=== PATIENT | male | born 1935 | race Caucasian/White ===

== ENCOUNTER 2018-05-01 01:00 | Inpatient (IN) | END 2018-05-13 18:25 | DRG 871 ==

== ENCOUNTER 2018-05-15 13:42 | Inpatient (IN) | END 2018-06-04 18:27 | DRG 871 ==

== ENCOUNTER 2019-01-01 14:52 | Inpatient (IN) | payer BC, MEDICARE ==
[~2019-01-01] VITALS: Ht 170.2 cm; Wt 57.8 kg
[~2019-01-01 14:52] MED LIST: ACET325T33 PO; ALBU2.5V3 NEB; APIX2.5T PO; ASCO500C7 PO; ASPI-903 PO; ATOR10TA65 PO; BENA10TA4 PO; CHOL200056 PO; CLON-429 PO; CRAN3875 PO; CRAN425C6 PO; DIGO125T PO; DOCU-144 PO; DONE5TAB46 PO; FURO40TA4 PO; LANT3I SC; LINA5TAB PO; METF500T24 PO; METO-448 PO; MULT-105 PO; OMEP20CA16 PO; QUET100T PO; TYL500 PO; VLP250480 PO
[2019-01-01] MEDS ORDERED: ZINC220T PO (16:49)
[2019-01-01] MEDS ORDERED: CLON-379 PO (16:53)
[2019-01-01] MEDS ORDERED: BISA10SU75 PR (16:54)
[2019-01-01] MEDS ORDERED: MINE133E23 PR (16:55)
[2019-01-01] MEDS ORDERED: FURO80TA3 PO (16:55)
[2019-01-01] MEDS ORDERED: LANS30CA PO (16:56)
[2019-01-01] MEDS ORDERED: MAGN400O19 PO (16:58)
[2019-01-01] MEDS ORDERED: VANCOMYCIN 1 GM (PMX) 250 ML IVPB ONE (17:30)
[2019-01-01] MEDS ORDERED: ONDANSETRON 4 MG INJ IV PRN (18:00)
[2019-01-01] MEDS ORDERED: ACETAMINOPHEN 325 MG TAB PO PRN (18:00)
[2019-01-01] MEDS ORDERED: BACITRACIN 0.9 GM OINT ONE (19:13)
--- NOTE | 2019-01-01 19:36 | ERD ---
ER Documentation Chief Complaint Chief Complaint jono reaves from [facility] for bilateral arterial foot ulcers wound HPI This is an 83-year-old male with a past medical history of hypertension, hyperlipidemia, diabetes, coronary artery disease, congestive heart failure, atrial fibrillation, Alzheimer's dementia, osteomyelitis with previous amputations from diabetic foot ulcers who is presenting from his [facility] facility with worsening bilateral lower extremity diabetic foot ulceration, failing outpatient management. History and physical is limited secondary to dementia. ROS Unable to obtain secondary to dementia. Medications Home Meds Reported Medications Magnesium Hydroxide* (Milk Of Magnesia*) 400 Mg/5 Ml Oral.susp, 30 ML PO QHS PRN for NEEDED, ML 01/01/19 Lansoprazole* (Lansoprazole*) 30 Mg Capsule.dr, 30 MG PO DAILY, CAP 01/01/19 Furosemide* (Furosemide*) 80 Mg Tablet, 80 MG PO DAILY, #30 TAB 01/01/19 Mineral Oil* (Fleet* Mineral Oil Enema) 133 Ml Oil, 1 APPLIC AK Q2D, ENEMA NEEDED 01/01/19 Bisacodyl* (Bisacodyl*) 10 Mg Supp, 10 MG AK DAILY PRN for NEEDED, SUPP 01/01/19 Clonidine Hcl* (Clonidine Hcl*) 0.1 Mg Tab, 0.1 MG PO Q8H PRN for IF SBP>160, TAB 01/01/19 Zinc Sulfate* (Zinc Sulfate*) 220 Mg Tablet, 220 MG PO DAILY, TAB 01/01/19 Ascorbic Acid* (Vitamin C*) 500 Mg Capsule.sa, 500 MG PO DAILY, CAP 10/10/18 Valproic Acid* (Valproic Acid* Liq) 250 Mg/5 Ml Syrup, 2.5 ML PO BID, ML 10/10/18 Cran/Vitc/Mannose/Inulin/Brom (Uti-Stat Liquid) 3,875 Mg/30 Ml Liquid, 30 ML PO DAILY 10/10/18 Acetaminophen* (Tylenol*) 500 Mg Tab, 1000 MG PO BID PRN for GENERALIZED PAIN, TAB 10/10/18 Acetaminophen* (Tylenol*) 500 Mg Tab, 1000 MG PO Q6H PRN for PAIN 4-6/10, TAB 10/10/18 Acetaminophen* (Tylenol*) 325 Mg Tablet, 650 MG PO Q6H PRN for MILD PAIN LEVEL 1-3, TAB 10/10/18 Linagliptin (TRADJENTA) 5 Mg Tablet, 5 MG PO DAILY, TAB 10/10/18 Quetiapine Fumarate* (Seroquel*) 100 Mg Tablet, 100 MG PO HS, #30 TAB 10/10/18 Multivitamin with Minerals (Multivitamins with Minerals) 1 Each Tablet, 1 EACH PO DAILY, TAB 10/10/18 Metoprolol Tartrate* (Lopressor*) 25 Mg Tab, 25 MG PO BID, #60 TAB HOLD FOR SBP [id number] OR HR BELOW60 10/10/18 Metformin Hcl* (Metformin Hcl*) 500 Mg Tablet, 500 MG PO WITH BREAKFAST DINNE, #60 TAB 10/10/18 Insulin Glargine* (Lantus*) 100 Unit/Ml Soln, 38 UNIT SC QHS, #1 VIAL 10/10/18 Clonazepam* (Klonopin*) 0.5 Mg Tab, 0.5 MG PO DAILY PRN for ANXIETY, TAB 10/10/18 Apixaban* (Eliquis*) 2.5 Mg Tablet, 2.5 MG PO BID, TAB 10/10/18 Digoxin* (Digitek*) 125 Mcg Tablet, 0.125 MG PO DAILY, TAB 10/10/18 Cranberry Extract (Cranberry) 425 Mg Capsule, 425 MG PO BID, CAP 10/10/18 Docusate Sodium* (Colace*) 100 Mg Capsule, 200 MG PO QHS PRN for CONSTIPATION, #30 CAP 10/10/18 Benazepril Hcl* (Benazepril Hcl*) 10 Mg Tablet, 10 MG PO DAILY, #30 TAB HOLD FOR SBP BELOW 110 OR BELOW60 10/10/18 Atorvastatin Calcium (Atorvastatin Calcium) 10 Mg Tablet, 10 MG PO QHS, #30 TAB 10/10/18 Donepezil* (Aricept*) 5 Mg Tablet, 5 MG PO QHS, TAB 10/10/18 Discontinued Reported Medications Cholecalciferol (Vitamin D3) (Vitamin D-3) 2,000 Unit Tablet, 2000 UNIT PO DAILY , TAB 10/10/18 Omeprazole* (Omeprazole*) 20 Mg Capsule.dr, 20 MG PO DAILY, #30 CAP 10/10/18 Furosemide* (Furosemide*) 40 Mg Tablet, 40 MG PO DAILY, TAB 10/10/18 Aspirin* (Aspirin* Chew) 81 Mg Tab.chew, 81 MG PO DAILY, TAB.CHEW 10/10/18 Albuterol Sulfate* (Albuterol Sulfate* Neb) 0.083%-3 Ml Neb, 2.5 MG NEB Q6H PRN for WHEEZING AND SOB, #30 VIAL 10/10/18 Allergies Allergies: Coded Allergies: Penicillins (Unverified Allergy, Unknown, 01/01/19) codeine (Unverified Allergy, Unknown, 01/01/19) morphine (Unverified Allergy, Unknown, 01/01/19) PMhx/Soc History of Surgery: Yes (right metatarsal amputation) Anesthesia Reaction: No Hx Neurological Disorder: Yes (Alzheimer's dementia) Hx Respiratory Disorders: No Hx Cardiac Disorders: Yes (Hypertension, hyperlipidemia, CHF, CAD, A. fib, diabetes) Hx Psychiatric Problems: No Hx Miscellaneous Medical Probl: Yes (Osteomyelitis) Hx Alcohol Use: No Hx Substance Use: No Hx Tobacco Use: No Smoking Status: Never smoker FmHx Family History: No diabetes Physical Exam Vitals Vital Signs Date Temp Pulse Resp B/P (MAP) Pulse Ox O2 O2 Flow FiO2 Time Delivery Rate 01/01/19 99.5 96 17 124/74 98 Room Air 16:17 (91) 01/01/19 98.7 93 19 129/60 100 14:55 (83) Physical Exam Const: No apparent distress, well-developed, well-nourished Head: Normocephalic, Atraumatic Eyes: Normal Conjunctiva. Extraocular movements intact. ENT: Normal External Ears, Nose and Mouth. Neck: Full range of motion. No meningismus. Resp: Clear to auscultation bilaterally, No wheezes, rales or rhonchi Cardio: Regular rate and rhythm. No murmurs, rubs or gallops Abd: Soft, non tender, non distended. Normal bowel sounds Skin: No petechiae or rashes Back: No midline tenderness. No CVA tenderness Ext: No cyanosis. Bilateral pedal edema and ulcers, previous amputation. Neur: Awake and alert, oriented 0. Cranial nerves intact. No facial droop. No obvious focal deficits. Result Diagram: 01/01/19 1517 01/01/19 1517 Results 24 hrs Laboratory Tests Test 01/01/19 15:17 White Blood Count 16.4 10^3/ul Red Blood Count 4.50 10^6/ul Hemoglobin 11.7 g/dl Hematocrit 36.9 % Mean Corpuscular Volume 82.0 fl Mean Corpuscular Hemoglobin 26.0 pg Mean Corpuscular Hemoglobin Concent 31.7 g/dl Red Cell Distribution Width 15.9 % Platelet Count 308 10^3/UL Mean Platelet Volume 10.8 fl Immature Granulocytes % 0.700 % Neutrophils % 81.0 % Lymphocytes % 10.8 % Monocytes % 6.9 % Eosinophils % 0.4 % Basophils % 0.2 % Nucleated Red Blood Cells % 0.0 /100WBC Immature Granulocytes # 0.120 10^3/ul Neutrophils # 13.3 10^3/ul Lymphocytes # 1.8 10^3/ul Monocytes # 1.1 10^3/ul Eosinophils # 0.1 10^3/ul Basophils # 0.0 10^3/ul Nucleated Red Blood Cells # 0.0 10^3/ul Erythrocyte Sedimentation Rate 65 mm/Hr Sodium Level 136 mmol/L Potassium Level 5.6 mmol/L Chloride Level 95 mmol/L Carbon Dioxide Level 31 mmol/L Anion Gap 10 Blood Urea Nitrogen 24 mg/dl Creatinine 0.78 mg/dl Est Glomerular Filtrat Rate mL/min mL/min Glucose Level 273 mg/dl Calcium Level 9.4 mg/dl C-Reactive Protein 20.2 mg/dl Current Medications Medications Dose Sig/Marciano Start Time Status Last (Trade) Ordered Route PRN Stop Time Admin Dose Reason Admin Vancomycin 250 ml @ ONCE ONCE 01/01/19 DC 01/01/19 HCl 125 mls/hr IVPB 17:30 17:53 01/01/19 19:29 Ondansetron 4 mg BRIDGE ORDER 01/01/19 HCl (Zofran PRN IV 18:00 Inj) NAUSEA/VOMITI 01/02/19 17:59 NG 650 mg ER BRIDGE 01/01/19 Acetaminophen PRN PO 18:00 (Tylenol .MILD PAIN 01/02/19 17:59 Tab) 1-3 OR TEMP Procedures/MDM MDM The patient's presentation warrants further investigation. Previous medical records, if available, were reviewed. LABS The patient's laboratory testing was obtained and reviewed. No emergent treatment was required unless described below. CBC: Leukocytosis with left shift, concerning for an infectious etiology. Normocytic anemia, not emergent. Normal platelet count. Chemistry: No E/o severe acidosis or alkalosis or renal failure. Mild hyperkalemia, not emergent. Elevated BUN with a BUN: Creatinine of greater than 20:1, concerning for dehydration. Hyperglycemia without DKA. ESR/CRP: Elevated IMAGING Imaging and Radiology interpretation reviewed. XR R Foot FINDINGS: BONES/JOINTS: Osteolysis of the distal fifth metatarsal, and the proximal phalanx of the fifth toe. Subluxation of the fifth metatarsophalangeal joint noted. Absence of the third and fourth toes with remnants of the proximal phalanges noted. The findings suggest postop change with superimposed osteolysis. Additional erosion of the head of the fourth metatarsal noted. Osseous structures of the mid foot appear intact. Degenerative joint changes are seen in the midfoot. No acute fracture. SOFT TISSUES: Severe soft tissue swelling. No abnormal air within the soft tissues. No radiopaque foreign body. IMPRESSION: Findings consistent with osteomyelitis are present in the lateral aspect of the distal forefoot, as detailed above. Electronically viewed and signed by Johnson Elizalde, Physician Senior Courtroom Clerk on 01/01/2019 16:34 XR L Foot Pending TREATMENT/DISPOSITION The patient presents with symptoms concerning for osteomyelitis it has been getting progressively worse in an outpatient setting. I do believe the patient is failed outpatient treatment and requires admission to the hospital for further assessment. Blood cultures were sent off and the patient was given a dose of vancomycin in the emergency department. The patient will require podiatry consultation in the hospital. The patient does have a leukocytosis, but he does not meet criteria for a systemic inflammatory response syndrome. The patient is not septic and does not require a full septic workup. ADMISSION At this time, I feel that the patient requires admission for further evaluation and management. The patient will be admitted to Dr. Anna in accordance with the patient's insurance. The patient was accepted at 1800 to [facility]. Disclaimer: Inadvertent spelling and grammatical errors are likely due to EHR/dictation software use and do not reflect on the overall quality of patient care. Note that the electronic time recorded on this note does not necessarily reflect the actual time of the patient encounter. Departure Diagnosis: Primary Impression: Diabetic foot ulcer with osteomyelitis Additional Impressions: Encounter for wound re-check Leukocytosis Leukocytosis type: unspecified Qualified Codes: D72.829 - Elevated white blood cell count, unspecified Normocytic anemia Elevated erythrocyte sedimentation rate Elevated C-reactive protein (CRP) Hyperkalemia Elevated BUN Hyperglycemia Failure of outpatient treatment Condition: Serious RICARDO NUNN MD Jan 01, 2019 19:36
[2019-01-01 20:00] VITALS: Ht 170.2 cm; Wt 57.8 kg
[2019-01-01 20:13] VITALS: BP 135/59; PULSE 107; RESP 18
[2019-01-01] MEDS ORDERED: MAGNESIUM HYDROXIDE 30ML CUP PO PRN (20:30)
[2019-01-01] MEDS ORDERED: VANCOMYCIN IV PER PHARMACY XX SCH (20:30)
[2019-01-01] MEDS ORDERED: DOCUSATE SODIUM 100 MG CAP PO PRN (20:30)
[2019-01-01] MEDS ORDERED: ACETAMINOPHEN 500 MG TAB PO PRN ×3 (20:30→21:30)
[2019-01-01] MEDS ORDERED: BISACODYL 10 MG SUPP PR PRN (20:30)
[2019-01-01] MEDS ORDERED: clonAZEPAM 0.5 MG TAB PO PRN (20:30)
[2019-01-01] MEDS ORDERED: ACCU-CHEK XX SCH (21:00)
[2019-01-01] MEDS ORDERED: GLUCAGON 1 MG INJ IM PRN (21:00)
[2019-01-01] MEDS ORDERED: GLUCOSE GEL 15 GRAM TUBE PO PRN ×2 (21:00)
[2019-01-01] MEDS ORDERED: DEXTROSE 50% 50 ML SYRINGE IV PRN (21:00)
[2019-01-01] MEDS: ACCU-CHEK XX SCH (21:00)
[2019-01-01] MEDS ORDERED: ACETAMINOPHEN 500 MG TAB PO SCH (21:00)
[2019-01-01] MEDS: METOPROLOL 25 MG TAB PO SCH (21:58)
[2019-01-01] MEDS: APIXABAN 5 MG TABLET PO SCH (22:00)
[2019-01-01] MEDS: VALPROIC ACID LIQUID CUP 250 MG/5 ML CUP PO SCH (22:00)
[2019-01-01] MEDS: DONEPEZIL 5 MG TAB PO SCH (22:01)
[2019-01-01] MEDS: QUETIAPINE 100 MG TAB PO SCH (22:01)
[2019-01-01] MEDS: ATORVASTATIN 10 MG TAB PO SCH (22:01)
[2019-01-01] MEDS: INSULIN ASPART [NOVOLOG] 3 ML PEN SC SCH (22:05)
[2019-01-01] MEDS: INSULIN GLARGINE [LANTus] (100 UNITS/ML) SYG SC SCH (22:06)
[2019-01-01] MEDS: MEROPENEM 1 GM/50ML(PMX) 50 ML IVPB SCH (22:18)
[2019-01-01] MEDS ORDERED: PENDING SANTYL ORDER FOR WOUND CARE XX PRN (23:00)
[2019-01-02] MEDS ORDERED: PIPER-TAZO 3.375 GM IV (PMX) 100 ML IVPB SCH
[2019-01-02] MEDS: ACCU-CHEK XX SCH ×5 (01:48→21:34)
[2019-01-02 01:57] VITALS: BP 139/61; PULSE 61; RESP 18
[2019-01-02] MEDS: MEROPENEM 1 GM/50ML(PMX) 50 ML IVPB SCH ×3 (06:05→22:30)
[2019-01-02] MEDS: VANCOMYCIN 750 MG (PMX) 250 ML IVPB SCH ×2 (06:34→17:32)
[2019-01-02 08:00] VITALS: BP 122/64; PULSE 82; RESP 18
[2019-01-02] MEDS: INSULIN ASPART [NOVOLOG] 3 ML PEN SC SCH ×4 (08:00→21:33)
[2019-01-02] MEDS: metFORMIN 500 MG TAB PO SCH ×2 (08:56→17:32)
[2019-01-02] MEDS: LINAGLIPTIN 5 MG TABLET PO SCH (08:56)
[2019-01-02] MEDS: ASCORBIC ACID 500 MG TAB PO SCH (08:56)
[2019-01-02] MEDS: FUROSEMIDE 40 MG TAB GTB SCH (08:57)
[2019-01-02] MEDS: APIXABAN 5 MG TABLET PO SCH ×2 (08:57→21:27)
[2019-01-02] MEDS: BENAZEPRIL 10 MG TAB PO SCH (08:57)
[2019-01-02] MEDS: METOPROLOL 25 MG TAB PO SCH ×2 (08:57→21:27)
[2019-01-02] MEDS: VALPROIC ACID LIQUID CUP 250 MG/5 ML CUP PO SCH ×2 (08:58→21:26)
[2019-01-02] MEDS: ACETAMINOPHEN 500 MG TAB PO SCH ×2 (08:58→21:28)
[2019-01-02] MEDS: ZINC SULFATE 220 MG CAP PO SCH (08:58)
[2019-01-02] MEDS: LANSOPRAZOLE 30 MG CAP PO SCH (08:58)
--- NOTE | 2019-01-02 10:52 | CONS ---
DATE OF ADMISSION: 01/01/2019 DATE OF CONSULTATION: 01/02/2019 REASON FOR CONSULTATION: Bilateral foot ulcerations. HISTORY OF PRESENT ILLNESS: This is an 83-year-old gentleman who was transferred from the [facility], has known peripheral vascular disease and prior admission for gangrene and palliative care had been recommended. Currently, the patient's history is limited due to dementia. The patien t has had prior angiography in October of this year and revealed severe long segment femoral poplite al occlusion, which were not amenable to endovascular interventions and was also deemed not a merlene te for open bypass procedure, had been recommended above knee amputation. PAST MEDICAL HISTORY: 1. Dementia. 2. Peripheral arterial disease. 3. Gangrene. 4. Diabetes. 5. Coronary artery disease. 6. History of coronary artery bypass graft. 7. History of cerebrovascular accident. 8. History of healthcare pneumonia. 9. Nonambulatory status. PAST SURGICAL HISTORY: History of third and fourth toe amputation to the right foot, history of lumb ar spine surgery, history of G-tube placement. MEDICATIONS: 1. Digoxin 0.125 mg daily. 2. Lotensin 10 mg p.o. daily. 3. Prevacid 30 mg p.o. daily. 4. Tradjenta 5 mg p.o. daily. 5. Lasix 40 mg p.o. daily. 6. Metformin 500 mg p.o. 7. Vancomycin and meropenem. 8. Eliquis 2.5 mg p.o. b.i.d. 9. Aricept 5 mg p.o. at bedtime. 10. Metoprolol 25 mg p.o. b.i.d. 11. Seroquel 100 mg p.o. at bedtime. 12. NovoLog. 13. Clonidine p.r.n. ALLERGIES: INCLUDE: 1. PENICILLIN. 2. CODEINE. 3. MORPHINE. FAMILY HISTORY: Unknown. SOCIAL HISTORY: Unknown. PHYSICAL EXAMINATION: VITAL SIGNS: Temperature 97.8, pulse is 82, respiratory rate is 18, blood pressure is 122/64, pulse oximetry is 96% on room air. GENERAL: The patient is awake, has dementia, unable to obtain history. The patient with no acute di stress. EXTREMITIES: Flexion contracture of the right knee, has a 2+ femoral pulse bilaterally. Popliteal p ulses, nonpalpable bilaterally, PT DP pulse nonpalpable bilaterally. There is hair present on the pr oximal leg, but atrophy, skin and subcutaneous bilateral lower extremity. No pedal hair. The patien t has right foot third, fourth toe amputation noted. There is gangrene at the level of the IPJ mycot ic nails bilaterally. No malodor. The gangrenous tissues are dry ulceration on the right lateral fo ot 4 x 0.3 cm and left ankle 0.7 x 0.9 cm. Foot x-rays, left foot limited. No acute fracture or dislocation noted. No plain evidence of osteom yelitis. Right foot findings consistent with osteomyelitis. The lateral aspect of the distal forefo ot, absence of the third and fourth toes, subluxation of the fifth toe, osteolysis of the distal fift h metatarsal. ASSESSMENT 1. Bilateral foot pressure sores. 2. Gangrene. 3. Osteomyelitis, right foot. 4. Severe peripheral arterial disease with a long segment femoral popliteal occlusion, not amenable to endovascular or open bypass. 5. Coronary artery disease. 6. Nonambulatory status. LABORATORY DATA: WBC 13.6, at admission was 16.4, hemoglobin 13.1, hematocrit 41.2, platelets 295. Sed. rate is 65. PLAN: History and physical performed. The patient is a poor historian, reviewed diagnostic studies and labs and there is radiographic evidence of osteomyelitis, gangrene remains dry, limited amputatio n of the toe likely to be unsuccessful given peripheral arterial disease. We would consider palliati ve care. The patient has a flexion contracture and muscle atrophy of the right lower extremity, may not be a candidate for below knee amputation, had been recommended above knee amputation in the past. Current treatment is with Betadine and the patient appears to be responding to current IV antibioti cs, currently the patient would benefit from offloading measures, nursing instructions are provided. Dictated By: MICHAEL HARRIS/NIRU Conf#: [id number] DID#: [id number] CC: HOMERO LANGLEY; GIDEON SMALLWOOD MD;*EndCC*
--- NOTE | 2019-01-02 11:10 | HP ---
Date/Time of Note Date/Time of Note DATE: 01/02/19 TIME: 10:59 Assessment/Plan VTE [place]axis [place] [facility] [place]: 7 [place]CD [place] [facility] [place] SCD contraindicated: bilateral LE trauma Pharmacological prophylaxis: apixaban Lines/Catheters IV [facility]ter Type [facility]from [facility] [place] [facility] Urinary Cath still in place: No Assessment/Plan Assessment/Plan -Possible sepsis secondary to right foot necrotic wounds. Will obtain urine and blood cultures. Continue IV fluids and broad-spectrum antibiotics. Dr. Blake is asked to see pt in infection disease consultation. -Bilateral diabetic foot ulcers, right foot necrotic wounds. Dr. Brannon is asked to see patient in podiatry consultation. -Hx Right foot wounds with possible osteomyelitis. -Peripheral vascular disease. Patient underwent angiogram during last admission which revealed severe infrainguinal disease that is not amenable to any endovascular intervention. Patient was evaluated by Dr. Roca during last admission, vascular surgery with recommendation for amputation however patient's refused. -Diabetes mellitus type 2 continue Lantus and NovoLog. -Coronary artery disease, status post CABG. Continue Plavix. -Atrial fibrillation, continue Eliquis and metoprolol. -Dysphagia with G-tube. 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 -Wheelchair bound status Further recommendations based on clinical course. Plan of care discussed with Dr. Anna. Result Diagram: 01/02/19 0705 01/02/19 0705 Results 24hrs Laboratory Tests Test 01/01/19 15:17 01/01/19 22:03 01/02/19 01:47 01/02/19 07:05 White Blood Count 16.4 #H 13.6 H Red Blood Count 4.50 L 5.05 Hemoglobin 11.7 L 13.1 L Hematocrit 36.9 L 41.2 L Mean Corpuscular 82.0 81.6 L Volume Mean Corpuscular 26.0 L 25.9 L Hemoglobin Mean Corpuscular 31.7 L 31.8 L Hemoglobin Concent Red Cell 15.9 H 16.1 H Distribution Width Platelet Count 308 295 Mean Platelet Volume 10.8 H 10.7 H Immature 0.700 H 0.400 Granulocytes % Neutrophils % 81.0 H 70.9 Lymphocytes % 10.8 L 18.1 Monocytes % 6.9 8.8 Eosinophils % 0.4 1.5 Basophils % 0.2 0.3 Nucleated Red Blood 0.0 0.0 Cells % Immature 0.120 H 0.060 H Granulocytes # Neutrophils # 13.3 H 9.6 H Lymphocytes # 1.8 2.5 Monocytes # 1.1 H 1.2 H Eosinophils # 0.1 0.2 Basophils # 0.0 0.0 Nucleated Red Blood 0.0 0.0 Cells # Erythrocyte 65 H Sedimentation Rate Sodium Level 136 139 Potassium Level 5.6 H 4.8 Chloride Level 95 L 102 Carbon Dioxide Level 31 31 Anion Gap 10 6 Blood Urea Nitrogen 24 H 18 Creatinine 0.78 0.55 L Est Glomerular Filtrat Rate mL/min Glucose Level 273 H 147 # Hemoglobin A1c 7.4 H Calcium Level 9.4 9.9 C-Reactive Protein 20.2 H Bedside Glucose 186 144 Total Bilirubin 0.5 Direct Bilirubin 0.00 Indirect Bilirubin 0.5 Aspartate Amino 36 Transf (AST/SGOT) Alanine 19 Aminotransferase (AL T/SGPT) Alkaline Phosphatase 211 H Total Protein 7.7 Albumin 3.8 Globulin 3.90 H Albumin/Globulin 0.97 Ratio Test 01/02/19 08:54 Bedside Glucose 118 HPI/ROS Admit Date/Time Admit Date/Time Jan 01, 2019 at 18:01 Hx of Present Illness The patient is a 83-year-old gentleman with multiple medical problems including coronary artery disease status post CABG, atrial fibrillation, Alzheimer's dementia, dysphagia with G-tube, history of intracranial bleed, diabetes, peripheral vascular disease, diabetic foot ulcers status post right third and fourth finger amputation, hypertension, and hyperlipidemia. Patient underwent treatment for a right foot wounds with osteomyelitis with vancomycin and Rocep hin completed on on November 21. Patient is wheelchair-bound and lives at [facility]. Patient was sent to [facility] for worsening of the right foot wounds. Patient found to have leukocytosis, low-grade fever, elevated ESR. Patient is lethargic but easily arousable. Patient cannot provide any history and most of the history was obtained from medical records and talking to nursing staff. ROS 12 point review of system is negative except what mentioned in HPI PMH/Family/Social Past Medical History Per HPI Medications Current Medications Acetaminophen (Tylenol Tab) 1,000 mg Q6H PRN PO PAIN 4-610; Start 01/01/19 at 20:30 Apixaban (Eliquis) 2.5 mg BID PO Last administered on 01/02/19 08:57; Admin Dose 2.5 MG; Start 01/01/19 at 21:00 Ascorbic Acid (Vitamin C) 500 mg DAILY PO Last administered on 01/02/19 08:56; Admin Dose 500 MG; Start 01/02/19 at 09:00 Atorvastatin Calcium (Lipitor) 10 mg QHS PO Last administered on 01/01/19at 22:01; Admin Dose 10 MG; Start 01/01/19 at 21:00 Benazepril HCl (Lotensin) 10 mg DAILY PO Last administered on 01/02/19 08:57; Admin Dose 10 MG; Start 01/02/19 at 09:00 Bisacodyl (Dulcolax Supp) 10 mg DAILY PRN MS NEEDED; Start 01/01/19 at 20:30 Clonazepam (Klonopin) 0.5 mg DAILY PRN PO ANXIETY; Start 01/01/19 at 20:30 Clonidine (Catapres) 0.1 mg Q8H PRN PO IF SBP>160; Start 01/01/19 at 20:30 Digoxin (Digoxin) 0.125 mg DAILY@1300 PO ; Start 01/02/19 at 13:00 Docusate Sodium (Colace) 200 mg QHS PRN PO CONSTIPATION; Start 01/01/19 at 20:30 Donepezil HCl (Aricept) 5 mg QHS PO Last administered on 01/01/19at 22:01; Admin Dose 5 MG; Start 01/01/19 at 21:00 Insulin Glargine (Lantus) 38 units QHS SC Last administered on 01/01/19at 22:06; Admin Dose 38 UNITS; Start 01/01/19 at 21:00 Lansoprazole (Prevacid) 30 mg DAILY PO Last administered on 01/02/19at 08:58; Admin Dose 30 MG; Start 01/02/19 at 09:00 Linagliptin (Tradjenta) 5 mg DAILY PO Last administered on 01/02/19at 08:56; Admin Dose 5 MG; Start 01/02/19 at 09:00 Magnesium Hydroxide (Milk Of Mag) 30 ml QHS PRN PO CONSTIPATION; Start 01/01/19 at 20:30 Metformin HCl (Glucophage) 500 mg WITH BREAKFAST DINNE PO Last administered on 01/02/19at 08:56; Admin Dose 500 MG; Start 01/02/19 at 08:00 Metoprolol Tartrate (Lopressor) 25 mg BID PO Last administered on 01/02/19at 08:57; Admin Dose 25 MG; Start 01/01/19 at 21:00 Quetiapine Fumarate (Seroquel) 100 mg HS PO Last administered on 01/01/19at 22:01; Admin Dose 100 MG; Start 01/01/19 at 21:00 Valproate Sodium (Depakene Liquid Cup) 125 mg BID PO Last administered on 01/02/19at 08:58; Admin Dose 125 MG; Start 01/01/19 at 21:00 Zinc Sulfate (Zinc Sulfate) 220 mg DAILY PO Last administered on 01/02/19at 0 8:58; Admin Dose 220 MG; Start 01/02/19 at 09:00 Diagnostic Test (Pha) (Accu-Chek) 1 ea AC MEALS AND BEDTIME XX ; Start 01/01/19 at 21:00 Vancomycin HCl (Vanco Iv Per Pharmacy) VANCOMYCIN PER PHARMACY PER PROTOCOL XX ; Start 01/01/19 at 20:30 Furosemide (Lasix) 40 mg DAILY GTB Last administered on 01/02/19at 08:57; Admin Dose 40 MG; Start 01/02/19 at 09:00 Diagnostic Test (Pha) (Accu-Chek) 1 ea 02 XX ; Start 01/02/19 at 02:00 Insulin Aspart (Novolog Insulin Pen) NOVOLOG *MODERATE* ALGORITHM WITH MEALS BEDTIME SC Last administered on 01/01/19at 22:05; Admin Dose 1 UNIT; Start 01/01/19 at 21:00 Miscellaneous Information 1 ea NOTE XX ; Start 01/01/19 at 21:00 Glucose (Glutose) 15 gm Q15M PRN PO DECREASED GLUCOSE; Start 01/01/19 at 21:00 Glucose (Glutose) 22.5 gm Q15M PRN PO DECREASED GLUCOSE; Start 01/01/19 at 21:00 Dextrose (D50w Syringe) 25 ml Q15M PRN IV DECREASED GLUCOSE; Start 01/01/19 at 21:00 Dextrose (D50w Syringe) 50 ml Q15M PRN IV DECREASED GLUCOSE; Start 01/01/19 at 21:00 Glucagon (Glucagen) 1 mg Q15M PRN IM DECREASED GLUCOSE; Start 01/01/19 at 21:00 Glucose (Glutose) 15 gm Q15M PRN BUCCAL DECREASED GLUCOSE; Start 01/01/19 at 21:00 Acetaminophen (Tylenol Tab) 500 mg Q6H PRN PO MILD PAIN(1-3)OR ELEVATED TEMP; Start 01/01/19 at 21:30 Acetaminophen (Tylenol Tab) 500 mg BID PO Last administered on 01/02/19at 08:58; Admin Dose 500 MG; Start 01/02/19 at 09:00 Meropenem/Sodium Chloride 50 ml @ 100 mls/hr Q8 IVPB Last administered on 01/02/19at 06:05; Admin Dose 100 MLS/HR; Start 01/01/19 at 22:00 Vancomycin/Sodium Chloride 250 ml @ 125 mls/hr Q12H IVPB Last administered on 01/02/19at 06:34; Admin Dose 125 MLS/HR; Start 01/02/19 at 06:00 [facility]isc[facility] This patient henry... PRN PRN XX WOUND CARE; Start 01/01/19 at 23:00 Povidone Iodine (Povidone-Iodine) 1 applic DAILY TOP ; Start 01/03/19 at 09:00 Coded Allergies: Penicillins (Unverified Allergy, Unknown, 01/01/19) codeine (Unverified Allergy, Unknown, 01/01/19) morphine (Unverified Allergy, Unknown, 01/01/19) Past Surgical History Past Surgical Hx: other (Status post CABG, status post lumbar spine surgery, status post G-tube placement, status post right second and third toe amputation, that is post surgery for intracranial bleed, details are not available) Family History Significant Family History: no pertinent family hx Social History Patient is a [facility] resident Alcohol Use: none Smoking Status: Former smoker Drug Use: none Exam/Review of Systems Vital Signs Vitals Vital Signs Date Temp Pulse Resp B/P (MAP) Pulse Ox O2 O2 Flow FiO2 Time Delivery Rate 01/02/19 97.8 82 18 122/64 96 08:00 (83) 01/01/19 Nasal 3.0 18:45 Cannula Intake and Output 01/01/19 01/01/19 01/02/19 1515:00 23:00 07:00 IntakeIntake Total 300 ml 50 ml BalanceBalance 300 ml 50 ml Exam Constitutional: alert, frail Neck: supple Respiratory: diminished breath sounds Cardiovascular: irregular rhythm Gastrointestinal: soft, non-tender Musculoskeletal: nl extremities to inspection Extremities: normal pulses Neurological: confused, lethargic Skin: other (Right foot necrotic wounds status post right foot third and fourth metatarsal amputation, left heel wound) TYE ADAMS Jan 02, 2019 11:10
[2019-01-02] MEDS: DIGOXIN 0.125 MG TAB PO SCH (12:31)
[2019-01-02 14:00] VITALS: BP 136/56; PULSE 76; RESP 18
--- NOTE | 2019-01-02 18:29 | CONS ---
Consultation Date/Type/Reason Admit Date/Time Jan 01, 2019 at 18:01 Initial Consult Date Date/Time of Note DATE: 01/02/19 TIME: 18:29 Exam/Review of Systems Exam Vitals Vital Signs Date Temp Pulse Resp B/P (MAP) Pulse Ox O2 O2 Flow FiO2 Time Delivery Rate 01/02/19 98.6 76 18 136/56 94 14:00 (82) 01/01/19 Nasal 3.0 18:45 Cannula Intake and Output 01/01/19 01/01/19 01/02/19 1414:59 22:59 06:59 IntakeIntake Total 300 ml 50 ml BalanceBalance 300 ml 50 ml Results Result Diagram: 01/02/19 0705 01/02/19 0705 Results 24hrs Laboratory Tests Test 01/01/19 22:03 01/02/19 01:47 01/02/19 07:05 01/02/19 08:54 Bedside Glucose 186 144 118 White Blood Count 13.6 H Red Blood Count 5.05 Hemoglobin 13.1 L Hematocrit 41.2 L Mean Corpuscular 81.6 L Volume Mean Corpuscular 25.9 L Hemoglobin Mean Corpuscular 31.8 L Hemoglobin Concent Red Cell 16.1 H Distribution Width Platelet Count 295 Mean Platelet Volume 10.7 H Immature 0.400 Granulocytes % Neutrophils % 70.9 Lymphocytes % 18.1 Monocytes % 8.8 Eosinophils % 1.5 Basophils % 0.3 Nucleated Red Blood 0.0 Cells % Immature 0.060 H Granulocytes # Neutrophils # 9.6 H Lymphocytes # 2.5 Monocytes # 1.2 H Eosinophils # 0.2 Basophils # 0.0 Nucleated Red Blood 0.0 Cells # Sodium Level 139 Potassium Level 4.8 Chloride Level 102 Carbon Dioxide Level 31 Anion Gap 6 Blood Urea Nitrogen 18 Creatinine 0.55 L Est Glomerular Filtrat Rate mL/min Glucose Level 147 # Calcium Level 9.9 Total Bilirubin 0.5 Direct Bilirubin 0.00 Indirect Bilirubin 0.5 Aspartate Amino 36 Transf (AST/SGOT) Alanine 19 Aminotransferase (AL T/SGPT) Alkaline Phosphatase 211 H Total Protein 7.7 Albumin 3.8 Globulin 3.90 H Albumin/Globulin 0.97 Ratio Test 01/02/19 11:56 01/02/19 17:29 Bedside Glucose 157 195 Medications Medication Current Medications Acetaminophen (Tylenol Tab) 1,000 mg Q6H PRN PO PAIN 4-610; Start 01/01/19 at 20:30 Apixaban (Eliquis) 2.5 mg BID PO Last administered on 01/02/19 08:57; Admin Dose 2.5 MG; Start 01/01/19 at 21:00 Ascorbic Acid (Vitamin C) 500 mg DAILY PO Last administered on 01/02/19 08:56; Admin Dose 500 MG; Start 01/02/19 at 09:00 Atorvastatin Calcium (Lipitor) 10 mg QHS PO Last administered on 01/01/19 22:01; Admin Dose 10 MG; Start 01/01/19 at 21:00 Benazepril HCl (Lotensin) 10 mg DAILY PO Last administered on 01/02/19 08:57; Admin Dose 10 MG; Start 01/02/19 at 09:00 Bisacodyl (Dulcolax Supp) 10 mg DAILY PRN LA NEEDED; Start 01/01/19 at 20:30 Clonazepam (Klonopin) 0.5 mg DAILY PRN PO ANXIETY; Start 01/01/19 at 20:30 Clonidine (Catapres) 0.1 mg Q8H PRN PO IF SBP>160; Start 01/01/19 at 20:30 Digoxin (Digoxin) 0.125 mg DAILY@1300 PO Last administered on 01/02/19 12:31; Admin Dose 0.125 MG; Start 01/02/19 at 13:00 Docusate Sodium (Colace) 200 mg QHS PRN PO CONSTIPATION; Start 01/01/19 at 2 0:30 Donepezil HCl (Aricept) 5 mg QHS PO Last administered on 01/01/19 22:01; Admin Dose 5 MG; Start 01/01/19 at 21:00 Insulin Glargine (Lantus) 38 units QHS SC Last administered on 01/01/19 22:06; Admin Dose 38 UNITS; Start 01/01/19 at 21:00 Lansoprazole (Prevacid) 30 mg DAILY PO Last administered on 01/02/19 08:58; Admin Dose 30 MG; Start 01/02/19 at 09:00 Linagliptin (Tradjenta) 5 mg DAILY PO Last administered on 01/02/19 08:56; Admin Dose 5 MG; Start 01/02/19 at 09:00 Magnesium Hydroxide (Milk Of Mag) 30 ml QHS PRN PO CONSTIPATION; Start 01/01/19 at 20:30 Metformin HCl (Glucophage) 500 mg WITH BREAKFAST DINNE PO Last administered on 01/02/19at 17:32; Admin Dose 500 MG; Start 01/02/19 at 08:00 Metoprolol Tartrate (Lopressor) 25 mg BID PO Last administered on 01/02/19at 08:57; Admin Dose 25 MG; Start 01/01/19 at 21:00 Quetiapine Fumarate (Seroquel) 100 mg HS PO Last administered on 01/01/19at 22:01; Admin Dose 100 MG; Start 01/01/19 at 21:00 Valproate Sodium (Depakene Liquid Cup) 125 mg BID PO Last administered on 01/02/19at 08:58; Admin Dose 125 MG; Start 01/01/19 at 21:00 Zinc Sulfate (Zinc Sulfate) 220 mg DAILY PO Last administered on 01/02/19at 08:58; Admin Dose 220 MG; Start 01/02/19 at 09:00 Diagnostic Test (Pha) (Accu-Chek) 1 ea AC MEALS AND BEDTIME XX ; Start 01/01/19 at 21:00 Vancomycin HCl (Vanco Iv Per Pharmacy) VANCOMYCIN PER PHARMACY PER PROTOCOL XX ; Start 01/01/19 at 20:30 Furosemide (Lasix) 40 mg DAILY GTB Last administered on 01/02/19at 08:57; Admin Dose 40 MG; Start 01/02/19 at 09:00 Diagnostic Test (Pha) (Accu-Chek) 1 ea 02 XX ; Start 01/02/19 at 02:00 Insulin Aspart (Novolog Insulin Pen) NOVOLOG *MODERATE* ALGORITHM WITH MEALS BEDTIME SC Last administered on 01/02/19at 17:31; Admin Dose 4 UNIT; Start 01/01/19 at 21:00 Miscellaneous Information 1 ea NOTE XX ; Start 01/01/19 at 21:00 Glucose (Glutose) 15 gm Q15M PRN PO DECREASED GLUCOSE; Start 01/01/19 at 21:00 Glucose (Glutose) 22.5 gm Q15M PRN PO DECREASED GLUCOSE; Start 01/01/19 at 21:00 Dextrose (D50w Syringe) 25 ml Q15M PRN IV DECREASED GLUCOSE; Start 01/01/19 at 21:00 Dextrose (D50w Syringe) 50 ml Q15M PRN IV DECREASED GLUCOSE; Start 01/01/19 at 21:00 Glucagon (Glucagen) 1 mg Q15M PRN IM DECREASED GLUCOSE; Start 01/01/19 at 21:00 Glucose (Glutose) 15 gm Q15M PRN BUCCAL DECREASED GLUCOSE; Start 01/01/19 at 21:00 Acetaminophen (Tylenol Tab) 500 mg Q6H PRN PO MILD PAIN(1-3)OR ELEVATED TEMP; Start 01/01/19 at 21:30 Acetaminophen (Tylenol Tab) 500 mg BID PO Last administered on 01/02/19at 08:58; Admin Dose 500 MG; Start 01/02/19 at 09:00 Meropenem/Sodium Chloride 50 ml @ 100 mls/hr Q8 IVPB Last administered on 01/02/19at 14:35; Admin Dose 100 MLS/HR; Start 01/01/19 at 22:00 Vancomycin/Sodium Chloride 250 ml @ 125 mls/hr Q12H IVPB Last administered on 01/02/19at 17:32; Admin Dose 125 MLS/HR; Start 01/02/19 at 06:00 Miscellaneous Information (Pending Santyl Order For Wound Care) This patient henry... PRN PRN XX WOUND CARE; Start 01/01/19 at 23:00 Povidone Iodine (Povidone-Iodine) 1 applic DAILY TOP ; Start 01/03/19 at 09:00 Miscellaneous Information (*Rx Drug Level Order Reminder*) 1 0500 ONCE XX ; Start 01/03/19 at 05:00; Stop 01/03/19 at 05:01 JOSE LEONARDO MD Jan 02, 2019 18:29
--- NOTE | 2019-01-02 18:48 | CONS ---
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 Soft tissue ulceration along the posterior lateral aspect of L midfoot and hindfoot; no e/o bone destructive process. MRI of R foot on 10/12/2018 was limited exam d/t motion artifact (only 1 sequence was able to be obtained) but showed suggestion of osteomyelitis within the 5th metatarsal head and base of 5th proximal phalanx at the metatarsophalangeal joint. - Diabetic foot infection/unhealing wound: wound culture of L foot grew MRSA and corynebacter JK, wound culture of R foot grew proteus, enterococci and corynebacter JK - S/p bedside debridement on 10/11/2018 - PVD - US arterial b/l LE on 10/10/2018 showed severe peripheral vascular disease with occlusion of b/l superficial femoral and popliteal arteries, severe stenosis or occlusion of b/l posterior tibial and dorsalis pedis arteries. 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 - PCN allergy; Has tolerated cefepime previously per EMR at [facility], tolerates ceftriaxone too, he has previously tolerated Merrem as well Recommendations: - wound cxs - vssc eval; consider amputations if aggressive care desired - goals of care - reinitiate vancomycin, ceftriaxone, and metronidazole - He will likely need a prolonged course of abx - we can follow him here or in intermediate if family/patient continue to desire aggressive abx care - weekly CBC BMP and ESR while Pt's on IV antibiotics Consultation Date/Type/Reason Admit Date/Time Jan 01, 2019 at 18:01 Date of Consultation: Jan 02, 2019 Type of Consult ID Reason for Consultation [id number] RECS Requesting Provider: TYE ADAMS Date/Time of Note DATE: 01/02/19 TIME: 18:38 Hx of Present Illness 83 yo male with hx of intracranial bleed, cad, cabg, htn, afib, hyperlipidemia,dm, djd, pvd and numerous chronic medical conditions who was seen here in September of 2018, He was treated for probable OM of bilateral feet. He completed a course of vanco/CTX/Flagyl He has previously been advised that revascularization is not feasible. He resides in a nursing facility. He was noted to have worsening pain and discharge from his right foot as well as worsening AMS. unable to provide Past Medical History Home Meds Reported Medications Magnesium Hydroxide* (Milk Of Magnesia*) 400 Mg/5 Ml Oral.susp, 30 ML PO QHS PRN for NEEDED, ML 01/01/19 Lansoprazole* (Lansoprazole*) 30 Mg Capsule.dr, 30 MG PO DAILY, CAP 01/01/19 Furosemide* (Furosemide*) 80 Mg Tablet, 80 MG PO DAILY, #30 TAB 01/01/19 Mineral Oil* (Fleet* Mineral Oil Enema) 133 Ml Oil, 1 APPLIC IN Q2D, ENEMA NEEDED 01/01/19 Bisacodyl* (Bisacodyl*) 10 Mg Supp, 10 MG IN DAILY PRN for NEEDED, SUPP 01/01/19 Clonidine Hcl* (Clonidine Hcl*) 0.1 Mg Tab, 0.1 MG PO Q8H PRN for IF SBP>160, TAB 01/01/19 Zinc Sulfate* (Zinc Sulfate*) 220 Mg Tablet, 220 MG PO DAILY, TAB 01/01/19 Ascorbic Acid* (Vitamin C*) 500 Mg Capsule.sa, 500 MG PO DAILY, CAP 10/10/18 Valproic Acid* (Valproic Acid* Liq) 250 Mg/5 Ml Syrup, 2.5 ML PO BID, ML 10/10/18 Cran/Vitc/Mannose/Inulin/Brom (Uti-Stat Liquid) 3,875 Mg/30 Ml Liquid, 30 ML PO DAILY 10/10/18 Acetaminophen* (Tylenol*) 500 Mg Tab, 1000 MG PO BID PRN for GENERALIZED PAIN, TAB 10/10/18 Acetaminophen* (Tylenol*) 500 Mg Tab, 1000 MG PO Q6H PRN for PAIN 4-610, TAB 10/10/18 Acetaminophen* (Tylenol*) 325 Mg Tablet, 650 MG PO Q6H PRN for MILD PAIN LEVEL 1-3, TAB 10/10/18 Linagliptin (TRADJENTA) 5 Mg Tablet, 5 MG PO DAILY, TAB 10/10/18 Quetiapine Fumarate* (Seroquel*) 100 Mg Tablet, 100 MG PO HS, #30 TAB 10/10/18 Multivitamin with Minerals (Multivitamins with Minerals) 1 Each Tablet, 1 EACH PO DAILY, TAB 10/10/18 Metoprolol Tartrate* (Lopressor*) 25 Mg Tab, 25 MG PO BID, #60 TAB HOLD FOR SBP [id number] OR HR BELOW60 10/10/18 Metformin Hcl* (Metformin Hcl*) 500 Mg Tablet, 500 MG PO WITH BREAKFAST DINNE, #60 TAB 10/10/18 Insulin Glargine* (Lantus*) 100 Unit/Ml Soln, 38 UNIT SC QHS, #1 VIAL 10/10/18 Clonazepam* (Klonopin*) 0.5 Mg Tab, 0.5 MG PO DAILY PRN for ANXIETY, TAB 10/10/18 Apixaban* (Eliquis*) 2.5 Mg Tablet, 2.5 MG PO BID, TAB 10/10/18 Digoxin* (Digitek*) 125 Mcg Tablet, 0.125 MG PO DAILY, TAB 10/10/18 Cranberry Extract (Cranberry) 425 Mg Capsule, 425 MG PO BID, CAP 10/10/18 Docusate Sodium* (Colace*) 100 Mg Capsule, 200 MG PO QHS PRN for CONSTIPATION, #30 CAP 10/10/18 Benazepril Hcl* (Benazepril Hcl*) 10 Mg Tablet, 10 MG PO DAILY, #30 TAB HOLD FOR SBP BELOW 110 OR BELOW60 10/10/18 Atorvastatin Calcium (Atorvastatin Calcium) 10 Mg Tablet, 10 MG PO QHS, #30 TAB 10/10/18 Donepezil* (Aricept*) 5 Mg Tablet, 5 MG PO QHS, TAB 10/10/18 Discontinued Reported Medications Cholecalciferol (Vitamin D3) (Vitamin D-3) 2,000 Unit Tablet, 2000 UNIT PO DAILY, TAB 10/10/18 Omeprazole* (Omeprazole*) 20 Mg Capsule.dr, 20 MG PO DAILY, #30 CAP 10/10/18 Furosemide* (Furosemide*) 40 Mg Tablet, 40 MG PO DAILY, TAB 10/10/18 Aspirin* (Aspirin* Chew) 81 Mg Tab.chew, 81 MG PO DAILY, TAB.CHEW 10/10/18 Albuterol Sulfate* (Albuterol Sulfate* Neb) 0.083%-3 Ml Neb, 2.5 MG NEB Q6H PRN for WHEEZING AND SOB, #30 VIAL 10/10/18 Medications Current Medications Acetaminophen (Tylenol Tab) 1,000 mg Q6H PRN PO PAIN 4-6; Start 01/01/19 at 20:30 Apixaban (Eliquis) 2.5 mg BID PO Last administered on 01/02/19at 08:57; Admin Dose 2.5 MG; Start 01/01/19 at 21:00 Ascorbic Acid (Vitamin C) 500 mg DAILY PO Last administered on 01/02/19at 08:56; Admin Dose 500 MG; Start 01/02/19 at 09:00 Atorvastatin Calcium (Lipitor) 10 mg QHS PO Last administered on 01/01/19at 22:01; Admin Dose 10 MG; Start 01/01/19 at 21:00 Benazepril HCl (Lotensin) 10 mg DAILY PO Last administered on 01/02/19at 08:57; Admin Dose 10 MG; Start 01/02/19 at 09:00 Bisacodyl (Dulcolax Supp) 10 mg DAILY PRN IN NEEDED; Start 01/01/19 at 20:30 Clonazepam (Klonopin) 0.5 mg DAILY PRN PO ANXIETY; Start 01/01/19 at 20:30 Clonidine (Catapres) 0.1 mg Q8H PRN PO IF SBP>160; Start 01/01/19 at 20:30 Digoxin (Digoxin) 0.125 mg DAILY@1300 PO Last administered on 01/02/19at 12:31; Admin Dose 0.125 MG; Start 01/02/19 at 13:00 Docusate Sodium (Colace) 200 mg QHS PRN PO CONSTIPATION; Start 01/01/19 at 20:30 Donepezil HCl (Aricept) 5 mg QHS PO Last administered on 01/01/19at 22:01; Admin Dose 5 MG; Start 01/01/19 at 21:00 Insulin Glargine (Lantus) 38 units QHS SC Last administered on 01/01/19 22:06; Admin Dose 38 UNITS; Start 01/01/19 at 21:00 Lansoprazole (Prevacid) 30 mg DAILY PO Last administered on 01/02/19 08:58; Admin Dose 30 MG; Start 01/02/19 at 09:00 Linagliptin (Tradjenta) 5 mg DAILY PO Last administered on 01/02/19 08:56; Admin Dose 5 MG; Start 01/02/19 at 09:00 Magnesium Hydroxide (Milk Of Mag) 30 ml QHS PRN PO CONSTIPATION; Start 01/01/19 at 20:30 Metformin HCl (Glucophage) 500 mg WITH BREAKFAST DINNE PO Last administered on 01/02/19 17:32; Admin Dose 500 MG; Start 01/02/19 at 08:00 Metoprolol Tartrate (Lopressor) 25 mg BID PO Last administered on 01/02/19 08:57; Admin Dose 25 MG; Start 01/01/19 at 21:00 Quetiapine Fumarate (Seroquel) 100 mg HS PO Last administered on 01/01/19 22:01; Admin Dose 100 MG; Start 01/01/19 at 21:00 Valproate Sodium (Depakene Liquid Cup) 125 mg BID PO Last administered on 01/02/19 08:58; Admin Dose 125 MG; Start 01/01/19 at 21:00 Zinc Sulfate (Zinc Sulfate) 220 mg DAILY PO Last administered on 01/02/19 08:58; Admin Dose 220 MG; Start 01/02/19 at 09:00 Diagnostic Test (Pha) (Accu-Chek) 1 ea AC MEALS AND BEDTIME XX ; Start 01/01/19 at 21:00 Vancomycin HCl (Vanco Iv Per Pharmacy) VANCOMYCIN PER PHARMACY PER PROTOCOL XX ; Start 01/01/19 at 20:30 Furosemide (Lasix) 40 mg DAILY GTB Last administered on 01/02/19 08:57; Admin Dose 40 MG; Start 01/02/19 at 09:00 Diagnostic Test (Pha) (Accu-Chek) 1 ea 02 XX ; Start 01/02/19 at 02:00 Insulin Aspart (Novolog Insulin Pen) NOVOLOG *MODERATE* ALGORITHM WITH MEALS BEDTIME SC Last administered on 01/02/19at 17:31; Admin Dose 4 UNIT; Start 01/01/19 at 21:00 Miscellaneous Information 1 ea NOTE XX ; Start 01/01/19 at 21:00 Glucose (Glutose) 15 gm Q15M PRN PO DECREASED GLUCOSE; Start 01/01/19 at 21:00 Glucose (Glutose) 22.5 gm Q15M PRN PO DECREASED GLUCOSE; Start 01/01/19 at 21:00 Dextrose (D50w Syringe) 25 ml Q15M PRN IV DECREASED GLUCOSE; Start 01/01/19 at 21:00 Dextrose (D50w Syringe) 50 ml Q15M PRN IV DECREASED GLUCOSE; Start 01/01/19 at 21:00 Glucagon (Glucagen) 1 mg Q15M PRN IM DECREASED GLUCOSE; Start 01/01/19 at 21:00 Glucose (Glutose) 15 gm Q15M PRN BUCCAL DECREASED GLUCOSE; Start 01/01/19 at 21:00 Acetaminophen (Tylenol Tab) 500 mg Q6H PRN PO MILD PAIN(1-3)OR ELEVATED TEMP; Start 01/01/19 at 21:30 Acetaminophen (Tylenol Tab) 500 mg BID PO Last administered on 01/02/19at 08:58; Admin Dose 500 MG; Start 01/02/19 at 09:00 Meropenem/Sodium Chloride 50 ml @ 100 mls/hr Q8 IVPB Last administered on 01/02/19at 14:35; Admin Dose 100 MLS/HR; Start 01/01/19 at 22:00 Vancomycin/Sodium Chloride 250 ml @ 125 mls/hr Q12H IVPB Last administered on 01/02/19at 17:32; Admin Dose 125 MLS/HR; Start 01/02/19 at 06:00 Miscellaneous Information (Pending Santyl Order For Wound Care) This patient henry... PRN PRN XX WOUND CARE; Start 01/01/19 at 23:00 Povidone Iodine (Povidone-Iodine) 1 applic DAILY TOP ; Start 01/03/19 at 09:00 Miscellaneous Information (*Rx Drug Level Order Reminder*) 1 0500 ONCE XX ; Start 01/03/19 at 05:00; Stop 01/03/19 at 05:01 Allergies: Coded Allergies: Penicillins (Unverified Allergy, Unknown, 01/01/19) codeine (Unverified Allergy, Unknown, 01/01/19) morphine (Unverified Allergy, Unknown, 01/01/19) Past Surgical History Past Surgical Hx: other (Status post CABG, status post lumbar spine surgery, status post G-tube placement, status post right second and third toe amputation, that is post surgery for intracranial bleed, details are not available) Social History Alcohol Use: none Smoking Status: Former smoker Drug Use: none Exam/Review of Systems Exam Vitals Vital Signs Date Temp Pulse Resp B/P (MAP) Pulse Ox O2 O2 Flow FiO2 Time Delivery Rate 01/02/19 98.6 76 18 136/56 94 14:00 (82) 01/01/19 Nasal 3.0 18:45 Cannula Intake and Output 01/01/19 01/01/19 01/02/19 1414:59 22:59 06:59 IntakeIntake Total 300 ml 50 ml BalanceBalance 300 ml 50 ml Constitutional: alert, other (confused) Psych: no complaints Head: normocephalic, atraumatic Eyes: EOMI Respiratory: clear to auscultation Cardiovascular: regular rate and rhythm Gastrointestinal: soft Neurological: LINE LOCATOR II-XII intact Results Result Diagram: 01/02/19 0705 01/02/19 0705 Results 24hrs Laboratory Tests Test 01/01/19 22:03 01/02/19 01:47 01/02/19 07:05 01/02/19 08:54 Bedside Glucose 186 144 118 White Blood Count 13.6 H Red Blood Count 5.05 Hemoglobin 13.1 L Hematocrit 41.2 L Mean Corpuscular 81.6 L Volume Mean Corpuscular 25.9 L Hemoglobin Mean Corpuscular 31.8 L Hemoglobin Concent Red Cell 16.1 H Distribution Width Platelet Count 295 Mean Platelet Volume 10.7 H Immature 0.400 Granulocytes % Neutrophils % 70.9 Lymphocytes % 18.1 Monocytes % 8.8 Eosinophils % 1.5 Basophils % 0.3 Nucleated Red Blood 0.0 Cells % Immature 0.060 H Granulocytes # Neutrophils # 9.6 H Lymphocytes # 2.5 Monocytes # 1.2 H Eosinophils # 0.2 Basophils # 0.0 Nucleated Red Blood 0.0 Cells # Sodium Level 139 Potassium Level 4.8 Chloride Level 102 Carbon Dioxide Level 31 Anion Gap 6 Blood Urea Nitrogen 18 Creatinine 0.55 L Est Glomerular Filtrat Rate mL/min Glucose Level 147 # Calcium Level 9.9 Total Bilirubin 0.5 Direct Bilirubin 0.00 Indirect Bilirubin 0.5 Aspartate Amino 36 Transf (AST/SGOT) Alanine 19 Aminotransferase (AL T/SGPT) Alkaline Phosphatase 211 H Total Protein 7.7 Albumin 3.8 Globulin 3.90 H Albumin/Globulin 0.97 Ratio Test 01/02/19 11:56 01/02/19 17:29 Bedside Glucose 157 195 Medications Medication Current Medications Acetaminophen (Tylenol Tab) 1,000 mg Q6H PRN PO PAIN 4-610; Start 01/01/19 at 20:30 Apixaban (Eliquis) 2.5 mg BID PO Last administered on 01/02/19 08:57; Admin Dose 2.5 MG; Start 01/01/19 at 21:00 Ascorbic Acid (Vitamin C) 500 mg DAILY PO Last administered on 01/02/19 08:56; Admin Dose 500 MG; Start 01/02/19 at 09:00 Atorvastatin Calcium (Lipitor) 10 mg QHS PO Last administered on 01/01/19at 22:01; Admin Dose 10 MG; Start 01/01/19 at 21:00 Benazepril HCl (Lotensin) 10 mg DAILY PO Last administered on 01/02/19at 08:57; Admin Dose 10 MG; Start 01/02/19 at 09:00 Bisacodyl (Dulcolax Supp) 10 mg DAILY PRN IN NEEDED; Start 01/01/19 at 20:30 Clonazepam (Klonopin) 0.5 mg DAILY PRN PO ANXIETY; Start 01/01/19 at 20:30 Clonidine (Catapres) 0.1 mg Q8H PRN PO IF SBP>160; Start 01/01/19 at 20:30 Digoxin (Digoxin) 0.125 mg DAILY@1300 PO Last administered on 01/02/19at 12:31; Admin Dose 0.125 MG; Start 01/02/19 at 13:00 Docusate Sodium (Colace) 200 mg QHS PRN PO CONSTIPATION; Start 01/01/19 at 20:30 Donepezil HCl (Aricept) 5 mg QHS PO Last administered on 01/01/19at 22:01; Admin Dose 5 MG; Start 01/01/19 at 21:00 Insulin Glargine (Lantus) 38 units QHS SC Last administered on 01/01/19 22:06; Admin Dose 38 UNITS; Start 01/01/19 at 21:00 Lansoprazole (Prevacid) 30 mg DAILY PO Last administered on 01/02/19 08:58; Admin Dose 30 MG; Start 01/02/19 at 09:00 Linagliptin (Tradjenta) 5 mg DAILY PO Last administered on 01/02/19 08:56; Admin Dose 5 MG; Start 01/02/19 at 09:00 Magnesium Hydroxide (Milk Of Mag) 30 ml QHS PRN PO CONSTIPATION; Start 01/01/19 at 20:30 Metformin HCl (Glucophage) 500 mg WITH BREAKFAST DINNE PO Last administered on 01/02/19 17:32; Admin Dose 500 MG; Start 01/02/19 at 08:00 Metoprolol Tartrate (Lopressor) 25 mg BID PO Last administered on 01/02/19 08:57; Admin Dose 25 MG; Start 01/01/19 at 21:00 Quetiapine Fumarate (Seroquel) 100 mg HS PO Last administered on 01/01/19 22:01; Admin Dose 100 MG; Start 01/01/19 at 21:00 Valproate Sodium (Depakene Liquid Cup) 125 mg BID PO Last administered on 01/02/19 08:58; Admin Dose 125 MG; Start 01/01/19 at 21:00 Zinc Sulfate (Zinc Sulfate) 220 mg DAILY PO Last administered on 01/02/19 08:58; Admin Dose 220 MG; Start 01/02/19 at 09:00 Diagnostic Test (Pha) (Accu-Chek) 1 ea AC MEALS AND BEDTIME XX ; Start 01/01/19 at 21:00 Vancomycin HCl (Vanco Iv Per Pharmacy) VANCOMYCIN PER PHARMACY PER PROTOCOL XX ; Start 01/01/19 at 20:30 Furosemide (Lasix) 40 mg DAILY GTB Last administered on 01/02/19 08:57; Admin Dose 40 MG; Start 01/02/19 at 09:00 Diagnostic Test (Pha) (Accu-Chek) 1 ea 02 XX ; Start 01/02/19 at 02:00 Insulin Aspart (Novolog Insulin Pen) NOVOLOG *MODERATE* ALGORITHM WITH MEALS BEDTIME SC Last administered on 01/02/19at 17:31; Admin Dose 4 UNIT; Start 01/01/19 at 21:00 Miscellaneous Information 1 ea NOTE XX ; Start 01/01/19 at 21:00 Glucose (Glutose) 15 gm Q15M PRN PO DECREASED GLUCOSE; Start 01/01/19 at 21:00 Glucose (Glutose) 22.5 gm Q15M PRN PO DECREASED GLUCOSE; Start 01/01/19 at 21:00 Dextrose (D50w Syringe) 25 ml Q15M PRN IV DECREASED GLUCOSE; Start 01/01/19 at 21:00 Dextrose (D50w Syringe) 50 ml Q15M PRN IV DECREASED GLUCOSE; Start 01/01/19 at 21:00 Glucagon (Glucagen) 1 mg Q15M PRN IM DECREASED GLUCOSE; Start 01/01/19 at 21:00 Glucose (Glutose) 15 gm Q15M PRN BUCCAL DECREASED GLUCOSE; Start 01/01/19 at 21:00 Acetaminophen (Tylenol Tab) 500 mg Q6H PRN PO MILD PAIN(1-3)OR ELEVATED TEMP; Start 01/01/19 at 21:30 Acetaminophen (Tylenol Tab) 500 mg BID PO Last administered on 01/02/19at 08:58; Admin Dose 500 MG; Start 01/02/19 at 09:00 Meropenem/Sodium Chloride 50 ml @ 100 mls/hr Q8 IVPB Last administered on 01/02/19at 14:35; Admin Dose 100 MLS/HR; Start 01/01/19 at 22:00 Vancomycin/Sodium Chloride 250 ml @ 125 mls/hr Q12H IVPB Last administered on 01/02/19at 17:32; Admin Dose 125 MLS/HR; Start 01/02/19 at 06:00 Miscellaneous Information (Pending Santyl Order For Wound Care) This patient henry... PRN PRN XX WOUND CARE; Start 01/01/19 at 23:00 Povidone Iodine (Povidone-Iodine) 1 applic DAILY TOP ; Start 01/03/19 at 09:00 Miscellaneous Information (*Rx Drug Level Order Reminder*) 1 0500 ONCE XX ; Start 01/03/19 at 05:00; Stop 01/03/19 at 05:01 JOSE LEONARDO MD Jan 02, 2019 18:48
[2019-01-02 20:00] VITALS: BP 128/56; PULSE 69; RESP 19
[2019-01-02] MEDS: ATORVASTATIN 10 MG TAB PO SCH (21:27)
[2019-01-02] MEDS: QUETIAPINE 100 MG TAB PO SCH (21:28)
[2019-01-02] MEDS: DONEPEZIL 5 MG TAB PO SCH (21:28)
[2019-01-02] MEDS: CEFTRIAXONE 1 GM/50 ML (PMX) 50 ML IVPB SCH (21:29)
[2019-01-02] MEDS: INSULIN GLARGINE [LANTus] (100 UNITS/ML) SYG SC SCH (21:34)
[2019-01-02] MEDS: metroNIDAZOLE 500 MG/NS (PMX) 100 ML IVPB SCH (23:01)
[2019-01-03 02:00] VITALS: BP 125/58; PULSE 74; RESP 18
[2019-01-03] MEDS: ACCU-CHEK XX SCH ×5 (02:26→20:47)
[2019-01-03] MEDS: MEROPENEM 1 GM/50ML(PMX) 50 ML IVPB SCH (05:08)
[2019-01-03] MEDS: metroNIDAZOLE 500 MG/NS (PMX) 100 ML IVPB SCH ×3 (05:42→22:35)
[2019-01-03] MEDS: VANCOMYCIN 750 MG (PMX) 250 ML IVPB SCH (07:07)
[2019-01-03 07:20] VITALS: BP 152/64; PULSE 95; RESP 18
[2019-01-03] MEDS: INSULIN ASPART [NOVOLOG] 3 ML PEN SC SCH ×4 (08:00→20:34)
[2019-01-03] MEDS: metFORMIN 500 MG TAB PO SCH ×2 (08:02→17:50)
[2019-01-03] MEDS: LINAGLIPTIN 5 MG TABLET PO SCH (08:02)
[2019-01-03] MEDS: LANSOPRAZOLE 30 MG CAP PO SCH (08:02)
[2019-01-03] MEDS: BENAZEPRIL 10 MG TAB PO SCH (08:43)
[2019-01-03] MEDS: VALPROIC ACID LIQUID CUP 250 MG/5 ML CUP PO SCH ×2 (08:43→20:40)
[2019-01-03] MEDS: ACETAMINOPHEN 500 MG TAB PO SCH ×2 (08:43→20:43)
[2019-01-03] MEDS: ASCORBIC ACID 500 MG TAB PO SCH (08:43)
[2019-01-03] MEDS: ZINC SULFATE 220 MG CAP PO SCH (08:44)
[2019-01-03] MEDS: APIXABAN 5 MG TABLET PO SCH ×2 (08:44→20:43)
[2019-01-03] MEDS: FUROSEMIDE 40 MG TAB GTB SCH (08:44)
[2019-01-03] MEDS: METOPROLOL 25 MG TAB PO SCH ×2 (08:45→20:43)
[2019-01-03] MEDS: POVIDONE IODINE 10% 28.4 GM OINT TOP SCH (08:45)
--- NOTE | 2019-01-03 12:02 | CONS ---
[facility] Gavino Aleman Unit Number: [id number] Date of : 1935 Patient Status: Admitted Inpatient Attending Doctor: Abdirashid Anna MD Edit: MAYNOR JIMÉNEZ M.D. on 01/06/19 @ 04:48 Jessy: I discussed the management with MANAGER CALL and agree Assessment/Plan Assessment/Plan Hospital Course (Demo Recall) - OM R foot - XR 01/01/19 of R foot showed findings c/w OM present lateral aspect of distal forefoot - Poor overall prognosis for abx induced cure given severity of vascular disease - Bacteremia 01/01/19 blood culture x1 set growing GPC - s/p Diabetic foot infection/unhealing wound: wound culture 10/10/18 of L foot grew MRSA and corynebacter JK, wound culture of R foot grew proteus, enterococci and corynebacter JK - S/p bedside debridement on 10/11/2018 - Hx Likely OM; b/l foot XR 10/10/18 showed: Irregularity of the margins of the proximal phalanx of R 3rd digit and of 4th metatarsal head, raising suspicion for OM; periarticular lucencies with soft tissue swelling about R 5th MTP articulation. Soft tissue ulceration along the posterior lateral aspect of L midfoot and hindfoot; no e/o bone destructive process. MRI of R foot on 10/12/2018 was limited exam d/t motion artifact (only 1 sequence was able to be obtained) but showed suggestion of osteomyelitis within the 5th metatarsal head and base of 5th proximal phalanx at the metatarsophalangeal joint. - PVD - US arterial b/l LE on 10/10/2018 showed severe peripheral vascular disease with occlusion of b/l superficial femoral and popliteal arteries, severe stenosis or occlusion of b/l posterior tibial and dorsalis pedis arteries. 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 - PCN allergy; Has tolerated cefepime previously per EMR at [facility], tolerates ceftriaxone too, he has previously tolerated Merrem as well Recommendations: - Continue Vanco, Cftx, metronidazole (01/02/19 - ) - will need a prolonged course of abx - D/c Merrem (01/01/19 - 01/03/19) - F/u wound cxs (in process), MRSA screen (in process), Blood cultures 01/01/19 (GPC x1 set) - Ordered: Repeat blood cultures x2 15 min apart - Vasc eval; consider amputations if aggressive care desired - Goals of care - We can follow him here or in [facility] if family/patient continue to desire aggressive abx care - Weekly CBC BMP and ESR while Pt's on IV antibiotics Plan was d/w patient's Zamzam at bedside and with Dr. Jiménez. Thank you Consultation Date/Type/Reason Admit Date/Time Jan 01, 2019 at 18:01 Initial Consult Date 01/02/19 Type of Consult ID Requesting Provider: TYE ADAMS Date/Time of Note DATE: 01/03/19 TIME: 11:52 24 HR Interval Summary Free Text/Dictation Blood cultures x1 set growing GPC. R foot wound culture is pending. The patient is unable to contribute to ROS d/t confusion/dementia. He did shake his head "no" re: pain. D/w patient's Zamzam at the bedside. She reports that he has had no sob, c ough, pain unless his feet are palpated, n/v/d, fevers. She relays that she is unhappy that the PICC line that the patient previously had was removed and we discussed that after previous course of antibiotics leaving the PICC in without use is risk for infection and at that time this is why it would have been removed rather than leaving it in and waiting for future testing/imagings. She also relays that she would like, if possible, for the patient to receive "vitamin infusions" to boost his immunity and she states she will discuss with the primary regarding this. Exam/Review of Systems Exam Vitals Vital Signs Date Temp Pulse Resp B/P (MAP) Pulse Ox O2 O2 Flow FiO2 Time Delivery Rate 01/03/19 97.7 95 18 152/64 100 Room Air 07:20 (93) 95 01/01/19 3.0 18:45 Intake and Output 01/02/19 01/02/19 01/03/19 1515:00 23:00 07:00 IntakeIntake Total 600 ml 520 ml 250 ml BalanceBalance 600 ml 520 ml 250 ml Allergies Coded Allergies Penicillins (Unverified Allergy, Unknown, 01/01/19) codeine (Unverified Allergy, Unknown, 01/01/19) morphine (Unverified Allergy, Unknown, 01/01/19) Constitutional: alert, non-verbal, frail, other (confused, in NAD ) Psych: no complaints, nl mood/affect, confusion Head: normocephalic, atraumatic Eyes: nl conjunctiva, nl lids, nl sclera ENMT: nl external ears & nose, nl nasal mucosa & septum, mucosa pink and moist (no thrush noted ) Neck: supple, non-tender Respiratory: clear to auscultation, normal air movement; No congested cough, No labored breathing, No wheezing Cardiovascular: regular rate and rhythm, nl pulses Gastrointestinal: soft, non-tender, bowel sounds (normoactive ); No distended, No tender Musculoskeletal: nl extremities to inspection Extremities: normal pulses, other (patient is sitting in the bed with his BLE hanging from the right side of the bed. ) Neurological: confused, other (follows simple commands, eye tracks. ) Skin: nl turgor, other (shelley feet are wrapped in c/d/i kerlix dressings - reviewed nsg notes/pics. ) Results Result Diagram: 01/02/19 0705 01/02/19 0705 Results 24hrs Laboratory Tests Test 01/02/19 11:56 01/02/19 17:29 01/02/19 21:22 01/03/19 02:20 Bedside Glucose 157 195 227 H 120 Test 01/03/19 05:10 01/03/19 06:24 01/03/19 07:59 Vancomycin Level 10.6 Trough Lab Scanned Report REFERENCE LAB Bedside Glucose 93 Imaging Imaging 01/01/19 L Foot XR IMPRESSION: 1. Limited study without acute fracture dislocation or plain imaging evidence of osteomyelitis. 01/01/19 R Foot XR FINDINGS: BONES/JOINTS: Osteolysis of the distal fifth metatarsal, and the proximal phalanx of the fifth toe. Subluxation of the fifth metatarsophalangeal joint noted. Absence of the third and fourth toes with remnants of the proximal phalanges noted. The findings suggest postop change with superimposed osteolysis. Additional erosion of the head of the fourth metatarsal noted. Osseous structures of the mid foot appear intact. Degenerative joint changes a re seen in the midfoot. No acute fracture. SOFT TISSUES: Severe soft tissue swelling. No abnormal air within the soft tissues. No radiopaque foreign body. IMPRESSION: Findings consistent with osteomyelitis are present in the lateral aspect of the distal forefoot, as detailed above. Medications Medication Current Medications Acetaminophen (Tylenol Tab) 1,000 mg Q6H PRN PO PAIN 4-02/24; Start 01/01/19 at 20:30 Apixaban (Eliquis) 2.5 mg BID PO Last administered on 01/03/19at 08:44; Admin Dose 2.5 MG; Start 01/01/19 at 21:00 Ascorbic Acid (Vitamin C) 500 mg DAILY PO Last administered on 01/03/19at 08:43; Admin Dose 500 MG; Start 01/02/19 at 09:00 Atorvastatin Calcium (Lipitor) 10 mg QHS PO Last administered on 01/02/19at 21:27; Admin Dose 10 MG; Start 01/01/19 at 21:00 Benazepril HCl (Lotensin) 10 mg DAILY PO Last administered on 01/03/19at 08:43; Admin Dose 10 MG; Start 01/02/19 at 09:00 Bisacodyl (Dulcolax Supp) 10 mg DAILY PRN DC NEEDED; Start 01/01/19 at 20:30 Clonazepam (Klonopin) 0.5 mg DAILY PRN PO ANXIETY; Start 01/01/19 at 20:30 Clonidine (Catapres) 0.1 mg Q8H PRN PO IF SBP>160; Start 01/01/19 at 20:30 Digoxin (Digoxin) 0.125 mg DAILY@1300 PO Last administered on 01/02/19 12:31; Admin Dose 0.125 MG; Start 01/02/19 at 13:00 Docusate Sodium (Colace) 200 mg QHS PRN PO CONSTIPATION; Start 01/01/19 at 2 0:30 Donepezil HCl (Aricept) 5 mg QHS PO Last administered on 01/02/19 21:28; Admin Dose 5 MG; Start 01/01/19 at 21:00 Insulin Glargine (Lantus) 38 units QHS SC Last administered on 01/02/19 21:34; Admin Dose 38 UNITS; Start 01/01/19 at 21:00 Lansoprazole (Prevacid) 30 mg DAILY PO Last administered on 01/03/19 08:02; Admin Dose 30 MG; Start 01/02/19 at 09:00 Linagliptin (Tradjenta) 5 mg DAILY PO Last administered on 01/03/19 08:02; Admin Dose 5 MG; Start 01/02/19 at 09:00 Magnesium Hydroxide (Milk Of Mag) 30 ml QHS PRN PO CONSTIPATION; Start 01/01/19 at 20:30 Metformin HCl (Glucophage) 500 mg WITH BREAKFAST DINNE PO Last administered on 01/03/19 08:02; Admin Dose 500 MG; Start 01/02/19 at 08:00 Metoprolol Tartrate (Lopressor) 25 mg BID PO Last administered on 01/03/19 08:45; Admin Dose 25 MG; Start 01/01/19 at 21:00 Quetiapine Fumarate (Seroquel) 100 mg HS PO Last administered on 01/02/19 21:28; Admin Dose 100 MG; Start 01/01/19 at 21:00 Valproate Sodium (Depakene Liquid Cup) 125 mg BID PO Last administered on 01/03/19 08:43; Admin Dose 125 MG; Start 01/01/19 at 21:00 Zinc Sulfate (Zinc Sulfate) 220 mg DAILY PO Last administered on 01/03/19 08:44; Admin Dose 220 MG; Start 01/02/19 at 09:00 Diagnostic Test (Pha) (Accu-Chek) 1 ea AC MEALS AND BEDTIME XX Last a dministered on 01/02/19 21:34; Admin Dose 1 EA; Start 01/01/19 at 21:00 Vancomycin HCl (Vanco Iv Per Pharmacy) VANCOMYCIN PER PHARMACY PER PROTOCOL XX ; Start 01/01/19 at 20:30 Furosemide (Lasix) 40 mg DAILY GTB Last administered on 01/03/19at 08:44; Admin Dose 40 MG; Start 01/02/19 at 09:00 Diagnostic Test (Pha) (Accu-Chek) 1 ea 02 XX Last administered on 01/03/19at 02:26; Admin Dose 1 EA; Start 01/02/19 at 02:00 Insulin Aspart (Novolog Insulin Pen) NOVOLOG *MODERATE* ALGORITHM WITH MEALS BEDTIME SC Last administered on 01/02/19at 21:33; Admin Dose 2 UNIT; Start 01/01/19 at 21:00 Miscellaneous Information 1 ea NOTE XX ; Start 01/01/19 at 21:00 Glucose (Glutose) 15 gm Q15M PRN PO DECREASED GLUCOSE; Start 01/01/19 at 21:00 Glucose (Glutose) 22.5 gm Q15M PRN PO DECREASED GLUCOSE; Start 01/01/19 at 21:00 Dextrose (D50w Syringe) 25 ml Q15M PRN IV DECREASED GLUCOSE; Start 01/01/19 at 21:00 Dextrose (D50w Syringe) 50 ml Q15M PRN IV DECREASED GLUCOSE; Start 01/01/19 at 21:00 Glucagon (Glucagen) 1 mg Q15M PRN IM DECREASED GLUCOSE; Start 01/01/19 at 21:00 Glucose (Glutose) 15 gm Q15M PRN BUCCAL DECREASED GLUCOSE; Start 01/01/19 at 21:00 Acetaminophen (Tylenol Tab) 500 mg Q6H PRN PO MILD PAIN(1-3)OR ELEVATED TEMP; Start 01/01/19 at 21:30 Acetaminophen (Tylenol Tab) 500 mg BID PO Last administered on 01/03/19at 08:43; Admin Dose 500 MG; Start 01/02/19 at 09:00 Meropenem/Sodium Chloride 50 ml @ 100 mls/hr Q8 IVPB Last administered on 01/03/19at 05:08; Admin Dose 100 MLS/HR; Start 01/01/19 at 22:00 Miscellaneous Information (Pending [facility] Order For Wound Care) This patient henry ... PRN PRN XX WOUND CARE; Start 01/01/19 at 23:00 Povidone Iodine (Povidone-Iodine) 1 applic DAILY TOP Last administered on 01/03/19at 08:45; Admin Dose 1 APPLIC; Start 01/03/19 at 09:00 Ceftriaxone Sodium 50 ml @ 100 mls/hr Q24H IVPB Last administered on 01/02/19at 21:29; Admin Dose 100 MLS/HR; Start 01/02/19 at 19:00 Metronidazole 100 ml @ 100 mls/hr Q8 IVPB Last administered on 01/03/19at 0 5:42; Admin Dose 100 MLS/HR; Start 01/02/19 at 22:00 Vancomycin HCl 0.85 gm/Sodium Chloride 250 ml @ 125 mls/hr Q12H IVPB ; Start 01/03/19 at 18:00 ANITHA VIVAR NP Jan 03, 2019 12:02
[2019-01-03] MEDS: DIGOXIN 0.125 MG TAB PO SCH (14:08)
[2019-01-03 14:22] VITALS: BP 115/56; PULSE 86; RESP 16
--- NOTE | 2019-01-03 14:25 | PN ---
Date/Time of Note Date/Time of Note DATE: 01/03/19 TIME: 14:25 Assessment/Plan VTE Prophylaxis Risk score (from Nsg)>0 risk: 6 SCD applied (from Nsg): Yes Lines/Catheters IV Catheter Type (from Nrs): Saline Lock Urinary Cath still in place: No Assessment/Plan Assessment/Plan -Possible sepsis secondary to right foot necrotic wounds. Will obtain urine and blood cultures. Continue IV fluids and broad-spectrum antibiotics. Dr. Blake is asked to see pt in infection disease consultation. -Bilateral diabetic foot ulcers, right foot necrotic wounds. Dr. Brannon is asked to see patient in podiatry consultation. -Hx Right foot wounds with possible osteomyelitis. -Peripheral vascular disease. Patient underwent angiogram during last admission which revealed severe infrainguinal disease that is not amenable to any endovascular intervention. Patient was evaluated by Dr. Roca during last admission, vascular surgery with recommendation for amputation however patient's refused. -Diabetes mellitus type 2 continue Lantus and NovoLog. -Coronary artery disease, status post CABG. Continue Plavix. -Atrial fibrillation, continue Eliquis and metoprolol. -Dysphagia with G-tube. 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 -Wheelchair bound status Further recommendations based on clinical course. Plan of care discussed with Dr. Anna. Result Diagram: 01/02/19 0705 01/02/19 0705 Results 24hrs Laboratory Tests Test 01/02/19 17:29 01/02/19 21:22 01/03/19 02:20 01/03/19 05:10 Bedside Glucose 195 227 H 120 Vancomycin Level 10.6 Trough Test 01/03/19 06:24 01/03/19 07:59 01/03/19 12:02 Lab Scanned Report REFERENCE LAB Bedside Glucose 93 108 Exam/Review of Systems Exam Vitals Vital Signs Date Temp Pulse Resp B/P (MAP) Pulse Ox O2 O2 Flow FiO2 Time Delivery Rate 01/03/19 97.6 86 16 115/56 96 Room Air 14:22 (75) 01/01/19 3.0 18:45 Intake and Output 01/02/19 01/02/19 01/03/19 1414:59 22:59 06:59 IntakeIntake Total 600 ml 470 ml 300 ml BalanceBalance 600 ml 470 ml 300 ml Results Results 24hrs Laboratory Tests Test 01/02/19 17:29 01/02/19 21:22 01/03/19 02:20 01/03/19 05:10 Bedside Glucose 195 227 H 120 Vancomycin Level 10.6 Trough Test 01/03/19 06:24 01/03/19 07:59 01/03/19 12:02 Lab Scanned Report REFERENCE LAB Bedside Glucose 93 108 Medications Medication Current Medications Acetaminophen (Tylenol Tab) 1,000 mg Q6H PRN PO PAIN 4-610; Start 01/01/19 at 20:30 Apixaban (Eliquis) 2.5 mg BID PO Last administered on 01/03/19 08:44; Admin Dose 2.5 MG; Start 01/01/19 at 21:00 Ascorbic Acid (Vitamin C) 500 mg DAILY PO Last administered on 01/03/19 08:43; Admin Dose 500 MG; Start 01/02/19 at 09:00 Atorvastatin Calcium (Lipitor) 10 mg QHS PO Last administered on 01/02/19at 21:27; Admin Dose 10 MG; Start 01/01/19 at 21:00 Benazepril HCl (Lotensin) 10 mg DAILY PO Last administered on 01/03/19 08:43; Admin Dose 10 MG; Start 01/02/19 at 09:00 Bisacodyl (Dulcolax Supp) 10 mg DAILY PRN AL NEEDED; Start 01/01/19 at 20:30 Clonazepam (Klonopin) 0.5 mg DAILY PRN PO ANXIETY; Start 01/01/19 at 20:30 Clonidine (Catapres) 0.1 mg Q8H PRN PO IF SBP>160; Start 01/01/19 at 20:30 Digoxin (Digoxin) 0.125 mg DAILY@1300 PO Last administered on 01/03/19at 14:08; Admin Dose 0.125 MG; Start 01/02/19 at 13:00 Docusate Sodium (Colace) 200 mg QHS PRN PO CONSTIPATION; Start 01/01/19 at 20:30 Donepezil HCl (Aricept) 5 mg QHS PO Last administered on 01/02/19at 21:28; Admin Dose 5 MG; Start 01/01/19 at 21:00 Insulin Glargine (Lantus) 38 units QHS SC Last administered on 01/02/19 21:34; Admin Dose 38 UNITS; Start 01/01/19 at 21:00 Lansoprazole (Prevacid) 30 mg DAILY PO Last administered on 01/03/19 08:02; Admin Dose 30 MG; Start 01/02/19 at 09:00 Linagliptin (Tradjenta) 5 mg DAILY PO Last administered on 01/03/19 08:02; Admin Dose 5 MG; Start 01/02/19 at 09:00 Magnesium Hydroxide (Milk Of Mag) 30 ml QHS PRN PO CONSTIPATION; Start 01/01/19 at 20:30 Metformin HCl (Glucophage) 500 mg WITH BREAKFAST DINNE PO Last administered on 01/03/19 08:02; Admin Dose 500 MG; Start 01/02/19 at 08:00 Metoprolol Tartrate (Lopressor) 25 mg BID PO Last administered on 01/03/19 08:45; Admin Dose 25 MG; Start 01/01/19 at 21:00 Quetiapine Fumarate (Seroquel) 100 mg HS PO Last administered on 01/02/19 21:28; Admin Dose 100 MG; Start 01/01/19 at 21:00 Valproate Sodium (Depakene Liquid Cup) 125 mg BID PO Last administered on 01/03/19 08:43; Admin Dose 125 MG; Start 01/01/19 at 21:00 Zinc Sulfate (Zinc Sulfate) 220 mg DAILY PO Last administered on 01/03/19 08:44; Admin Dose 220 MG; Start 01/02/19 at 09:00 Diagnostic Test (Pha) (Accu-Chek) 1 ea AC MEALS AND BEDTIME XX Last administered on 01/02/19 21:34; Admin Dose 1 EA; Start 01/01/19 at 21:00 Vancomycin HCl (Vanco Iv Per Pharmacy) VANCOMYCIN PER PHARMACY PER PROTOCOL XX ; Start 01/01/19 at 20:30 Furosemide (Lasix) 40 mg DAILY GTB Last administered on 01/03/19 08:44; Admin Dose 40 MG; Start 01/02/19 at 09:00 Diagnostic Test (Pha) (Accu-Chek) 1 ea 02 XX Last administered on 01/03/19 02:26; Admin Dose 1 EA; Start 01/02/19 at 02:00 Insulin Aspart (Novolog Insulin Pen) NOVOLOG *MODERATE* ALGORITHM WITH MEALS BEDTIME SC Last administered on 01/02/19at 21:33; Admin Dose 2 UNIT; Start 01/01/19 at 21:00 Miscellaneous Information 1 ea NOTE XX ; Start 01/01/19 at 21:00 Glucose (Glutose) 15 gm Q15M PRN PO DECREASED GLUCOSE; Start 01/01/19 at 21:00 Glucose (Glutose) 22.5 gm Q15M PRN PO DECREASED GLUCOSE; Start 01/01/19 at 21:00 Dextrose (D50w Syringe) 25 ml Q15M PRN IV DECREASED GLUCOSE; Start 01/01/19 at 21:00 Dextrose (D50w Syringe) 50 ml Q15M PRN IV DECREASED GLUCOSE; Start 01/01/19 at 21:00 Glucagon (Glucagen) 1 mg Q15M PRN IM DECREASED GLUCOSE; Start 01/01/19 at 21:00 Glucose (Glutose) 15 gm Q15M PRN BUCCAL DECREASED GLUCOSE; Start 01/01/19 at 21:00 Acetaminophen (Tylenol Tab) 500 mg Q6H PRN PO MILD PAIN(1-3)OR ELEVATED TEMP; Start 01/01/19 at 21:30 Acetaminophen (Tylenol Tab) 500 mg BID PO Last administered on 01/03/19at 08:43; Admin Dose 500 MG; Start 01/02/19 at 09:00 [facility] This patient henry... PRN PRN XX WOUND CARE; Start 01/01/19 at 23:00 Povidone Iodine (Povidone-Iodine) 1 applic DAILY TOP Last administered on 01/03/19at 08:45; Admin Dose 1 APPLIC; Start 01/03/19 at 09:00 Ceftriaxone Sodium 50 ml @ 100 mls/hr Q24H IVPB Last administered on 01/02/19at 21:29; Admin Dose 100 MLS/HR; Start 01/02/19 at 19:00 Metronidazole 100 ml @ 100 mls/hr Q8 IVPB Last administered on 01/03/19at 14:08; Admin Dose 100 MLS/HR; Start 01/02/19 at 22:00 Vancomycin HCl 0.85 gm/Sodium Chloride 250 ml @ 125 mls/hr Q12H IVPB ; Start 01/03/19 at 18:00 GLORIA ACEVES Jan 03, 2019 14:25
[2019-01-03] MEDS: CEFTRIAXONE 1 GM/50 ML (PMX) 50 ML IVPB SCH (17:51)
[2019-01-03] MEDS: VANCOMYCIN HCL 0.85 GM in SOD CHLORIDE 0.9% 250 ML IVPB SCH (18:40)
[2019-01-03 20:00] VITALS: BP 136/62; PULSE 88; RESP 18
--- NOTE | 2019-01-03 20:01 | CONS ---
Assessment/Plan Assessment/Plan Assessment/Plan (Daily) Bilateral foot pressure sores. Gangrene. Osteomyelitis, right foot. Severe peripheral arterial disease with a long segment femoral popliteal occlusion, not amenable to endovascular or open bypass Coronary artery disease Nonambulatory status PLAN: Patient refused dressings to be removed to allow foot to be inspected. Per nursing reports dressings were done as ordered and gangrene sites reported to be dry. Per vascular surgery patient not a candidate for open bypass and revascularization procedures. Surgical intervention likely to be unsuccessful given peripheral arterial disease. We would consider palliative care. The patient has a flexion contracture and muscle atrophy of the right lower extremity, may not be a candidate for below knee amputation, had been recommended above knee amputation in the past. Continue with Betadine and IV antibiotics therapy. Patient would benefit from offloading measures, nursing instructions are provided. Consultation Date/Type/Reason Admit Date/Time Jan 01, 2019 at 18:01 Initial Consult Date 01/02/19 Requesting Provider: TYE ADAMS Date/Time of Note DATE: 01/03/19 TIME: 20:00 24 HR Interval Summary Free Text/Dictation No acute events overnight. Exam/Review of Systems Exam Vitals Vital Signs Date Temp Pulse Resp B/P (MAP) Pulse Ox O2 O2 Flow FiO2 Time Delivery Rate 01/03/19 97.6 86 16 115/56 96 Room Air 14:22 (75) 01/01/19 3.0 18:45 Intake and Output 01/02/19 01/02/19 01/03/19 1515:00 23:00 07:00 IntakeIntake Total 600 ml 520 ml 250 ml BalanceBalance 600 ml 520 ml 250 ml Exam Patient refused dressings to be removed No strikethrough no proximal streaking no foul odor noted to the dressing sites. Results Result Diagram: 01/02/19 0705 01/02/19 0705 Results 24hrs Laboratory Tests Test 01/02/19 21:22 01/03/19 02:20 01/03/19 05:10 01/03/19 06:24 Bedside Glucose 227 H 120 Vancomycin Level 10.6 Trough Lab Scanned Report REFERENCE LAB Test 01/03/19 07:59 01/03/19 12:02 01/03/19 17:45 Bedside Glucose 93 108 267 H Medications Medication Current Medications Acetaminophen (Tylenol Tab) 1,000 mg Q6H PRN PO PAIN 4-610; Start 01/01/19 at 20:30 Apixaban (Eliquis) 2.5 mg BID PO Last administered on 01/03/19 08:44; Admin Dose 2.5 MG; Start 01/01/19 at 21:00 Ascorbic Acid (Vitamin C) 500 mg DAILY PO Last administered on 01/03/19 08:43; Admin Dose 500 MG; Start 01/02/19 at 09:00 Atorvastatin Calcium (Lipitor) 10 mg QHS PO Last administered on 01/02/19 21:27; Admin Dose 10 MG; Start 01/01/19 at 21:00 Benazepril HCl (Lotensin) 10 mg DAILY PO Last administered on 01/03/19 08:43; Admin Dose 10 MG; Start 01/02/19 at 09:00 Bisacodyl (Dulcolax Supp) 10 mg DAILY PRN [place] NEEDED; Start 01/01/19 at 20:30 Clonazepam (Klonopin) 0.5 mg DAILY PRN PO ANXIETY; Start 01/01/19 at 20:30 Clonidine (Catapres) 0.1 mg Q8H PRN PO IF SBP>160; Start 01/01/19 at 20:30 Digoxin (Digoxin) 0.125 mg DAILY@1300 PO Last administered on 01/03/19 14:08; Admin Dose 0.125 MG; Start 01/02/19 at 13:00 Docusate Sodium (Colace) 200 mg QHS PRN PO CONSTIPATION; Start 01/01/19 at 20 :30 Donepezil HCl (Aricept) 5 mg QHS PO Last administered on 01/02/19 21:28; Admin Dose 5 MG; Start 01/01/19 at 21:00 Insulin Glargine (Lantus) 38 units QHS SC Last administered on 01/02/19 21:34; Admin Dose 38 UNITS; Start 01/01/19 at 21:00 Lansoprazole (Prevacid) 30 mg DAILY PO Last administered on 01/03/19 08:02; Admin Dose 30 MG; Start 01/02/19 at 09:00 Linagliptin (Tradjenta) 5 mg DAILY PO Last administered on 01/03/19 08:02; Admin Dose 5 MG; Start 01/02/19 at 09:00 Magnesium Hydroxide (Milk Of Mag) 30 ml QHS PRN PO CONSTIPATION; Start 01/01/19 at 20:30 Metformin HCl (Glucophage) 500 mg WITH BREAKFAST DINNE PO Last administered on 01/03/19 17:50; Admin Dose 500 MG; Start 01/02/19 at 08:00 Metoprolol Tartrate (Lopressor) 25 mg BID PO Last administered on 01/03/19 08:45; Admin Dose 25 MG; Start 01/01/19 at 21:00 Quetiapine Fumarate (Seroquel) 100 mg HS PO Last administered on 01/02/19 21:28; Admin Dose 100 MG; Start 01/01/19 at 21:00 Valproate Sodium (Depakene Liquid Cup) 125 mg BID PO Last administered on 01/03/19 08:43; Admin Dose 125 MG; Start 01/01/19 at 21:00 Zinc Sulfate (Zinc Sulfate) 220 mg DAILY PO Last administered on 01/03/19 08:44; Admin Dose 220 MG; Start 01/02/19 at 09:00 Diagnostic Test (Pha) (Accu-Chek) 1 ea AC MEALS AND BEDTIME XX Last ad ministered on 01/02/19 21:34; Admin Dose 1 EA; Start 01/01/19 at 21:00 Vancomycin HCl (Vanco Iv Per Pharmacy) VANCOMYCIN PER PHARMACY PER PROTOCOL XX ; Start 01/01/19 at 20:30 Furosemide (Lasix) 40 mg DAILY GTB Last administered on 01/03/19 08:44; Admin Dose 40 MG; Start 01/02/19 at 09:00 Diagnostic Test (Pha) (Accu-Chek) 1 ea 02 XX Last administered on 01/03/19 02:26; Admin Dose 1 EA; Start 01/02/19 at 02:00 Insulin Aspart (Novolog Insulin Pen) NOVOLOG *MODERATE* ALGORITHM WITH MEALS BEDTIME SC Last administered on 01/03/19 17:51; Admin Dose 8 UNIT; Start 01/01/19 at 21:00 Miscellaneous Information 1 ea NOTE XX ; Start 01/01/19 at 21:00 Glucose (Glutose) 15 gm Q15M PRN PO DECREASED GLUCOSE; Start 01/01/19 at 21:00 Glucose (Glutose) 22.5 gm Q15M PRN PO DECREASED GLUCOSE; Start 01/01/19 at 21:00 Dextrose (D50w Syringe) 25 ml Q15M PRN IV DECREASED GLUCOSE; Start 01/01/19 at 21:00 Dextrose (D50w Syringe) 50 ml Q15M PRN IV DECREASED GLUCOSE; Start 01/01/19 at 21:00 Glucagon (Glucagen) 1 mg Q15M PRN IM DECREASED GLUCOSE; Start 01/01/19 at 21:00 Glucose (Glutose) 15 gm Q15M PRN BUCCAL DECREASED GLUCOSE; Start 01/01/19 at 21:00 Acetaminophen (Tylenol Tab) 500 mg Q6H PRN PO MILD PAIN(1-3)OR ELEVATED TEMP; Start 01/01/19 at 21:30 Acetaminophen (Tylenol Tab) 500 mg BID PO Last administered on 01/03/19at 08:43; Admin Dose 500 MG; Start 01/02/19 at 09:00 [facility]isc[facility] This patient henry... PRN PRN XX WOUND CARE; Start 01/01/19 at 23:00 Povidone Iodine (Povidone-Iodine) 1 applic DAILY TOP Last administered on 01/03/19 08:45; Admin Dose 1 APPLIC; Start 01/03/19 at 09:00 Ceftriaxone Sodium 50 ml @ 100 mls/hr Q24H IVPB Last administered on 01/03/19at 17:51; Admin Dose 100 MLS/HR; Start 01/02/19 at 19:00 Metronidazole 100 ml @ 100 mls/hr Q8 IVPB Last administered on 01/03/19at 14:08; Admin Dose 100 MLS/HR; Start 01/02/19 at 22:00 Vancomycin HCl 0.85 gm/Sodium Chloride 250 ml @ 125 mls/hr Q12H IVPB Last administered on 01/03/19at 18:40; Admin Dose 125 MLS/HR; Start 01/03/19 at 18:00 HOMERO LANGLEY DPM Jan 03, 2019 20:01
[2019-01-03] MEDS: DONEPEZIL 5 MG TAB PO SCH (20:41)
[2019-01-03] MEDS: QUETIAPINE 100 MG TAB PO SCH (20:41)
[2019-01-03] MEDS: ATORVASTATIN 10 MG TAB PO SCH (20:44)
[2019-01-03] MEDS: INSULIN GLARGINE [LANTus] (100 UNITS/ML) SYG SC SCH (20:44)
[2019-01-04] MEDS: ACCU-CHEK XX SCH ×5 (01:09→20:35)
[2019-01-04 02:00] VITALS: BP 124/58; PULSE 82; RESP 18
[2019-01-04] MEDS: metroNIDAZOLE 500 MG/NS (PMX) 100 ML IVPB SCH ×3 (05:31→22:10)
[2019-01-04] MEDS: VANCOMYCIN HCL 0.85 GM in SOD CHLORIDE 0.9% 250 ML IVPB SCH ×2 (06:37→18:09)
[2019-01-04] MEDS: GLUCOSE GEL 15 GRAM TUBE BUCCAL PRN ×2 (07:57→08:18)
[2019-01-04] MEDS: INSULIN ASPART [NOVOLOG] 3 ML PEN SC SCH ×4 (08:00→20:35)
[2019-01-04 08:09] VITALS: BP 135/68; PULSE 93; RESP 18
[2019-01-04] MEDS: VALPROIC ACID LIQUID CUP 250 MG/5 ML CUP PO SCH ×2 (09:33→20:24)
[2019-01-04] MEDS: BENAZEPRIL 10 MG TAB PO SCH (09:34)
[2019-01-04] MEDS: LANSOPRAZOLE 30 MG CAP PO SCH (09:34)
[2019-01-04] MEDS: METOPROLOL 25 MG TAB PO SCH ×2 (09:34→20:26)
[2019-01-04] MEDS: ZINC SULFATE 220 MG CAP PO SCH (09:34)
[2019-01-04] MEDS: ASCORBIC ACID 500 MG TAB PO SCH (09:34)
[2019-01-04] MEDS: ACETAMINOPHEN 500 MG TAB PO SCH ×2 (09:35→20:25)
[2019-01-04] MEDS: LINAGLIPTIN 5 MG TABLET PO SCH (09:35)
[2019-01-04] MEDS: APIXABAN 5 MG TABLET PO SCH ×2 (09:35→20:26)
[2019-01-04] MEDS: FUROSEMIDE 40 MG TAB GTB SCH (09:35)
[2019-01-04] MEDS: POVIDONE IODINE 10% 28.4 GM OINT TOP SCH (09:36)
[2019-01-04] MEDS: metFORMIN 500 MG TAB PO SCH ×2 (09:47→18:15)
[2019-01-04] MEDS: DIGOXIN 0.125 MG TAB PO SCH (13:17)
--- NOTE | 2019-01-04 13:47 | PN ---
Date/Time of Note Date/Time of Note DATE: 01/04/19 TIME: 13:47 Assessment/Plan VTE Prophylaxis Risk score (from Ns)>0 risk: 6 SCD applied (from Ns): Yes Pharmacological prophylaxis: LMWH Lines/Catheters IV [facility] [place] [facility] Urinary Cath still in place: No Assessment/Plan Hospital Course -Possible sepsis secondary to right foot necrotic wounds. Will obtain urine and blood cultures. Continue IV fluids and broad-spectrum antibiotics. Dr. Blake is asked to see pt in infection disease consultation. -Bilateral diabetic foot ulcers, right foot necrotic wounds. Dr. Brannon is asked to see patient in podiatry consultation. -Hx Right foot wounds with possible osteomyelitis. -Peripheral vascular disease. Patient underwent angiogram during last admission which revealed severe infrainguinal disease that is not amenable to any endovascular intervention. Patient was evaluated by Dr. Roca during last admission, vascular surgery with recommendation for amputation however patient's refused. -Diabetes mellitus type 2 continue Lantus and NovoLog. -Coronary artery disease, status post CABG. Continue Plavix. -Atrial fibrillation, continue Eliquis and metoprolol. -Dysphagia with G-tube. 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 -Wheelchair bound status Result Diagram: 01/02/19 0705 01/04/19 0530 Results 24hrs Laboratory Tests Test 01/03/19 17:45 01/03/19 20:33 01/04/19 01:09 01/04/19 05:30 Bedside Glucose 267 H 178 132 Blood Urea Nitrogen 20 Creatinine 0.53 L Test 01/04/19 07:54 01/04/19 08:12 01/04/19 08:13 01/04/19 08:38 Bedside Glucose 61 L 56 L 66 L 65 L Test 01/04/19 08:39 01/04/19 08:57 01/04/19 09:21 01/04/19 11:56 Bedside Glucose 74 84 109 98 Subjective 24 Hr Interval Summary Free Text/Dictation Patient denies any pain Exam/Review of Systems Exam Vitals Vital Signs Date Temp Pulse Resp B/P (MAP) Pulse Ox O2 O2 Flow FiO2 Time Delivery Rate 01/04/19 97.7 93 18 135/68 100 Room Air 08:09 (90) 01/01/19 3.0 18:45 Intake and Output 01/03/19 01/03/19 01/04/19 1515:00 23:00 07:00 IntakeIntake Total 750 ml 400 ml 300 ml BalanceBalance 750 ml 400 ml 300 ml Constitutional: well developed Head: normocephalic, atraumatic Neck: supple Respiratory: diminished breath sounds Cardiovascular: regular rate and rhythm Gastrointestinal: soft, non-tender Extremities: normal pulses Results Results 24hrs Laboratory Tests Test 01/03/19 17:45 01/03/19 20:33 01/04/19 01:09 01/04/19 05:30 Bedside Glucose 267 H 178 132 Blood Urea Nitrogen 20 Creatinine 0.53 L Test 01/04/19 07:54 01/04/19 08:12 01/04/19 08:13 01/04/19 08:38 Bedside Glucose 61 L 56 L 66 L 65 L Test 01/04/19 08:39 01/04/19 08:57 01/04/19 09:21 01/04/19 11:56 Bedside Glucose 74 84 109 98 Medications Medication Current Medications Acetaminophen (Tylenol Tab) 1,000 mg Q6H PRN PO PAIN 4-6; Start 01/01/19 at 20:30 Apixaban (Eliquis) 2.5 mg BID PO Last administered on 01/04/19at 09:35; Admin Dose 2.5 MG; Start 01/01/19 at 21:00 Ascorbic Acid (Vitamin C) 500 mg DAILY PO Last administered on 01/04/19at 09:34; Admin Dose 500 MG; Start 01/02/19 at 09:00 Atorvastatin Calcium (Lipitor) 10 mg QHS PO Last administered on 01/03/19at 20:44; Admin Dose 10 MG; Start 01/01/19 at 21:00 Benazepril HCl (Lotensin) 10 mg DAILY PO Last administered on 01/04/19at 09:34; Admin Dose 10 MG; Start 01/02/19 at 09:00 Bisacodyl (Dulcolax Supp) 10 mg DAILY PRN [place] NEEDED; Start 01/01/19 at 20:30 Clonazepam (Klonopin) 0.5 mg DAILY PRN PO ANXIETY; Start 01/01/19 at 20:30 Clonidine (Catapres) 0.1 mg Q8H PRN PO IF SBP>160; Start 01/01/19 at 20:30 Digoxin (Digoxin) 0.125 mg DAILY@1300 PO Last administered on 01/04/19 13:17; Admin Dose 0.125 MG; Start 01/02/19 at 13:00 Docusate Sodium (Colace) 200 mg QHS PRN PO CONSTIPATION; Start 01/01/19 at 20:30 Donepezil HCl (Aricept) 5 mg QHS PO Last administered on 01/03/19 20:41; Admin Dose 5 MG; Start 01/01/19 at 21:00 Insulin Glargine (Lantus) 38 units QHS SC Last administered on 01/03/19 20:44; Admin Dose 38 UNITS; Start 01/01/19 at 21:00 Lansoprazole (Prevacid) 30 mg DAILY PO Last administered on 01/04/19 09:34; Admin Dose 30 MG; Start 01/02/19 at 09:00 Linagliptin (Tradjenta) 5 mg DAILY PO Last administered on 01/04/19 09:35; Admin Dose 5 MG; Start 01/02/19 at 09:00 Magnesium Hydroxide (Milk Of Mag) 30 ml QHS PRN PO CONSTIPATION; Start 01/01/19 at 20:30 Metformin HCl (Glucophage) 500 mg WITH BREAKFAST DINNE PO Last administered on 01/04/19 09:47; Admin Dose 500 MG; Start 01/02/19 at 08:00 Metoprolol Tartrate (Lopressor) 25 mg BID PO Last administered on 01/04/19 09:34; Admin Dose 25 MG; Start 01/01/19 at 21:00 Quetiapine Fumarate (Seroquel) 100 mg HS PO Last administered on 01/03/19 20:41; Admin Dose 100 MG; Start 01/01/19 at 21:00 Valproate Sodium (Depakene Liquid Cup) 125 mg BID PO Last administered on 01/04/19 09:33; Admin Dose 125 MG; Start 01/01/19 at 21:00 Zinc Sulfate (Zinc Sulfate) 220 mg DAILY PO Last administered on 01/04/19 09:34; Admin Dose 220 MG; Start 01/02/19 at 09:00 Diagnostic Test (Pha) (Accu-Chek) 1 ea AC MEALS AND BEDTIME XX Last administered on 01/02/19at 21:34; Admin Dose 1 EA; Start 01/01/19 at 21:00 Vancomycin HCl (Vanco Iv Per Pharmacy) VANCOMYCIN PER PHARMACY PER PROTOCOL XX ; Start 01/01/19 at 20:30 Furosemide (Lasix) 40 mg DAILY GTB Last administered on 01/04/19at 09:35; Admin Dose 40 MG; Start 01/02/19 at 09:00 Diagnostic Test (Pha) (Accu-Chek) 1 ea 02 XX Last administered on 01/04/19at 01:09; Admin Dose 1 EA; Start 01/02/19 at 02:00 Insulin Aspart (Novolog Insulin Pen) NOVOLOG *MODERATE* ALGORITHM WITH MEALS BEDTIME SC Last administered on 01/03/19at 17:51; Admin Dose 8 UNIT; Start 01/01/19 at 21:00 Miscellaneous Information 1 ea NOTE XX ; Start 01/01/19 at 21:00 Glucose (Glutose) 15 gm Q15M PRN PO DECREASED GLUCOSE; Start 01/01/19 at 21:00 Glucose (Glutose) 22.5 gm Q15M PRN PO DECREASED GLUCOSE; Start 01/01/19 at 21:00 Dextrose (D50w Syringe) 25 ml Q15M PRN IV DECREASED GLUCOSE; Start 01/01/19 at 21:00 Dextrose (D50w Syringe) 50 ml Q15M PRN IV DECREASED GLUCOSE; Start 01/01/19 at 21:00 Glucagon (Glucagen) 1 mg Q15M PRN IM DECREASED GLUCOSE; Start 01/01/19 at 21:00 Glucose (Glutose) 15 gm Q15M PRN BUCCAL DECREASED GLUCOSE Last administered on 01/04/19at 08:18; Admin Dose 15 GM; Start 01/01/19 at 21:00 Acetaminophen (Tylenol Tab) 500 mg Q6H PRN PO MILD PAIN(1-3)OR ELEVATED TEMP; Start 01/01/19 at 21:30 Acetaminophen (Tylenol Tab) 500 mg BID PO Last administered on 01/04/19at 09:35; Admin Dose 500 MG; Start 01/02/19 at 09:00 Miscellaneous Information (Pending [facility] Order For Wound Care) This patient henry... PRN PRN XX WOUND CARE; Start 01/01/19 at 23:00 Povidone Iodine (Povidone-Iodine) 1 applic DAILY TOP Last administered on 01/04/19at 09:36; Admin Dose 1 APPLIC; Start 01/03/19 at 09:00 Ceftriaxone Sodium 50 ml @ 100 mls/hr Q24H IVPB Last administered on 01/03/19at 17:51; Admin Dose 100 MLS/HR; Start 01/02/19 at 19:00 Metronidazole 100 ml @ 100 mls/hr Q8 IVPB Last administered on 01/04/19at 05:31; Admin Dose 100 MLS/HR; Start 01/02/19 at 22:00 Vancomycin HCl 0.85 gm/Sodium Chloride 250 ml @ 125 mls/hr Q12H IVPB Last administered on 01/04/19at 06:37; Admin Dose 125 MLS/HR; Start 01/03/19 at 18:00 ZACHARY RENAE Jan 04, 2019 13:47
[2019-01-04 14:56] VITALS: BP 98/42; PULSE 82; RESP 17
--- NOTE | 2019-01-04 15:24 | CONS ---
[facility] HCIS Consult Follow-up Patient Name: Gavino Aleman Unit Number: [id number] Date of : 1935 Patient Status: Admitted Inpatient Attending Doctor: Abdirashdi Anna MD Edit: MAYNOR JIMÉNEZ M.D. on 01/06/19 @ 04:50 Jessy: I discussed the management with [employer] and agree Assessment/Plan Assessment/Plan Hospital Course (Demo Recall) - OM R foot - XR 01/01/19 of R foot showed findings c/w OM present lateral aspect of distal forefoot - Poor overall prognosis for abx induced cure given severity of vascular disease - Bacteremia 01/01/19 blood culture x1 set grew coag neg staph -> likely contaminant, repeat cultures 01/03/19 NGTD - s/p Diabetic foot infection/unhealing wound: wound culture 10/10/18 of L foot grew MRSA and corynebacter JK, wound culture of R foot grew proteus, enterococci and corynebacter JK - S/p bedside debridement on 10/11/2018 - Hx Likely OM; b/l foot XR 10/10/18 showed: Irregularity of the margins of the proximal phalanx of R 3rd digit and of 4th metatarsal head, raising suspicion for OM; periarticular lucencies with soft tissue swelling about R 5th MTP articulation. Soft tissue ulceration along the posterior lateral aspect of L midfoot and hindfoot; no e/o bone destructive process. MRI of R foot on 10/12/2018 was limited exam d/t motion artifact (only 1 sequence was able to be obtained) but showed suggestion of osteomyelitis within the 5th metatarsal head and base of 5th proximal phalanx at the metatarsophalangeal joint. - PVD - US arterial b/l LE on 10/10/2018 showed severe peripheral vascular disease with occlusion of b/l superficial femoral and popliteal arteries, severe stenosis or occlusion of b/l posterior tibial and dorsalis pedis arteries. 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 Jiménez. Thank you Consultation Date/Type/Reason Admit Date/Time Jan 01, 2019 at 18:01 Initial Consult Date 01/02/19 Type of Consult ID Requesting Provider: TYE ADAMS Date/Time of Note DATE: 01/04/19 TIME: 15:22 24 HR Interval Summary Free Text/Dictation ROS limited d/t confusion. No family currently at bedside. No acute issues reported by nursing, pt has remained afebrile. Detailed Summary Eyes: no complaints ENT: no complaints Respiratory: no complaints Cardiovascular: no complaints Gastrointestinal: no complaints Genitourinary: no complaints Musculoskeletal: no complaints Skin: other (BLE tender to palpation) Neurologic: no complaints Endocrine: no complaints Lymphatic: no complaints Psychological: confusion Immunologic: no complaints Exam/Review of Systems Exam Vitals Vital Signs Date Temp Pulse Resp B/P (MAP) Pulse Ox O2 O2 Flow FiO2 Time Delivery Rate 01/04/19 98.4 82 17 98/42 (60) 98 14:56 01/04/19 Room Air 08:09 01/01/19 3.0 18:45 Intake and Output 01/03/19 01/03/1901/04/19 1515:00 23:00 07:00 IntakeIntake Total 750 ml 400 ml 300 ml BalanceBalance 750 ml 400 ml 300 ml Allergies Coded Allergies Penicillins (Unverified Allergy, Unknown, 01/01/19) codeine (Unverified Allergy, Unknown, 01/01/19) morphine (Unverified Allergy, Unknown, 01/01/19) Exam Constitutional: alert, non-verbal, frail, other (confused, in NAD) Psych: no complaints, nl mood/affect, confusion Head: normocephalic, atraumatic Eyes: nl conjunctiva, nl lids, nl sclera ENMT: nl external ears & nose, nl nasal mucosa & septum, mucosa pink and moist (no thrush noted) Neck: supple, non-tender Respiratory: clear to auscultation, normal air movement; No congested cough, No labored breathing, No wheezing Cardiovascular: regular rate and rhythm, nl pulses Gastrointestinal: soft, non-tender, bowel sounds (normoactive ); other (PEG site is c/d/i, wearing an abdominal binder) No distended, No tender Musculoskeletal: nl extremities to inspection Extremities: normal pulses, other (patient is sitting in the bed with his BLE hanging from the right side of the bed. ) Neurological: confused, other (follows simple commands, eye tracks. ) Skin: nl turgor, other (shelley feet are wrapped in c/d/i kerlix dressings - reviewed nsg notes/pics. ) Results Result Diagram: 01/02/19 0705 01/04/19 0530 Results 24hrs Laboratory Tests Test 01/03/19 17:45 01/03/19 20:33 01/04/19 01:09 01/04/19 05:30 Bedside Glucose 267 H 178 132 Blood Urea Nitrogen 20 Creatinine 0.53 L Test 01/04/19 07:54 01/04/19 08:12 01/04/19 08:13 01/04/19 08:38 Bedside Glucose 61 L 56 L 66 L 65 L Test 01/04/19 08:39 01/04/19 08:57 01/04/19 09:21 01/04/19 11:56 Bedside Glucose 74 84 109 98 Medications Medication Current Medications Acetaminophen (Tylenol Tab) 1,000 mg Q6H PRN PO PAIN 4-6/10; Start 01/01/19 at 20:30 Apixaban (Eliquis) 2.5 mg BID PO Last administered on 01/04/19 09:35; Admin Dose 2.5 MG; Start 01/01/19 at 21:00 Ascorbic Acid (Vitamin C) 500 mg DAILY PO Last administered on 01/04/19 09:34; Admin Dose 500 MG; Start 01/02/19 at 09:00 Atorvastatin Calcium (Lipitor) 10 mg QHS PO Last administered on 01/03/19 20:44; Admin Dose 10 MG; Start 01/01/19 at 21:00 Benazepril HCl (Lotensin) 10 mg DAILY PO Last administered on 01/04/19 09:34; Admin Dose 10 MG; Start 01/02/19 at 09:00 Bisacodyl (Dulcolax Supp) 10 mg DAILY PRN [place] NEEDED; Start 01/01/19 at 20:30 Clonazepam (Klonopin) 0.5 mg DAILY PRN PO ANXIETY; Start 01/01/19 at 20:30 Clonidine (Catapres) 0.1 mg Q8H PRN PO IF SBP>160; Start 01/01/19 at 20:30 Digoxin (Digoxin) 0.125 mg DAILY@1300 PO Last administered on 01/04/19 13:17; Admin Dose 0.125 MG; Start 01/02/19 at 13:00 Docusate Sodium (Colace) 200 mg QHS PRN PO CONSTIPATION; Start 01/01/19 at 20:30 Donepezil HCl (Aricept) 5 mg QHS PO Last administered on 01/03/19 20:41; Admin Dose 5 MG; Start 01/01/19 at 21:00 Insulin Glargine (Lantus) 38 units QHS SC Last administered on 01/03/19 20:44; Admin Dose 38 UNITS; Start 01/01/19 at 21:00 Lansoprazole (Prevacid) 30 mg DAILY PO Last administered on 01/04/19 09:34; Admin Dose 30 MG; Start 01/02/19 at 09:00 Linagliptin (Tradjenta) 5 mg DAILY PO Last administered on 01/04/19 09:35; Admin Dose 5 MG; Start 01/02/19 at 09:00 Magnesium Hydroxide (Milk Of Mag) 30 ml QHS PRN PO CONSTIPATION; Start 01/01/19 at 20:30 Metformin HCl (Glucophage) 500 mg WITH BREAKFAST DINNE PO Last administered on 01/04/19 09:47; Admin Dose 500 MG; Start 01/02/19 at 08:00 Metoprolol Tartrate (Lopressor) 25 mg BID PO Last administered on 01/04/19 09:34; Admin Dose 25 MG; Start 01/01/19 at 21:00 Quetiapine Fumarate (Seroquel) 100 mg HS PO Last administered on 01/03/19 20:41; Admin Dose 100 MG; Start 01/01/19 at 21:00 Valproate Sodium (Depakene Liquid Cup) 125 mg BID PO Last administered on 01/04/19 09:33; Admin Dose 125 MG; Start 01/01/19 at 21:00 Zinc Sulfate (Zinc Sulfate) 220 mg DAILY PO Last administered on 01/04/19 09:34; Admin Dose 220 MG; Start 01/02/19 at 09:00 Diagnostic Test (Pha) (Accu-Chek) 1 ea AC MEALS AND BEDTIME XX Last administered on 01/02/19 21:34; Admin Dose 1 EA; Start 01/01/19 at 21:00 Vancomycin HCl (Vanco Iv Per Pharmacy) VANCOMYCIN PER PHARMACY PER PROTOCOL XX ; Start 01/01/19 at 20:30 Furosemide (Lasix) 40 mg DAILY GTB Last administered on 01/04/19 09:35; Admin Dose 40 MG; Start 01/02/19 at 09:00 Diagnostic Test (Pha) (Accu-Chek) 1 ea 02 XX Last administered on 01/04/19at 01:09; Admin Dose 1 EA; Start 01/02/19 at 02:00 Insulin Aspart (Novolog Insulin Pen) NOVOLOG *MODERATE* ALGORITHM WITH MEALS BEDTIME SC Last administered on 01/03/19 17:51; Admin Dose 8 UNIT; Start 01/01/19 at 21:00 Miscellaneous Information 1 ea NOTE XX ; Start 01/01/19 at 21:00 Glucose (Glutose) 15 gm Q15M PRN PO DECREASED GLUCOSE; Start 01/01/19 at 21:00 Glucose (Glutose) 22.5 gm Q15M PRN PO DECREASED GLUCOSE; Start 01/01/19 at 21:00 Dextrose (D50w Syringe) 25 ml Q15M PRN IV DECREASED GLUCOSE; Start 01/01/19 at 21:00 Dextrose (D50w Syringe) 50 ml Q15M PRN IV DECREASED GLUCOSE; Start 01/01/19 at 21:00 Glucagon (Glucagen) 1 mg Q15M PRN IM DECREASED GLUCOSE; Start 01/01/19 at 21:00 Glucose (Glutose) 15 gm Q15M PRN BUCCAL DECREASED GLUCOSE Last administered on 01/04/19 08:18; Admin Dose 15 GM; Start 01/01/19 at 21:00 Acetaminophen (Tylenol Tab) 500 mg Q6H PRN PO MILD PAIN(1-3)OR ELEVATED TEMP; Start 01/01/19 at 21:30 Acetaminophen (Tylenol Tab) 500 mg BID PO Last administered on 01/04/19 09:35; Admin Dose 500 MG; Start 01/02/19 at 09:00 Miscellaneous Information (Pending [facility] Order For Wound Care) This patient henry... PRN PRN XX WOUND CARE; Start 01/01/19 at 23:00 Povidone Iodine (Povidone-Iodine) 1 applic DAILY TOP Last administered on 01/04/19 09:36; Admin Dose 1 APPLIC; Start 01/03/19 at 09:00 Ceftriaxone Sodium 50 ml @ 100 mls/hr Q24H IVPB Last administered on 01/03/19at 17:51; Admin Dose 100 MLS/HR; Start 01/02/19 at 19:00 Metronidazole 100 ml @ 100 mls/hr Q8 IVPB Last administered on 01/04/19at 14:53; Admin Dose 100 MLS/HR; Start 01/02/19 at 22:00 Vancomycin HCl 0.85 gm/Sodium Chloride 250 ml @ 125 mls/hr Q12H IVPB Last administered on 01/04/19 06:37; Admin Dose 125 MLS/HR; Start 01/03/19 at 18:00 ANITHA VIVAR NP Jan 04, 2019 15:24
[2019-01-04] MEDS: CEFTRIAXONE 1 GM/50 ML (PMX) 50 ML IVPB SCH (19:47)
[2019-01-04 20:15] VITALS: BP 150/66; PULSE 96; RESP 18
[2019-01-04] MEDS: QUETIAPINE 100 MG TAB PO SCH (20:24)
[2019-01-04] MEDS: ATORVASTATIN 10 MG TAB PO SCH (20:25)
[2019-01-04] MEDS: DONEPEZIL 5 MG TAB PO SCH (20:26)
[2019-01-04] MEDS: INSULIN GLARGINE [LANTus] (100 UNITS/ML) SYG SC SCH (20:35)
[2019-01-05] MEDS: ACCU-CHEK XX SCH ×5 (02:00→20:47)
[2019-01-05 02:13] VITALS: BP 152/67; PULSE 89; RESP 20
[2019-01-05] MEDS: metroNIDAZOLE 500 MG/NS (PMX) 100 ML IVPB SCH ×2 (05:30→14:13)
[2019-01-05] MEDS: VANCOMYCIN HCL 0.85 GM in SOD CHLORIDE 0.9% 250 ML IVPB SCH ×2 (06:13→18:46)
[2019-01-05] MEDS: INSULIN ASPART [NOVOLOG] 3 ML PEN SC SCH ×4 (07:51→20:47)
[2019-01-05 08:01] VITALS: BP 135/60; PULSE 93; RESP 18
[2019-01-05] MEDS: LINAGLIPTIN 5 MG TABLET PO SCH (08:38)
[2019-01-05] MEDS: LANSOPRAZOLE 30 MG CAP PO SCH (08:39)
[2019-01-05] MEDS: VALPROIC ACID LIQUID CUP 250 MG/5 ML CUP PO SCH ×2 (08:39→20:44)
[2019-01-05] MEDS: METOPROLOL 25 MG TAB PO SCH ×2 (08:39→20:45)
[2019-01-05] MEDS: ASCORBIC ACID 500 MG TAB PO SCH (08:39)
[2019-01-05] MEDS: BENAZEPRIL 10 MG TAB PO SCH (08:40)
[2019-01-05] MEDS: ZINC SULFATE 220 MG CAP PO SCH (08:40)
[2019-01-05] MEDS: ACETAMINOPHEN 500 MG TAB PO SCH ×2 (08:41→20:45)
[2019-01-05] MEDS: FUROSEMIDE 40 MG TAB GTB SCH (08:41)
[2019-01-05] MEDS: APIXABAN 5 MG TABLET PO SCH ×2 (08:41→20:45)
[2019-01-05] MEDS: metFORMIN 500 MG TAB PO SCH ×2 (08:43→17:30)
[2019-01-05] MEDS: POVIDONE IODINE 10% 28.4 GM OINT TOP SCH (10:24)
[2019-01-05] MEDS: DIGOXIN 0.125 MG TAB PO SCH (12:51)
--- NOTE | 2019-01-05 13:30 | PN ---
Date/Time of Note Date/Time of Note DATE: 01/05/19 TIME: 13:30 Assessment/Plan VTE Prophylaxis Risk score (from Ns)>0 risk: 7 SCD applied (from Ns): Yes Pharmacological prophylaxis: LMWH Lines/Catheters IV [facility] (from [facility]): Saline Lock Urinary Cath still in place: No Assessment/Plan Hospital Course -Possible sepsis secondary to right foot necrotic wounds. Will obtain urine and blood cultures. Continue IV fluids and broad-spectrum antibiotics. Dr. Blake is asked to see pt in infection disease consultation. -Bilateral diabetic foot ulcers, right foot necrotic wounds. Dr. Brannon is asked to see patient in podiatry consultation. -Hx Right foot wounds with possible osteomyelitis. -Peripheral vascular disease. Patient underwent angiogram during last admission which revealed severe infrainguinal disease that is not amenable to any endovascular intervention. Patient was evaluated by Dr. Roca during last admission, vascular surgery with recommendation for amputation however patient's refused. -Diabetes mellitus type 2 continue Lantus and NovoLog. -Coronary artery disease, status post CABG. Continue Plavix. -Atrial fibrillation, continue Eliquis and metoprolol. -Dysphagia with G-tube. 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 -Wheelchair bound status Result Diagram: 01/02/19 0705 01/04/19 0530 Results 24hrs Laboratory Tests Test 01/04/19 17:27 01/04/19 20:33 01/05/19 07:34 01/05/19 12:01 Bedside Glucose 145 135 102 69 L Test 01/05/19 12:19 01/05/19 12:41 01/05/19 12:54 01/05/19 13:25 Bedside Glucose 87 78 88 90 Subjective 24 Hr Interval Summary Free Text/Dictation Patient has no complaints Exam/Review of Systems Exam Vitals Vital Signs Date Temp Pulse Resp B/P (MAP) Pulse Ox O2 O2 Flow FiO2 Time Delivery Rate 01/05/19 98.0 93 18 135/60 99 08:01 (85) 01/04/19 Room Air 08:09 01/01/19 3.0 18:45 Intake and Output 01/04/19 01/04/19 01/05/19 1515:00 23:00 07:00 IntakeIntake Total 450 ml 300 ml 220 ml BalanceBalance 450 ml 300 ml 220 ml Constitutional: well developed Head: normocephalic, atraumatic Neck: supple Respiratory: diminished breath sounds Cardiovascular: regular rate and rhythm Gastrointestinal: soft, non-tender Extremities: normal pulses Results Results 24hrs Laboratory Tests Test 01/04/19 17:27 01/04/19 20:33 01/05/19 07:34 01/05/19 12:01 Bedside Glucose 145 135 102 69 L Test 01/05/19 12:19 01/05/19 12:41 01/05/19 12:54 01/05/19 13:25 Bedside Glucose 87 78 88 90 Medications Medication Current Medications Acetaminophen (Tylenol Tab) 1,000 mg Q6H PRN PO PAIN -02/24; Start 01/01/19 at 20:30 Apixaban (Eliquis) 2.5 mg BID PO Last administered on 01/05/19at 08:41; Admin Dose 2.5 MG; Start 01/01/19 at 21:00 Ascorbic Acid (Vitamin C) 500 mg DAILY PO Last administered on 01/05/19at 08:39; Admin Dose 500 MG; Start 01/02/19 at 09:00 Atorvastatin Calcium (Lipitor) 10 mg QHS PO Last administered on 01/04/19at 20:25; Admin Dose 10 MG; Start 01/01/19 at 21:00 Benazepril HCl (Lotensin) 10 mg DAILY PO Last administered on 01/05/19at 08:40; Admin Dose 10 MG; Start 01/02/19 at 09:00 Bisacodyl (Dulcolax Supp) 10 mg DAILY PRN IN NEEDED; Start 01/01/19 at 20:30 Clonazepam (Klonopin) 0.5 mg DAILY PRN PO ANXIETY; Start 01/01/19 at 20:30 Clonidine (Catapres) 0.1 mg Q8H PRN PO IF SBP>160; Start 01/01/19 at 20:30 Digoxin (Digoxin) 0.125 mg DAILY@1300 PO Last administered on 01/05/19at 12:51; Admin Dose 0.125 MG; Start 01/02/19 at 13:00 Docusate Sodium (Colace) 200 mg QHS PRN PO CONSTIPATION; Start 01/01/19 at 20:30 Donepezil HCl (Aricept) 5 mg QHS PO Last administered on 01/04/19 20:26; Admin Dose 5 MG; Start 01/01/19 at 21:00 Insulin Glargine (Lantus) 38 units QHS SC Last administered on 01/04/19 20:35; Admin Dose 38 UNITS; Start 01/01/19 at 21:00 Lansoprazole (Prevacid) 30 mg DAILY PO Last administered on 01/05/19 08:39; Admin Dose 30 MG; Start 01/02/19 at 09:00 Linagliptin (Tradjenta) 5 mg DAILY PO Last administered on 01/05/19 08:38; Admin Dose 5 MG; Start 01/02/19 at 09:00 Magnesium Hydroxide (Milk Of Mag) 30 ml QHS PRN PO CONSTIPATION; Start 01/01/19 at 20:30 Metformin HCl (Glucophage) 500 mg WITH BREAKFAST DINNE PO Last administered on 01/05/19 08:43; Admin Dose 500 MG; Start 01/02/19 at 08:00 Metoprolol Tartrate (Lopressor) 25 mg BID PO Last administered on 01/05/19 08:39; Admin Dose 25 MG; Start 01/01/19 at 21:00 Quetiapine Fumarate (Seroquel) 100 mg HS PO Last administered on 01/04/19 20:24; Admin Dose 100 MG; Start 01/01/19 at 21:00 Valproate Sodium (Depakene Liquid Cup) 125 mg BID PO Last administered on 01/05/19 08:39; Admin Dose 125 MG; Start 01/01/19 at 21:00 Zinc Sulfate (Zinc Sulfate) 220 mg DAILY PO Last administered on 01/05/19 08:40; Admin Dose 220 MG; Start 01/02/19 at 09:00 Diagnostic Test (Pha) (Accu-Chek) 1 ea AC MEALS AND BEDTIME XX Last administered on 01/02/19 21:34; Admin Dose 1 EA; Start 01/01/19 at 21:00 Vancomycin HCl (Vanco Iv Per Pharmacy) VANCOMYCIN PER PHARMACY PER PROTOCOL XX ; Start 01/01/19 at 20:30 Furosemide (Lasix) 40 mg DAILY GTB Last administered on 01/05/19 08:41; Admin Dose 40 MG; Start 01/02/19 at 09:00 Diagnostic Test (Pha) (Accu-Chek) 1 ea 02 XX Last administered on 01/04/19at 01:09; Admin Dose 1 EA; Start 01/02/19 at 02:00 Insulin Aspart (Novolog Insulin Pen) NOVOLOG *MODERATE* ALGORITHM WITH MEALS BEDTIME SC Last administered on 01/03/19at 17:51; Admin Dose 8 UNIT; Start 01/01/19 at 21:00 Miscellaneous Information 1 ea NOTE XX ; Start 01/01/19 at 21:00 Glucose (Glutose) 15 gm Q15M PRN PO DECREASED GLUCOSE; Start 01/01/19 at 21:00 Glucose (Glutose) 22.5 gm Q15M PRN PO DECREASED GLUCOSE; Start 01/01/19 at 21:00 Dextrose (D50w Syringe) 25 ml Q15M PRN IV DECREASED GLUCOSE; Start 01/01/19 at 21:00 Dextrose (D50w Syringe) 50 ml Q15M PRN IV DECREASED GLUCOSE; Start 01/01/19 at 21:00 Glucagon (Glucagen) 1 mg Q15M PRN IM DECREASED GLUCOSE; Start 01/01/19 at 21:00 Glucose (Glutose) 15 gm Q15M PRN BUCCAL DECREASED GLUCOSE Last administered on 01/04/19at 08:18; Admin Dose 15 GM; Start 01/01/19 at 21:00 Acetaminophen (Tylenol Tab) 500 mg Q6H PRN PO MILD PAIN(1-3)OR ELEVATED TEMP; Start 01/01/19 at 21:30 Acetaminophen (Tylenol Tab) 500 mg BID PO Last administered on 01/05/19at 08:41; Admin Dose 500 MG; Start 01/02/19 at 09:00 Miscellaneous Information (Pending Santyl Order For Wound Care) This patient henry... PRN PRN XX WOUND CARE; Start 01/01/19 at 23:00 Povidone Iodine (Povidone-Iodine) 1 applic DAILY TOP Last administered on 01/05/19at 10:24; Admin Dose 1 APPLIC; Start 01/03/19 at 09:00 Ceftriaxone Sodium 50 ml @ 100 mls/hr Q24H IVPB Last administered on 01/04/19at 19:47; Admin Dose 100 MLS/HR; Start 01/02/19 at 19:00 Metronidazole 100 ml @ 100 mls/hr Q8 IVPB Last administered on 01/05/19at 05:30; Admin Dose 100 MLS/HR; Start 01/02/19 at 22:00 Vancomycin HCl 0.85 gm/Sodium Chloride 250 ml @ 125 mls/hr Q12H IVPB Last administered on 01/05/19at 06:13; Admin Dose 125 MLS/HR; Start 01/03/19 at 18:00 Miscellaneous Information (*Rx Drug Level Order Reminder*) VANCO TROUGH ON 12/17... 1700 ONCE XX ; Start 01/05/19 at 17:00; Stop 01/05/19 at 17:01 ZACHARY RENAE Jan 05, 2019 13:30
--- NOTE | 2019-01-05 13:33 | CONS ---
[facility] HCIS Consult Follow-up Patient Name: Gavino Aleman Unit Number: [id number] Date of : 1935 Patient Status: Admitted Inpatient Attending Doctor: Abdirashid Anna MD Edit: MAYNOR JIMÉNEZ M.D. on 01/06/19 @ 04:54 Jessy: I discussed the management with [employer]ICER and agree Assessment/Plan Assessment/Plan Hospital Course (Demo Recall) - OM R foot - XR 01/01/19 of R foot showed findings c/w OM present lateral aspect of distal forefoot - wound culture growing diptheroids - Poor overall prognosis for abx induced cure given severity of vascular disease - Bacteremia 01/01/19 blood culture x1 set grew coag neg staph -> likely contaminant, repeat cultures 01/03/19 NGTD - s/p Diabetic foot infection/unhealing wound: wound culture 10/10/18 of L foot grew MRSA and corynebacter JK, wound culture of R foot grew proteus, enterococci and corynebacter JK - S/p bedside debridement on 10/11/2018 - Hx Likely OM; b/l foot XR 10/10/18 showed: Irregularity of the margins of the proximal phalanx of R 3rd digit and of 4th metatarsal head, raising suspicion for OM; periarticular lucencies with soft tissue swelling about R 5th MTP articulation. Soft tissue ulceration along the posterior lateral aspect of L midfoot and hindfoot; no e/o bone destructive process. MRI of R foot on 10/12/2018 was limited exam d/t motion artifact (only 1 sequence was able to be obtained) but showed suggestion of osteomyelitis within the 5th metatarsal head and base of 5th proximal phalanx at the metatarsophalangeal joint. - PVD - US arterial b/l LE on 10/10/2018 showed severe peripheral vascular disease with occlusion of b/l superficial femoral and popliteal arteries, severe stenosis or occlusion of b/l posterior tibial and dorsalis pedis arteries. 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, tolerates ceftriaxone too, he has previously tolerated Merrem as well Recommendations: - Continue Vanco, Cftx, metronidazole (01/02/19 - ); s/p Merrem (01/01/19 - 01/03/19) - F/u wound cxs (prelim diptheroids), Repeat blood cultures 01/03/19 (NGTD) - Vasc eval; consider amputations if aggressive care desired - Goals of care - We can follow him here or in longterm if family/patient continue to desire aggressive abx care - Weekly CBC BMP and ESR while Pt's on IV antibiotics Plan was discussed with patient's daughter at the bedside and with Dr. Jiménez. Thank you Consultation Date/Type/Reason Admit Date/Time Jan 01, 2019 at 18:01 Initial Consult Date 01/02/19 Type of Consult ID Requesting Provider: TYE ADAMS Date/Time of Note DATE: 01/05/19 TIME: 13:31 24 HR Interval Summary Free Text/Dictation D/w patient's daughter re: current labs and micros. Answered her questions. ROS limited d/t patient confusion. Exam/Review of Systems Exam Vitals Vital Signs Date Temp Pulse Resp B/P (MAP) Pulse Ox O2 O2 Flow FiO2 Time Delivery Rate 01/05/19 98.0 93 18 135/60 99 08:01 (85) 01/04/19 Room Air 08:09 01/01/19 3.0 18:45 Intake and Output 01/04/19 01/04/19 01/05/19 1414:59 22:59 06:59 IntakeIntake Total 450 ml 300 ml 220 ml BalanceBalance 450 ml 300 ml 220 ml Allergies Coded Allergies Penicillins (Unverified Allergy, Unknown, 01/01/19) codeine (Unverified Allergy, Unknown, 01/01/19) morphine (Unverified Allergy, Unknown, 01/01/19) Exam Constitutional: alert, non-verbal, frail, other (confused, in NAD, eating a bagel sandwich) Psych: no complaints, nl mood/affect, confusion Head: normocephalic, atraumatic Eyes: nl conjunctiva, nl lids, nl sclera ENMT: nl external ears & nose, nl nasal mucosa & septum, mucosa pink and moist (no thrush noted) Neck: supple, non-tender Respiratory: clear to auscultation, normal air movement; No congested cough, No labored breathing, No wheezing Cardiovascular: regular rate and rhythm, nl pulses Gastrointestinal: soft, non-tender, bowel sounds (normoactive); No distended, No tender Musculoskeletal: nl extremities to inspection Extremities: normal pulses, other (patient is sitting in the bed with his BLE hanging from the right side of the bed) Neurological: confused, other (follows simple commands, eye tracks) Skin: nl turgor, other (shelley feet are wrapped in c/d/i kerlix dressings - reviewed nsg notes/pics in the chart) Results Result Diagram: 01/02/19 0705 01/04/19 0530 Results 24hrs Laboratory Tests Test 01/04/19 17:27 01/04/19 20:33 01/05/19 07:34 01/05/19 12:01 Bedside Glucose 145 135 102 69 L Test 01/05/19 12:19 01/05/19 12:41 01/05/19 12:54 01/05/19 13:25 Bedside Glucose 87 78 88 90 Medications Medication Current Medications Acetaminophen (Tylenol Tab) 1,000 mg Q6H PRN PO PAIN 4-6/10; Start 01/01/19 at 20:30 Apixaban (Eliquis) 2.5 mg BID PO Last administered on 01/05/19at 08:41; Admin Dose 2.5 MG; Start 01/01/19 at 21:00 Ascorbic Acid (Vitamin C) 500 mg DAILY PO Last administered on 01/05/19at 08:39; Admin Dose 500 MG; Start 01/02/19 at 09:00 Atorvastatin Calcium (Lipitor) 10 mg QHS PO Last administered on 01/04/19 20:25; Admin Dose 10 MG; Start 01/01/19 at 21:00 Benazepril HCl (Lotensin) 10 mg DAILY PO Last administered on 01/05/19 08:40; Admin Dose 10 MG; Start 01/02/19 at 09:00 Bisacodyl (Dulcolax Supp) 10 mg DAILY PRN [place] NEEDED; Start 01/01/19 at 20:30 Clonazepam (Klonopin) 0.5 mg DAILY PRN PO ANXIETY; Start 01/01/19 at 20:30 Clonidine (Catapres) 0.1 mg Q8H PRN PO IF SBP>160; Start 01/01/19 at 20:30 Digoxin (Digoxin) 0.125 mg DAILY@1300 PO Last administered on 01/05/19 12:51; Admin Dose 0.125 MG; Start 01/02/19 at 13:00 Docusate Sodium (Colace) 200 mg QHS PRN PO CONSTIPATION; Start 01/01/19 at 20:30 Donepezil HCl (Aricept) 5 mg QHS PO Last administered on 01/04/19 20:26; Admin Dose 5 MG; Start 01/01/19 at 21:00 Insulin Glargine (Lantus) 38 units QHS SC Last administered on 01/04/19 20:35; Admin Dose 38 UNITS; Start 01/01/19 at 21:00 Lansoprazole (Prevacid) 30 mg DAILY PO Last administered on 01/05/19 08:39; Admin Dose 30 MG; Start 01/02/19 at 09:00 Linagliptin (Tradjenta) 5 mg DAILY PO Last administered on 01/05/19 08:38; Admin Dose 5 MG; Start 01/02/19 at 09:00 Magnesium Hydroxide (Milk Of Mag) 30 ml QHS PRN PO CONSTIPATION; Start 01/01/19 at 20:30 Metformin HCl (Glucophage) 500 mg WITH BREAKFAST DINNE PO Last administered on 01/05/19 08:43; Admin Dose 500 MG; Start 01/02/19 at 08:00 Metoprolol Tartrate (Lopressor) 25 mg BID PO Last administered on 01/05/19 08:39; Admin Dose 25 MG; Start 01/01/19 at 21:00 Quetiapine Fumarate (Seroquel) 100 mg HS PO Last administered on 01/04/19at 20:24; Admin Dose 100 MG; Start 01/01/19 at 21:00 Valproate Sodium (Depakene Liquid Cup) 125 mg BID PO Last administered on 01/05/19 08:39; Admin Dose 125 MG; Start 01/01/19 at 21:00 Zinc Sulfate (Zinc Sulfate) 220 mg DAILY PO Last administered on 01/05/19 08:40; Admin Dose 220 MG; Start 01/02/19 at 09:00 Diagnostic Test (Pha) (Accu-Chek) 1 ea AC MEALS AND BEDTIME XX Last administered on 01/02/19at 21:34; Admin Dose 1 EA; Start 01/01/19 at 21:00 Vancomycin HCl (Vanco Iv Per Pharmacy) VANCOMYCIN PER PHARMACY PER PROTOCOL XX ; Start 01/01/19 at 20:30 Furosemide (Lasix) 40 mg DAILY GTB Last administered on 01/05/19 08:41; Admin Dose 40 MG; Start 01/02/19 at 09:00 Diagnostic Test (Pha) (Accu-Chek) 1 ea 02 XX Last administered on 01/04/19at 01:09; Admin Dose 1 EA; Start 01/02/19 at 02:00 Insulin Aspart (Novolog Insulin Pen) NOVOLOG *MODERATE* ALGORITHM WITH MEALS BEDTIME SC Last administered on 01/03/19at 17:51; Admin Dose 8 UNIT; Start 01/01/19 at 21:00 Miscellaneous Information 1 ea NOTE XX ; Start 01/01/19 at 21:00 Glucose (Glutose) 15 gm Q15M PRN PO DECREASED GLUCOSE; Start 01/01/19 at 21:00 Glucose (Glutose) 22.5 gm Q15M PRN PO DECREASED GLUCOSE; Start 01/01/19 at 21:00 Dextrose (D50w Syringe) 25 ml Q15M PRN IV DECREASED GLUCOSE; Start 01/01/19 at 21:00 Dextrose (D50w Syringe) 50 ml Q15M PRN IV DECREASED GLUCOSE; Start 01/01/19 at 21:00 Glucagon (Glucagen) 1 mg Q15M PRN IM DECREASED GLUCOSE; Start 01/01/19 at 21:00 Glucose (Glutose) 15 gm Q15M PRN BUCCAL DECREASED GLUCOSE Last administered on 01/04/19 08:18; Admin Dose 15 GM; Start 01/01/19 at 21:00 Acetaminophen (Tylenol Tab) 500 mg Q6H PRN PO MILD PAIN(1-3)OR ELEVATED TEMP; Start 01/01/19 at 21:30 Acetaminophen (Tylenol Tab) 500 mg BID PO Last administered on 01/05/19 08:41; Admin Dose 500 MG; Start 01/02/19 at 09:00 [facility] This patient henry... PRN PRN XX WOUND CARE; Start 01/01/19 at 23:00 Povidone Iodine (Povidone-Iodine) 1 applic DAILY TOP Last administered on 01/05/19 10:24; Admin Dose 1 APPLIC; Start 01/03/19 at 09:00 Ceftriaxone Sodium 50 ml @ 100 mls/hr Q24H IVPB Last administered on 01/04/19at 19:47; Admin Dose 100 MLS/HR; Start 01/02/19 at 19:00 Metronidazole 100 ml @ 100 mls/hr Q8 IVPB Last administered on 01/05/19 05:30; Admin Dose 100 MLS/HR; Start 01/02/19 at 22:00 Vancomycin HCl 0.85 gm/Sodium Chloride 250 ml @ 125 mls/hr Q12H IVPB Last administered on 01/05/19at 06:13; Admin Dose 125 MLS/HR; Start 01/03/19 at 18:00 Miscellaneous Information (*Rx Drug Level Order Reminder*) VANCO TROUGH ON 12/17... 1700 ONCE XX ; Start 01/05/19 at 17:00; Stop 01/05/19 at 17:01 ANITHA VIVAR NP Jan 05, 2019 13:33
[2019-01-05 14:30] VITALS: BP 128/60; PULSE 85; RESP 18
[2019-01-05 20:00] VITALS: BP 138/59; PULSE 75; RESP 18
[2019-01-05] MEDS: ATORVASTATIN 10 MG TAB PO SCH (20:44)
[2019-01-05] MEDS: QUETIAPINE 100 MG TAB PO SCH (20:45)
[2019-01-05] MEDS: DONEPEZIL 5 MG TAB PO SCH (20:45)
[2019-01-05] MEDS: INSULIN GLARGINE [LANTus] (100 UNITS/ML) SYG SC SCH (20:47)
[2019-01-05] MEDS: CEFTRIAXONE 1 GM/50 ML (PMX) 50 ML IVPB SCH (20:48)
[2019-01-06] MEDS: metroNIDAZOLE 500 MG/NS (PMX) 100 ML IVPB SCH ×4 (00:09→21:20)
[2019-01-06] MEDS: ACCU-CHEK XX SCH ×5 (00:54→21:00)
[2019-01-06 02:00] VITALS: BP 140/75; PULSE 71; RESP 18
[2019-01-06] MEDS: VANCOMYCIN HCL 0.85 GM in SOD CHLORIDE 0.9% 250 ML IVPB SCH ×2 (06:21→18:19)
[2019-01-06] MEDS: INSULIN ASPART [NOVOLOG] 3 ML PEN SC SCH ×4 (08:00→21:18)
[2019-01-06] MEDS: metFORMIN 500 MG TAB PO SCH ×2 (08:00→17:33)
[2019-01-06 08:05] VITALS: BP 129/57; PULSE 86; RESP 16
[2019-01-06] MEDS: LINAGLIPTIN 5 MG TABLET PO SCH (08:15)
[2019-01-06] MEDS: LANSOPRAZOLE 30 MG CAP PO SCH (08:42)
[2019-01-06] MEDS: BENAZEPRIL 10 MG TAB PO SCH (08:42)
[2019-01-06] MEDS: ACETAMINOPHEN 500 MG TAB PO SCH ×2 (08:42→21:19)
[2019-01-06] MEDS: ZINC SULFATE 220 MG CAP PO SCH (08:42)
[2019-01-06] MEDS: VALPROIC ACID LIQUID CUP 250 MG/5 ML CUP PO SCH ×2 (08:42→21:20)
[2019-01-06] MEDS: APIXABAN 5 MG TABLET PO SCH ×2 (08:42→21:19)
[2019-01-06] MEDS: ASCORBIC ACID 500 MG TAB PO SCH (08:42)
[2019-01-06] MEDS: METOPROLOL 25 MG TAB PO SCH ×2 (08:43→21:19)
[2019-01-06] MEDS: FUROSEMIDE 40 MG TAB GTB SCH (08:43)
[2019-01-06] MEDS: POVIDONE IODINE 10% 28.4 GM OINT TOP SCH (08:43)
[2019-01-06] MEDS: DIGOXIN 0.125 MG TAB PO SCH (13:17)
[2019-01-06 14:00] VITALS: BP 147/56; PULSE 78; RESP 16
--- NOTE | 2019-01-06 14:06 | PN ---
Date/Time of Note Date/Time of Note DATE: 01/06/19 TIME: 14:05 Assessment/Plan VTE Prophylaxis Risk score (from Ns)>0 risk: 7 SCD applied (from Ns): Yes Pharmacological prophylaxis: LMWH Lines/Catheters [facility] Saline Lock Urinary Cath still in place: No Assessment/Plan Hospital Course -Possible sepsis secondary to right foot necrotic wounds. Will obtain urine and blood cultures. Continue IV fluids and broad-spectrum antibiotics. Dr. Blake is asked to see pt in infection disease consultation. -Bilateral diabetic foot ulcers, right foot necrotic wounds. Dr. Brannon is asked to see patient in podiatry consultation. -Hx Right foot wounds with possible osteomyelitis. -Peripheral vascular disease. Patient underwent angiogram during last admission which revealed severe infrainguinal disease that is not amenable to any endovascular intervention. Patient was evaluated by Dr. Roca during last admission, vascular surgery with recommendation for amputation however patient's refused. -Diabetes mellitus type 2 continue Lantus and NovoLog. -Coronary artery disease, status post CABG. Continue Plavix. -Atrial fibrillation, continue Eliquis and metoprolol. -Dysphagia with G-tube. 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 -Wheelchair bound status Result Diagram: 01/02/19 0705 01/04/19 0530 Results 24hrs Laboratory Tests Test 01/05/19 17:02 01/05/19 17:25 01/05/19 20:42 01/06/19 08:02 Vancomycin Level 15.6 Trough Bedside Glucose 116 103 43 *L Test 01/06/19 08:21 01/06/19 08:40 01/06/19 11:58 Bedside Glucose 115 154 112 Subjective 24 Hr Interval Summary Free Text/Dictation Patient is not verbally responsive Exam/Review of Systems Exam Vitals Vital Signs Date Temp Pulse Resp B/P (MAP) Pulse Ox O2 O2 Flow FiO2 Time Delivery Rate 01/06/19 98.7 86 16 129/57 97 Room Air 08:05 (81) Intake and Output 01/05/19 01/05/19 01/06/19 1515:00 23:00 07:00 IntakeIntake Total 730 ml 550 ml 250 ml BalanceBalance 730 ml 550 ml 250 ml Constitutional: well developed Head: normocephalic, atraumatic Neck: supple Respiratory: diminished breath sounds Cardiovascular: regular rate and rhythm Gastrointestinal: soft, non-tender Extremities: normal pulses Results Results 24hrs Laboratory Tests Test 01/05/19 17:02 01/05/19 17:25 01/05/19 20:42 01/06/19 08:02 Vancomycin Level 15.6 Trough Bedside Glucose 116 103 43 *L Test 01/06/19 08:21 01/06/19 08:40 01/06/19 11:58 Bedside Glucose 115 154 112 Medications Medication Current Medications Acetaminophen (Tylenol Tab) 1,000 mg Q6H PRN PO PAIN 4-02/24; Start 01/01/19 at 20:30 Apixaban (Eliquis) 2.5 mg BID PO Last administered on 01/06/19at 08:42; Admin Dose 2.5 MG; Start 01/01/19 at 21:00 Ascorbic Acid (Vitamin C) 500 mg DAILY PO Last administered on 01/06/19at 08:42; Admin Dose 500 MG; Start 01/02/19 at 09:00 Atorvastatin Calcium (Lipitor) 10 mg QHS PO Last administered on 01/05/19at 20:44; Admin Dose 10 MG; Start 01/01/19 at 21:00 Benazepril HCl (Lotensin) 10 mg DAILY PO Last administered on 01/06/19at 08:42; Admin Dose 10 MG; Start 01/02/19 at 09:00 Bisacodyl (Dulcolax Supp) 10 mg DAILY PRN [place] NEEDED; Start 01/01/19 at 20:30 Clonazepam (Klonopin) 0.5 mg DAILY PRN PO ANXIETY; Start 01/01/19 at 20:30 Clonidine (Catapres) 0.1 mg Q8H PRN PO IF SBP>160; Start 01/01/19 at 20:30 Digoxin (Digoxin) 0.125 mg DAILY@1300 PO Last administered on 01/06/19at 13:17; Admin Dose 0.125 MG; Start 01/02/19 at 13:00 Docusate Sodium (Colace) 200 mg QHS PRN PO CONSTIPATION; Start 01/01/19 at 20:30 Donepezil HCl (Aricept) 5 mg QHS PO Last administered on 01/05/19 20:45; Admin Dose 5 MG; Start 01/01/19 at 21:00 Insulin Glargine (Lantus) 38 units QHS SC Last administered on 01/05/19 20:47; Admin Dose 38 UNITS; Start 01/01/19 at 21:00 Lansoprazole (Prevacid) 30 mg DAILY PO Last administered on 01/06/19 08:42; Admin Dose 30 MG; Start 01/02/19 at 09:00 Linagliptin (Tradjenta) 5 mg DAILY PO Last administered on 01/05/19 08:38; Admin Dose 5 MG; Start 01/02/19 at 09:00 Magnesium Hydroxide (Milk Of Mag) 30 ml QHS PRN PO CONSTIPATION; Start 01/01/19 at 20:30 Metformin HCl (Glucophage) 500 mg WITH BREAKFAST DINNE PO Last administered on 01/05/19 17:30; Admin Dose 500 MG; Start 01/02/19 at 08:00 Metoprolol Tartrate (Lopressor) 25 mg BID PO Last administered on 01/06/19 08:43; Admin Dose 25 MG; Start 01/01/19 at 21:00 Quetiapine Fumarate (Seroquel) 100 mg HS PO Last administered on 01/05/19 20:45; Admin Dose 100 MG; Start 01/01/19 at 21:00 Valproate Sodium (Depakene Liquid Cup) 125 mg BID PO Last administered on 01/06/19 08:42; Admin Dose 125 MG; Start 01/01/19 at 21:00 Zinc Sulfate (Zinc Sulfate) 220 mg DAILY PO Last administered on 01/06/19 08:4 2; Admin Dose 220 MG; Start 01/02/19 at 09:00 Diagnostic Test (Pha) (Accu-Chek) 1 ea AC MEALS AND BEDTIME XX Last administered on 01/05/19 17:27; Admin Dose 1 EA; Start 01/01/19 at 21:00 Vancomycin HCl (Vanco Iv Per Pharmacy) VANCOMYCIN PER PHARMACY PER PROTOCOL XX ; Start 01/01/19 at 20:30 Furosemide (Lasix) 40 mg DAILY GTB Last administered on 01/06/19 08:43; Admin Dose 40 MG; Start 01/02/19 at 09:00 Diagnostic Test (Pha) (Accu-Chek) 1 ea 02 XX Last administered on 01/04/19at 01:09; Admin Dose 1 EA; Start 01/02/19 at 02:00 Insulin Aspart (Novolog Insulin Pen) NOVOLOG *MODERATE* ALGORITHM WITH MEALS BEDTIME SC Last administered on 01/03/19at 17:51; Admin Dose 8 UNIT; Start 01/01/19 at 21:00 Miscellaneous Information 1 ea NOTE XX ; Start 01/01/19 at 21:00 Glucose (Glutose) 15 gm Q15M PRN PO DECREASED GLUCOSE; Start 01/01/19 at 21:00 Glucose (Glutose) 22.5 gm Q15M PRN PO DECREASED GLUCOSE; Start 01/01/19 at 21:00 Dextrose (D50w Syringe) 25 ml Q15M PRN IV DECREASED GLUCOSE; Start 01/01/19 at 21:00 Dextrose (D50w Syringe) 50 ml Q15M PRN IV DECREASED GLUCOSE Last administered o n 01/06/19at 08:05; Admin Dose 50 ML; Start 01/01/19 at 21:00 Glucagon (Glucagen) 1 mg Q15M PRN IM DECREASED GLUCOSE; Start 01/01/19 at 21:00 Glucose (Glutose) 15 gm Q15M PRN BUCCAL DECREASED GLUCOSE Last administered on 01/04/19 08:18; Admin Dose 15 GM; Start 01/01/19 at 21:00 Acetaminophen (Tylenol Tab) 500 mg Q6H PRN PO MILD PAIN(1-3)OR ELEVATED TEMP; Start 01/01/19 at 21:30 Acetaminophen (Tylenol Tab) 500 mg BID PO Last administered on 01/06/19at 08:42; Admin Dose 500 MG; Start 01/02/19 at 09:00 Miscellaneous Information (Pending Santyl Order For Wound Care) This patient henry... PRN PRN XX WOUND CARE; Start 01/01/19 at 23:00 Povidone Iodine (Povidone-Iodine) 1 applic DAILY TOP Last administered on 01/06/19at 08:43; Admin Dose 1 APPLIC; Start 01/03/19 at 09:00 Ceftriaxone Sodium 50 ml @ 100 mls/hr Q24H IVPB Last administered on 01/05/19at 20:48; Admin Dose 100 MLS/HR; Start 01/02/19 at 19:00 Metronidazole 100 ml @ 100 mls/hr Q8 IVPB Last administered on 01/06/19 13:17; Admin Dose 100 MLS/HR; Start 01/02/19 at 22:00 Vancomycin HCl 0.85 gm/Sodium Chloride 250 ml @ 125 mls/hr Q12H IVPB Last administered on 01/06/19 06:21; Admin Dose 125 MLS/HR; Start 01/03/19 at 18:00 ZACHARY RENAE Jan 06, 2019 14:06
--- NOTE | 2019-01-06 15:37 | CONS ---
Assessment/Plan Assessment/Plan Hospital Course (Demo Recall) assessment/impression - OM R foot - XR 01/01/19 of R foot showed findings c/w OM present lateral aspect of distal forefoot - wound culture grew diptheroids. a colonizer - Poor overall prognosis for antibiotics to cure cure given severity of vascular disease - Bacteremia 01/01/19 blood culture x1 set grew coag neg staph -> likely contaminant, repeat cultures 01/03/19 negative - s/p diabetic foot infection/unhealing wound: wound culture 10/10/18 of L foot grew MRSA and corynebacter JK, wound culture of R foot grew proteus, enterococci and corynebacter JK - S/p bedside debridement on 10/11/2018 - Hx Likely OM; b/l foot XR 10/10/18 showed: Irregularity of the margins of the proximal phalanx of R 3rd digit and of 4th metatarsal head, raising suspicion for OM; periarticular lucencies with soft tissue swelling about R 5th MTP articulation. Soft tissue ulceration along the posterior lateral aspect of L midfoot and hindfoot; no e/o bone destructive process. MRI of R foot on 10/12/2018 was limited exam d/t motion artifact (only 1 sequence was able to be obtained) but showed suggestion of osteomyelitis within the 5th metatarsal head and base of 5th proximal phalanx at the metatarsophalangeal joint. - PVD - US arterial b/l LE on 10/10/2018 showed severe peripheral vascular disease with occlusion of b/l superficial femoral and popliteal arteries, severe stenosis or occlusion of b/l posterior tibial and dorsalis pedis arteries. 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 - PCN allergy; Has tolerated cefepime previously per EMR at [facility], tolerates ceftriaxone too, he has previously tolerated Merrem as well recommendations: - continue vancomycin, ceftriaxone, metronidazole (01/02/19 - ); local wound care management d/w Pt and his RN Lisa Consultation Date/Type/Reason Admit Date/Time Jan 01, 2019 at 18:01 Initial Consult Date 01/02/19 Requesting Provider: TYE ADAMS Date/Time of Note DATE: 01/06/19 TIME: 15:36 24 HR Interval Summary Subjective hx not possible: other (demented and limited) Constitutional: other (on tube feed) Detailed Summary Gastrointestinal: no complaints Musculoskeletal: no complaints Exam/Review of Systems Exam Vitals Vital Signs Date Temp Pulse Resp B/P (MAP) Pulse Ox O2 O2 Flow FiO2 Time Delivery Rate 01/06/19 97.7 78 16 147/56 94 Room Air 14:00 (86) Intake and Output 01/05/19 01/05/19 01/06/19 1515:00 23:00 07:00 IntakeIntake Total 730 ml 550 ml 250 ml BalanceBalance 730 ml 550 ml 250 ml Constitutional: frail, other (demented) Psych: confusion Head: normocephalic, atraumatic Eyes: nl conjunctiva, nl lids ENMT: nl external ears & nose, nl nasal mucosa & septum Neck: other (not swollen) Respiratory: other (normal resp effort) Cardiovascular: other (no edema) Genitourinary - Male: other (+diaper) Musculoskeletal: other (contractured) Extremities: No edema Neurological: confused Skin: other (wound on b/l heel, eschar of R lateral foot and R 2nd toe, malodorous) Results Result Diagram: 01/02/19 0705 01/04/19 0530 Results 24hrs Laboratory Tests Test 01/05/19 17:02 01/05/19 17:25 01/05/19 20:42 01/06/19 08:02 Vancomycin Level 15.6 Trough Bedside Glucose 116 103 43 *L Test 01/06/19 08:21 01/06/19 08:40 01/06/19 11:58 Bedside Glucose 115 154 112 Medications Medication Current Medications Acetaminophen (Tylenol Tab) 1,000 mg Q6H PRN PO PAIN 4-610; Start 01/01/19 at 20:30 Apixaban (Eliquis) 2.5 mg BID PO Last administered on 01/06/19at 08:42; Admin Dose 2.5 MG; Start 01/01/19 at 21:00 Ascorbic Acid (Vitamin C) 500 mg DAILY PO Last administered on 01/06/19 08:42; Admin Dose 500 MG; Start 01/02/19 at 09:00 Atorvastatin Calcium (Lipitor) 10 mg QHS PO Last administered on 01/05/19 20:44; Admin Dose 10 MG; Start 01/01/19 at 21:00 Benazepril HCl (Lotensin) 10 mg DAILY PO Last administered on 01/06/19 08:42; Admin Dose 10 MG; Start 01/02/19 at 09:00 Bisacodyl (Dulcolax Supp) 10 mg DAILY PRN [place] NEEDED; Start 01/01/19 at 20:30 Clonazepam (Klonopin) 0.5 mg DAILY PRN PO ANXIETY; Start 01/01/19 at 20:30 Clonidine (Catapres) 0.1 mg Q8H PRN PO IF SBP>160; Start 01/01/19 at 20:30 Digoxin (Digoxin) 0.125 mg DAILY@1300 PO Last administered on 01/06/19 13:17; Admin Dose 0.125 MG; Start 01/02/19 at 13:00 Docusate Sodium (Colace) 200 mg QHS PRN PO CONSTIPATION; Start 01/01/19 at 20:30 Donepezil HCl (Aricept) 5 mg QHS PO Last administered on 01/05/19 20:45; Admin Dose 5 MG; Start 01/01/19 at 21:00 Insulin Glargine (Lantus) 38 units QHS SC Last administered on 01/05/19 20:47; Admin Dose 38 UNITS; Start 01/01/19 at 21:00 Lansoprazole (Prevacid) 30 mg DAILY PO Last administered on 01/06/19 08:42; Admin Dose 30 MG; Start 01/02/19 at 09:00 Linagliptin (Tradjenta) 5 mg DAILY PO Last administered on 01/05/19 08:38; Admin Dose 5 MG; Start 01/02/19 at 09:00 Magnesium Hydroxide (Milk Of Mag) 30 ml QHS PRN PO CONSTIPATION; Start 01/01/19 at 20:30 Metformin HCl (Glucophage) 500 mg WITH BREAKFAST DINNE PO Last administered on 01/05/19 17:30; Admin Dose 500 MG; Start 01/02/19 at 08:00 Metoprolol Tartrate (Lopressor) 25 mg BID PO Last administered on 01/06/19 08:43; Admin Dose 25 MG; Start 01/01/19 at 21:00 Quetiapine Fumarate (Seroquel) 100 mg HS PO Last administered on 01/05/19 20:45; Admin Dose 100 MG; Start 01/01/19 at 21:00 Valproate Sodium (Depakene Liquid Cup) 125 mg BID PO Last administered on 01/06/19 08:42; Admin Dose 125 MG; Start 01/01/19 at 21:00 Zinc Sulfate (Zinc Sulfate) 220 mg DAILY PO Last administered on 01/06/19 08:42; Admin Dose 220 MG; Start 01/02/19 at 09:00 Diagnostic Test (Pha) (Accu-Chek) 1 ea AC MEALS AND BEDTIME XX Last administered on 01/05/19 17:27; Admin Dose 1 EA; Start 01/01/19 at 21:00 Vancomycin HCl (Vanco Iv Per Pharmacy) VANCOMYCIN PER PHARMACY PER PROTOCOL XX ; Start 01/01/19 at 20:30 Furosemide (Lasix) 40 mg DAILY GTB Last administered on 01/06/19 08:43; Admin Dose 40 MG; Start 01/02/19 at 09:00 Diagnostic Test (Pha) (Accu-Chek) 1 ea 02 XX Last administered on 01/04/19 01:09; Admin Dose 1 EA; Start 01/02/19 at 02:00 Insulin Aspart (Novolog Insulin Pen) NOVOLOG *MODERATE* ALGORITHM WITH MEALS BEDTIME SC Last administered on 01/03/19 17:51; Admin Dose 8 UNIT; Start 01/01/19 at 21:00 Miscellaneous Information 1 ea NOTE XX ; Start 01/01/19 at 21:00 Glucose (Glutose) 15 gm Q15M PRN PO DECREASED GLUCOSE; Start 01/01/19 at 21:00 Glucose (Glutose) 22.5 gm Q15M PRN PO DECREASED GLUCOSE; Start 01/01/19 at 21:00 Dextrose (D50w Syringe) 25 ml Q15M PRN IV DECREASED GLUCOSE; Start 01/01/19 at 21:00 Dextrose (D50w Syringe) 50 ml Q15M PRN IV DECREASED GLUCOSE Last administered on 01/06/19 08:05; Admin Dose 50 ML; Start 01/01/19 at 21:00 Glucagon (Glucagen) 1 mg Q15M PRN IM DECREASED GLUCOSE; Start 01/01/19 at 21:00 Glucose (Glutose) 15 gm Q15M PRN BUCCAL DECREASED GLUCOSE Last administered on 01/04/19 08:18; Admin Dose 15 GM; Start 01/01/19 at 21:00 Acetaminophen (Tylenol Tab) 500 mg Q6H PRN PO MILD PAIN(1-3)OR ELEVATED TEMP; Start 01/01/19 at 21:30 Acetaminophen (Tylenol Tab) 500 mg BID PO Last administered on 01/06/19 08:42; Admin Dose 500 MG; Start 01/02/19 at 09:00 Miscellaneous Information (Pending [facility] Order For Wound Care) This patient henry... PRN PRN XX WOUND CARE; Start 01/01/19 at 23:00 Povidone Iodine (Povidone-Iodine) 1 applic DAILY TOP Last administered on 01/06/19 08:43; Admin Dose 1 APPLIC; Start 01/03/19 at 09:00 Ceftriaxone Sodium 50 ml @ 100 mls/hr Q24H IVPB Last administered on 01/05/19 20:48; Admin Dose 100 MLS/HR; Start 01/02/19 at 19:00 Metronidazole 100 ml @ 100 mls/hr Q8 IVPB Last administered on 01/06/19 13:17; Admin Dose 100 MLS/HR; Start 01/02/19 at 22:00 Vancomycin HCl 0.85 gm/Sodium Chloride 250 ml @ 125 mls/hr Q12H IVPB Last administered on 01/06/19 06:21; Admin Dose 125 MLS/HR; Start 01/03/19 at 18:00 MAYNOR SIDDIQI M.D. Jan 06, 2019 15:37
[2019-01-06] MEDS: CEFTRIAXONE 1 GM/50 ML (PMX) 50 ML IVPB SCH (17:41)
[2019-01-06 20:27] VITALS: BP 136/71; PULSE 118; RESP 20
[2019-01-06] MEDS: INSULIN GLARGINE [LANTus] (100 UNITS/ML) SYG SC SCH (21:18)
[2019-01-06] MEDS: DONEPEZIL 5 MG TAB PO SCH (21:18)
[2019-01-06] MEDS: QUETIAPINE 100 MG TAB PO SCH (21:19)
[2019-01-06] MEDS: ATORVASTATIN 10 MG TAB PO SCH (21:19)
[2019-01-07] MEDS: ACCU-CHEK XX SCH ×5 (01:39→20:40)
[2019-01-07 01:54] VITALS: BP 125/56; PULSE 75; RESP 18
[2019-01-07] MEDS: metroNIDAZOLE 500 MG/NS (PMX) 100 ML IVPB SCH ×3 (05:07→22:25)
[2019-01-07] MEDS: VANCOMYCIN HCL 0.85 GM in SOD CHLORIDE 0.9% 250 ML IVPB SCH ×2 (06:00→20:22)
[2019-01-07 08:00] VITALS: BP 141/67; PULSE 90; RESP 18
[2019-01-07] MEDS: metFORMIN 500 MG TAB PO SCH ×2 (08:00→17:41)
[2019-01-07] MEDS: INSULIN ASPART [NOVOLOG] 3 ML PEN SC SCH ×4 (08:00→20:34)
[2019-01-07] MEDS: LINAGLIPTIN 5 MG TABLET PO SCH (09:00)
[2019-01-07] MEDS: GLUCOSE GEL 15 GRAM TUBE BUCCAL PRN (09:03)
[2019-01-07] MEDS: FUROSEMIDE 40 MG TAB GTB SCH (09:39)
[2019-01-07] MEDS: METOPROLOL 25 MG TAB PO SCH ×2 (09:39→20:40)
[2019-01-07] MEDS: BENAZEPRIL 10 MG TAB PO SCH (09:39)
[2019-01-07] MEDS: VALPROIC ACID LIQUID CUP 250 MG/5 ML CUP PO SCH ×2 (09:39→20:23)
[2019-01-07] MEDS: ZINC SULFATE 220 MG CAP PO SCH (09:39)
[2019-01-07] MEDS: ASCORBIC ACID 500 MG TAB PO SCH (09:39)
[2019-01-07] MEDS: LANSOPRAZOLE 30 MG CAP PO SCH (09:39)
[2019-01-07] MEDS: POVIDONE IODINE 10% 28.4 GM OINT TOP SCH (09:40)
[2019-01-07] MEDS: ACETAMINOPHEN 500 MG TAB PO SCH ×2 (09:40→20:24)
[2019-01-07] MEDS: APIXABAN 5 MG TABLET PO SCH ×2 (09:40→20:24)
[2019-01-07] MEDS: DIGOXIN 0.125 MG TAB PO SCH (13:00)
[2019-01-07 14:00] VITALS: BP 138/72; PULSE 86; RESP 20
--- NOTE | 2019-01-07 16:44 | PN ---
Date/Time of Note Date/Time of Note DATE: 01/07/19 TIME: 16:44 Assessment/Plan VTE Prophylaxis Risk score (from Ns)>0 risk: 7 SCD applied (from Ns): Yes Lines/Catheters IV Catheter Type (from Nrs): Saline Lock Urinary Cath still in place: No Assessment/Plan Assessment/Plan -Possible sepsis secondary to right foot necrotic wounds. Will obtain urine and blood cultures. Continue IV fluids and broad-spectrum antibiotics. Dr. Blake is asked to see pt in infection disease consultation. -Bilateral diabetic foot ulcers, right foot necrotic wounds. Dr. Brannon is asked to see patient in podiatry consultation. -Hx Right foot wounds with possible osteomyelitis. -Peripheral vascular disease. Patient underwent angiogram during last admission which revealed severe infrainguinal disease that is not amenable to any endovascular intervention. Patient was evaluated by Dr. Roca during last admission, vascular surgery with recommendation for amputation however patient's refused. -Diabetes mellitus type 2 continue Lantus and NovoLog. -Coronary artery disease, status post CABG. Continue Plavix. -Atrial fibrillation, continue Eliquis and metoprolol. -Dysphagia with G-tube. 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 -Wheelchair bound status Result Diagram: 01/07/19 1007 01/07/19 1007 Results 24hrs Laboratory Tests Test 01/06/19 17:34 01/06/19 20:52 01/07/19 01:21 01/07/19 08:44 Bedside Glucose 217 195 120 42 *L Test 01/07/19 09:00 01/07/19 09:20 01/07/19 09:38 01/07/19 10:07 Bedside Glucose 54 L 93 104 White Blood Count 10.8 # Red Blood Count 4.53 L Hemoglobin 11.8 L Hematocrit 37.0 L Mean Corpuscular 81.7 L Volume Mean Corpuscular 26.0 L Hemoglobin Mean Corpuscular 31.9 L Hemoglobin Concent Red Cell 16.0 H Distribution Width Platelet Count 343 Mean Platelet Volume 10.2 Immature 0.700 H Granulocytes % Neutrophils % 74.8 Lymphocytes % 14.2 L Monocytes % 8.4 Eosinophils % 1.3 Basophils % 0.6 Nucleated Red Blood 0.0 Cells % Immature 0.080 H Granulocytes # Neutrophils # 8.0 H Lymphocytes # 1.5 Monocytes # 0.9 Eosinophils # 0.1 Basophils # 0.1 Nucleated Red Blood 0.0 Cells # Sodium Level 144 Potassium Level 4.3 Chloride Level 106 Carbon Dioxide Level 32 H Anion Gap 6 Blood Urea Nitrogen 14 Creatinine 0.50 L Est Glomerular Filtrat Rate mL/min Glucose Level 131 Calcium Level 9.4 Test 01/07/19 11:52 Bedside Glucose 168 Exam/Review of Systems Exam Vitals Vital Signs Date Temp Pulse Resp B/P (MAP) Pulse Ox O2 O2 Flow FiO2 Time Delivery Rate 01/07/19 97.8 86 20 138/72 96 14:00 (94) 01/06/19 Room Air 14:00 Intake and Output 01/06/19 01/06/19 01/07/19 1414:59 22:59 06:59 IntakeIntake Total 850 ml 700 ml BalanceBalance 850 ml 700 ml Results Results 24hrs Laboratory Tests Test 01/06/19 17:34 01/06/19 20:52 01/07/19 01:21 01/07/19 08:44 Bedside Glucose 217 195 120 42 *L Test 01/07/19 09:00 01/07/19 09:20 01/07/19 09:38 01/07/19 10:07 Bedside Glucose 54 L 93 104 White Blood Count 10.8 # Red Blood Count 4.53 L Hemoglobin 11.8 L Hematocrit 37.0 L Mean Corpuscular 81.7 L Volume Mean Corpuscular 26.0 L Hemoglobin Mean Corpuscular 31.9 L Hemoglobin Concent Red Cell 16.0 H Distribution Width Platelet Count 343 Mean Platelet Volume 10.2 Immature 0.700 H Granulocytes % Neutrophils % 74.8 Lymphocytes % 14.2 L Monocytes % 8.4 Eosinophils % 1.3 Basophils % 0.6 Nucleated Red Blood 0.0 Cells % Immature 0.080 H Granulocytes # Neutrophils # 8.0 H Lymphocytes # 1.5 Monocytes # 0.9 Eosinophils # 0.1 Basophils # 0.1 Nucleated Red Blood 0.0 Cells # Sodium Level 144 Potassium Level 4.3 Chloride Level 106 Carbon Dioxide Level 32 H Anion Gap 6 Blood Urea Nitrogen 14 Creatinine 0.50 L Est Glomerular Filtrat Rate mL/min Glucose Level 131 Calcium Level 9.4 Test 01/07/19 11:52 Bedside Glucose 168 Medications Medication Current Medications Acetaminophen (Tylenol Tab) 1,000 mg Q6H PRN PO PAIN 4-610; Start 01/01/19 at 20:30 Apixaban (Eliquis) 2.5 mg BID PO Last administered on 01/07/19 09:40; Admin Dose 2.5 MG; Start 01/01/19 at 21:00 Ascorbic Acid (Vitamin C) 500 mg DAILY PO Last administered on 01/07/19 09:39; Admin Dose 500 MG; Start 01/02/19 at 09:00 Atorvastatin Calcium (Lipitor) 10 mg QHS PO Last administered on 01/06/19 21:19; Admin Dose 10 MG; Start 01/01/19 at 21:00 Benazepril HCl (Lotensin) 10 mg DAILY PO Last administered on 01/07/19 09:39; Admin Dose 10 MG; Start 01/02/19 at 09:00 Bisacodyl (Dulcolax Supp) 10 mg DAILY PRN [place] NEEDED; Start 01/01/19 at 20:30 Clonazepam (Klonopin) 0.5 mg DAILY PRN PO ANXIETY; Start 01/01/19 at 20:30 Clonidine (Catapres) 0.1 mg Q8H PRN PO IF SBP>160; Start 01/01/19 at 20:30 Digoxin (Digoxin) 0.125 mg DAILY@1300 PO Last administered on 01/06/19at 13:17; Admin Dose 0.125 MG; Start 01/02/19 at 13:00 Docusate Sodium (Colace) 200 mg QHS PRN PO CONSTIPATION; Start 01/01/19 at 20:30 Donepezil HCl (Aricept) 5 mg QHS PO Last administered on 01/06/19 21:18; Admin Dose 5 MG; Start 01/01/19 at 21:00 Lansoprazole (Prevacid) 30 mg DAILY PO Last administered on 01/07/19 09:39; Admin Dose 30 MG; Start 01/02/19 at 09:00 Linagliptin (Tradjenta) 5 mg DAILY PO Last administered on 01/05/19 08:38; Admin Dose 5 MG; Start 01/02/19 at 09:00 Magnesium Hydroxide (Milk Of Mag) 30 ml QHS PRN PO CONSTIPATION; Start 01/01/19 at 20:30 Metformin HCl (Glucophage) 500 mg WITH BREAKFAST DINNE PO Last administered on 01/05/19 17:30; Admin Dose 500 MG; Start 01/02/19 at 08:00 Metoprolol Tartrate (Lopressor) 25 mg BID PO Last administered on 01/07/19 09:39; Admin Dose 25 MG; Start 01/01/19 at 21:00 Quetiapine Fumarate (Seroquel) 100 mg HS PO Last administered on 01/06/19 21:19; Admin Dose 100 MG; Start 01/01/19 at 21:00 Valproate Sodium (Depakene Liquid Cup) 125 mg BID PO Last administered on 01/07/19 09:39; Admin Dose 125 MG; Start 01/01/19 at 21:00 Zinc Sulfate (Zinc Sulfate) 220 mg DAILY PO Last administered on 01/07/19 09:39; Admin Dose 220 MG; Start 01/02/19 at 09:00 Diagnostic Test (Pha) (Accu-Chek) 1 ea AC MEALS AND BEDTIME XX Last administered on 01/05/19 17:27; Admin Dose 1 EA; Start 01/01/19 at 21:00 Vancomycin HCl (Vanco Iv Per Pharmacy) VANCOMYCIN PER PHARMACY PER PROTOCOL XX ; Start 01/01/19 at 20:30 Furosemide (Lasix) 40 mg DAILY GTB Last administered on 01/07/19 09:39; Admin Dose 40 MG; Start 01/02/19 at 09:00 Diagnostic Test (Pha) (Accu-Chek) 1 ea 02 XX Last administered on 01/04/19at 01:09; Admin Dose 1 EA; Start 01/02/19 at 02:00 Insulin Aspart (Novolog Insulin Pen) NOVOLOG *MODERATE* ALGORITHM WITH MEALS BEDTIME SC Last administered on 01/06/19 21:18; Admin Dose 1 UNIT; Start 01/01/19 at 21:00 Miscellaneous Information 1 ea NOTE XX ; Start 01/01/19 at 21:00 Glucose (Glutose) 15 gm Q15M PRN PO DECREASED GLUCOSE; Start 01/01/19 at 21:00 Glucose (Glutose) 22.5 gm Q15M PRN PO DECREASED GLUCOSE; Start 01/01/19 at 21:00 Dextrose (D50w Syringe) 25 ml Q15M PRN IV DECREASED GLUCOSE; Start 01/01/19 at 21:00 Dextrose (D50w Syringe) 50 ml Q15M PRN IV DECREASED GLUCOSE Last administered on 01/06/19at 08:05; Admin Dose 50 ML; Start 01/01/19 at 21:00 Glucagon (Glucagen) 1 mg Q15M PRN IM DECREASED GLUCOSE; Start 01/01/19 at 21:00 Glucose (Glutose) 15 gm Q15M PRN BUCCAL DECREASED GLUCOSE Last administered on 01/07/19at 09:03; Admin Dose 15 GM; Start 01/01/19 at 21:00 Acetaminophen (Tylenol Tab) 500 mg Q6H PRN PO MILD PAIN(1-3)OR ELEVATED TEMP; Start 01/01/19 at 21:30 Acetaminophen (Tylenol Tab) 500 mg BID PO Last administered on 01/07/19 09:40; Admin Dose 500 MG; Start 01/02/19 at 09:00 [facility] This patient henry... PRN PRN XX WOUND CARE; Start 01/01/19 at 23:00 Povidone Iodine (Povidone-Iodine) 1 applic DAILY TOP Last administered on 01/07/19 09:40; Admin Dose 1 APPLIC; Start 01/03/19 at 09:00 Ceftriaxone Sodium 50 ml @ 100 mls/hr Q24H IVPB Last administered on 01/06/19at 17:41; Admin Dose 100 MLS/HR; Start 01/02/19 at 19:00 Metronidazole 100 ml @ 100 mls/hr Q8 IVPB Last administered on 01/07/19at 05:07; Admin Dose 100 MLS/HR; Start 01/02/19 at 22:00 Vancomycin HCl 0.85 gm/Sodium Chloride 250 ml @ 125 mls/hr Q12H IVPB Last administered on 01/06/19 18:19; Admin Dose 125 MLS/HR; Start 01/03/19 at 18:00 Insulin Glargine (Lantus) 30 units QHS SC ; Start 01/07/19 at 21:00 Fish Oil (Fish Oil) 1,000 mg ONCE ONCE PO ; Start 01/07/19 at 17:00; Stop 01/07/19 at 17:01; Status UNV Vitamin B Complex/ Vitamin C (Berocca) 1 cap DAILY PO ; Start 01/08/19 at 09:00; Status GLORIA HO Jan 07, 2019 16:44
[2019-01-07] MEDS ORDERED: FISH OIL 1,000 MG CAP PO ONE (17:00)
--- NOTE | 2019-01-07 18:35 | PN ---
DATE: 01/07/2019 ADDENDUM: I spoke with the patient's ex-, Zamzam, who has been involved in the patient's care fo r last several years. The patient's present condition including gangrene of the right foot, bilatera l foot pressure ulcer and right foot osteomyelitis as well as severe peripheral vascular disease not amenable to endovascular or open bypass surgery were explained to her. Palliative care was recommend ed by Dr. Brannon as well as Dr. Damien Head from podiatry standpoint, Dr. Jude Roca. Acc ording to his recommendation, he is not a candidate for surgical intervention for his peripheral vasc ular disease and had predicted need for above-knee amputation down the road when he saw him in 9. The patient's code status and goals of care were discussed with her. For now, she requested full code and for further treatment options including palliative care. She will discuss with the patient 's daughter, Nadia. She requested to continue antibiotic for now. Approximately 30 minutes were spent in discussion of goals of care. Dictated By: GIDEON SMALLWOOD MD AB/NTS Conf#: [id number] DID#: [id number] CC: JOSE LEONARDO MD;*EndCC*
[2019-01-07] MEDS: CEFTRIAXONE 1 GM/50 ML (PMX) 50 ML IVPB SCH (18:54)
[2019-01-07] MEDS: DONEPEZIL 5 MG TAB PO SCH (20:24)
[2019-01-07] MEDS: QUETIAPINE 100 MG TAB PO SCH (20:24)
[2019-01-07] MEDS: ATORVASTATIN 10 MG TAB PO SCH (20:24)
[2019-01-07] MEDS: INSULIN GLARGINE [LANTus] (100 UNITS/ML) SYG SC SCH (20:33)
[2019-01-07 21:24] VITALS: BP 126/60; PULSE 78; RESP 20
--- NOTE | 2019-01-07 22:32 | CONS ---
Assessment/Plan Assessment/Plan Hospital Course (Demo Recall) assessment/impression - OM R foot - XR 01/01/19 of R foot showed findings c/w OM present lateral aspect of distal forefoot - wound culture grew diptheroids. a colonizer - Poor overall prognosis for antibiotics to cure cure given severity of vascular disease - Bacteremia 01/01/19 blood culture x1 set grew coag neg staph -> likely contaminant, repeat cultures 01/03/19 negative - s/p diabetic foot infection/unhealing wound: wound culture 10/10/18 of L foot grew MRSA and corynebacter JK, wound culture of R foot grew proteus, enterococci and corynebacter JK - S/p bedside debridement on 10/11/2018 - Hx Likely OM; b/l foot XR 10/10/18 showed: Irregularity of the margins of the proximal phalanx of R 3rd digit and of 4th metatarsal head, raising suspicion for OM; periarticular lucencies with soft tissue swelling about R 5th MTP articulation. Soft tissue ulceration along the posterior lateral aspect of L midfoot and hindfoot; no e/o bone destructive process. MRI of R foot on 10/12/2018 was limited exam d/t motion artifact (only 1 sequence was able to be obtained) but showed suggestion of osteomyelitis within the 5th metatarsal head and base of 5th proximal phalanx at the metatarsophalangeal joint. - PVD - US arterial b/l LE on 10/10/2018 showed severe peripheral vascular disease with occlusion of b/l superficial femoral and popliteal arteries, severe stenosis or occlusion of b/l posterior tibial and dorsalis pedis arteries. 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 Not coherent at all) Exam/Review of Systems Exam Vitals Vital Signs Date Temp Pulse Resp B/P (MAP) Pulse Ox O2 O2 Flow FiO2 Time Delivery Rate 01/07/19 97.4 78 20 126/60 99 21:24 (82) 01/06/19 Room Air 14:00 Intake and Output 01/06/19 01/06/19 01/07/19 1515:00 23:00 07:00 IntakeIntake Total 850 ml 700 ml BalanceBalance 850 ml 700 ml Constitutional: frail Psych: confusion Head: normocephalic, atraumatic Eyes: nl conjunctiva, nl lids ENMT: nl external ears & nose, nl nasal mucosa & septum, mucosa pink and moist Neck: other (not swollen) Respiratory: other (normal resp effort) Cardiovascular: No edema Gastrointestinal: soft, non-tender; No distended Genitourinary - Male: other (diaper) Extremities: No edema Neurological: confused Skin: rash or lesions (+eschar of ), other (wound on b/l heel, eschar of R lateral foot and R 2nd toe, malodorous) Results Result Diagram: 01/07/19 1007 01/07/19 1007 Results 24hrs Laboratory Tests Test 01/07/19 01:21 01/07/19 08:44 01/07/19 09:00 01/07/19 09:20 Bedside Glucose 120 42 *L 54 L 93 Test 01/07/19 09:38 01/07/19 10:07 01/07/19 11:52 01/07/19 17:23 Bedside Glucose 104 168 168 White Blood Count 10.8 # Red Blood Count 4.53 L Hemoglobin 11.8 L Hematocrit 37.0 L Mean Corpuscular 81.7 L Volume Mean Corpuscular 26.0 L Hemoglobin Mean Corpuscular 31.9 L Hemoglobin Concent Red Cell 16.0 H Distribution Width Platelet Count 343 Mean Platelet Volume 10.2 Immature 0.700 H Granulocytes % Neutrophils % 74.8 Lymphocytes % 14.2 L Monocytes % 8.4 Eosinophils % 1.3 Basophils % 0.6 Nucleated Red Blood 0.0 Cells % Immature 0.080 H Granulocytes # Neutrophils # 8.0 H Lymphocytes # 1.5 Monocytes # 0.9 Eosinophils # 0.1 Basophils # 0.1 Nucleated Red Blood 0.0 Cells # Sodium Level 144 Potassium Level 4.3 Chloride Level 106 Carbon Dioxide Level 32 H Anion Gap 6 Blood Urea Nitrogen 14 Creatinine 0.50 L Est Glomerular Filtrat Rate mL/min Glucose Level 131 Calcium Level 9.4 Test 01/07/19 20:30 Bedside Glucose 212 Medications Medication Current Medications Acetaminophen (Tylenol Tab) 1,000 mg Q6H PRN PO PAIN 4-6; Start 01/01/19 at 20:30 Apixaban (Eliquis) 2.5 mg BID PO Last administered on 01/07/19 20:24; Admin Do se 2.5 MG; Start 01/01/19 at 21:00 Ascorbic Acid (Vitamin C) 500 mg DAILY PO Last administered on 01/07/19 09:39; Admin Dose 500 MG; Start 01/02/19 at 09:00 Atorvastatin Calcium (Lipitor) 10 mg QHS PO Last administered on 01/07/19 20:24; Admin Dose 10 MG; Start 01/01/19 at 21:00 Benazepril HCl (Lotensin) 10 mg DAILY PO Last administered on 01/07/19 09:39; Admin Dose 10 MG; Start 01/02/19 at 09:00 Bisacodyl (Dulcolax Supp) 10 mg DAILY PRN [place] NEEDED; Start 01/01/19 at 20:30 Clonazepam (Klonopin) 0.5 mg DAILY PRN PO ANXIETY; Start 01/01/19 at 20:30 Clonidine (Catapres) 0.1 mg Q8H PRN PO IF SBP>160; Start 01/01/19 at 20:30 Digoxin (Digoxin) 0.125 mg DAILY@1300 PO Last administered on 01/06/19 13:17; Admin Dose 0.125 MG; Start 01/02/19 at 13:00 Docusate Sodium (Colace) 200 mg QHS PRN PO CONSTIPATION; Start 01/01/19 at 20:30 Donepezil HCl (Aricept) 5 mg QHS PO Last administered on 01/07/19 20:24; Admin Dose 5 MG; Start 01/01/19 at 21:00 Lansoprazole (Prevacid) 30 mg DAILY PO Last administered on 01/07/19 09:39; Admin Dose 30 MG; Start 01/02/19 at 09:00 Linagliptin (Tradjenta) 5 mg DAILY PO Last administered on 01/05/19 08:38; Admin Dose 5 MG; Start 01/02/19 at 09:00 Magnesium Hydroxide (Milk Of Mag) 30 ml QHS PRN PO CONSTIPATION; Start 01/01/19 at 20:30 Metformin HCl (Glucophage) 500 mg WITH BREAKFAST DINNE PO Last administered on 01/05/19 17:30; Admin Dose 500 MG; Start 01/02/19 at 08:00 Metoprolol Tartrate (Lopressor) 25 mg BID PO Last administered on 01/07/19 09:39; Admin Dose 25 MG; Start 01/01/19 at 21:00 Quetiapine Fumarate (Seroquel) 100 mg HS PO Last administered on 01/07/19 20:24; Admin Dose 100 MG; Start 01/01/19 at 21:00 Valproate Sodium (Depakene Liquid Cup) 125 mg BID PO Last administered on 01/07/19 20:23; Admin Dose 125 MG; Start 01/01/19 at 21:00 Zinc Sulfate (Zinc Sulfate) 220 mg DAILY PO Last administered on 01/07/19 09:39; Admin Dose 220 MG; Start 01/02/19 at 09:00 Diagnostic Test (Pha) (Accu-Chek) 1 ea AC MEALS AND BEDTIME XX Last administered on 01/05/19 17:27; Admin Dose 1 EA; Start 01/01/19 at 21:00 Vancomycin HCl (Vanco Iv Per Pharmacy) VANCOMYCIN PER PHARMACY PER PROTOCOL XX ; Start 01/01/19 at 20:30 Furosemide (Lasix) 40 mg DAILY GTB Last administered on 01/07/19 09:39; Admin Dose 40 MG; Start 01/02/19 at 09:00 Diagnostic Test (Pha) (Accu-Chek) 1 ea 02 XX Last administered on 01/04/19 01:09; Admin Dose 1 EA; Start 01/02/19 at 02:00 Insulin Aspart (Novolog Insulin Pen) NOVOLOG *MODERATE* ALGORITHM WITH MEALS BEDTIME SC Last administered on 01/07/19 20:34; Admin Dose 1 UNIT; Start 01/01/19 at 21:00 Miscellaneous Information 1 ea NOTE XX ; Start 01/01/19 at 21:00 Glucose (Glutose) 15 gm Q15M PRN PO DECREASED GLUCOSE; Start 01/01/19 at 21:00 Glucose (Glutose) 22.5 gm Q15M PRN PO DECREASED GLUCOSE; Start 01/01/19 at 21:00 Dextrose (D50w Syringe) 25 ml Q15M PRN IV DECREASED GLUCOSE; Start 01/01/19 at 21:00 Dextrose (D50w Syringe) 50 ml Q15M PRN IV DECREASED GLUCOSE Last administered on 01/06/19 08:05; Admin Dose 50 ML; Start 01/01/19 at 21:00 Glucagon (Glucagen) 1 mg Q15M PRN IM DECREASED GLUCOSE; Start 01/01/19 at 21:00 Glucose (Glutose) 15 gm Q15M PRN BUCCAL DECREASED GLUCOSE Last administered on 01/07/19 09:03; Admin Dose 15 GM; Start 01/01/19 at 21:00 Acetaminophen (Tylenol Tab) 500 mg Q6H PRN PO MILD PAIN(1-3)OR ELEVATED TEMP; Start 01/01/19 at 21:30 Acetaminophen (Tylenol Tab) 500 mg BID PO Last administered on 01/07/19 20:24; Admin Dose 500 MG; Start 01/02/19 at 09:00 Miscellaneous Information (Pending [facility] Order For Wound Care) This patient henry... PRN PRN XX WOUND CARE; Start 01/01/19 at 23:00 Povidone Iodine (Povidone-Iodine) 1 applic DAILY TOP Last administered on 01/07/19 09:40; Admin Dose 1 APPLIC; Start 01/03/19 at 09:00 Ceftriaxone Sodium 50 ml @ 100 mls/hr Q24H IVPB Last administered on 01/07/19 18:54; Admin Dose 100 MLS/HR; Start 01/02/19 at 19:00 Metronidazole 100 ml @ 100 mls/hr Q8 IVPB Last administered on 01/07/19 22:25; Admin Dose 100 MLS/HR; Start 01/02/19 at 22:00 Insulin Glargine (Lantus) 30 units QHS SC Last administered on 01/07/19at 20:33; Admin Dose 30 UNITS; Start 01/07/19 at 21:00 Vitamin B Complex/ Vitamin C (Berocca) 1 cap DAILY PO ; Start 01/08/19 at 09:00 Fish Oil (Fish Oil) 1,000 mg DAILY PO ; Start 01/08/19 at 09:00 Vancomycin HCl 0.85 gm/Sodium Chloride 250 ml @ 125 mls/hr Q12H IVPB ; Start 01/08/19 at 08:30 MAYNOR SIDDIQI M.D. Jan 07, 2019 22:32
[2019-01-08] MEDS: ACCU-CHEK XX SCH ×5 (02:00→20:51)
[2019-01-08 02:46] VITALS: BP 126/68; PULSE 70; RESP 18
[2019-01-08] MEDS: metroNIDAZOLE 500 MG/NS (PMX) 100 ML IVPB SCH ×3 (05:55→22:11)
[2019-01-08 08:00] VITALS: BP 136/64; PULSE 76; RESP 18
[2019-01-08] MEDS: VITAMIN B COMPLEX/VIT C CAP PO SCH (08:59)
[2019-01-08] MEDS: INSULIN ASPART [NOVOLOG] 3 ML PEN SC SCH ×4 (09:01→20:51)
[2019-01-08] MEDS: ASCORBIC ACID 500 MG TAB PO SCH (09:07)
[2019-01-08] MEDS: METOPROLOL 25 MG TAB PO SCH ×2 (09:07→20:48)
[2019-01-08] MEDS: LINAGLIPTIN 5 MG TABLET PO SCH (09:07)
[2019-01-08] MEDS: FISH OIL 1,000 MG CAP PO SCH (09:07)
[2019-01-08] MEDS: LANSOPRAZOLE 30 MG CAP PO SCH (09:07)
[2019-01-08] MEDS: FUROSEMIDE 40 MG TAB GTB SCH (09:08)
[2019-01-08] MEDS: APIXABAN 5 MG TABLET PO SCH ×2 (09:08→20:48)
[2019-01-08] MEDS: ZINC SULFATE 220 MG CAP PO SCH (09:08)
[2019-01-08] MEDS: ACETAMINOPHEN 500 MG TAB PO SCH ×2 (09:08→20:49)
[2019-01-08] MEDS: BENAZEPRIL 10 MG TAB PO SCH (09:08)
[2019-01-08] MEDS: VALPROIC ACID LIQUID CUP 250 MG/5 ML CUP PO SCH ×2 (09:09→20:47)
[2019-01-08] MEDS: metFORMIN 500 MG TAB PO SCH ×2 (09:12→17:45)
[2019-01-08] MEDS: POVIDONE IODINE 10% 28.4 GM OINT TOP SCH (09:12)
[2019-01-08] MEDS: VANCOMYCIN HCL 0.85 GM in SOD CHLORIDE 0.9% 250 ML IVPB SCH ×2 (10:46→23:24)
[2019-01-08 14:00] VITALS: BP 125/65; PULSE 80; RESP 18
[2019-01-08] MEDS: DIGOXIN 0.125 MG TAB PO SCH (14:18)
[2019-01-08 14:27] VITALS: BP 112/53; PULSE 76; RESP 18
--- NOTE | 2019-01-08 15:09 | CONS ---
Assessment/Plan Assessment/Plan Hospital Course (Demo Recall) assessment/impression - OM R foot - XR 01/01/19 of R foot showed findings c/w OM present lateral aspect of distal forefoot - wound culture grew diptheroids. a colonizer - Poor overall prognosis for antibiotics to cure cure given severity of vascular disease - Bacteremia 01/01/19 blood culture x1 set grew coag neg staph -> likely contaminant, repeat cultures 01/03/19 negative - s/p diabetic foot infection/unhealing wound: wound culture 10/10/18 of L foot grew MRSA and corynebacter JK, wound culture of R foot grew proteus, enterococci and corynebacter JK - S/p bedside debridement on 10/11/2018 - Hx Likely OM; b/l foot XR 10/10/18 showed: Irregularity of the margins of the proximal phalanx of R 3rd digit and of 4th metatarsal head, raising suspicion for OM; periarticular lucencies with soft tissue swelling about R 5th MTP articulation. Soft tissue ulceration along the posterior lateral aspect of L midfoot and hindfoot; no e/o bone destructive process. MRI of R foot on 10/12/2018 was limited exam d/t motion artifact (only 1 sequence was able to be obtained) but showed suggestion of osteomyelitis within the 5th metatarsal head and base of 5th proximal phalanx at the metatarsophalangeal joint. - PVD - US arterial b/l LE on 10/10/2018 showed severe peripheral vascular disease with occlusion of b/l superficial femoral and popliteal arteries, severe stenosis or occlusion of b/l posterior tibial and dorsalis pedis arteries. 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 - PCN allergy; Has tolerated cefepime previously per EMR at [facility], tolerates ceftriaxone too, he has previously tolerated Merrem as well recommendations: - continue vancomycin, ceftriaxone, metronidazole (01/02/19-); local wound care - I recommend 6 weeks of antibiotics for osteomyelitis management d/w [employer] [place] Consultation Date/Type/Reason Admit Date/Time Jan 01, 2019 at 18:01 Initial Consult Date 01/02/19 Requesting Provider: TYE ADAMS Date/Time of Note DATE: 01/08/19 TIME: 15:03 24 HR Interval Summary Subjective hx not possible: other (confused although he is talking more coherently today; denies pain) Exam/Review of Systems Exam Vitals Vital Signs Date Temp Pulse Resp B/P (MAP) Pulse Ox O2 O2 Flow FiO2 Time Delivery Rate 01/08/19 76 18 112/53 95 14:27 (72) 01/08/19 98.6 08:00 01/06/19 Room Air 14:00 Intake and Output 01/07/19 01/07/19 01/08/19 1515:00 23:00 07:00 IntakeIntake Total 737 ml 1209 ml 804 ml BalanceBalance 737 ml 1209 ml 804 ml Constitutional: frail, other (awake and smiling) Psych: confusion Head: normocephalic, atraumatic Eyes: nl conjunctiva, nl lids, nl sclera ENMT: nl external ears & nose, nl nasal mucosa & septum Neck: other (not swollen) Respiratory: clear to auscultation, normal air movement Cardiovascular: regular rate and rhythm, nl pulses Gastrointestinal: soft, non-tender Musculoskeletal: other (the wounds are dressed); No swelling Neurological: confused Results Result Diagram: 01/07/19 1007 01/07/19 1007 Results 24hrs Laboratory Tests Test 01/07/19 17:23 01/07/19 20:30 01/08/19 01:53 01/08/19 08:02 Bedside Glucose 168 212 155 191 Test 01/08/19 12:00 Bedside Glucose 151 Medications Medication Current Medications Acetaminophen (Tylenol Tab) 1,000 mg Q6H PRN PO PAIN 4-6/10; Start 01/01/19 at 20:30 Apixaban (Eliquis) 2.5 mg BID PO Last administered on 01/08/19at 09:08; Admin Dose 2.5 MG; Start 01/01/19 at 21:00 Ascorbic Acid (Vitamin C) 500 mg DAILY PO Last administered on 01/08/19at 09:07; Admin Dose 500 MG; Start 01/02/19 at 09:00 Atorvastatin Calcium (Lipitor) 10 mg QHS PO Last administered on 01/07/19 20:24; Admin Dose 10 MG; Start 01/01/19 at 21:00 Benazepril HCl (Lotensin) 10 mg DAILY PO Last administered on 01/08/19 09:08; Admin Dose 10 MG; Start 01/02/19 at 09:00 Bisacodyl (Dulcolax Supp) 10 mg DAILY PRN [place] NEEDED; Start 01/01/19 at 20:30 Clonazepam (Klonopin) 0.5 mg DAILY PRN PO ANXIETY; Start 01/01/19 at 20:30 Clonidine (Catapres) 0.1 mg Q8H PRN PO IF SBP>160; Start 01/01/19 at 20:30 Digoxin (Digoxin) 0.125 mg DAILY@1300 PO Last administered on 01/08/19 14:18; Admin Dose 0.125 MG; Start 01/02/19 at 13:00 Docusate Sodium (Colace) 200 mg QHS PRN PO CONSTIPATION; Start 01/01/19 at 20:30 Donepezil HCl (Aricept) 5 mg QHS PO Last administered on 01/07/19 20:24; Admin Dose 5 MG; Start 01/01/19 at 21:00 Lansoprazole (Prevacid) 30 mg DAILY PO Last administered on 01/08/19 09:07; Admin Dose 30 MG; Start 01/02/19 at 09:00 Linagliptin (Tradjenta) 5 mg DAILY PO Last administered on 01/08/19 09:07; Admin Dose 5 MG; Start 01/02/19 at 09:00 Magnesium Hydroxide (Milk Of Mag) 30 ml QHS PRN PO CONSTIPATION; Start 01/01/19 at 20:30 Metformin HCl (Glucophage) 500 mg WITH BREAKFAST DINNE PO Last administered on 01/08/19 09:12; Admin Dose 500 MG; Start 01/02/19 at 08:00 Metoprolol Tartrate (Lopressor) 25 mg BID PO Last administered on 01/08/19 09:07; Admin Dose 25 MG; Start 01/01/19 at 21:00 Quetiapine Fumarate (Seroquel) 100 mg HS PO Last administered on 01/07/19 20:24; Admin Dose 100 MG; Start 01/01/19 at 21:00 Valproate Sodium (Depakene Liquid Cup) 125 mg BID PO Last administered on 01/08/19 09:09; Admin Dose 125 MG; Start 01/01/19 at 21:00 Zinc Sulfate (Zinc Sulfate) 220 mg DAILY PO Last administered on 01/08/19 09:08; Admin Dose 220 MG; Start 01/02/19 at 09:00 Diagnostic Test (Pha) (Accu-Chek) 1 ea AC MEALS AND BEDTIME XX Last administered on 01/05/19at 17:27; Admin Dose 1 EA; Start 01/01/19 at 21:00 Vancomycin HCl (Vanco Iv Per Pharmacy) VANCOMYCIN PER PHARMACY PER PROTOCOL XX ; Start 01/01/19 at 20:30 Furosemide (Lasix) 40 mg DAILY GTB Last administered on 01/08/19 09:08; Admin Dose 40 MG; Start 01/02/19 at 09:00 Diagnostic Test (Pha) (Accu-Chek) 1 ea 02 XX Last administered on 01/04/19at 01:09; Admin Dose 1 EA; Start 01/02/19 at 02:00 Insulin Aspart (Novolog Insulin Pen) NOVOLOG *MODERATE* ALGORITHM WITH MEALS BEDTIME SC Last administered on 01/08/19 09:01; Admin Dose 4 UNIT; Start 01/01/19 at 21:00 Miscellaneous Information 1 ea NOTE XX ; Start 01/01/19 at 21:00 Glucose (Glutose) 15 gm Q15M PRN PO DECREASED GLUCOSE; Start 01/01/19 at 21:00 Glucose (Glutose) 22.5 gm Q15M PRN PO DECREASED GLUCOSE; Start 01/01/19 at 21:00 Dextrose (D50w Syringe) 25 ml Q15M PRN IV DECREASED GLUCOSE; Start 01/01/19 at 21:00 Dextrose (D50w Syringe) 50 ml Q15M PRN IV DECREASED GLUCOSE Last administered on 01/06/19 08:05; Admin Dose 50 ML; Start 01/01/19 at 21:00 Glucagon (Glucagen) 1 mg Q15M PRN IM DECREASED GLUCOSE; Start 01/01/19 at 21:00 Glucose (Glutose) 15 gm Q15M PRN BUCCAL DECREASED GLUCOSE Last administered on 01/07/19 09:03; Admin Dose 15 GM; Start 01/01/19 at 21:00 Acetaminophen (Tylenol Tab) 500 mg Q6H PRN PO MILD PAIN(1-3)OR ELEVATED TEMP; Start 01/01/19 at 21:30 Acetaminophen (Tylenol Tab) 500 mg BID PO Last administered on 01/08/19 09:08; Admin Dose 500 MG; Start 01/02/19 at 09:00 Miscellaneous Information (Pending [facility] Order For Wound Care) This patient henry... PRN PRN XX WOUND CARE; Start 01/01/19 at 23:00 Povidone Iodine (Povidone-Iodine) 1 applic DAILY TOP Last administered on 01/08/19 09:12; Admin Dose 1 APPLIC; Start 01/03/19 at 09:00 Ceftriaxone Sodium 50 ml @ 100 mls/hr Q24H IVPB Last administered on 01/07/19 18:54; Admin Dose 100 MLS/HR; Start 01/02/19 at 19:00 Metronidazole 100 ml @ 100 mls/hr Q8 IVPB Last administered on 01/08/19 14:16; Admin Dose 100 MLS/HR; Start 01/02/19 at 22:00 Insulin Glargine (Lantus) 30 units QHS SC Last administered on 01/07/19 20:33; Admin Dose 30 UNITS; Start 01/07/19 at 21:00 Vitamin B Complex/ Vitamin C (Berocca) 1 cap DAILY PO Last administered on 01/08/19 08:59; Admin Dose 1 CAP; Start 01/08/19 at 09:00 Fish Oil (Fish Oil) 1,000 mg DAILY PO Last administered on 01/08/19 09:07; Admin Dose 1,000 MG; Start 01/08/19 at 09:00 Vancomycin HCl 0.85 gm/Sodium Chloride 250 ml @ 125 mls/hr Q12H IVPB Last administered on 01/08/19 10:46; Admin Dose 125 MLS/HR; Start 01/08/19 at 08:30 MAYNOR SIDDIQI M.D. Jan 08, 2019 15:09
--- NOTE | 2019-01-08 15:22 | PN ---
Date/Time of Note Date/Time of Note DATE: 01/08/19 TIME: 15:21 Assessment/Plan VTE Prophylaxis Risk score (from Nsg)>0 risk: 7 SCD applied (from Nsg): Yes Lines/Catheters IV Catheter Type (from Nrsg): Mid Line Central line still needed: Yes Urinary Cath still in place: No Assessment/Plan Assessment/Plan -Possible sepsis secondary to right foot necrotic wounds. Will obtain urine and blood cultures. Continue IV fluids and broad-spectrum antibiotics. Dr. Blake is asked to see pt in infection disease consultation. -Bilateral diabetic foot ulcers, right foot necrotic wounds. Dr. Brannon is asked to see patient in podiatry consultation. -Hx Right foot wounds with possible osteomyelitis. -Peripheral vascular disease. Patient underwent angiogram during last admission which revealed severe infrainguinal disease that is not amenable to any endovascular intervention. Patient was evaluated by Dr. Roca during last admission, vascular surgery with recommendation for amputation however patient's refused. -Diabetes mellitus type 2 continue Lantus and NovoLog. -Coronary artery disease, status post CABG. Continue Plavix. -Atrial fibrillation, continue Eliquis and metoprolol. -Dysphagia with G-tube. 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 -Wheelchair bound status Result Diagram: 01/07/19 1007 01/07/19 1007 Results 24hrs Laboratory Tests Test 01/07/19 17:23 01/07/19 20:30 01/08/19 01:53 01/08/19 08:02 Bedside Glucose 168 212 155 191 Test 01/08/19 12:00 Bedside Glucose 151 Exam/Review of Systems Exam Vitals Vital Signs Date Temp Pulse Resp B/P (MAP) Pulse Ox O2 O2 Flow FiO2 Time Delivery Rate 01/08/19 76 18 112/53 95 14:27 (72) 01/08/19 98.6 08:00 01/06/19 Room Air 14:00 Intake and Output 01/07/19 01/07/19 01/08/19 1515:00 23:00 07:00 IntakeIntake Total 737 ml 1209 ml 804 ml BalanceBalance 737 ml 1209 ml 804 ml Results Results 24hrs Laboratory Tests Test 01/07/19 17:23 01/07/19 20:30 01/08/19 01:53 01/08/19 08:02 Bedside Glucose 168 212 155 191 Test 01/08/19 12:00 Bedside Glucose 151 Medications Medication Current Medications Acetaminophen (Tylenol Tab) 1,000 mg Q6H PRN PO PAIN 4-02/24; Start 01/01/19 at 20:30 Apixaban (Eliquis) 2.5 mg BID PO Last administered on 01/08/19 09:08; Admin Dose 2.5 MG; Start 01/01/19 at 21:00 Ascorbic Acid (Vitamin C) 500 mg DAILY PO Last administered on 01/08/19 09:07; Admin Dose 500 MG; Start 01/02/19 at 09:00 Atorvastatin Calcium (Lipitor) 10 mg QHS PO Last administered on 01/07/19 20:24; Admin Dose 10 MG; Start 01/01/19 at 21:00 Benazepril HCl (Lotensin) 10 mg DAILY PO Last administered on 01/08/19 09:08; Admin Dose 10 MG; Start 01/02/19 at 09:00 Bisacodyl (Dulcolax Supp) 10 mg DAILY PRN [place] NEEDED; Start 01/01/19 at 20:30 Clonazepam (Klonopin) 0.5 mg DAILY PRN PO ANXIETY; Start 01/01/19 at 20:30 Clonidine (Catapres) 0.1 mg Q8H PRN PO IF SBP>160; Start 01/01/19 at 20:30 Digoxin (Digoxin) 0.125 mg DAILY@1300 PO Last administered on 01/08/19 14:18; Admin Dose 0.125 MG; Start 01/02/19 at 13:00 Docusate Sodium (Colace) 200 mg QHS PRN PO CONSTIPATION; Start 01/01/19 at 20:30 Donepezil HCl (Aricept) 5 mg QHS PO Last administered on 01/07/19 20:24; Admin Dose 5 MG; Start 01/01/19 at 21:00 Lansoprazole (Prevacid) 30 mg DAILY PO Last administered on 01/08/19 09:07; Admin Dose 30 MG; Start 01/02/19 at 09:00 Linagliptin (Tradjenta) 5 mg DAILY PO Last administered on 01/08/19 09:07; Admin Dose 5 MG; Start 01/02/19 at 09:00 Magnesium Hydroxide (Milk Of Mag) 30 ml QHS PRN PO CONSTIPATION; Start 01/01/19 at 20:30 Metformin HCl (Glucophage) 500 mg WITH BREAKFAST DINNE PO Last administered on 01/08/19 09:12; Admin Dose 500 MG; Start 01/02/19 at 08:00 Metoprolol Tartrate (Lopressor) 25 mg BID PO Last administered on 01/08/19 09:07; Admin Dose 25 MG; Start 01/01/19 at 21:00 Quetiapine Fumarate (Seroquel) 100 mg HS PO Last administered on 01/07/19 20:24; Admin Dose 100 MG; Start 01/01/19 at 21:00 Valproate Sodium (Depakene Liquid Cup) 125 mg BID PO Last administered on 01/08/19 09:09; Admin Dose 125 MG; Start 01/01/19 at 21:00 Zinc Sulfate (Zinc Sulfate) 220 mg DAILY PO Last administered on 01/08/19 09:08; Admin Dose 220 MG; Start 01/02/19 at 09:00 Diagnostic Test (Pha) (Accu-Chek) 1 ea AC MEALS AND BEDTIME XX Last admi nistered on 01/05/19 17:27; Admin Dose 1 EA; Start 01/01/19 at 21:00 Vancomycin HCl (Vanco Iv Per Pharmacy) VANCOMYCIN PER PHARMACY PER PROTOCOL XX ; Start 01/01/19 at 20:30 Furosemide (Lasix) 40 mg DAILY GTB Last administered on 01/08/19 09:08; Admin Dose 40 MG; Start 01/02/19 at 09:00 Diagnostic Test (Pha) (Accu-Chek) 1 ea 02 XX Last administered on 01/04/19 01:09; Admin Dose 1 EA; Start 01/02/19 at 02:00 Insulin Aspart (Novolog Insulin Pen) NOVOLOG *MODERATE* ALGORITHM WITH MEALS BEDTIME SC Last administered on 01/08/19 09:01; Admin Dose 4 UNIT; Start 01/01/19 at 21:00 Miscellaneous Information 1 ea NOTE XX ; Start 01/01/19 at 21:00 Glucose (Glutose) 15 gm Q15M PRN PO DECREASED GLUCOSE; Start 01/01/19 at 21:00 Glucose (Glutose) 22.5 gm Q15M PRN PO DECREASED GLUCOSE; Start 01/01/19 at 21:00 Dextrose (D50w Syringe) 25 ml Q15M PRN IV DECREASED GLUCOSE; Start 01/01/19 at 21:00 Dextrose (D50w Syringe) 50 ml Q15M PRN IV DECREASED GLUCOSE Last administered on 01/06/19 08:05; Admin Dose 50 ML; Start 01/01/19 at 21:00 Glucagon (Glucagen) 1 mg Q15M PRN IM DECREASED GLUCOSE; Start 01/01/19 at 21:00 Glucose (Glutose) 15 gm Q15M PRN BUCCAL DECREASED GLUCOSE Last administered on 01/07/19 09:03; Admin Dose 15 GM; Start 01/01/19 at 21:00 Acetaminophen (Tylenol Tab) 500 mg Q6H PRN PO MILD PAIN(1-3)OR ELEVATED TEMP; Start 01/01/19 at 21:30 Acetaminophen (Tylenol Tab) 500 mg BID PO Last administered on 01/08/19 09:08; Admin Dose 500 MG; Start 01/02/19 at 09:00 Miscellaneous Information ([facility]) This patient henry... PRN PRN XX WOUND CARE; Start 01/01/19 at 23:00 Povidone Iodine (Povidone-Iodine) 1 applic DAILY TOP Last administered on 01/08/19 09:12; Admin Dose 1 APPLIC; Start 01/03/19 at 09:00 Ceftriaxone Sodium 50 ml @ 100 mls/hr Q24H IVPB Last administered on 01/07/19 18:54; Admin Dose 100 MLS/HR; Start 01/02/19 at 19:00 Metronidazole 100 ml @ 100 mls/hr Q8 IVPB Last administered on 01/08/19 14:16; Admin Dose 100 MLS/HR; Start 01/02/19 at 22:00 Insulin Glargine (Lantus) 30 units QHS SC Last administered on 01/07/19 20:33; Admin Dose 30 UNITS; Start 01/07/19 at 21:00 Vitamin B Complex/ Vitamin C (Berocca) 1 cap DAILY PO Last administered on 01/08/19 08:59; Admin Dose 1 CAP; Start 01/08/19 at 09:00 Fish Oil (Fish Oil) 1,000 mg DAILY PO Last administered on 01/08/19at 09:07; Admin Dose 1,000 MG; Start 01/08/19 at 09:00 Vancomycin HCl 0.85 gm/Sodium Chloride 250 ml @ 125 mls/hr Q12H IVPB Last administered on 01/08/19at 10:46; Admin Dose 125 MLS/HR; Start 01/08/19 at 08:30 GLORIA ACEVES Jan 08, 2019 15:22
[2019-01-08] MEDS: CEFTRIAXONE 1 GM/50 ML (PMX) 50 ML IVPB SCH (19:00)
[2019-01-08 20:12] VITALS: BP 134/80; PULSE 82; RESP 18
[2019-01-08] MEDS: ATORVASTATIN 10 MG TAB PO SCH (20:47)
[2019-01-08] MEDS: QUETIAPINE 100 MG TAB PO SCH (20:47)
[2019-01-08] MEDS: DONEPEZIL 5 MG TAB PO SCH (20:49)
[2019-01-08] MEDS: INSULIN GLARGINE [LANTus] (100 UNITS/ML) SYG SC SCH (20:51)
[2019-01-09] MEDS: ACCU-CHEK XX SCH ×5 (02:00→22:41)
[2019-01-09 02:09] VITALS: BP 127/90; PULSE 96; RESP 16
[2019-01-09] MEDS: metroNIDAZOLE 500 MG/NS (PMX) 100 ML IVPB SCH ×2 (05:36→14:23)
[2019-01-09] MEDS: INSULIN ASPART [NOVOLOG] 3 ML PEN SC SCH ×4 (07:58→21:00)
[2019-01-09 08:09] VITALS: BP 135/69; PULSE 87; RESP 17
[2019-01-09] MEDS: VANCOMYCIN HCL 0.85 GM in SOD CHLORIDE 0.9% 250 ML IVPB SCH ×2 (08:44→22:30)
[2019-01-09] MEDS: VALPROIC ACID LIQUID CUP 250 MG/5 ML CUP PO SCH ×2 (08:44→22:30)
[2019-01-09] MEDS: FISH OIL 1,000 MG CAP PO SCH (08:45)
[2019-01-09] MEDS: LINAGLIPTIN 5 MG TABLET PO SCH (08:45)
[2019-01-09] MEDS: ASCORBIC ACID 500 MG TAB PO SCH (08:46)
[2019-01-09] MEDS: FUROSEMIDE 40 MG TAB GTB SCH (08:46)
[2019-01-09] MEDS: ACETAMINOPHEN 500 MG TAB PO SCH ×2 (08:46→22:30)
[2019-01-09] MEDS: LANSOPRAZOLE 30 MG CAP PO SCH (08:46)
[2019-01-09] MEDS: APIXABAN 5 MG TABLET PO SCH ×2 (08:46→22:29)
[2019-01-09] MEDS: BENAZEPRIL 10 MG TAB PO SCH (08:47)
[2019-01-09] MEDS: METOPROLOL 25 MG TAB PO SCH ×2 (08:47→22:29)
[2019-01-09] MEDS: POVIDONE IODINE 10% 28.4 GM OINT TOP SCH (08:48)
[2019-01-09] MEDS: ZINC SULFATE 220 MG CAP PO SCH (08:49)
[2019-01-09] MEDS: metFORMIN 500 MG TAB PO SCH ×2 (08:49→17:47)
[2019-01-09] MEDS: VITAMIN B COMPLEX/VIT C CAP PO SCH (08:49)
--- NOTE | 2019-01-09 12:34 | CONS ---
[facility] HCIS Consult Follow-up Patient Name: Gavino Aleman Unit Number: [id number] Date of : 1935 Patient Status: Admitted Inpatient Attending Doctor: Abdirashid Anna MD Edit: MAYNOR JIMÉNEZ M.D. on 01/09/19 @ 15:52 Jessy: I discussed the management with BASIL Anderson and agree Assessment/Plan Assessment/Plan Hospital Course (Demo Recall) assessment/impression: - OM R foot - XR 01/01/19 of R foot showed findings c/w OM present lateral aspect of distal forefoot - wound culture grew diptheroids. a colonizer - Poor overall prognosis for antibiotics to cure cure given severity of vascular disease - Bacteremia 01/01/19 blood culture x1 set grew coag neg staph -> likely contaminant, repeat cultures 01/03/19 negative - s/p diabetic foot infection/unhealing wound: wound culture 10/10/18 of L foot grew MRSA and corynebacter JK, wound culture of R foot grew proteus, enterococci and corynebacter JK - S/p bedside debridement on 10/11/2018 - Hx Likely OM; b/l foot XR 10/10/18 showed: Irregularity of the margins of the proximal phalanx of R 3rd digit and of 4th metatarsal head, raising suspicion for OM; periarticular lucencies with soft tissue swelling about R 5th MTP articulation. Soft tissue ulceration along the posterior lateral aspect of L midfoot and hindfoot; no e/o bone destructive process. MRI of R foot on 10/12/2018 was limited exam d/t motion artifact (only 1 sequence was able to be obtained) but showed suggestion of osteomyelitis within the 5th metatarsal head and base of 5th proximal phalanx at the metatarsophalangeal joint. - PVD - US arterial b/l LE on 10/10/2018 showed severe peripheral vascular disease with occlusion of b/l superficial femoral and popliteal arteries, severe stenosis or occlusion of b/l posterior tibial and dorsalis pedis arteries. 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 Jiménez Consultation Date/Type/Reason Admit Date/Time Jan 01, 2019 at 18:01 Initial Consult Date 01/02/19 Type of Consult Infectious Disease Requesting Provider: TYE ADAMS Date/Time of Note DATE: 01/09/19 TIME: 12:32 24 HR Interval Summary Free Text/Dictation No acute issues per d/w nursing. Pt's appreciative of care and glad to know that leukocytosis has resolved. Subjective hx not possible: pt non-verbal Exam/Review of Systems Exam Vitals Vital Signs Date Temp Pulse Resp B/P (MAP) Pulse Ox O2 O2 Flow FiO2 Time Delivery Rate 01/09/19 98.8 87 17 135/69 98 08:09 (91) 01/06/19 Room Air 14:00 Intake and Output 01/08/19 01/08/19 01/09/19 1414:59 22:59 06:59 IntakeIntake Total 950 ml 1686 ml 1064 ml BalanceBalance 950 ml 1686 ml 1064 ml Constitutional: alert, frail, other ( is trimming pt's hair and norman) Psych: confusion Head: normocephalic, atraumatic Eyes: nl conjunctiva, nl lids, nl sclera ENMT: nl external ears & nose, nl nasal mucosa & septum, mucosa pink and moist Neck: other (not swollen) Respiratory: clear to auscultation, normal air movement Cardiovascular: regular rate and rhythm, nl pulses Gastrointestinal: soft, non-tender Neurological: confused Skin: nl turgor, other (bilateral feet wrapped with Kerlix c/d/i) Results Result Diagram: 01/07/19 1007 01/09/19 0817 Results 24hrs Laboratory Tests Test 01/08/19 17:27 01/08/19 20:45 01/09/19 02:24 01/09/19 07:53 Bedside Glucose 191 217 138 148 Test 01/09/19 08:17 01/09/19 11:47 Blood Urea Nitrogen 18 Creatinine 0.48 L Bedside Glucose 164 Medications Medication Current Medications Acetaminophen (Tylenol Tab) 1,000 mg Q6H PRN PO PAIN 4-02/24; Start 01/01/19 at 20:30 Apixaban (Eliquis) 2.5 mg BID PO Last administered on 01/09/19 08:46; Admin Dose 2.5 MG; Start 01/01/19 at 21:00 Ascorbic Acid (Vitamin C) 500 mg DAILY PO Last administered on 01/09/19at 08:46; Admin Dose 500 MG; Start 01/02/19 at 09:00 Atorvastatin Calcium (Lipitor) 10 mg QHS PO Last administered on 01/08/19at 20:47; Admin Dose 10 MG; Start 01/01/19 at 21:00 Benazepril HCl (Lotensin) 10 mg DAILY PO Last administered on 01/09/19 08:47; Admin Dose 10 MG; Start 01/02/19 at 09:00 Bisacodyl (Dulcolax Supp) 10 mg DAILY PRN [place] NEEDED; Start 01/01/19 at 20:30 Clonazepam (Klonopin) 0.5 mg DAILY PRN PO ANXIETY; Start 01/01/19 at 20:30 Clonidine (Catapres) 0.1 mg Q8H PRN PO IF SBP>160; Start 01/01/19 at 20:30 Digoxin (Digoxin) 0.125 mg DAILY@1300 PO Last administered on 01/08/19at 14:18; Admin Dose 0.125 MG; Start 01/02/19 at 13:00 Docusate Sodium (Colace) 200 mg QHS PRN PO CONSTIPATION; Start 01/01/19 at 20:30 Donepezil HCl (Aricept) 5 mg QHS PO Last administered on 01/08/19 20:49; Admin Dose 5 MG; Start 01/01/19 at 21:00 Lansoprazole (Prevacid) 30 mg DAILY PO Last administered on 01/09/19 08:46; Admin Dose 30 MG; Start 01/02/19 at 09:00 Linagliptin (Tradjenta) 5 mg DAILY PO Last administered on 01/09/19 08:45; Admin Dose 5 MG; Start 01/02/19 at 09:00 Magnesium Hydroxide (Milk Of Mag) 30 ml QHS PRN PO CONSTIPATION; Start 01/01/19 at 20:30 Metformin HCl (Glucophage) 500 mg WITH BREAKFAST DINNE PO Last administered on 01/09/19 08:49; Admin Dose 500 MG; Start 01/02/19 at 08:00 Metoprolol Tartrate (Lopressor) 25 mg BID PO Last administered on 01/09/19 08:47; Admin Dose 25 MG; Start 01/01/19 at 21:00 Quetiapine Fumarate (Seroquel) 100 mg HS PO Last administered on 01/08/19 20:47; Admin Dose 100 MG; Start 01/01/19 at 21:00 Valproate Sodium (Depakene Liquid Cup) 125 mg BID PO Last administered on 01/09/19 08:44; Admin Dose 125 MG; Start 01/01/19 at 21:00 Zinc Sulfate (Zinc Sulfate) 220 mg DAILY PO Last administered on 01/09/19 08:49; Admin Dose 220 MG; Start 01/02/19 at 09:00 Diagnostic Test (Pha) (Accu-Chek) 1 ea AC MEALS AND BEDTIME XX Last administered on 01/05/19 17:27; Admin Dose 1 EA; Start 01/01/19 at 21:00 Vancomycin HCl (Vanco Iv Per Pharmacy) VANCOMYCIN PER PHARMACY PER PROTOCOL XX ; Start 01/01/19 at 20:30 Furosemide (Lasix) 40 mg DAILY GTB Last administered on 01/09/19 08:46; Admin Dose 40 MG; Start 01/02/19 at 09:00 Diagnostic Test (Pha) (Accu-Chek) 1 ea 02 XX Last administered on 01/04/19 01:09; Admin Dose 1 EA; Start 01/02/19 at 02:00 Insulin Aspart (Novolog Insulin Pen) NOVOLOG *MODERATE* ALGORITHM WITH MEALS BEDTIME SC Last administered on 01/09/19 12:03; Admin Dose 2 UNIT; Start 01/01/19 at 21:00 Miscellaneous Information 1 ea NOTE XX ; Start 01/01/19 at 21:00 Glucose (Glutose) 15 gm Q15M PRN PO DECREASED GLUCOSE; Start 01/01/19 at 21:00 Glucose (Glutose) 22.5 gm Q15M PRN PO DECREASED GLUCOSE; Start 01/01/19 at 21:0 0 Dextrose (D50w Syringe) 25 ml Q15M PRN IV DECREASED GLUCOSE; Start 01/01/19 at 21:00 Dextrose (D50w Syringe) 50 ml Q15M PRN IV DECREASED GLUCOSE Last administered on 01/06/19 08:05; Admin Dose 50 ML; Start 01/01/19 at 21:00 Glucagon (Glucagen) 1 mg Q15M PRN IM DECREASED GLUCOSE; Start 01/01/19 at 21:00 Glucose (Glutose) 15 gm Q15M PRN BUCCAL DECREASED GLUCOSE Last administered on 01/07/19 09:03; Admin Dose 15 GM; Start 01/01/19 at 21:00 Acetaminophen (Tylenol Tab) 500 mg Q6H PRN PO MILD PAIN(1-3)OR ELEVATED TEMP; Start 01/01/19 at 21:30 Acetaminophen (Tylenol Tab) 500 mg BID PO Last administered on 01/09/19 08:46; Admin Dose 500 MG; Start 01/02/19 at 09:00 Miscellaneous Information (Pending [facility] Order For Wound Care) This patient henry... PRN PRN XX WOUND CARE; Start 01/01/19 at 23:00 Povidone Iodine (Povidone-Iodine) 1 applic DAILY TOP Last administered on 01/09/19 08:48; Admin Dose 1 APPLIC; Start 01/03/19 at 09:00 Ceftriaxone Sodium 50 ml @ 100 mls/hr Q24H IVPB Last administered on 01/08/19 19:00; Admin Dose 100 MLS/HR; Start 01/02/19 at 19:00 Metronidazole 100 ml @ 100 mls/hr Q8 IVPB Last administered on 01/09/19 05:36; Admin Dose 100 MLS/HR; Start 01/02/19 at 22:00 Insulin Glargine (Lantus) 30 units QHS SC Last administered on 01/08/19at 20:51; Admin Dose 30 UNITS; Start 01/07/19 at 21:00 Vitamin B Complex/ Vitamin C (Berocca) 1 cap DAILY PO Last administered on 01/09/19at 08:49; Admin Dose 1 CAP; Start 01/08/19 at 09:00 Fish Oil (Fish Oil) 1,000 mg DAILY PO Last administered on 01/09/19at 08:45; Admin Dose 1,000 MG; Start 01/08/19 at 09:00 Vancomycin HCl 0.85 gm/Sodium Chloride 250 ml @ 125 mls/hr Q12H IVPB Last administered on 01/09/19at 08:44; Admin Dose 125 MLS/HR; Start 01/08/19 at 08:30 Miscellaneous Information (*Rx Drug Level Order Reminder*) ALANIS TR LEVEL PRIOR... 1930 ONCE XX ; Start 01/09/19 at 19:30; Stop 01/09/19 at 19:31 DANIELA ANDERSON NP Jan 09, 2019 12:34
[2019-01-09 14:10] VITALS: BP 117/54; PULSE 84; RESP 18
[2019-01-09] MEDS: DIGOXIN 0.125 MG TAB PO SCH (14:25)
[2019-01-09] MEDS: CEFTRIAXONE 1 GM/50 ML (PMX) 50 ML IVPB SCH (17:52)
[2019-01-09 21:00] VITALS: BP 149/68; PULSE 102; RESP 20
[2019-01-09] MEDS: QUETIAPINE 100 MG TAB PO SCH (22:29)
[2019-01-09] MEDS: ATORVASTATIN 10 MG TAB PO SCH (22:30)
[2019-01-09] MEDS: DONEPEZIL 5 MG TAB PO SCH (22:30)
[2019-01-09] MEDS: INSULIN GLARGINE [LANTus] (100 UNITS/ML) SYG SC SCH (22:41)
[2019-01-10] MEDS: metroNIDAZOLE 500 MG/NS (PMX) 100 ML IVPB SCH ×4 (00:47→23:55)
[2019-01-10] MEDS: ACCU-CHEK XX SCH ×5 (02:00→21:00)
[2019-01-10] MEDS: metFORMIN 500 MG TAB PO SCH ×2 (08:00→17:18)
[2019-01-10] MEDS: INSULIN ASPART [NOVOLOG] 3 ML PEN SC SCH ×4 (08:00→21:00)
[2019-01-10] MEDS: DEXTROSE 50% 50 ML SYRINGE IV PRN (08:26)
[2019-01-10] MEDS: FISH OIL 1,000 MG CAP PO SCH (08:45)
[2019-01-10] MEDS: ASCORBIC ACID 500 MG TAB PO SCH (08:45)
[2019-01-10] MEDS: LANSOPRAZOLE 30 MG CAP PO SCH (08:45)
[2019-01-10] MEDS: VALPROIC ACID LIQUID CUP 250 MG/5 ML CUP PO SCH (08:45)
[2019-01-10] MEDS: APIXABAN 5 MG TABLET PO SCH (08:45)
[2019-01-10] MEDS: VITAMIN B COMPLEX/VIT C CAP PO SCH (08:45)
[2019-01-10] MEDS: METOPROLOL 25 MG TAB PO SCH (08:46)
[2019-01-10] MEDS: ACETAMINOPHEN 500 MG TAB PO SCH (08:46)
[2019-01-10] MEDS: ZINC SULFATE 220 MG CAP PO SCH (08:46)
[2019-01-10] MEDS: BENAZEPRIL 10 MG TAB PO SCH (08:46)
[2019-01-10] MEDS: VANCOMYCIN HCL 0.85 GM in SOD CHLORIDE 0.9% 250 ML IVPB SCH ×2 (08:47→21:31)
[2019-01-10] MEDS: LINAGLIPTIN 5 MG TABLET PO SCH (08:47)
[2019-01-10] MEDS: FUROSEMIDE 40 MG TAB GTB SCH (08:47)
[2019-01-10] MEDS: POVIDONE IODINE 10% 28.4 GM OINT TOP SCH (08:48)
[2019-01-10] MEDS: DIGOXIN 0.125 MG TAB PO SCH (13:49)
[2019-01-10 14:51] VITALS: BP 104/59; PULSE 90; RESP 19
--- NOTE | 2019-01-10 17:28 | PN ---
Date/Time of Note Date/Time of Note DATE: 01/10/19 TIME: 17:27 Assessment/Plan VTE Prophylaxis Risk score (from Ns)>0 risk: 7 SCD applied (from Ns): No Lines/Catheters IV Catheter Type (from Nrs): Mid Line Urinary Cath still in place: No Assessment/Plan Hospital Course -Possible sepsis secondary to right foot necrotic wounds. Will obtain urine and blood cultures. Continue IV fluids and broad-spectrum antibiotics. Dr. Blake is asked to see pt in infection disease consultation. -Bilateral diabetic foot ulcers, right foot necrotic wounds. Dr. Brannon is asked to see patient in podiatry consultation. -Hx Right foot wounds with possible osteomyelitis. -Peripheral vascular disease. Patient underwent angiogram during last admission which revealed severe infrainguinal disease that is not amenable to any endovascular intervention. Patient was evaluated by Dr. Roca during last admission, vascular surgery with recommendation for amputation however patient's refused. -Diabetes mellitus type 2 continue Lantus and NovoLog. -Coronary artery disease, status post CABG. Continue Plavix. -Atrial fibrillation, continue Eliquis and metoprolol. -Dysphagia with G-tube. 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 -Wheelchair bound status Result Diagram: 01/10/1952501/09/190 Results 24hrs Laboratory Tests Test 01/09/19 17:30 01/09/19 19:20 01/09/19 19:28 01/09/19 22:19 Bedside Glucose 121 154 Sodium Level 138 Potassium Level 4.3 Chloride Level 102 Carbon Dioxide Level 28 Anion Gap 8 Blood Urea Nitrogen 19 Creatinine 0.50 L Est Glomerular Filtrat Rate mL/min Glucose Level 165 Calcium Level 8.5 Vancomycin Level 14.4 Trough Test 01/10/19 05:26 01/10/19 08:07 01/10/19 08:23 01/10/19 08:42 White Blood Count 14.9 #H Red Blood Count 4.67 L Hemoglobin 12.2 L Hematocrit 37.9 L Mean Corpuscular 81.2 L Volume Mean Corpuscular 26.1 L Hemoglobin Mean Corpuscular 32.2 Hemoglobin Concent Red Cell 16.6 H Distribution Width Platelet Count 308 Mean Platelet Volume 10.9 H Immature 0.700 H Granulocytes % Neutrophils % 67.0 Segmented 61 Neutrophils % (Manual) Lymphocytes % 23.0 Lymphocytes % 32 (Manual) Reactive Lymphocytes 1 H % (Manual) Monocytes % 6.9 Monocytes % (Manual) 4 Eosinophils % 1.9 Eosinophils % 2 (Manual) Basophils % 0.5 Nucleated Red Blood 0.0 Cells % Immature 0.110 H Granulocytes # Neutrophils # 10.0 H Lymphocytes (Manual) 4.7 H Lymphocytes # 3.4 H Reactive Lymphocytes 0.1 H # Monocytes # 1.0 H Monocytes # (Manual) 0.5 Eosinophils # 0.3 Basophils # 0.1 Nucleated Red Blood 0.0 Cells # Platelet Estimate NORMAL Polychromasia 3+ Poikilocytosis 1+ Anisocytosis 1+ Microcytosis 1+ Bedside Glucose 51 L 64 L 127 Test 01/10/19 08:57 01/10/19 12:06 01/10/19 17:16 Bedside Glucose 124 151 237 H Subjective 24 Hr Interval Summary Free Text/Dictation 01/09/2019 Entry dw Exam/Review of Systems Exam Vitals Vital Signs Date Temp Pulse Resp B/P (MAP) Pulse Ox O2 O2 Flow FiO2 Time Delivery Rate 01/10/19 97.6 90 19 104/59 98 Room Air 14:51 (74) Intake and Output 01/09/19 01/09/19 01/10/19 1515:00 23:00 07:00 IntakeIntake Total 730 ml 1444 ml 450 ml BalanceBalance 730 ml 1444 ml 450 ml Results Results 24hrs Laboratory Tests Test 01/09/19 17:30 01/09/19 19:20 01/09/19 19:28 01/09/19 22:19 Bedside Glucose 121 154 Sodium Level 138 Potassium Level 4.3 Chloride Level 102 Carbon Dioxide Level 28 Anion Gap 8 Blood Urea Nitrogen 19 Creatinine 0.50 L Est Glomerular Filtrat Rate mL/min Glucose Level 165 Calcium Level 8.5 Vancomycin Level 14.4 Trough Test 01/10/19 05:26 01/10/19 08:07 01/10/19 08:23 01/10/19 08:42 White Blood Count 14.9 #H Red Blood Count 4.67 L Hemoglobin 12.2 L Hematocrit 37.9 L Mean Corpuscular 81.2 L Volume Mean Corpuscular 26.1 L Hemoglobin Mean Corpuscular 32.2 Hemoglobin Concent Red Cell 16.6 H Distribution Width Platelet Count 308 Mean Platelet Volume 10.9 H Immature 0.700 H Granulocytes % Neutrophils % 67.0 Segmented 61 Neutrophils % (Manual) Lymphocytes % 23.0 Lymphocytes % 32 (Manual) Reactive Lymphocytes 1 H % (Manual) Monocytes % 6.9 Monocytes % (Manual) 4 Eosinophils % 1.9 Eosinophils % 2 (Manual) Basophils % 0.5 Nucleated Red Blood 0.0 Cells % Immature 0.110 H Granulocytes # Neutrophils # 10.0 H Lymphocytes (Manual) 4.7 H Lymphocytes # 3.4 H Reactive Lymphocytes 0.1 H # Monocytes # 1.0 H Monocytes # (Manual) 0.5 Eosinophils # 0.3 Basophils # 0.1 Nucleated Red Blood 0.0 Cells # Platelet Estimate NORMAL Polychromasia 3+ Poikilocytosis 1+ Anisocytosis 1+ Microcytosis 1+ Bedside Glucose 51 L 64 L 127 Test 01/10/19 08:57 01/10/19 12:06 01/10/19 17:16 Bedside Glucose 124 151 237 H Medications Medication Current Medications Acetaminophen (Tylenol Tab) 1,000 mg Q6H PRN PO PAIN -02/24; Start 01/01/19 at 20:30 Apixaban (Eliquis) 2.5 mg BID PO Last administered on 01/10/19at 08:45; Admin Dose 2.5 MG; Start 01/01/19 at 21:00 Ascorbic Acid (Vitamin C) 500 mg DAILY PO Last administered on 01/10/19at 08:45; Admin Dose 500 MG; Start 01/02/19 at 09:00 Atorvastatin Calcium (Lipitor) 10 mg QHS PO Last administered on 01/09/19at 22:30; Admin Dose 10 MG; Start 01/01/19 at 21:00 Benazepril HCl (Lotensin) 10 mg DAILY PO Last administered on 01/10/19at 08:46; Admin Dose 10 MG; Start 01/02/19 at 09:00 Bisacodyl (Dulcolax Supp) [address] NEEDED; Start 01/01/19 at 20:30 Clonazepam (Klonopin) 0.5 mg DAILY PRN PO ANXIETY; Start 01/01/19 at 20:30 Clonidine (Catapres) 0.1 mg Q8H PRN PO IF SBP>160; Start 01/01/19 at 20:30 Digoxin (Digoxin) 0.125 mg DAILY@1300 PO Last administered on 01/10/19 13:49; Admin Dose 0.125 MG; Start 01/02/19 at 13:00 Docusate Sodium (Colace) 200 mg QHS PRN PO CONSTIPATION; Start 01/01/19 at 20:30 Donepezil HCl (Aricept) 5 mg QHS PO Last administered on 01/09/19 22:30; Admin Dose 5 MG; Start 01/01/19 at 21:00 Lansoprazole (Prevacid) 30 mg DAILY PO Last administered on 01/10/19 08:45; Admin Dose 30 MG; Start 01/02/19 at 09:00 Linagliptin (Tradjenta) 5 mg DAILY PO Last administered on 01/09/19 08:45; Admin Dose 5 MG; Start 01/02/19 at 09:00 Magnesium Hydroxide (Milk Of Mag) 30 ml QHS PRN PO CONSTIPATION; Start 01/01/19 at 20:30 Metformin HCl (Glucophage) 500 mg WITH BREAKFAST DINNE PO Last administered on 01/10/19 17:18; Admin Dose 500 MG; Start 01/02/19 at 08:00 Metoprolol Tartrate (Lopressor) 25 mg BID PO Last administered on 01/10/19 08:46; Admin Dose 25 MG; Start 01/01/19 at 21:00 Quetiapine Fumarate (Seroquel) 100 mg HS PO Last administered on 01/09/19 22:29; Admin Dose 100 MG; Start 01/01/19 at 21:00 Valproate Sodium (Depakene Liquid Cup) 125 mg BID PO Last administered on 01/10/19 08:45; Admin Dose 125 MG; Start 01/01/19 at 21:00 Zinc Sulfate (Zinc Sulfate) 220 mg DAILY PO Last administered on 01/10/19 08:46; Admin Dose 220 MG; Start 01/02/19 at 09:00 Diagnostic Test (Pha) (Accu-Chek) 1 ea AC MEALS AND BEDTIME XX Last administered on 01/05/19 17:27; Admin Dose 1 EA; Start 01/01/19 at 21:00 Vancomycin HCl (Vanco Iv Per Pharmacy) VANCOMYCIN PER PHARMACY PER PROTOCOL XX ; Start 01/01/19 at 20:30 Furosemide (Lasix) 40 mg DAILY GTB Last administered on 01/10/19 08:47; Admin Dose 40 MG; Start 01/02/19 at 09:00 Diagnostic Test (Pha) (Accu-Chek) 1 ea 02 XX Last administered on 01/04/19at 01:09; Admin Dose 1 EA; Start 01/02/19 at 02:00 Insulin Aspart (Novolog Insulin Pen) NOVOLOG *MODERATE* ALGORITHM WITH MEALS BEDTIME SC Last administered on 01/10/19at 17:20; Admin Dose 6 UNIT; Start 01/01/19 at 21:00 Miscellaneous Information 1 ea NOTE XX ; Start 01/01/19 at 21:00 Glucose (Glutose) 15 gm Q15M PRN PO DECREASED GLUCOSE Last administered on 01/10/19at 08:10; Admin Dose 15 GM; Start 01/01/19 at 21:00 Glucose (Glutose) 22.5 gm Q15M PRN PO DECREASED GLUCOSE; Start 01/01/19 at 21:00 Dextrose (D50w Syringe) 25 ml Q15M PRN IV DECREASED GLUCOSE Last administered on 01/10/19at 08:26; Admin Dose 25 ML; Start 01/01/19 at 21:00 Dextrose (D50w Syringe) 50 ml Q15M PRN IV DECREASED GLUCOSE Last administered on 01/06/19at 08:05; Admin Dose 50 ML; Start 01/01/19 at 21:00 Glucagon (Glucagen) 1 mg Q15M PRN IM DECREASED GLUCOSE; Start 01/01/19 at 21:00 Glucose (Glutose) 15 gm Q15M PRN BUCCAL DECREASED GLUCOSE Last administered on 01/07/19at 09:03; Admin Dose 15 GM; Start 01/01/19 at 21:00 Acetaminophen (Tylenol Tab) 500 mg Q6H PRN PO MILD PAIN(1-3)OR ELEVATED TEMP; Start 01/01/19 at 21:30 Acetaminophen (Tylenol Tab) 500 mg BID PO Last administered on 01/10/19 08:46; Admin Dose 500 MG; Start 01/02/19 at 09:00 [facility] This patient henry... PRN PRN XX WOUND CARE; Start 01/01/19 at 23:00 Povidone Iodine (Povidone-Iodine) 1 applic DAILY TOP Last administered on 01/10/19 08:48; Admin Dose 1 APPLIC; Start 01/03/19 at 09:00 Ceftriaxone Sodium 50 ml @ 100 mls/hr Q24H IVPB Last administered on 01/09/19 17:52; Admin Dose 100 MLS/HR; Start 01/02/19 at 19:00 Metronidazole 100 ml @ 100 mls/hr Q8 IVPB Last administered on 01/10/19 13:49; Admin Dose 100 MLS/HR; Start 01/02/19 at 22:00 Vitamin B Complex/ Vitamin C (Berocca) 1 cap DAILY PO Last administered on 01/10/19 08:45; Admin Dose 1 CAP; Start 01/08/19 at 09:00 Fish Oil (Fish Oil) 1,000 mg DAILY PO Last administered on 01/10/19 08:45; Admin Dose 1,000 MG; Start 01/08/19 at 09:00 Vancomycin HCl 0.85 gm/Sodium Chloride 250 ml @ 125 mls/hr Q12H IVPB Last administered on 01/10/19 08:47; Admin Dose 125 MLS/HR; Start 01/08/19 at 08:30 Insulin Glargine (Lantus) 20 units QHS SC ; Start 01/10/19 at 21:00 GLORIA ACEVES Jan 10, 2019 17:28
--- NOTE | 2019-01-10 17:28 | PN ---
Date/Time of Note Date/Time of Note DATE: 01/10/19 TIME: 17:28 Assessment/Plan VTE Prophylaxis Risk score (from Ns)>0 risk: 7 SCD applied (from Ns): No Lines/Catheters IV Catheter Type (from Nrs): Mid Line Urinary Cath still in place: No Assessment/Plan Assessment/Plan -Possible sepsis secondary to right foot necrotic wounds. Will obtain urine and blood cultures. Continue IV fluids and broad-spectrum antibiotics. Dr. Blake is asked to see pt in infection disease consultation. -Bilateral diabetic foot ulcers, right foot necrotic wounds. Dr. Brannon is asked to see patient in podiatry consultation. -Hx Right foot wounds with possible osteomyelitis. -Peripheral vascular disease. Patient underwent angiogram during last admission which revealed severe infrainguinal disease that is not amenable to any endovascular intervention. Patient was evaluated by Dr. Roca during last admission, vascular surgery with recommendation for amputation however patient's refused. -Diabetes mellitus type 2 continue Lantus and NovoLog. -Coronary artery disease, status post CABG. Continue Plavix. -Atrial fibrillation, continue Eliquis and metoprolol. -Dysphagia with G-tube. 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 -Wheelchair bound status Result Diagram: 01/10/1952501/09/190 Results 24hrs Laboratory Tests Test 01/09/19 17:30 01/09/19 19:20 01/09/19 19:28 01/09/19 22:19 Bedside Glucose 121 154 Sodium Level 138 Potassium Level 4.3 Chloride Level 102 Carbon Dioxide Level 28 Anion Gap 8 Blood Urea Nitrogen 19 Creatinine 0.50 L Est Glomerular Filtrat Rate mL/min Glucose Level 165 Calcium Level 8.5 Vancomycin Level 14.4 Trough Test 01/10/19 05:26 01/10/19 08:07 01/10/19 08:23 01/10/19 08:42 White Blood Count 14.9 #H Red Blood Count 4.67 L Hemoglobin 12.2 L Hematocrit 37.9 L Mean Corpuscular 81.2 L Volume Mean Corpuscular 26.1 L Hemoglobin Mean Corpuscular 32.2 Hemoglobin Concent Red Cell 16.6 H Distribution Width Platelet Count 308 Mean Platelet Volume 10.9 H Immature 0.700 H Granulocytes % Neutrophils % 67.0 Segmented 61 Neutrophils % (Manual) Lymphocytes % 23.0 Lymphocytes % 32 (Manual) Reactive Lymphocytes 1 H % (Manual) Monocytes % 6.9 Monocytes % (Manual) 4 Eosinophils % 1.9 Eosinophils % 2 (Manual) Basophils % 0.5 Nucleated Red Blood 0.0 Cells % Immature 0.110 H Granulocytes # Neutrophils # 10.0 H Lymphocytes (Manual) 4.7 H Lymphocytes # 3.4 H Reactive Lymphocytes 0.1 H # Monocytes # 1.0 H Monocytes # (Manual) 0.5 Eosinophils # 0.3 Basophils # 0.1 Nucleated Red Blood 0.0 Cells # Platelet Estimate NORMAL Polychromasia 3+ Poikilocytosis 1+ Anisocytosis 1+ Microcytosis 1+ Bedside Glucose 51 L 64 L 127 Test 01/10/19 08:57 01/10/19 12:06 01/10/19 17:16 Bedside Glucose 124 151 237 H Exam/Review of Systems Exam Vitals Vital Signs Date Temp Pulse Resp B/P (MAP) Pulse Ox O2 O2 Flow FiO2 Time Delivery Rate 01/10/19 97.6 90 19 104/59 98 Room Air 14:51 (74) Intake and Output 01/09/19 01/09/19 01/10/19 1515:00 23:00 07:00 IntakeIntake Total 730 ml 1444 ml 450 ml BalanceBalance 730 ml 1444 ml 450 ml Results Results 24hrs Laboratory Tests Test 01/09/19 17:30 01/09/19 19:20 01/09/19 19:28 01/09/19 22:19 Bedside Glucose 121 154 Sodium Level 138 Potassium Level 4.3 Chloride Level 102 Carbon Dioxide Level 28 Anion Gap 8 Blood Urea Nitrogen 19 Creatinine 0.50 L Est Glomerular Filtrat Rate mL/min Glucose Level 165 Calcium Level 8.5 Vancomycin Level 14.4 Trough Test 01/10/19 05:26 01/10/19 08:07 01/10/19 08:23 01/10/19 08:42 White Blood Count 14.9 #H Red Blood Count 4.67 L Hemoglobin 12.2 L Hematocrit 37.9 L Mean Corpuscular 81.2 L Volume Mean Corpuscular 26.1 L Hemoglobin Mean Corpuscular 32.2 Hemoglobin Concent Red Cell 16.6 H Distribution Width Platelet Count 308 Mean Platelet Volume 10.9 H Immature 0.700 H Granulocytes % Neutrophils % 67.0 Segmented 61 Neutrophils % (Manual) Lymphocytes % 23.0 Lymphocytes % 32 (Manual) Reactive Lymphocytes 1 H % (Manual) Monocytes % 6.9 Monocytes % (Manual) 4 Eosinophils % 1.9 Eosinophils % 2 (Manual) Basophils % 0.5 Nucleated Red Blood 0.0 Cells % Immature 0.110 H Granulocytes # Neutrophils # 10.0 H Lymphocytes (Manual) 4.7 H Lymphocytes # 3.4 H Reactive Lymphocytes 0.1 H # Monocytes # 1.0 H Monocytes # (Manual) 0.5 Eosinophils # 0.3 Basophils # 0.1 Nucleated Red Blood 0.0 Cells # Platelet Estimate NORMAL Polychromasia 3+ Poikilocytosis 1+ Anisocytosis 1+ Microcytosis 1+ Bedside Glucose 51 L 64 L 127 Test 01/10/19 08:57 01/10/19 12:06 01/10/19 17:16 Bedside Glucose 124 151 237 H Medications Medication Current Medications Acetaminophen (Tylenol Tab) 1,000 mg Q6H PRN PO PAIN -02/24; Start 01/01/19 at 20:30 Apixaban (Eliquis) 2.5 mg BID PO Last administered on 01/10/19at 08:45; Admin Dose 2.5 MG; Start 01/01/19 at 21:00 Ascorbic Acid (Vitamin C) 500 mg DAILY PO Last administered on 01/10/19at 08:45; Admin Dose 500 MG; Start 01/02/19 at 09:00 Atorvastatin Calcium (Lipitor) 10 mg QHS PO Last administered on 01/09/19at 22:30; Admin Dose 10 MG; Start 01/01/19 at 21:00 Benazepril HCl (Lotensin) 10 mg DAILY PO Last administered on 01/10/19at 08:46; Admin Dose 10 MG; Start 01/02/19 at 09:00 Bisacodyl (Dulcolax Supp) 10 mg DAILY PRN IN NEEDED; Start 01/01/19 at 20:30 Clonazepam (Klonopin) 0.5 mg DAILY PRN PO ANXIETY; Start 01/01/19 at 20:30 Clonidine (Catapres) 0.1 mg Q8H PRN PO IF SBP>160; Start 01/01/19 at 20:30 Digoxin (Digoxin) 0.125 mg DAILY@1300 PO Last administered on 01/10/19 13:49; Admin Dose 0.125 MG; Start 01/02/19 at 13:00 Docusate Sodium (Colace) 200 mg QHS PRN PO CONSTIPATION; Start 01/01/19 at 20:30 Donepezil HCl (Aricept) 5 mg QHS PO Last administered on 01/09/19 22:30; Admin Dose 5 MG; Start 01/01/19 at 21:00 Lansoprazole (Prevacid) 30 mg DAILY PO Last administered on 01/10/19 08:45; Admin Dose 30 MG; Start 01/02/19 at 09:00 Linagliptin (Tradjenta) 5 mg DAILY PO Last administered on 01/09/19 08:45; Admin Dose 5 MG; Start 01/02/19 at 09:00 Magnesium Hydroxide (Milk Of Mag) 30 ml QHS PRN PO CONSTIPATION; Start 01/01/19 at 20:30 Metformin HCl (Glucophage) 500 mg WITH BREAKFAST DINNE PO Last administered on 01/10/19 17:18; Admin Dose 500 MG; Start 01/02/19 at 08:00 Metoprolol Tartrate (Lopressor) 25 mg BID PO Last administered on 01/10/19 08:46; Admin Dose 25 MG; Start 01/01/19 at 21:00 Quetiapine Fumarate (Seroquel) 100 mg HS PO Last administered on 01/09/19 22:29; Admin Dose 100 MG; Start 01/01/19 at 21:00 Valproate Sodium (Depakene Liquid Cup) 125 mg BID PO Last administered on 01/10/19 08:45; Admin Dose 125 MG; Start 01/01/19 at 21:00 Zinc Sulfate (Zinc Sulfate) 220 mg DAILY PO Last administered on 01/10/19 08:46; Admin Dose 220 MG; Start 01/02/19 at 09:00 Diagnostic Test (Pha) (Accu-Chek) 1 ea AC MEALS AND BEDTIME XX Last administered on 01/05/19 17:27; Admin Dose 1 EA; Start 01/01/19 at 21:00 Vancomycin HCl (Vanco Iv Per Pharmacy) VANCOMYCIN PER PHARMACY PER PROTOCOL XX ; Start 01/01/19 at 20:30 Furosemide (Lasix) 40 mg DAILY GTB Last administered on 01/10/19 08:47; Admin Dose 40 MG; Start 01/02/19 at 09:00 Diagnostic Test (Pha) (Accu-Chek) 1 ea 02 XX Last administered on 01/04/19 01:09; Admin Dose 1 EA; Start 01/02/19 at 02:00 Insulin Aspart (Novolog Insulin Pen) NOVOLOG *MODERATE* ALGORITHM WITH MEALS BEDTIME SC Last administered on 01/10/19 17:20; Admin Dose 6 UNIT; Start 01/01/19 at 21:00 Miscellaneous Information 1 ea NOTE XX ; Start 01/01/19 at 21:00 Glucose (Glutose) 15 gm Q15M PRN PO DECREASED GLUCOSE Last administered on 01/10/19 08:10; Admin Dose 15 GM; Start 01/01/19 at 21:00 Glucose (Glutose) 22.5 gm Q15M PRN PO DECREASED GLUCOSE; Start 01/01/19 at 21:00 Dextrose (D50w Syringe) 25 ml Q15M PRN IV DECREASED GLUCOSE Last administered on 01/10/19 08:26; Admin Dose 25 ML; Start 01/01/19 at 21:00 Dextrose (D50w Syringe) 50 ml Q15M PRN IV DECREASED GLUCOSE Last administered on 01/06/19 08:05; Admin Dose 50 ML; Start 01/01/19 at 21:00 Glucagon (Glucagen) 1 mg Q15M PRN IM DECREASED GLUCOSE; Start 01/01/19 at 21:00 Glucose (Glutose) 15 gm Q15M PRN BUCCAL DECREASED GLUCOSE Last administered on 01/07/19 09:03; Admin Dose 15 GM; Start 01/01/19 at 21:00 Acetaminophen (Tylenol Tab) 500 mg Q6H PRN PO MILD PAIN(1-3)OR ELEVATED TEMP; Start 01/01/19 at 21:30 Acetaminophen (Tylenol Tab) 500 mg BID PO Last administered on 01/10/19 08:46; Admin Dose 500 MG; Start 01/02/19 at 09:00 Miscellaneous Information (Pending [facility] Order For Wound Care) This patient henry... PRN PRN XX WOUND CARE; Start 01/01/19 at 23:00 Povidone Iodine (Povidone-Iodine) 1 applic DAILY TOP Last administered on 01/10 08:48; Admin Dose 1 APPLIC; Start 01/03/19 at 09:00 Ceftriaxone Sodium 50 ml @ 100 mls/hr Q24H IVPB Last administered on 01/09/19 17:52; Admin Dose 100 MLS/HR; Start 01/02/19 at 19:00 Metronidazole 100 ml @ 100 mls/hr Q8 IVPB Last administered on 01/10/19 13:49; Admin Dose 100 MLS/HR; Start 01/02/19 at 22:00 Vitamin B Complex/ Vitamin C (Berocca) 1 cap DAILY PO Last administered on 08:45; Admin Dose 1 CAP; Start 01/08/19 at 09:00 Fish Oil (Fish Oil) 1,000 mg DAILY PO Last administered on 01/10/19 08:45; Admin Dose 1,000 MG; Start 01/08/19 at 09:00 Vancomycin HCl 0.85 gm/Sodium Chloride 250 ml @ 125 mls/hr Q12H IVPB Last administered on 01/10/19 08:47; Admin Dose 125 MLS/HR; Start 01/08/19 at 08:30 Insulin Glargine (Lantus) 20 units QHS SC ; Start 01/10/19 at 21:00 GLORIA ACEVES Jan 10, 2019 17:28
[2019-01-10] MEDS: CEFTRIAXONE 1 GM/50 ML (PMX) 50 ML IVPB SCH (18:13)
--- NOTE | 2019-01-10 18:35 | CONS ---
Assessment/Plan Assessment/Plan Hospital Course (Demo Recall) assessment/impression - OM R foot - XR 01/01/19 of R foot showed findings c/w OM present lateral aspect of distal forefoot - wound culture grew diptheroids. a colonizer - Poor overall prognosis for antibiotics to cure cure given severity of vascular disease - Bacteremia 01/01/19 blood culture x1 set grew coag neg staph -> likely contaminant, repeat cultures 01/03/19 negative - s/p diabetic foot infection/unhealing wound: wound culture 10/10/18 of L foot grew MRSA and corynebacter JK, wound culture of R foot grew proteus, enterococci and corynebacter JK - S/p bedside debridement on 10/11/2018 - Hx Likely OM; b/l foot XR 10/10/18 showed: Irregularity of the margins of the proximal phalanx of R 3rd digit and of 4th metatarsal head, raising suspicion for OM; periarticular lucencies with soft tissue swelling about R 5th MTP articulation. Soft tissue ulceration along the posterior lateral aspect of L midfoot and hindfoot; no e/o bone destructive process. MRI of R foot on 10/12/2018 was limited exam d/t motion artifact (only 1 sequence was able to be obtained) but showed suggestion of osteomyelitis within the 5th metatarsal head and base of 5th proximal phalanx at the metatarsophalangeal joint. 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 - PCN allergy; Has tolerated cefepime previously per EMR at [facility], tolerates ceftriaxone too, he has previously tolerated Merrem as well recommendations: - repeat CBC in AM - if WBC level remains elevated, will obtain blood cultures, urinalysis and urine culture and CXR - continue vancomycin, ceftriaxone, metronidazole (01/02/19-); local wound care - I recommend 6 weeks of antibiotics for osteomyelitis management d/w Pt's MILTON Cohen Consultation Date/Type/Reason Admit Date/Time Jan 01, 2019 at 18:01 Initial Consult Date 01/02/19 Type of Consult ID Requesting Provider: TYE ADAMS Date/Time of Note DATE: 01/10/19 TIME: 18:29 24 HR Interval Summary Free Text/Dictation WBC level increased Subjective hx not possible: other (altered and unobtainable except for Pt denies pain) Exam/Review of Systems Exam Vitals Vital Signs Date Temp Pulse Resp B/P (MAP) Pulse Ox O2 O2 Flow FiO2 Time Delivery Rate 01/10/19 97.6 90 19 104/59 98 Room Air 14:51 (74) Intake and Output 01/09/19 01/09/19 01/10/19 1515:00 23:00 07:00 IntakeIntake Total 730 ml 1444 ml 450 ml BalanceBalance 730 ml 1444 ml 450 ml Constitutional: frail, other (confused) Psych: confusion Head: normocephalic, atraumatic Eyes: nl conjunctiva, nl lids, nl sclera ENMT: nl external ears & nose, nl nasal mucosa & septum, mucosa pink and moist Neck: other (not swollen) Respiratory: other (normal resp effort) Cardiovascular: No edema Gastrointestinal: soft; No distended Genitourinary - Male: other (incontinent) Musculoskeletal: other (feet are dressed) Extremities: No edema Neurological: confused, lethargic Skin: No rash or lesions Results Result Diagram: 01/10/19 0526 01/09/190 Results 24hrs Laboratory Tests Test 01/09/19 19:20 01/09/19 19:28 01/09/19 22:19 01/10/19 05:26 Sodium Level 138 Potassium Level 4.3 Chloride Level 102 Carbon Dioxide Level 28 Anion Gap 8 Blood Urea Nitrogen 19 Creatinine 0.50 L Est Glomerular Filtrat Rate mL/min Glucose Level 165 Calcium Level 8.5 Vancomycin Level 14.4 Trough Bedside Glucose 154 White Blood Count 14.9 #H Red Blood Count 4.67 L Hemoglobin 12.2 L Hematocrit 37.9 L Mean Corpuscular 81.2 L Volume Mean Corpuscular 26.1 L Hemoglobin Mean Corpuscular 32.2 Hemoglobin Concent Red Cell 16.6 H Distribution Width Platelet Count 308 Mean Platelet Volume 10.9 H Immature 0.700 H Granulocytes % Neutrophils % 67.0 Segmented 61 Neutrophils % (Manual) Lymphocytes % 23.0 Lymphocytes % 32 (Manual) Reactive Lymphocytes 1 H % (Manual) Monocytes % 6.9 Monocytes % (Manual) 4 Eosinophils % 1.9 Eosinophils % 2 (Manual) Basophils % 0.5 Nucleated Red Blood 0.0 Cells % Immature 0.110 H Granulocytes # Neutrophils # 10.0 H Lymphocytes (Manual) 4.7 H Lymphocytes # 3.4 H Reactive Lymphocytes 0.1 H # Monocytes # 1.0 H Monocytes # (Manual) 0.5 Eosinophils # 0.3 Basophils # 0.1 Nucleated Red Blood 0.0 Cells # Platelet Estimate NORMAL Polychromasia 3+ Poikilocytosis 1+ Anisocytosis 1+ Microcytosis 1+ Test 01/10/19 08:07 01/10/19 08:23 01/10/19 08:42 01/10/19 08:57 Bedside Glucose 51 L 64 L 127 124 Test 01/10/19 12:06 01/10/19 17:16 Bedside Glucose 151 237 H Medications Medication Current Medications Acetaminophen (Tylenol Tab) 1,000 mg Q6H PRN PO PAIN -02/24; Start 01/01/19 at 20:30 Apixaban (Eliquis) 2.5 mg BID PO Last administered on 01/10/19at 08:45; Admin Dose 2.5 MG; Start 01/01/19 at 21:00 Ascorbic Acid (Vitamin C) 500 mg DAILY PO Last administered on 01/10/19at 08:45; Admin Dose 500 MG; Start 01/02/19 at 09:00 Atorvastatin Calcium (Lipitor) 10 mg QHS PO Last administered on 01/09/19at 22:30; Admin Dose 10 MG; Start 01/01/19 at 21:00 Benazepril HCl (Lotensin) 10 mg DAILY PO Last administered on 01/10/19at 08:46; Admin Dose 10 MG; Start 01/02/19 at 09:00 Bisacodyl (Dulcolax Supp) 10 mg DAILY PRN IN NEEDED; Start 01/01/19 at 20:30 Clonazepam (Klonopin) 0.5 mg DAILY PRN PO ANXIETY; Start 01/01/19 at 20:30 Clonidine (Catapres) 0.1 mg Q8H PRN PO IF SBP>160; Start 01/01/19 at 20:30 Digoxin (Digoxin) 0.125 mg DAILY@1300 PO Last administered on 01/10/19 13:49; Admin Dose 0.125 MG; Start 01/02/19 at 13:00 Docusate Sodium (Colace) 200 mg QHS PRN PO CONSTIPATION; Start 01/01/19 at 20:30 Donepezil HCl (Aricept) 5 mg QHS PO Last administered on 01/09/19 22:30; Admin Dose 5 MG; Start 01/01/19 at 21:00 Lansoprazole (Prevacid) 30 mg DAILY PO Last administered on 01/10/19 08:45; Admin Dose 30 MG; Start 01/02/19 at 09:00 Linagliptin (Tradjenta) 5 mg DAILY PO Last administered on 01/09/19 08:45; Admin Dose 5 MG; Start 01/02/19 at 09:00 Magnesium Hydroxide (Milk Of Mag) 30 ml QHS PRN PO CONSTIPATION; Start 01/01/19 at 20:30 Metformin HCl (Glucophage) 500 mg WITH BREAKFAST DINNE PO Last administered on 01/10/19 17:18; Admin Dose 500 MG; Start 01/02/19 at 08:00 Metoprolol Tartrate (Lopressor) 25 mg BID PO Last administered on 01/10/19 08:46; Admin Dose 25 MG; Start 01/01/19 at 21:00 Quetiapine Fumarate (Seroquel) 100 mg HS PO Last administered on 01/09/19 22:29; Admin Dose 100 MG; Start 01/01/19 at 21:00 Valproate Sodium (Depakene Liquid Cup) 125 mg BID PO Last administered on 01/10/19 08:45; Admin Dose 125 MG; Start 01/01/19 at 21:00 Zinc Sulfate (Zinc Sulfate) 220 mg DAILY PO Last administered on 01/10/19 08:46; Admin Dose 220 MG; Start 01/02/19 at 09:00 Diagnostic Test (Pha) (Accu-Chek) 1 ea AC MEALS AND BEDTIME XX Last administered on 01/05/19 17:27; Admin Dose 1 EA; Start 01/01/19 at 21:00 Vancomycin HCl (Vanco Iv Per Pharmacy) VANCOMYCIN PER PHARMACY PER PROTOCOL XX ; Start 01/01/19 at 20:30 Furosemide (Lasix) 40 mg DAILY GTB Last administered on 01/10/19at 08:47; Admin Dose 40 MG; Start 01/02/19 at 09:00 Diagnostic Test (Pha) (Accu-Chek) 1 ea 02 XX Last administered on 01/04/19at 01:09; Admin Dose 1 EA; Start 01/02/19 at 02:00 Insulin Aspart (Novolog Insulin Pen) NOVOLOG *MODERATE* ALGORITHM WITH MEALS BEDTIME SC Last administered on 01/10/19at 17:20; Admin Dose 6 UNIT; Start 01/01/19 at 21:00 Miscellaneous Information 1 ea NOTE XX ; Start 01/01/19 at 21:00 Glucose (Glutose) 15 gm Q15M PRN PO DECREASED GLUCOSE Last administered on at 08:10; Admin Dose 15 GM; Start 01/01/19 at 21:00 Glucose (Glutose) 22.5 gm Q15M PRN PO DECREASED GLUCOSE; Start 01/01/19 at 21:00 Dextrose (D50w Syringe) 25 ml Q15M PRN IV DECREASED GLUCOSE Last administered on 01/10/19at 08:26; Admin Dose 25 ML; Start 01/01/19 at 21:00 Dextrose (D50w Syringe) 50 ml Q15M PRN IV DECREASED GLUCOSE Last administered on 01/06/19at 08:05; Admin Dose 50 ML; Start 01/01/19 at 21:00 Glucagon (Glucagen) 1 mg Q15M PRN IM DECREASED GLUCOSE; Start 01/01/19 at 21:00 Glucose (Glutose) 15 gm Q15M PRN BUCCAL DECREASED GLUCOSE Last administered on 01/07/19at 09:03; Admin Dose 15 GM; Start 01/01/19 at 21:00 Acetaminophen (Tylenol Tab) 500 mg Q6H PRN PO MILD PAIN(1-3)OR ELEVATED TEMP; Start 01/01/19 at 21:30 Acetaminophen (Tylenol Tab) 500 mg BID PO Last administered on 01/10/19at 08:46; Admin Dose 500 MG; Start 01/02/19 at 09:00 Miscellaneous Information (Pending Santyl Order For Wound Care) This patient henry... PRN PRN XX WOUND CARE; Start 01/01/19 at 23:00 Povidone Iodine (Povidone-Iodine) 1 applic DAILY TOP Last administered on 01/10/19 08:48; Admin Dose 1 APPLIC; Start 01/03/19 at 09:00 Ceftriaxone Sodium 50 ml @ 100 mls/hr Q24H IVPB Last administered on 01/10/19 18:13; Admin Dose 100 MLS/HR; Start 01/02/19 at 19:00 Metronidazole 100 ml @ 100 mls/hr Q8 IVPB Last administered on 01/10/19 13:49; Admin Dose 100 MLS/HR; Start 01/02/19 at 22:00 Vitamin B Complex/ Vitamin C (Berocca) 1 cap DAILY PO Last administered on 01/10/19 08:45; Admin Dose 1 CAP; Start 01/08/19 at 09:00 Fish Oil (Fish Oil) 1,000 mg DAILY PO Last administered on 01/10/19 08:45; Admin Dose 1,000 MG; Start 01/08/19 at 09:00 Vancomycin HCl 0.85 gm/Sodium Chloride 250 ml @ 125 mls/hr Q12H IVPB Last administered on 01/10/19 08:47; Admin Dose 125 MLS/HR; Start 01/08/19 at 08:30 Insulin Glargine (Lantus) 20 units QHS SC ; Start 01/10/19 at 21:00 MAYNOR SIDDIQI M.D. Jan 10, 2019 18:34
[2019-01-10 20:00] VITALS: BP 113/63; PULSE 88; RESP 18
[2019-01-10 20:58] VITALS: BP 120/56; PULSE 52
[2019-01-10] MEDS: DONEPEZIL 5 MG TAB GTB SCH (20:59)
[2019-01-10] MEDS: ACETAMINOPHEN 650MG/20.3ML CUP GTB SCH (21:00)
[2019-01-10] MEDS ORDERED: METOPROLOL 25 MG TAB GTB SCH (21:00)
[2019-01-10] MEDS: QUETIAPINE 100 MG TAB GTB SCH (21:00)
[2019-01-10] MEDS: ATORVASTATIN 10 MG TAB GTB SCH (21:00)
[2019-01-10] MEDS: APIXABAN 5 MG TABLET GTB SCH (21:01)
[2019-01-10] MEDS: INSULIN GLARGINE [LANTus] (100 UNITS/ML) SYG SC SCH (21:03)
[2019-01-10] MEDS: VALPROIC ACID LIQUID CUP 250 MG/5 ML CUP GTB SCH (21:04)
[2019-01-11 01:59] VITALS: BP 124/61; PULSE 98; RESP 18
[2019-01-11] MEDS: ACCU-CHEK XX SCH ×5 (02:00→21:00)
[2019-01-11] MEDS: metroNIDAZOLE 500 MG/NS (PMX) 100 ML IVPB SCH ×3 (07:01→23:13)
[2019-01-11] MEDS: INSULIN ASPART [NOVOLOG] 3 ML PEN SC SCH ×4 (07:52→21:00)
[2019-01-11 08:00] VITALS: BP 126/64; PULSE 64; RESP 0
[2019-01-11] MEDS: metFORMIN 500 MG TAB PO SCH ×2 (08:22→17:13)
[2019-01-11] MEDS: FISH OIL 1,000 MG CAP PO SCH (08:23)
[2019-01-11] MEDS: ASCORBIC ACID 500 MG TAB PO SCH (08:23)
[2019-01-11] MEDS: ZINC SULFATE 220 MG CAP PO SCH (08:23)
[2019-01-11] MEDS: VALPROIC ACID LIQUID CUP 250 MG/5 ML CUP GTB SCH ×2 (08:23→21:57)
[2019-01-11] MEDS: VITAMIN B COMPLEX/VIT C CAP PO SCH (08:23)
[2019-01-11] MEDS: APIXABAN 5 MG TABLET GTB SCH ×2 (08:23→21:53)
[2019-01-11] MEDS: LINAGLIPTIN 5 MG TABLET PO SCH (08:23)
[2019-01-11] MEDS: LANSOPRAZOLE 30 MG CAP PO SCH (08:23)
[2019-01-11] MEDS: ACETAMINOPHEN 650MG/20.3ML CUP GTB SCH ×2 (08:23→21:56)
[2019-01-11] MEDS: FUROSEMIDE 40 MG TAB GTB SCH (08:24)
[2019-01-11] MEDS: BENAZEPRIL 10 MG TAB PO SCH (08:24)
[2019-01-11] MEDS: METOPROLOL 25 MG TAB GTB SCH ×2 (08:25→22:01)
[2019-01-11] MEDS: VANCOMYCIN HCL 0.85 GM in SOD CHLORIDE 0.9% 250 ML IVPB SCH ×2 (08:25→21:48)
[2019-01-11] MEDS: POVIDONE IODINE 10% 28.4 GM OINT TOP SCH (08:25)
[2019-01-11] MEDS: DIGOXIN 0.125 MG TAB PO SCH (13:41)
[2019-01-11 14:00] VITALS: BP 128/72; PULSE 72; RESP 20
--- NOTE | 2019-01-11 14:44 | CONS ---
Assessment/Plan Assessment/Plan Hospital Course (Demo Recall) assessment/impression: - OM R foot - XR 01/01/19 of R foot showed findings c/w OM present lateral aspect of distal forefoot - wound culture grew diptheroids. a colonizer - Poor overall prognosis for antibiotics to cure cure given severity of vascular disease - Bacteremia 01/01/19 blood culture x1 set grew coag neg staph -> likely contaminant, repeat cultures 01/03/19 negative - s/p diabetic foot infection/unhealing wound: wound culture 10/10/18 of L foot grew MRSA and corynebacter JK, wound culture of R foot grew proteus, enterococci and corynebacter JK - S/p bedside debridement on 10/11/2018 - Hx Likely OM; b/l foot XR 10/10/18 showed: Irregularity of the margins of the proximal phalanx of R 3rd digit and of 4th metatarsal head, raising suspicion for OM; periarticular lucencies with soft tissue swelling about R 5th MTP articulation. Soft tissue ulceration along the posterior lateral aspect of L midfoot and hindfoot; no e/o bone destructive process. MRI of R foot on 10/12/2018 was limited exam d/t motion artifact (only 1 sequence was able to be obtained) but showed suggestion of osteomyelitis within the 5th metatarsal head and base of 5th proximal phalanx at the metatarsophalangeal joint. 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 - PCN allergy; Has tolerated cefepime previously per EMR at [facility], tolerates ceftriaxone too, he has previously tolerated Merrem as well recommendations: - trend CBC; ordered in AM - bynum culture if temp >100.3; if WBC level is trending up, will obtain blood cultures, urinalysis and urine culture and CXR - continue vancomycin, ceftriaxone, metronidazole (01/02/19-); we recommend 6 weeks of antibiotics for osteomyelitis - continue local wound care Management d/w MILTON Cohen, pt's ex- at bedside, and with Dr. Blake Consultation Date/Type/Reason Admit Date/Time Jan 01, 2019 at 18:01 Initial Consult Date 01/02/19 Type of Consult Infectious Disease Requesting Provider: TYE ADAMS Date/Time of Note DATE: 01/11/19 TIME: 14:42 24 HR Interval Summary Free Text/Dictation WBC is trending down. Remains afebrile. No acute issues per d/w nursing and pt's ex-. Exam/Review of Systems Exam Vitals Vital Signs Date Temp Pulse Resp B/P (MAP) Pulse Ox O2 O2 Flow FiO2 Time Delivery Rate 01/11/19 98.6 64 0 126/64 08:00 (84) 01/11/19 98 01:59 01/10/19 Room Air 14:51 Intake and Output 01/10/19 01/10/19 01/11/19 1515:00 23:00 07:00 IntakeIntake Total 1190 ml 1260 ml 450 ml BalanceBalance 1190 ml 1260 ml 450 ml Exam Constitutional: alert, frail, other (pt just finished eating [employer]; ex- is at bedside) Psych: confusion Head: normocephalic, atraumatic Eyes: nl conjunctiva, nl lids, nl sclera ENMT: nl external ears & nose, nl nasal mucosa & septum, mucosa pink and moist Neck: other (not swollen) Respiratory: clear to auscultation, normal air movement Cardiovascular: regular rate and rhythm, nl pulses Gastrointestinal: soft, non-tender Genitourinary - Male: other (incontinent) Musculoskeletal: other (feet are wrapped with Kerlix c/d/i) Neurological: confused Skin: nl turgor, other (bilateral feet wrapped with Kerlix c/d/i) Results Result Diagram: 01/11/19 0432 01/11/19 0432 Results 24hrs Laboratory Tests Test 01/10/19 17:16 01/10/19 20:52 01/11/19 04:32 01/11/19 07:51 Bedside Glucose 237 H 153 94 White Blood Count 13.0 H Red Blood Count 4.31 L Hemoglobin 11.2 L Hematocrit 34.7 L Mean Corpuscular 80.5 L Volume Mean Corpuscular 26.0 L Hemoglobin Mean Corpuscular 32.3 Hemoglobin Concent Red Cell 16.7 H Distribution Width Platelet Count 328 Mean Platelet Volume 10.4 Immature 1.200 H Granulocytes % Neutrophils % 65.7 Lymphocytes % 22.8 Monocytes % 6.9 Eosinophils % 2.9 Basophils % 0.5 Nucleated Red Blood 0.0 Cells % Immature 0.150 H Granulocytes # Neutrophils # 8.5 H Lymphocytes # 3.0 H Monocytes # 0.9 Eosinophils # 0.4 Basophils # 0.1 Nucleated Red Blood 0.0 Cells # Blood Urea Nitrogen 19 Creatinine 0.52 L Test 01/11/19 12:01 Bedside Glucose 110 Medications Medication Current Medications Acetaminophen (Tylenol Tab) 1,000 mg Q6H PRN PO PAIN 4-6/10; Start 01/01/19 at 20:30 Ascorbic Acid (Vitamin C) 500 mg DAILY PO Last administered on 01/11/19at 08:23; Admin Dose 500 MG; Start 01/02/19 at 09:00 Benazepril HCl (Lotensin) 10 mg DAILY PO Last administered on 01/11/19at 08:24; Admin Dose 10 MG; Start 01/02/19 at 09:00 Bisacodyl (Dulcolax Supp) 10 mg DAILY PRN [place] NEEDED; Start 01/01/19 at 20:30 Clonazepam (Klonopin) 0.5 mg DAILY PRN PO ANXIETY; Start 01/01/19 at 20:30 Clonidine (Catapres) 0.1 mg Q8H PRN PO IF SBP>160; Start 01/01/19 at 20:30 Digoxin (Digoxin) 0.125 mg DAILY@1300 PO Last administered on 01/11/19at 13:41; Admin Dose 0.125 MG; Start 01/02/19 at 13:00 Docusate Sodium (Colace) 200 mg QHS PRN PO CONSTIPATION; Start 01/01/19 at 20:30 Lansoprazole (Prevacid) 30 mg DAILY PO Last administered on 01/11/19at 08:23; Admin Dose 30 MG; Start 01/02/19 at 09:00 Linagliptin (Tradjenta) 5 mg DAILY PO Last administered on 01/11/19 08:23; Admin Dose 5 MG; Start 01/02/19 at 09:00 Magnesium Hydroxide (Milk Of Mag) 30 ml QHS PRN PO CONSTIPATION; Start 01/01/19 at 20:30 Metformin HCl (Glucophage) 500 mg WITH BREAKFAST DINNE PO Last administered on 01/11/19 08:22; Admin Dose 500 MG; Start 01/02/19 at 08:00 Zinc Sulfate (Zinc Sulfate) 220 mg DAILY PO Last administered on 01/11/19 08:23; Admin Dose 220 MG; Start 01/02/19 at 09:00 Diagnostic Test (Pha) (Accu-Chek) 1 ea AC MEALS AND BEDTIME XX Last admi nistered on 01/05/19 17:27; Admin Dose 1 EA; Start 01/01/19 at 21:00 Vancomycin HCl (Vanco Iv Per Pharmacy) VANCOMYCIN PER PHARMACY PER PROTOCOL XX ; Start 01/01/19 at 20:30 Furosemide (Lasix) 40 mg DAILY GTB Last administered on 01/11/19 08:24; Admin Dose 40 MG; Start 01/02/19 at 09:00 Diagnostic Test (Pha) (Accu-Chek) 1 ea 02 XX Last administered on 01/04/19 01:09; Admin Dose 1 EA; Start 01/02/19 at 02:00 Insulin Aspart (Novolog Insulin Pen) NOVOLOG *MODERATE* ALGORITHM WITH MEALS BEDTIME SC Last administered on 01/10/19 17:20; Admin Dose 6 UNIT; Start 01/01/19 at 21:00 Miscellaneous Information 1 ea NOTE XX ; Start 01/01/19 at 21:00 Glucose (Glutose) 15 gm Q15M PRN PO DECREASED GLUCOSE Last administered on 01/10/19 08:10; Admin Dose 15 GM; Start 01/01/19 at 21:00 Glucose (Glutose) 22.5 gm Q15M PRN PO DECREASED GLUCOSE; Start 01/01/19 at 21:00 Dextrose (D50w Syringe) 25 ml Q15M PRN IV DECREASED GLUCOSE Last administered on 01/10/19 08:26; Admin Dose 25 ML; Start 01/01/19 at 21:00 Dextrose (D50w Syringe) 50 ml Q15M PRN IV DECREASED GLUCOSE Last administered on 01/06/19 08:05; Admin Dose 50 ML; Start 01/01/19 at 21:00 Glucagon (Glucagen) 1 mg Q15M PRN IM DECREASED GLUCOSE; Start 01/01/19 at 21:00 Glucose (Glutose) 15 gm Q15M PRN BUCCAL DECREASED GLUCOSE Last administered on 01/07/19 09:03; Admin Dose 15 GM; Start 01/01/19 at 21:00 Miscellaneous Information (Pending Santyl Order For Wound Care) This patient henry... PRN PRN XX WOUND CARE; Start 01/01/19 at 23:00 Povidone Iodine (Povidone-Iodine) 1 applic DAILY TOP Last administered on 01/11/19 08:25; Admin Dose 1 APPLIC; Start 01/03/19 at 09:00 Ceftriaxone Sodium 50 ml @ 100 mls/hr Q24H IVPB Last administered on 01/10/19 18:13; Admin Dose 100 MLS/HR; Start 01/02/19 at 19:00 Metronidazole 100 ml @ 100 mls/hr Q8 IVPB Last administered on 01/11/19 13:41; Admin Dose 100 MLS/HR; Start 01/02/19 at 22:00 Vitamin B Complex/ Vitamin C (Berocca) 1 cap DAILY PO Last administered on 01/11/19 08:23; Admin Dose 1 CAP; Start 01/08/19 at 09:00 Fish Oil (Fish Oil) 1,000 mg DAILY PO Last administered on 01/11/19 08:23; Admin Dose 1,000 MG; Start 01/08/19 at 09:00 Vancomycin HCl 0.85 gm/Sodium Chloride 250 ml @ 125 mls/hr Q12H IVPB Last administered on 01/11/19 08:25; Admin Dose 125 MLS/HR; Start 01/08/19 at 08:30 Insulin Glargine (Lantus) 20 units QHS SC Last administered on 01/10/19 21:03; Admin Dose 20 UNITS; Start 01/10/19 at 21:00 Apixaban (Eliquis) 2.5 mg BID GTB Last administered on 01/11/19 08:23; Admin Dose 2.5 MG; Start 01/10/19 at 21:00 Atorvastatin Calcium (Lipitor) 10 mg QHS GTB Last administered on 01/10/19 21:00; Admin Dose 10 MG; Start 01/10/19 at 21:00 Donepezil HCl (Aricept) 5 mg QHS GTB Last administered on 01/10/19 20:59; Admin Dose 5 MG; Start 01/10/19 at 21:00 Quetiapine Fumarate (Seroquel) 100 mg HS GTB Last administered on 01/10/19 21:00; Admin Dose 100 MG; Start 01/10/19 at 21:00 Valproate Sodium (Depakene Liquid Cup) 125 mg BID GTB Last administered on 01/11/19 08:23; Admin Dose 125 MG; Start 01/10/19 at 21:00 Acetaminophen (Tylenol Liquid) 500 mg BID GTB Last administered on 01/11/19 08:23; Admin Dose 500 MG; Start 01/10/19 at 21:00 Metoprolol Tartrate (Lopressor) 12.5 mg BID GTB Last administered on 01/11/19 08:25; Admin Dose 12.5 MG; Start 01/11/19 at 09:00 DANIELA ANDERSON NP Jan 11, 2019 14:44
[2019-01-11] MEDS: AMMONIUM LACTATE 12% 225 GM LOT TOP SCH (17:12)
--- NOTE | 2019-01-11 18:22 | PN ---
Date/Time of Note Date/Time of Note DATE: 01/11/19 TIME: 18:21 Assessment/Plan VTE Prophylaxis Risk score (from Ns)>0 risk: 4 SCD applied (from Ns): No Lines/Catheters IV Catheter Type (from [facility]): Mid Line Urinary Cath still in place: No Assessment/Plan Assessment/Plan -Possible sepsis secondary to right foot necrotic wounds. Will obtain urine and blood cultures. Continue IV fluids and broad-spectrum antibiotics. Dr. Blake is asked to see pt in infection disease consultation. -Bilateral diabetic foot ulcers, right foot necrotic wounds. Dr. Brannon is asked to see patient in podiatry consultation. -Hx Right foot wounds with possible osteomyelitis. -Peripheral vascular disease. Patient underwent angiogram during last admission which revealed severe infrainguinal disease that is not amenable to any endovascular intervention. Patient was evaluated by Dr. Roca during last admission, vascular surgery with recommendation for amputation however patient's refused. -Diabetes mellitus type 2 continue Lantus and NovoLog. -Coronary artery disease, status post CABG. Continue Plavix. -Atrial fibrillation, continue Eliquis and metoprolol. -Dysphagia with G-tube. 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 -Wheelchair bound status Result Diagram: 01/11/19 0432 01/11/19 0432 Results 24hrs Laboratory Tests Test 01/10/19 20:52 01/11/19 04:32 01/11/19 07:51 01/11/19 12:01 Bedside Glucose 153 94 110 White Blood Count 13.0 H Red Blood Count 4.31 L Hemoglobin 11.2 L Hematocrit 34.7 L Mean Corpuscular 80.5 L Volume Mean Corpuscular 26.0 L Hemoglobin Mean Corpuscular 32.3 Hemoglobin Concent Red Cell 16.7 H Distribution Width Platelet Count 328 Mean Platelet Volume 10.4 Immature 1.200 H Granulocytes % Neutrophils % 65.7 Lymphocytes % 22.8 Monocytes % 6.9 Eosinophils % 2.9 Basophils % 0.5 Nucleated Red Blood 0.0 Cells % Immature 0.150 H Granulocytes # Neutrophils # 8.5 H Lymphocytes # 3.0 H Monocytes # 0.9 Eosinophils # 0.4 Basophils # 0.1 Nucleated Red Blood 0.0 Cells # Blood Urea Nitrogen 19 Creatinine 0.52 L Test 01/11/19 17:11 Bedside Glucose 179 Exam/Review of Systems Exam Vitals Vital Signs Date Temp Pulse Resp B/P (MAP) Pulse Ox O2 O2 Flow FiO2 Time Delivery Rate 01/11/19 98.8 72 20 128/72 94 14:00 (90) 01/10/19 Room Air 14:51 Intake and Output 01/10/19 01/10/19 01/11/19 1515:00 23:00 07:00 IntakeIntake Total 1190 ml 1260 ml 450 ml BalanceBalance 1190 ml 1260 ml 450 ml Results Results 24hrs Laboratory Tests Test 01/10/19 20:52 01/11/19 04:32 01/11/19 07:51 01/11/19 12:01 Bedside Glucose 153 94 110 White Blood Count 13.0 H Red Blood Count 4.31 L Hemoglobin 11.2 L Hematocrit 34.7 L Mean Corpuscular 80.5 L Volume Mean Corpuscular 26.0 L Hemoglobin Mean Corpuscular 32.3 Hemoglobin Concent Red Cell 16.7 H Distribution Width Platelet Count 328 Mean Platelet Volume 10.4 Immature 1.200 H Granulocytes % Neutrophils % 65.7 Lymphocytes % 22.8 Monocytes % 6.9 Eosinophils % 2.9 Basophils % 0.5 Nucleated Red Blood 0.0 Cells % Immature 0.150 H Granulocytes # Neutrophils # 8.5 H Lymphocytes # 3.0 H Monocytes # 0.9 Eosinophils # 0.4 Basophils # 0.1 Nucleated Red Blood 0.0 Cells # Blood Urea Nitrogen 19 Creatinine 0.52 L Test 01/11/19 17:11 Bedside Glucose 179 Medications Medication Current Medications Acetaminophen (Tylenol Tab) 1,000 mg Q6H PRN PO PAIN -02/24; Start 01/01/19 at 20:30 Ascorbic Acid (Vitamin C) 500 mg DAILY PO Last administered on 01/11/19at 08:23; Admin Dose 500 MG; Start 01/02/19 at 09:00 Benazepril HCl (Lotensin) 10 mg DAILY PO Last administered on 01/11/19at 08:24; Admin Dose 10 MG; Start 01/02/19 at 09:00 Bisacodyl (Dulcolax Supp) 10 mg DAILY PRN [place] NEEDED; Start 01/01/19 at 20:30 Clonazepam (Klonopin) 0.5 mg DAILY PRN PO ANXIETY; Start 01/01/19 at 20:30 Clonidine (Catapres) 0.1 mg Q8H PRN PO IF SBP>160; Start 01/01/19 at 20:30 Digoxin (Digoxin) 0.125 mg DAILY@1300 PO Last administered on 01/11/19 13:41; Admin Dose 0.125 MG; Start 01/02/19 at 13:00 Docusate Sodium (Colace) 200 mg QHS PRN PO CONSTIPATION; Start 01/01/19 at 20:30 Lansoprazole (Prevacid) 30 mg DAILY PO Last administered on 01/11/19 08:23; Admin Dose 30 MG; Start 01/02/19 at 09:00 Linagliptin (Tradjenta) 5 mg DAILY PO Last administered on 01/11/19 08:23; Admin Dose 5 MG; Start 01/02/19 at 09:00 Magnesium Hydroxide (Milk Of Mag) 30 ml QHS PRN PO CONSTIPATION; Start 01/01/19 at 20:30 Metformin HCl (Glucophage) 500 mg WITH BREAKFAST DINNE PO Last administered on 01/11/19 17:13; Admin Dose 500 MG; Start 01/02/19 at 08:00 Zinc Sulfate (Zinc Sulfate) 220 mg DAILY PO Last administered on 01/11/19 08:23; Admin Dose 220 MG; Start 01/02/19 at 09:00 Diagnostic Test (Pha) (Accu-Chek) 1 ea AC MEALS AND BEDTIME XX Last administered on 01/05/19 17:27; Admin Dose 1 EA; Start 01/01/19 at 21:00 Vancomycin HCl (Vanco Iv Per Pharmacy) VANCOMYCIN PER PHARMACY PER PROTOCOL XX ; Start 01/01/19 at 20:30 Furosemide (Lasix) 40 mg DAILY GTB Last administered on 01/11/19 08:24; Admin Dose 40 MG; Start 01/02/19 at 09:00 Diagnostic Test (Pha) (Accu-Chek) 1 ea 02 XX Last administered on 01/04/19 01:09; Admin Dose 1 EA; Start 01/02/19 at 02:00 Insulin Aspart (Novolog Insulin Pen) NOVOLOG *MODERATE* ALGORITHM WITH MEALS BEDTIME SC Last administered on 01/11/19 17:18; Admin Dose 2 UNIT; Start 01/01/19 at 21:00 Miscellaneous Information 1 ea NOTE XX ; Start 01/01/19 at 21:00 Glucose (Glutose) 15 gm Q15M PRN PO DECREASED GLUCOSE Last administered on 01/10/19 08:10; Admin Dose 15 GM; Start 01/01/19 at 21:00 Glucose (Glutose) 22.5 gm Q15M PRN PO DECREASED GLUCOSE; Start 01/01/19 at 21:00 Dextrose (D50w Syringe) 25 ml Q15M PRN IV DECREASED GLUCOSE Last administered on 01/10/19 08:26; Admin Dose 25 ML; Start 01/01/19 at 21:00 Dextrose (D50w Syringe) 50 ml Q15M PRN IV DECREASED GLUCOSE Last administered on 01/06/19 08:05; Admin Dose 50 ML; Start 01/01/19 at 21:00 Glucagon (Glucagen) 1 mg Q15M PRN IM DECREASED GLUCOSE; Start 01/01/19 at 21:00 Glucose (Glutose) 15 gm Q15M PRN BUCCAL DECREASED GLUCOSE Last administered on 01/07/19 09:03; Admin Dose 15 GM; Start 01/01/19 at 21:00 Miscellaneous Information (Pending [facility] Order For Wound Care) This patient henry... PRN PRN XX WOUND CARE; Start 01/01/19 at 23:00 Povidone Iodine (Povidone-Iodine) 1 applic DAILY TOP Last administered on 01/11/19 08:25; Admin Dose 1 APPLIC; Start 01/03/19 at 09:00 Ceftriaxone Sodium 50 ml @ 100 mls/hr Q24H IVPB Last administered on 01/10/19 18:13; Admin Dose 100 MLS/HR; Start 01/02/19 at 19:00 Metronidazole 100 ml @ 100 mls/hr Q8 IVPB Last administered on 01/11/19 13:41; Admin Dose 100 MLS/HR; Start 01/02/19 at 22:00 Vitamin B Complex/ Vitamin C (Berocca) 1 cap DAILY PO Last administered on 01/11/19 08:23; Admin Dose 1 CAP; Start 01/08/19 at 09:00 Fish Oil (Fish Oil) 1,000 mg DAILY PO Last administered on 01/11/19 08:23; Admin Dose 1,000 MG; Start 01/08/19 at 09:00 Vancomycin HCl 0.85 gm/Sodium Chloride 250 ml @ 125 mls/hr Q12H IVPB Last administered on 01/11/19 08:25; Admin Dose 125 MLS/HR; Start 01/08/19 at 08:30 Insulin Glargine (Lantus) 20 units QHS SC Last administered on 01/10/19 21:03; Admin Dose 20 UNITS; Start 01/10/19 at 21:00 Apixaban (Eliquis) 2.5 mg BID GTB Last administered on 01/11/19 08:23; Admin Dose 2.5 MG; Start 01/10/19 at 21:00 Atorvastatin Calcium (Lipitor) 10 mg QHS GTB Last administered on 01/10/19 21:00; Admin Dose 10 MG; Start 01/10/19 at 21:00 Donepezil HCl (Aricept) 5 mg QHS GTB Last administered on 01/10/19 20:59; Admin Dose 5 MG; Start 01/10/19 at 21:00 Quetiapine Fumarate (Seroquel) 100 mg HS GTB Last administered on 01/10/19 21:00; Admin Dose 100 MG; Start 01/10/19 at 21:00 Valproate Sodium (Depakene Liquid Cup) 125 mg BID GTB Last administered on 01/11/19 08:23; Admin Dose 125 MG; Start 01/10/19 at 21:00 Acetaminophen (Tylenol Liquid) 500 mg BID GTB Last administered on 01/11/19 08:23; Admin Dose 500 MG; Start 01/10/19 at 21:00 Metoprolol Tartrate (Lopressor) 12.5 mg BID GTB Last administered on 01/11/19 08:25; Admin Dose 12.5 MG; Start 01/11/19 at 09:00 Ammonium Lactate (Lac-Hydrin 12% Lotion) 1 applic DAILY TOP Last administered on 01/11/19 17:12; Admin Dose 1 APPLIC; Start 01/11/19 at 16:00 Clotrimazole (Lotrimin Cr) 1 applic BID TOP ; Start 01/11/19 at 21:00 GLORIA ACEVES Jan 11, 2019 18:22
[2019-01-11] MEDS: CEFTRIAXONE 1 GM/50 ML (PMX) 50 ML IVPB SCH (18:45)
[2019-01-11 19:48] VITALS: BP 110/58; PULSE 72; RESP 18
[2019-01-11] MEDS: INSULIN GLARGINE [LANTus] (100 UNITS/ML) SYG SC SCH (21:48)
[2019-01-11] MEDS: CLOTRIMAZOLE 1% 30 GM CR TOP SCH (21:48)
[2019-01-11] MEDS: ATORVASTATIN 10 MG TAB GTB SCH (21:53)
[2019-01-11] MEDS: DONEPEZIL 5 MG TAB GTB SCH (21:53)
[2019-01-11] MEDS: QUETIAPINE 100 MG TAB GTB SCH (21:56)
[2019-01-12 01:57] VITALS: BP 133/59; PULSE 84; RESP 20
[2019-01-12] MEDS: ACCU-CHEK XX SCH ×5 (02:00→20:09)
[2019-01-12] MEDS: metroNIDAZOLE 500 MG/NS (PMX) 100 ML IVPB SCH ×3 (07:02→23:10)
[2019-01-12 07:56] VITALS: BP 118/80; PULSE 60; RESP 18
[2019-01-12] MEDS: INSULIN ASPART [NOVOLOG] 3 ML PEN SC SCH ×4 (08:00→20:08)
[2019-01-12] MEDS: VANCOMYCIN HCL 0.85 GM in SOD CHLORIDE 0.9% 250 ML IVPB SCH ×2 (10:22→20:10)
[2019-01-12] MEDS: VALPROIC ACID LIQUID CUP 250 MG/5 ML CUP GTB SCH ×2 (10:22→20:22)
[2019-01-12] MEDS: metFORMIN 500 MG TAB PO SCH ×2 (10:22→18:05)
[2019-01-12] MEDS: APIXABAN 5 MG TABLET GTB SCH ×2 (10:25→20:18)
[2019-01-12] MEDS: FUROSEMIDE 40 MG TAB GTB SCH (10:25)
[2019-01-12] MEDS: METOPROLOL 25 MG TAB GTB SCH ×2 (10:26→20:19)
[2019-01-12] MEDS: LANSOPRAZOLE 30 MG CAP PO SCH (10:27)
[2019-01-12] MEDS: FISH OIL 1,000 MG CAP PO SCH (10:27)
[2019-01-12] MEDS: ACETAMINOPHEN 650MG/20.3ML CUP GTB SCH ×2 (10:27→20:21)
[2019-01-12] MEDS: VITAMIN B COMPLEX/VIT C CAP PO SCH (10:27)
[2019-01-12] MEDS: BENAZEPRIL 10 MG TAB PO SCH (10:27)
[2019-01-12] MEDS: ZINC SULFATE 220 MG CAP PO SCH (10:28)
[2019-01-12] MEDS: ASCORBIC ACID 500 MG TAB PO SCH (10:28)
[2019-01-12] MEDS: LINAGLIPTIN 5 MG TABLET PO SCH (10:28)
[2019-01-12] MEDS: AMMONIUM LACTATE 12% 225 GM LOT TOP SCH (10:28)
[2019-01-12] MEDS: CLOTRIMAZOLE 1% 30 GM CR TOP SCH ×2 (10:29→23:10)
[2019-01-12] MEDS: POVIDONE IODINE 10% 28.4 GM OINT TOP SCH (10:29)
--- NOTE | 2019-01-12 11:47 | CONS ---
[facility] HCIS Consult Follow-up Patient Name: Gavino Aleman Unit Number: [id number] Date of : 1935 Patient Status: Admitted Inpatient Attending Doctor: Abdirashid Anna MD Edit: MAYNOR JIMÉNEZ M.D. on 01/13/19 @ 18:36 Jessy attest: I discussed the management with BASIL Anderson and agree with above Assessment/Plan Assessment/Plan Hospital Course (Demo Recall) assessment/impression: - OM R foot - XR 01/01/19 of R foot showed findings c/w OM present lateral aspect of distal forefoot - wound culture grew diptheroids. a colonizer - Poor overall prognosis for antibiotics to cure cure given severity of vascular disease - Bacteremia 01/01/19 blood culture x1 set grew coag neg staph -> likely c ontaminant, repeat cultures 01/03/19 negative - s/p diabetic foot infection/unhealing wound: wound culture 10/10/18 of L foot grew MRSA and corynebacter JK, wound culture of R foot grew proteus, enterococci and corynebacter JK - S/p bedside debridement on 10/11/2018 - Hx Likely OM; b/l foot XR 10/10/18 showed: Irregularity of the margins of the proximal phalanx of R 3rd digit and of 4th metatarsal head, raising suspicion for OM; periarticular lucencies with soft tissue swelling about R 5th MTP ar ticulation. Soft tissue ulceration along the posterior lateral aspect of L midfoot and hindfoot; no e/o bone destructive process. MRI of R foot on 10/12/2018 was limited exam d/t motion artifact (only 1 sequence was able to be obtained) but showed suggestion of osteomyelitis within the 5th metatarsal head and base of 5th proximal phalanx at the metatarsophalangeal joint. 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 Jiménez Consultation Date/Type/Reason Admit Date/Time Jan 01, 2019 at 18:01 Initial Consult Date 01/02/19 Type of Consult Infectious Disease Requesting Provider: TYE AADMS Date/Time of Note DATE: 01/12/19 TIME: 11:47 24 HR Interval Summary Free Text/Dictation Remains afebrile. Leukocytosis has resolved. No acute issues per d/w nursing. Pt c/o foot pain and nods yes when asked if he wants pain medication. Nods no to nausea or SOB. ROS limited d/t baseline dementia. Exam/Review of Systems Exam Vitals Vital Signs Date Temp Pulse Resp B/P (MAP) Pulse Ox O2 O2 Flow FiO2 Time Delivery Rate 01/12/19 97.7 60 18 118/80 95 Room Air 07:56 (93) Intake and Output 01/11/19 01/11/19 01/12/19 1515:00 23:00 07:00 IntakeIntake Total 700 ml 1170 ml 350 ml BalanceBalance 700 ml 1170 ml 350 ml Exam Constitutional: alert, frail, other (lying in bed in NAD) Psych: confusion Head: normocephalic, atraumatic Eyes: nl conjunctiva, nl lids, nl sclera ENMT: nl external ears & nose, nl nasal mucosa & septum, mucosa pink and moist Neck: other (not swollen) Respiratory: clear to auscultation, normal air movement Cardiovascular: regular rate and rhythm, nl pulses Gastrointestinal: soft, non-tender Genitourinary - Male: other (incontinent) Musculoskeletal: muscle weakness Neurological: confused Skin: nl turgor, other (bilateral feet wrapped with Kerlix c/d/i) Results Result Diagram: 01/12/19 0526 01/11/19 0432 Results 24hrs Laboratory Tests Test 01/11/19 12:01 01/11/19 17:11 01/11/19 21:33 01/12/19 02:58 Bedside Glucose 110 179 148 130 Test 01/12/19 05:25 01/12/19 05:26 01/12/19 08:41 Bedside Glucose 167 109 White Blood Count 10.3 # Red Blood Count 4.17 L Hemoglobin 10.8 L Hematocrit 34.0 L Mean Corpuscular 81.5 L Volume Mean Corpuscular 25.9 L Hemoglobin Mean Corpuscular 31.8 L Hemoglobin Concent Red Cell 16.7 H Distribution Width Platelet Count 343 Mean Platelet Volume 10.5 H Immature 0.800 H Granulocytes % Neutrophils % 64.9 Lymphocytes % 23.1 Monocytes % 7.5 Eosinophils % 3.4 Basophils % 0.3 Nucleated Red Blood 0.0 Cells % Immature 0.080 H Granulocytes # Neutrophils # 6.7 Lymphocytes # 2.4 Monocytes # 0.8 Eosinophils # 0.4 Basophils # 0.0 Nucleated Red Blood 0.0 Cells # Medications Medication Current Medications Acetaminophen (Tylenol Tab) 1,000 mg Q6H PRN PO PAIN 4-02/24; Start 01/01/19 at 20:30 Ascorbic Acid (Vitamin C) 500 mg DAILY PO Last administered on 01/12/19at 10:28; Admin Dose 500 MG; Start 01/02/19 at 09:00 Benazepril HCl (Lotensin) 10 mg DAILY PO Last administered on 01/12/19at 10:27; Admin Dose 10 MG; Start 01/02/19 at 09:00 Bisacodyl (Dulcolax Supp) 10 mg DAILY PRN [place] NEEDED; Start 01/01/19 at 20:30 Clonazepam (Klonopin) 0.5 mg DAILY PRN PO ANXIETY; Start 01/01/19 at 20:30 Clonidine (Catapres) 0.1 mg Q8H PRN PO IF SBP>160; Start 01/01/19 at 20:30 Digoxin (Digoxin) 0.125 mg DAILY@1300 PO Last administered on 01/11/19 13:41; Admin Dose 0.125 MG; Start 01/02/19 at 13:00 Docusate Sodium (Colace) 200 mg QHS PRN PO CONSTIPATION; Start 01/01/19 at 20:30 Lansoprazole (Prevacid) 30 mg DAILY PO Last administered on 01/12/19 10:27; Admin Dose 30 MG; Start 01/02/19 at 09:00 Linagliptin (Tradjenta) 5 mg DAILY PO Last administered on 01/12/19 10:28; Admin Dose 5 MG; Start 01/02/19 at 09:00 Magnesium Hydroxide (Milk Of Mag) 30 ml QHS PRN PO CONSTIPATION; Start 01/01/19 at 20:30 Metformin HCl (Glucophage) 500 mg WITH BREAKFAST DINNE PO Last administered on 01/12/19 10:22; Admin Dose 500 MG; Start 01/02/19 at 08:00 Zinc Sulfate (Zinc Sulfate) 220 mg DAILY PO Last administered on 01/12/19 10:28; Admin Dose 220 MG; Start 01/02/19 at 09:00 Diagnostic Test (Pha) (Accu-Chek) 1 ea AC MEALS AND BEDTIME XX Last administered on 01/05/19 17:27; Admin Dose 1 EA; Start 01/01/19 at 21:00 Vancomycin HCl (Vanco Iv Per Pharmacy) VANCOMYCIN PER PHARMACY PER PROTOCOL XX ; Start 01/01/19 at 20:30 Furosemide (Lasix) 40 mg DAILY GTB Last administered on 01/12/19 10:25; Admin Dose 40 MG; Start 01/02/19 at 09:00 Diagnostic Test (Pha) (Accu-Chek) 1 ea 02 XX Last administered on 01/04/19 01:09; Admin Dose 1 EA; Start 01/02/19 at 02:00 Insulin Aspart (Novolog Insulin Pen) NOVOLOG *MODERATE* ALGORITHM WITH MEALS BEDTIME SC Last administered on 01/11/19 17:18; Admin Dose 2 UNIT; Start 01/01/19 at 21:00 Miscellaneous Information 1 ea NOTE XX ; Start 01/01/19 at 21:00 Glucose (Glutose) 15 gm Q15M PRN PO DECREASED GLUCOSE Last administered on 01/10/19 08:10; Admin Dose 15 GM; Start 01/01/19 at 21:00 Glucose (Glutose) 22.5 gm Q15M PRN PO DECREASED GLUCOSE; Start 01/01/19 at 21:00 Dextrose (D50w Syringe) 25 ml Q15M PRN IV DECREASED GLUCOSE Last administered on 01/10/19 08:26; Admin Dose 25 ML; Start 01/01/19 at 21:00 Dextrose (D50w Syringe) 50 ml Q15M PRN IV DECREASED GLUCOSE Last administered on 01/06/19 08:05; Admin Dose 50 ML; Start 01/01/19 at 21:00 Glucagon (Glucagen) 1 mg Q15M PRN IM DECREASED GLUCOSE; Start 01/01/19 at 21:00 Glucose (Glutose) 15 gm Q15M PRN BUCCAL DECREASED GLUCOSE Last administered on 01/07/19 09:03; Admin Dose 15 GM; Start 01/01/19 at 21:00 [facility] This patient henry... PRN PRN XX WOUND CARE; Start 01/01/19 at 23:00 Povidone Iodine (Povidone-Iodine) 1 applic DAILY TOP Last administered on 01/12/19 10:29; Admin Dose 1 APPLIC; Start 01/03/19 at 09:00 Ceftriaxone Sodium 50 ml @ 100 mls/hr Q24H IVPB Last administered on 01/11/19 18:45; Admin Dose 100 MLS/HR; Start 01/02/19 at 19:00 Metronidazole 100 ml @ 100 mls/hr Q8 IVPB Last administered on 01/12/19 07: 02; Admin Dose 100 MLS/HR; Start 01/02/19 at 22:00 Vitamin B Complex/ Vitamin C (Berocca) 1 cap DAILY PO Last administered on 01/12/19 10:27; Admin Dose 1 CAP; Start 01/08/19 at 09:00 Fish Oil (Fish Oil) 1,000 mg DAILY PO Last administered on 01/12/19 10:27; Admin Dose 1,000 MG; Start 01/08/19 at 09:00 Vancomycin HCl 0.85 gm/Sodium Chloride 250 ml @ 125 mls/hr Q12H IVPB Last administered on 01/12/19 10:22; Admin Dose 125 MLS/HR; Start 01/08/19 at 08:30 Insulin Glargine (Lantus) 20 units QHS SC Last administered on 01/11/19 21:48; Admin Dose 20 UNITS; Start 01/10/19 at 21:00 Apixaban (Eliquis) 2.5 mg BID GTB Last administered on 01/12/19 10:25; Admin Dose 2.5 MG; Start 01/10/19 at 21:00 Atorvastatin Calcium (Lipitor) 10 mg QHS GTB Last administered on 01/11/19 21:53; Admin Dose 10 MG; Start 01/10/19 at 21:00 Donepezil HCl (Aricept) 5 mg QHS GTB Last administered on 01/11/19 21:53; Admin Dose 5 MG; Start 01/10/19 at 21:00 Quetiapine Fumarate (Seroquel) 100 mg HS GTB Last administered on 01/11/19 21:56; Admin Dose 100 MG; Start 01/10/19 at 21:00 Valproate Sodium (Depakene Liquid Cup) 125 mg BID GTB Last administered on 01/12/19 10:22; Admin Dose 125 MG; Start 01/10/19 at 21:00 Acetaminophen (Tylenol Liquid) 500 mg BID GTB Last administered on 01/12/19 10:27; Admin Dose 500 MG; Start 01/10/19 at 21:00 Metoprolol Tartrate (Lopressor) 12.5 mg BID GTB Last administered on 01/12/19 10:26; Admin Dose 12.5 MG; Start 01/11/19 at 09:00 Ammonium Lactate (Lac-Hydrin 12% Lotion) 1 applic DAILY TOP Last administered on 01/12/19 10:28; Admin Dose 1 APPLIC; Start 01/11/19 at 16:00 Clotrimazole (Lotrimin Cr) 1 applic BID TOP Last administered on 01/12/19 10:29; Admin Dose 1 APPLIC; Start 01/11/19 at 21:00 DANIELA ANDERSON NP Jan 12, 2019 11:47
--- NOTE | 2019-01-12 13:16 | PN ---
Date/Time of Note Date/Time of Note DATE: 01/12/19 TIME: 13:15 Assessment/Plan VTE Prophylaxis Risk score (from Ns)>0 risk: 6 SCD applied (from Ns): No Lines/Catheters IV Catheter Type (from [facility]): Mid Line Urinary Cath still in place: No Assessment/Plan Assessment/Plan -Possible sepsis secondary to right foot necrotic wounds. Will obtain urine and blood cultures. Continue IV fluids and broad-spectrum antibiotics. Dr. Blake is asked to see pt in infection disease consultation. -Bilateral diabetic foot ulcers, right foot necrotic wounds. Dr. Brannon is asked to see patient in podiatry consultation. -Hx Right foot wounds with possible osteomyelitis. -Peripheral vascular disease. Patient underwent angiogram during last admission which revealed severe infrainguinal disease that is not amenable to any endovascular intervention. Patient was evaluated by Dr. Roca during last admission, vascular surgery with recommendation for amputation however patient's refused. -Diabetes mellitus type 2 continue Lantus and NovoLog. -Coronary artery disease, status post CABG. Continue Plavix. -Atrial fibrillation, continue Eliquis and metoprolol. -Dysphagia with G-tube. 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 -Wheelchair bound status Result Diagram: 01/12/19 0526 01/11/19 0432 Results 24hrs Laboratory Tests Test 01/11/19 17:11 01/11/19 21:33 01/12/19 02:58 01/12/19 05:25 Bedside Glucose 179 148 130 167 Test 01/12/19 05:26 01/12/19 08:41 01/12/19 12:20 White Blood Count 10.3 # Red Blood Count 4.17 L Hemoglobin 10.8 L Hematocrit 34.0 L Mean Corpuscular 81.5 L Volume Mean Corpuscular 25.9 L Hemoglobin Mean Corpuscular 31.8 L Hemoglobin Concent Red Cell 16.7 H Distribution Width Platelet Count 343 Mean Platelet Volume 10.5 H Immature 0.800 H Granulocytes % Neutrophils % 64.9 Lymphocytes % 23.1 Monocytes % 7.5 Eosinophils % 3.4 Basophils % 0.3 Nucleated Red Blood 0.0 Cells % Immature 0.080 H Granulocytes # Neutrophils # 6.7 Lymphocytes # 2.4 Monocytes # 0.8 Eosinophils # 0.4 Basophils # 0.0 Nucleated Red Blood 0.0 Cells # Bedside Glucose 109 128 Exam/Review of Systems Exam Vitals Vital Signs Date Temp Pulse Resp B/P (MAP) Pulse Ox O2 O2 Flow FiO2 Time Delivery Rate 01/12/19 97.7 60 18 118/80 95 Room Air 07:56 (93) Intake and Output 01/11/19 01/11/19 01/12/19 1515:00 23:00 07:00 IntakeIntake Total 700 ml 1170 ml 350 ml BalanceBalance 700 ml 1170 ml 350 ml Results Results 24hrs Laboratory Tests Test 01/11/19 17:11 01/11/19 21:33 01/12/19 02:58 01/12/19 05:25 Bedside Glucose 179 148 130 167 Test 01/12/19 05:26 01/12/19 08:41 01/12/19 12:20 White Blood Count 10.3 # Red Blood Count 4.17 L Hemoglobin 10.8 L Hematocrit 34.0 L Mean Corpuscular 81.5 L Volume Mean Corpuscular 25.9 L Hemoglobin Mean Corpuscular 31.8 L Hemoglobin Concent Red Cell 16.7 H Distribution Width Platelet Count 343 Mean Platelet Volume 10.5 H Immature 0.800 H Granulocytes % Neutrophils % 64.9 Lymphocytes % 23.1 Monocytes % 7.5 Eosinophils % 3.4 Basophils % 0.3 Nucleated Red Blood 0.0 Cells % Immature 0.080 H Granulocytes # Neutrophils # 6.7 Lymphocytes # 2.4 Monocytes # 0.8 Eosinophils # 0.4 Basophils # 0.0 Nucleated Red Blood 0.0 Cells # Bedside Glucose 109 128 Medications Medication Current Medications Acetaminophen (Tylenol Tab) 1,000 mg Q6H PRN PO PAIN -02/24; Start 01/01/19 at 20:30 Ascorbic Acid (Vitamin C) 500 mg DAILY PO Last administered on 01/12/19at 10:28; Admin Dose 500 MG; Start 01/02/19 at 09:00 Benazepril HCl (Lotensin) 10 mg DAILY PO Last administered on 01/12/19at 10:27; Admin Dose 10 MG; Start 01/02/19 at 09:00 Bisacodyl (Dulcolax Supp) 10 mg DAILY PRN [place] NEEDED; Start 01/01/19 at 20:30 Clonazepam (Klonopin) 0.5 mg DAILY PRN PO ANXIETY; Start 01/01/19 at 20:30 Clonidine (Catapres) 0.1 mg Q8H PRN PO IF SBP>160; Start 01/01/19 at 20:30 Digoxin (Digoxin) 0.125 mg DAILY@1300 PO Last administered on 01/11/19 13:41; Admin Dose 0.125 MG; Start 01/02/19 at 13:00 Docusate Sodium (Colace) 200 mg QHS PRN PO CONSTIPATION; Start 01/01/19 at 20:30 Lansoprazole (Prevacid) 30 mg DAILY PO Last administered on 01/12/19 10:27; Ad min Dose 30 MG; Start 01/02/19 at 09:00 Linagliptin (Tradjenta) 5 mg DAILY PO Last administered on 01/12/19 10:28; Admin Dose 5 MG; Start 01/02/19 at 09:00 Magnesium Hydroxide (Milk Of Mag) 30 ml QHS PRN PO CONSTIPATION; Start 01/01/19 at 20:30 Metformin HCl (Glucophage) 500 mg WITH BREAKFAST DINNE PO Last administered on 01/12/19 10:22; Admin Dose 500 MG; Start 01/02/19 at 08:00 Zinc Sulfate (Zinc Sulfate) 220 mg DAILY PO Last administered on 01/12/19 10:28; Admin Dose 220 MG; Start 01/02/19 at 09:00 Diagnostic Test (Pha) (Accu-Chek) 1 ea AC MEALS AND BEDTIME XX Last administered on 01/05/19 17:27; Admin Dose 1 EA; Start 01/01/19 at 21:00 Vancomycin HCl (Vanco Iv Per Pharmacy) VANCOMYCIN PER PHARMACY PER PROTOCOL XX ; Start 01/01/19 at 20:30 Furosemide (Lasix) 40 mg DAILY GTB Last administered on 01/12/19 10:25; Admin Dose 40 MG; Start 01/02/19 at 09:00 Diagnostic Test (Pha) (Accu-Chek) 1 ea 02 XX Last administered on 01/04/19 01:09; Admin Dose 1 EA; Start 01/02/19 at 02:00 Insulin Aspart (Novolog Insulin Pen) NOVOLOG *MODERATE* ALGORITHM WITH MEALS BEDTIME SC Last administered on 4/27/19at 17:18; Admin Dose 2 UNIT; Start 01/01/19 at 21:00 Miscellaneous Information 1 ea NOTE XX ; Start 01/01/19 at 21:00 Glucose (Glutose) 15 gm Q15M PRN PO DECREASED GLUCOSE Last administered on 01/10/19at 08:10; Admin Dose 15 GM; Start 01/01/19 at 21:00 Glucose (Glutose) 22.5 gm Q15M PRN PO DECREASED GLUCOSE; Start 01/01/19 at 21:00 Dextrose (D50w Syringe) 25 ml Q15M PRN IV DECREASED GLUCOSE Last administered on 01/10/19 08:26; Admin Dose 25 ML; Start 01/01/19 at 21:00 Dextrose (D50w Syringe) 50 ml Q15M PRN IV DECREASED GLUCOSE Last administered on 01/06/19at 08:05; Admin Dose 50 ML; Start 01/01/19 at 21:00 Glucagon (Glucagen) 1 mg Q15M PRN IM DECREASED GLUCOSE; Start 01/01/19 at 21:00 Glucose (Glutose) 15 gm Q15M PRN BUCCAL DECREASED GLUCOSE Last administered on 01/07/19at 09:03; Admin Dose 15 GM; Start 01/01/19 at 21:00 [facility] This patient henry... PRN PRN XX WOUND CARE; Start 01/01/19 at 23:00 Povidone Iodine (Povidone-Iodine) 1 applic DAILY TOP Last administered on 01/12/19at 10:29; Admin Dose 1 APPLIC; Start 01/03/19 at 09:00 Ceftriaxone Sodium 50 ml @ 100 mls/hr Q24H IVPB Last administered on 01/11/19at 18:45; Admin Dose 100 MLS/HR; Start 01/02/19 at 19:00 Metronidazole 100 ml @ 100 mls/hr Q8 IVPB Last administered on 01/12/19at 07:02; Admin Dose 100 MLS/HR; Start 01/02/19 at 22:00 Vitamin B Complex/ Vitamin C (Berocca) 1 cap DAILY PO Last administered on 01/12/19at 10:27; Admin Dose 1 CAP; Start 01/08/19 at 09:00 Fish Oil (Fish Oil) 1,000 mg DAILY PO Last administered on 01/12/19 10:27; Admin Dose 1,000 MG; Start 01/08/19 at 09:00 Vancomycin HCl 0.85 gm/Sodium Chloride 250 ml @ 125 mls/hr Q12H IVPB Last administered on 01/12/19 10:22; Admin Dose 125 MLS/HR; Start 01/08/19 at 08:30 Insulin Glargine (Lantus) 20 units QHS SC Last administered on 01/11/19 21:48; Admin Dose 20 UNITS; Start 01/10/19 at 21:00 Apixaban (Eliquis) 2.5 mg BID GTB Last administered on 01/12/19 10:25; Admin Dose 2.5 MG; Start 01/10/19 at 21:00 Atorvastatin Calcium (Lipitor) 10 mg QHS GTB Last administered on 01/11/19 21:53; Admin Dose 10 MG; Start 01/10/19 at 21:00 Donepezil HCl (Aricept) 5 mg QHS GTB Last administered on 01/11/19 21:53; Admin Dose 5 MG; Start 01/10/19 at 21:00 Quetiapine Fumarate (Seroquel) 100 mg HS GTB Last administered on 01/11/19 21:56; Admin Dose 100 MG; Start 01/10/19 at 21:00 Valproate Sodium (Depakene Liquid Cup) 125 mg BID GTB Last administered on 01/12/19 10:22; Admin Dose 125 MG; Start 01/10/19 at 21:00 Acetaminophen (Tylenol Liquid) 500 mg BID GTB Last administered on 01/12/19 10:27; Admin Dose 500 MG; Start 01/10/19 at 21:00 Metoprolol Tartrate (Lopressor) 12.5 mg BID GTB Last administered on 01/12/19 10:26; Admin Dose 12.5 MG; Start 01/11/19 at 09:00 Ammonium Lactate (Lac-Hydrin 12% Lotion) 1 applic DAILY TOP Last administered on 01/12/19 10:28; Admin Dose 1 APPLIC; Start 01/11/19 at 16:00 Clotrimazole (Lotrimin Cr) 1 applic BID TOP Last administered on 01/12/19 10:29; Admin Dose 1 APPLIC; Start 01/11/19 at 21:00 GLORIA ACEVES Jan 12, 2019 13:16
[2019-01-12 14:45] VITALS: BP 105/59; PULSE 77; RESP 17
[2019-01-12] MEDS: DIGOXIN 0.125 MG TAB PO SCH (15:05)
[2019-01-12] MEDS: CEFTRIAXONE 1 GM/50 ML (PMX) 50 ML IVPB SCH (18:47)
[2019-01-12 19:37] VITALS: BP 133/68; PULSE 97; RESP 18
[2019-01-12] MEDS: INSULIN GLARGINE [LANTus] (100 UNITS/ML) SYG SC SCH (20:09)
[2019-01-12] MEDS: ATORVASTATIN 10 MG TAB GTB SCH (20:18)
[2019-01-12] MEDS: QUETIAPINE 100 MG TAB GTB SCH (20:18)
[2019-01-12] MEDS: DONEPEZIL 5 MG TAB GTB SCH (20:19)
[2019-01-13 01:49] VITALS: BP 139/60; PULSE 87; RESP 17
[2019-01-13] MEDS: ACCU-CHEK XX SCH ×5 (02:00→20:59)
[2019-01-13] MEDS: metroNIDAZOLE 500 MG/NS (PMX) 100 ML IVPB SCH ×3 (05:54→22:47)
[2019-01-13 07:47] VITALS: BP 120/82; PULSE 60; RESP 17
[2019-01-13] MEDS: INSULIN ASPART [NOVOLOG] 3 ML PEN SC SCH ×4 (08:00→20:30)
[2019-01-13] MEDS: FISH OIL 1,000 MG CAP PO SCH (08:03)
[2019-01-13] MEDS: VITAMIN B COMPLEX/VIT C CAP PO SCH (08:03)
[2019-01-13] MEDS: VALPROIC ACID LIQUID CUP 250 MG/5 ML CUP GTB SCH ×2 (08:03→20:20)
[2019-01-13] MEDS: APIXABAN 5 MG TABLET GTB SCH ×2 (08:03→20:24)
[2019-01-13] MEDS: ASCORBIC ACID 500 MG TAB PO SCH (08:03)
[2019-01-13] MEDS: metFORMIN 500 MG TAB PO SCH ×2 (08:03→17:31)
[2019-01-13] MEDS: ACETAMINOPHEN 650MG/20.3ML CUP GTB SCH ×2 (08:03→20:23)
[2019-01-13] MEDS: LINAGLIPTIN 5 MG TABLET PO SCH (08:03)
[2019-01-13] MEDS: ZINC SULFATE 220 MG CAP PO SCH (08:03)
[2019-01-13] MEDS: LANSOPRAZOLE 30 MG CAP PO SCH (08:03)
[2019-01-13] MEDS: FUROSEMIDE 40 MG TAB GTB SCH (08:05)
[2019-01-13] MEDS: BENAZEPRIL 10 MG TAB PO SCH (08:05)
[2019-01-13] MEDS: METOPROLOL 25 MG TAB GTB SCH ×2 (08:05→20:22)
[2019-01-13] MEDS: POVIDONE IODINE 10% 28.4 GM OINT TOP SCH (08:06)
[2019-01-13] MEDS: CLOTRIMAZOLE 1% 30 GM CR TOP SCH ×2 (08:06→20:30)
[2019-01-13] MEDS: AMMONIUM LACTATE 12% 225 GM LOT TOP SCH (08:06)
[2019-01-13] MEDS: VANCOMYCIN HCL 0.85 GM in SOD CHLORIDE 0.9% 250 ML IVPB SCH ×2 (09:13→20:19)
[2019-01-13] MEDS: DIGOXIN 0.125 MG TAB PO SCH (12:58)
[2019-01-13 15:17] VITALS: BP 132/58; PULSE 90; RESP 17
[2019-01-13] MEDS: CEFTRIAXONE 1 GM/50 ML (PMX) 50 ML IVPB SCH (18:15)
--- NOTE | 2019-01-13 18:47 | CONS ---
Assessment/Plan Assessment/Plan Hospital Course (Demo Recall) assessment/impression # musculoskeletal - recurrent OM R foot - XR 01/01/19 of R foot showed findings c/w OM present lateral aspect of distal forefoot - wound culture grew diptheroids. a colonizer - s/p diabetic foot infection/unhealing wound: wound culture 10/10/18 of L foot grew MRSA and corynebacter JK, wound culture of R foot grew proteus, enterococci and corynebacter JK - S/p bedside debridement on 10/11/2018 - Hx Likely OM; b/l foot XR 10/10/18 showed: Irregularity of the margins of the proximal phalanx of R 3rd digit and of 4th metatarsal head, raising suspicion for OM; periarticular lucencies with soft tissue swelling about R 5th MTP articulation. Soft tissue ulceration along the posterior lateral aspect of L midfoot and hindfoot; no e/o bone destructive process. MRI of R foot on 10/12/2018 was limited exam d/t motion artifact (only 1 sequence was able to be obtained) but showed suggestion of osteomyelitis within the 5th metatarsal head and base of 5th proximal phalanx at the metatarsophalangeal joint. 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 # cardiovascular - Bacteremia 01/01/19 blood culture x1 set grew coag neg staph -> likely contaminant, repeat cultures 01/03/19 negative - PVD - US arterial b/l LE on 10/10/2018 showed severe peripheral vascular disease with occlusion of b/l superficial femoral and popliteal arteries, severe stenosis or occlusion of b/l posterior tibial and dorsalis pedis arteries - h/o angiogram 10/22/2018 with no intervention - CAD - h/o CABG - CHF, acute on chronic systolic- EF 25% - HTN - Afib # endocrine - DMT2; HgbA1c 7.4% - Diabetic neuropathy - HLD # neuro, immunology - Alzheimer's dementia - Hx intracranial bleed - PCN allergy; Has tolerated cefepime previously per EMR at [facility], tolerates ceftriaxone too, he has previously tolerated Merrem as well recommendations: - continue vancomycin, ceftriaxone, metronidazole (01/02/19-) x 6 weeks for recurrent OM, suggested end date: 02/13/2019 - please order weekly CBC, BMP while Pt's on IV antibiotics - Pt's is aware of poor prognosis of Pt's feet. She had declined invasive procedures such as amputation. She prefers that Pt take long-term antibiotic(s) to stop progression of OM and to reduce a risk of sepsis - I explained to her that antibiotics alone may not reverse his disease and that long-term antibiotics may cause side effects. She understood these - she asked me if Pt would benefit from medical arechiga therapy; I did not recommend it management d/w Pt's the total time I took to care for this Pt today was from 1720 to 1805 Consultation Date/Type/Reason Admit Date/Time Jan 01, 2019 at 18:01 Initial Consult Date 01/02/19 Type of Consult ID Requesting Provider: TYE ADAMS Date/Time of Note DATE: 01/13/19 TIME: 18:38 Exam/Review of Systems Exam Vitals Vital Signs Date Temp Pulse Resp B/P (MAP) Pulse Ox O2 O2 Flow FiO2 Time Delivery Rate 01/13/19 98.0 90 17 132/58 99 Room Air 15:17 (82) Intake and Output 01/12/19 01/12/19 01/13/19 1515:00 23:00 07:00 IntakeIntake Total 350 ml 1356 ml 200 ml BalanceBalance 350 ml 1356 ml 200 ml Results Result Diagram: 01/12/19 0526 01/11/19 0432 Results 24hrs Laboratory Tests Test 01/12/19 20:05 01/13/19 03:57 01/13/19 07:36 01/13/19 07:59 Bedside Glucose 195 110 104 Vancomycin Level 14.5 Trough Test 01/13/19 11:52 01/13/19 17:28 Bedside Glucose 219 351 H Medications Medication Current Medications Acetaminophen (Tylenol Tab) 1,000 mg Q6H PRN PO PAIN 4-10; Start 01/01/19 at 20:30 Ascorbic Acid (Vitamin C) 500 mg DAILY PO Last administered on 01/13/19at 08:03; Admin Dose 500 MG; Start 01/02/19 at 09:00 Benazepril HCl (Lotensin) 10 mg DAILY PO Last administered on 01/13/19at 08:05; Admin Dose 10 MG; Start 01/02/19 at 09:00 Bisacodyl (Dulcolax Supp) 10 mg DAILY PRN [place] NEEDED; Start 01/01/19 at 20:30 Clonazepam (Klonopin) 0.5 mg DAILY PRN PO ANXIETY; Start 01/01/19 at 20:30 Clonidine (Catapres) 0.1 mg Q8H PRN PO IF SBP>160; Start 01/01/19 at 20:30 Digoxin (Digoxin) 0.125 mg DAILY@1300 PO Last administered on 01/13/19at 12:58; Admin Dose 0.125 MG; Start 01/02/19 at 13:00 Docusate Sodium (Colace) 200 mg QHS PRN PO CONSTIPATION; Start 01/01/19 at 20:30 Lansoprazole (Prevacid) 30 mg DAILY PO Last administered on 01/13/19 08:03; Admin Dose 30 MG; Start 01/02/19 at 09:00 Linagliptin (Tradjenta) 5 mg DAILY PO Last administered on 01/13/19 08:03; Admin Dose 5 MG; Start 01/02/19 at 09:00 Magnesium Hydroxide (Milk Of Mag) 30 ml QHS PRN PO CONSTIPATION; Start 01/01/19 at 20:30 Metformin HCl (Glucophage) 500 mg WITH BREAKFAST DINNE PO Last administered on 01/13/19 17:31; Admin Dose 500 MG; Start 01/02/19 at 08:00 Zinc Sulfate (Zinc Sulfate) 220 mg DAILY PO Last administered on 01/13/19 08:03; Admin Dose 220 MG; Start 01/02/19 at 09:00 Diagnostic Test (Pha) (Accu-Chek) 1 ea AC MEALS AND BEDTIME XX Last administered on 01/05/19 17:27; Admin Dose 1 EA; Start 01/01/19 at 21:00 Vancomycin HCl (Vanco Iv Per Pharmacy) VANCOMYCIN PER PHARMACY PER PROTOCOL XX ; Start 01/01/19 at 20:30 Furosemide (Lasix) 40 mg DAILY GTB Last administered on 01/13/19 08:05; Admin Dose 40 MG; Start 01/02/19 at 09:00 Diagnostic Test (Pha) (Accu-Chek) 1 ea 02 XX Last administered on 01/04/19 01:09; Admin Dose 1 EA; Start 01/02/19 at 02:00 Insulin Aspart (Novolog Insulin Pen) NOVOLOG *MODERATE* ALGORITHM WITH MEALS BEDTIME SC Last administered on 01/13/19 17:32; Admin Dose 12 UNIT; Start 01/01/19 at 21:00 Miscellaneous Information 1 ea NOTE XX ; Start 01/01/19 at 21:00 Glucose (Glutose) 15 gm Q15M PRN PO DECREASED GLUCOSE Last administered on 01/10/19 08:10; Admin Dose 15 GM; Start 01/01/19 at 21:00 Glucose (Glutose) 22.5 gm Q15M PRN PO DECREASED GLUCOSE; Start 01/01/19 at 21:00 Dextrose (D50w Syringe) 25 ml Q15M PRN IV DECREASED GLUCOSE Last administered on 01/10/19 08:26; Admin Dose 25 ML; Start 01/01/19 at 21:00 Dextrose (D50w Syringe) 50 ml Q15M PRN IV DECREASED GLUCOSE Last administered on 01/06/19 08:05; Admin Dose 50 ML; Start 01/01/19 at 21:00 Glucagon (Glucagen) 1 mg Q15M PRN IM DECREASED GLUCOSE; Start 01/01/19 at 21:00 Glucose (Glutose) 15 gm Q15M PRN BUCCAL DECREASED GLUCOSE Last administered on 01/07/19 09:03; Admin Dose 15 GM; Start 01/01/19 at 21:00 Miscellaneous Information (Pending [facility] Order For Wound Care) This patient henry... PRN PRN XX WOUND CARE; Start 01/01/19 at 23:00 Povidone Iodine (Povidone-Iodine) 1 applic DAILY TOP Last administered on 01/13/19 08:06; Admin Dose 1 APPLIC; Start 01/03/19 at 09:00 Ceftriaxone Sodium 50 ml @ 100 mls/hr Q24H IVPB Last administered on 01/13/19 18:15; Admin Dose 100 MLS/HR; Start 01/02/19 at 19:00 Metronidazole 100 ml @ 100 mls/hr Q8 IVPB Last administered on 01/13/19 13:00; Admin Dose 100 MLS/HR; Start 01/02/19 at 22:00 Vitamin B Complex/ Vitamin C (Berocca) 1 cap DAILY PO Last administered on 01/13/19 08:03; Admin Dose 1 CAP; Start 01/08/19 at 09:00 Fish Oil (Fish Oil) 1,000 mg DAILY PO Last administered on 01/13/19 08:03; Admin Dose 1,000 MG; Start 01/08/19 at 09:00 Vancomycin HCl 0.85 gm/Sodium Chloride 250 ml @ 125 mls/hr Q12H IVPB Last administered on 01/13/19 09:13; Admin Dose 125 MLS/HR; Start 01/08/19 at 08:30 Insulin Glargine (Lantus) 20 units QHS SC Last administered on 01/12/19 20:09; Admin Dose 20 UNITS; Start 01/10/19 at 21:00 Apixaban (Eliquis) 2.5 mg BID GTB Last administered on 01/13/19 08:03; Admin Dose 2.5 MG; Start 01/10/19 at 21:00 Atorvastatin Calcium (Lipitor) 10 mg QHS GTB Last administered on 01/12/19 20:18; Admin Dose 10 MG; Start 01/10/19 at 21:00 Donepezil HCl (Aricept) 5 mg QHS GTB Last administered on 01/12/19 20:19; Admin Dose 5 MG; Start 01/10/19 at 21:00 Quetiapine Fumarate (Seroquel) 100 mg HS GTB Last administered on 01/12/19 20:18; Admin Dose 100 MG; Start 01/10/19 at 21:00 Valproate Sodium (Depakene Liquid Cup) 125 mg BID GTB Last administered on 01/13/19 08:03; Admin Dose 125 MG; Start 01/10/19 at 21:00 Acetaminophen (Tylenol Liquid) 500 mg BID GTB Last administered on 01/13/19 08:03; Admin Dose 500 MG; Start 01/10/19 at 21:00 Metoprolol Tartrate (Lopressor) 12.5 mg BID GTB Last administered on 01/13/19 08:05; Admin Dose 12.5 MG; Start 01/11/19 at 09:00 Ammonium Lactate (Lac-Hydrin 12% Lotion) 1 applic DAILY TOP Last administered on 01/13/19 08:06; Admin Dose 1 APPLIC; Start 01/11/19 at 16:00 Clotrimazole (Lotrimin Cr) 1 applic BID TOP Last administered on 01/13/19at 08:06; Admin Dose 1 APPLIC; Start 01/11/19 at 21:00 MAYNOR SIDDIQI M.D. Jan 13, 2019 18:47
--- NOTE | 2019-01-13 19:29 | CONS ---
Assessment/Plan Assessment/Plan Assessment/Plan (Daily) Bilateral foot pressure sores. Gangrene. Osteomyelitis, right foot. Severe peripheral arterial disease with a long segment femoral popliteal occlusion, not amenable to endovascular or open bypass Coronary artery disease Nonambulatory status PLAN: Per nursing reports gangrene sites reported to be dry. Per vascular surgery patient not a candidate for open bypass and revascularization procedures. Surgical intervention likely to be unsuccessful given peripheral arterial disease. We would consider palliative care. The patient has a flexion contracture and muscle atrophy of the right lower extremity, may not be a candidate for below knee amputation, had been recommended above knee amputation in the past. Continue with Betadine and IV antibiotics therapy. Patient would benefit from offloading measures, nursing instructions are provided. Recommend in bed exercises to stimulate collateral blood flow. Please dispense surgical shoes to bilateral feet. Continue with physical therapy sessions. Consultation Date/Type/Reason Admit Date/Time Jan 01, 2019 at 18:01 Initial Consult Date 01/02/19 Requesting Provider: TYE ADAMS Date/Time of Note DATE: 01/13/19 TIME: 19:29 24 HR Interval Summary Free Text/Dictation No acute events overnight Exam/Review of Systems Exam Vitals Vital Signs Date Temp Pulse Resp B/P (MAP) Pulse Ox O2 O2 Flow FiO2 Time Delivery Rate 01/13/19 98.0 90 17 132/58 99 Room Air 15:17 (82) Intake and Output 01/12/19 01/12/19 01/13/19 1515:00 23:00 07:00 IntakeIntake Total 350 ml 1356 ml 200 ml BalanceBalance 350 ml 1356 ml 200 ml Exam No strikethrough no proximal streaking no foul odor noted to the dressing sites. Patient resting in bed comfortably Results Result Diagram: 01/12/19 0526 01/11/19 0432 Results 24hrs Laboratory Tests Test 01/12/19 20:05 01/13/19 03:57 01/13/19 07:36 01/13/19 07:59 Bedside Glucose 195 110 104 Vancomycin Level 14.5 Trough Test 01/13/19 11:52 01/13/19 17:28 Bedside Glucose 219 351 H Medications Medication Current Medications Acetaminophen (Tylenol Tab) 1,000 mg Q6H PRN PO PAIN -02/24; Start 01/01/19 at 20:30 Ascorbic Acid (Vitamin C) 500 mg DAILY PO Last administered on 01/13/19 08:03; Admin Dose 500 MG; Start 01/02/19 at 09:00 Benazepril HCl (Lotensin) 10 mg DAILY PO Last administered on 01/13/19 08:05; Admin Dose 10 MG; Start 01/02/19 at 09:00 Bisacodyl (Dulcolax Supp) 10 mg DAILY PRN [place] NEEDED; Start 01/01/19 at 20:30 Clonazepam (Klonopin) 0.5 mg DAILY PRN PO ANXIETY; Start 01/01/19 at 20:30 Clonidine (Catapres) 0.1 mg Q8H PRN PO IF SBP>160; Start 01/01/19 at 20:30 Digoxin (Digoxin) 0.125 mg DAILY@1300 PO Last administered on 01/13/19 12:58; Admin Dose 0.125 MG; Start 01/02/19 at 13:00 Docusate Sodium (Colace) 200 mg QHS PRN PO CONSTIPATION; Start 01/01/19 at 2 0:30 Lansoprazole (Prevacid) 30 mg DAILY PO Last administered on 01/13/19 08:03; Admin Dose 30 MG; Start 01/02/19 at 09:00 Linagliptin (Tradjenta) 5 mg DAILY PO Last administered on 01/13/19 08:03; Admin Dose 5 MG; Start 01/02/19 at 09:00 Magnesium Hydroxide (Milk Of Mag) 30 ml QHS PRN PO CONSTIPATION; Start 01/01/19 at 20:30 Metformin HCl (Glucophage) 500 mg WITH BREAKFAST DINNE PO Last administered on 01/13/19 17:31; Admin Dose 500 MG; Start 01/02/19 at 08:00 Zinc Sulfate (Zinc Sulfate) 220 mg DAILY PO Last administered on 01/13/19 08:03; Admin Dose 220 MG; Start 01/02/19 at 09:00 Diagnostic Test (Pha) (Accu-Chek) 1 ea AC MEALS AND BEDTIME XX Last administered on 01/05/19 17:27; Admin Dose 1 EA; Start 01/01/19 at 21:00 Vancomycin HCl (Vanco Iv Per Pharmacy) VANCOMYCIN PER PHARMACY PER PROTOCOL XX ; Start 01/01/19 at 20:30 Furosemide (Lasix) 40 mg DAILY GTB Last administered on 01/13/19 08:05; Admin Dose 40 MG; Start 01/02/19 at 09:00 Diagnostic Test (Pha) (Accu-Chek) 1 ea 02 XX Last administered on 01/04/19 01:09; Admin Dose 1 EA; Start 01/02/19 at 02:00 Insulin Aspart (Novolog Insulin Pen) NOVOLOG *MODERATE* ALGORITHM WITH MEALS BEDTIME SC Last administered on 01/13/19 17:32; Admin Dose 12 UNIT; Start 01/01/19 at 21:00 Miscellaneous Information 1 ea NOTE XX ; Start 01/01/19 at 21:00 Glucose (Glutose) 15 gm Q15M PRN PO DECREASED GLUCOSE Last administered on 01/10/19 08:10; Admin Dose 15 GM; Start 01/01/19 at 21:00 Glucose (Glutose) 22.5 gm Q15M PRN PO DECREASED GLUCOSE; Start 01/01/19 at 21:00 Dextrose (D50w Syringe) 25 ml Q15M PRN IV DECREASED GLUCOSE Last administered on 01/10/19 08:26; Admin Dose 25 ML; Start 01/01/19 at 21:00 Dextrose (D50w Syringe) 50 ml Q15M PRN IV DECREASED GLUCOSE Last administered on 01/06/19 08:05; Admin Dose 50 ML; Start 01/01/19 at 21:00 Glucagon (Glucagen) 1 mg Q15M PRN IM DECREASED GLUCOSE; Start 01/01/19 at 21:00 Glucose (Glutose) 15 gm Q15M PRN BUCCAL DECREASED GLUCOSE Last administered on 01/07/19 09:03; Admin Dose 15 GM; Start 01/01/19 at 21:00 Miscellaneous Information (Pending [facility] Order For Wound Care) This patient henry... PRN PRN XX WOUND CARE; Start 01/01/19 at 23:00 Povidone Iodine (Povidone-Iodine) 1 applic DAILY TOP Last administered on 01/13/19 08:06; Admin Dose 1 APPLIC; Start 01/03/19 at 09:00 Ceftriaxone Sodium 50 ml @ 100 mls/hr Q24H IVPB Last administered on 01/13/19 18:15; Admin Dose 100 MLS/HR; Start 01/02/19 at 19:00 Metronidazole 100 ml @ 100 mls/hr Q8 IVPB Last administered on 01/13/19 13:00; Admin Dose 100 MLS/HR; Start 01/02/19 at 22:00 Vitamin B Complex/ Vitamin C (Berocca) 1 cap DAILY PO Last administered on 01/13/19 08:03; Admin Dose 1 CAP; Start 01/08/19 at 09:00 Fish Oil (Fish Oil) 1,000 mg DAILY PO Last administered on 01/13/19 08:03; Admin Dose 1,000 MG; Start 01/08/19 at 09:00 Vancomycin HCl 0.85 gm/Sodium Chloride 250 ml @ 125 mls/hr Q12H IVPB Last administered on 01/13/19 09:13; Admin Dose 125 MLS/HR; Start 01/08/19 at 08:30 Insulin Glargine (Lantus) 20 units QHS SC Last administered on 01/12/19 20:09; Admin Dose 20 UNITS; Start 01/10/19 at 21:00 Apixaban (Eliquis) 2.5 mg BID GTB Last administered on 01/13/19 08:03; Admin Dose 2.5 MG; Start 01/10/19 at 21:00 Atorvastatin Calcium (Lipitor) 10 mg QHS GTB Last administered on 01/12/19 20:18; Admin Dose 10 MG; Start 01/10/19 at 21:00 Donepezil HCl (Aricept) 5 mg QHS GTB Last administered on 01/12/19 20:19; Admin Dose 5 MG; Start 01/10/19 at 21:00 Quetiapine Fumarate (Seroquel) 100 mg HS GTB Last administered on 01/12/19 20:18; Admin Dose 100 MG; Start 01/10/19 at 21:00 Valproate Sodium (Depakene Liquid Cup) 125 mg BID GTB Last administered on 01/13/19 08:03; Admin Dose 125 MG; Start 01/10/19 at 21:00 Acetaminophen (Tylenol Liquid) 500 mg BID GTB Last administered on 01/13/19 08:03; Admin Dose 500 MG; Start 01/10/19 at 21:00 Metoprolol Tartrate (Lopressor) 12.5 mg BID GTB Last administered on 01/13/19 08:05; Admin Dose 12.5 MG; Start 01/11/19 at 09:00 Ammonium Lactate (Lac-Hydrin 12% Lotion) 1 applic DAILY TOP Last administered on 01/13/19 08:06; Admin Dose 1 APPLIC; Start 01/11/19 at 16:00 Clotrimazole (Lotrimin Cr) 1 applic BID TOP Last administered on 01/13/19 08:06; Admin Dose 1 APPLIC; Start 01/11/19 at 21:00 HOMERO LANGLEY DPM Jan 13, 2019 19:29
--- NOTE | 2019-01-13 19:39 | PN ---
Date/Time of Note Date/Time of Note DATE: 01/13/19 TIME: 19:37 Assessment/Plan VTE Prophylaxis Risk score (from Nsg)>0 risk: 6 SCD applied (from Nsg): No Lines/Catheters IV Catheter Type (from Nrsg): Mid Line Urinary Cath still in place: No Assessment/Plan Assessment/Plan -Possible sepsis secondary to right foot necrotic wounds. - per ID -Bilateral diabetic foot ulcers, right foot necrotic wounds. Dr. Brannon is asked to see patient in podiatry consultation. -Hx Right foot wounds with possible osteomyelitis. -Peripheral vascular disease. Patient underwent angiogram during last admission which revealed severe infrainguinal disease that is not amenable to any endovascular intervention. Patient was evaluated by Dr. Roca during last admission, vascular surgery with recommendation for amputation however patient's refused. -Diabetes mellitus type 2 continue Lantus and NovoLog. -Coronary artery disease, status post CABG. Continue Plavix. -Atrial fibrillation, continue Eliquis and metoprolol. -Dysphagia with G-tube. 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 -Wheelchair bound status Result Diagram: 01/12/19 0526 01/11/19 0432 Results 24hrs Laboratory Tests Test 01/12/19 20:05 01/13/19 03:57 01/13/19 07:36 01/13/19 07:59 Bedside Glucose 195 110 104 Vancomycin Level 14.5 Trough Test 01/13/19 11:52 01/13/19 17:28 Bedside Glucose 219 351 H Exam/Review of Systems Exam Vitals Vital Signs Date Temp Pulse Resp B/P (MAP) Pulse Ox O2 O2 Flow FiO2 Time Delivery Rate 01/13/19 98.0 90 17 132/58 99 Room Air 15:17 (82) Intake and Output 01/12/19 01/12/19 01/13/19 1515:00 23:00 07:00 IntakeIntake Total 350 ml 1356 ml 200 ml BalanceBalance 350 ml 1356 ml 200 ml Results Results 24hrs Laboratory Tests Test 01/12/19 20:05 01/13/19 03:57 01/13/19 07:36 01/13/19 07:59 Bedside Glucose 195 110 104 Vancomycin Level 14.5 Trough Test 01/13/19 11:52 01/13/19 17:28 Bedside Glucose 219 351 H Medications Medication Current Medications Acetaminophen (Tylenol Tab) 1,000 mg Q6H PRN PO PAIN ; Start 01/01/19 at 20:30 Ascorbic Acid (Vitamin C) 500 mg DAILY PO Last administered on 01/13/19 08:03; Admin Dose 500 MG; Start 01/02/19 at 09:00 Benazepril HCl (Lotensin) 10 mg DAILY PO Last administered on 01/13/19 08:05; Admin Dose 10 MG; Start 01/02/19 at 09:00 Bisacodyl (Dulcolax Supp) 10 mg DAILY PRN [place] NEEDED; Start 01/01/19 at 20:30 Clonazepam (Klonopin) 0.5 mg DAILY PRN PO ANXIETY; Start 01/01/19 at 20:30 Clonidine (Catapres) 0.1 mg Q8H PRN PO IF SBP>160; Start 01/01/19 at 20:30 Digoxin (Digoxin) 0.125 mg DAILY@1300 PO Last administered on 01/13/19 12:58; Admin Dose 0.125 MG; Start 01/02/19 at 13:00 Docusate Sodium (Colace) 200 mg QHS PRN PO CONSTIPATION; Start 01/01/19 at 20:30 Lansoprazole (Prevacid) 30 mg DAILY PO Last administered on 01/13/19 08:03; Admin Dose 30 MG; Start 01/02/19 at 09:00 Linagliptin (Tradjenta) 5 mg DAILY PO Last administered on 01/13/19 08:03; Admin Dose 5 MG; Start 01/02/19 at 09:00 Magnesium Hydroxide (Milk Of Mag) 30 ml QHS PRN PO CONSTIPATION; Start 01/01/19 at 20:30 Metformin HCl (Glucophage) 500 mg WITH BREAKFAST DINNE PO Last administered on 01/13/19 17:31; Admin Dose 500 MG; Start 01/02/19 at 08:00 Zinc Sulfate (Zinc Sulfate) 220 mg DAILY PO Last administered on 01/13/19 08:03; Admin Dose 220 MG; Start 01/02/19 at 09:00 Diagnostic Test (Pha) (Accu-Chek) 1 ea AC MEALS AND BEDTIME XX Last administered on 01/05/19 17:27; Admin Dose 1 EA; Start 01/01/19 at 21:00 Vancomycin HCl (Vanco Iv Per Pharmacy) VANCOMYCIN PER PHARMACY PER PROTOCOL XX ; Start 01/01/19 at 20:30 Furosemide (Lasix) 40 mg DAILY GTB Last administered on 01/13/19 08:05; Admin Dose 40 MG; Start 01/02/19 at 09:00 Diagnostic Test (Pha) (Accu-Chek) 1 ea 02 XX Last administered on 01/04/19 01:09; Admin Dose 1 EA; Start 01/02/19 at 02:00 Insulin Aspart (Novolog Insulin Pen) NOVOLOG *MODERATE* ALGORITHM WITH MEALS BE DTIME SC Last administered on 01/13/19 17:32; Admin Dose 12 UNIT; Start 01/01/19 at 21:00 Miscellaneous Information 1 ea NOTE XX ; Start 01/01/19 at 21:00 Glucose (Glutose) 15 gm Q15M PRN PO DECREASED GLUCOSE Last administered on 01/10/19 08:10; Admin Dose 15 GM; Start 01/01/19 at 21:00 Glucose (Glutose) 22.5 gm Q15M PRN PO DECREASED GLUCOSE; Start 01/01/19 at 21:00 Dextrose (D50w Syringe) 25 ml Q15M PRN IV DECREASED GLUCOSE Last administered on 01/10/19 08:26; Admin Dose 25 ML; Start 01/01/19 at 21:00 Dextrose (D50w Syringe) 50 ml Q15M PRN IV DECREASED GLUCOSE Last administered on 01/06/19 08:05; Admin Dose 50 ML; Start 01/01/19 at 21:00 Glucagon (Glucagen) 1 mg Q15M PRN IM DECREASED GLUCOSE; Start 01/01/19 at 21:00 Glucose (Glutose) 15 gm Q15M PRN BUCCAL DECREASED GLUCOSE Last administered on 01/07/19 09:03; Admin Dose 15 GM; Start 01/01/19 at 21:00 Miscellaneous Information (Pending [facility] Order For Wound Care) This patient henry... PRN PRN XX WOUND CARE; Start 01/01/19 at 23:00 Povidone Iodine (Povidone-Iodine) 1 applic DAILY TOP Last administered on 01/13/19 08:06; Admin Dose 1 APPLIC; Start 01/03/19 at 09:00 Ceftriaxone Sodium 50 ml @ 100 mls/hr Q24H IVPB Last administered on 01/13/19 18:15; Admin Dose 100 MLS/HR; Start 01/02/19 at 19:00 Metronidazole 100 ml @ 100 mls/hr Q8 IVPB Last administered on 01/13/19 13:00; Admin Dose 100 MLS/HR; Start 01/02/19 at 22:00 Vitamin B Complex/ Vitamin C (Berocca) 1 cap DAILY PO Last administered on 01/13/19 08:03; Admin Dose 1 CAP; Start 01/08/19 at 09:00 Fish Oil (Fish Oil) 1,000 mg DAILY PO Last administered on 01/13/19 08:03; Admin Dose 1,000 MG; Start 01/08/19 at 09:00 Vancomycin HCl 0.85 gm/Sodium Chloride 250 ml @ 125 mls/hr Q12H IVPB Last administered on 01/13/19 09:13; Admin Dose 125 MLS/HR; Start 01/08/19 at 08:30 Insulin Glargine (Lantus) 20 units QHS SC Last administered on 01/12/19 20:09; Admin Dose 20 UNITS; Start 01/10/19 at 21:00 Apixaban (Eliquis) 2.5 mg BID GTB Last administered on 01/13/19 08:03; Admin Dose 2.5 MG; Start 01/10/19 at 21:00 Atorvastatin Calcium (Lipitor) 10 mg QHS GTB Last administered on 01/12/19 20:18; Admin Dose 10 MG; Start 01/10/19 at 21:00 Donepezil HCl (Aricept) 5 mg QHS GTB Last administered on 01/12/19 20:19; Admin Dose 5 MG; Start 01/10/19 at 21:00 Quetiapine Fumarate (Seroquel) 100 mg HS GTB Last administered on 01/12/19 20:18; Admin Dose 100 MG; Start 01/10/19 at 21:00 Valproate Sodium (Depakene Liquid Cup) 125 mg BID GTB Last administered on 01/13/19 08:03; Admin Dose 125 MG; Start 01/10/19 at 21:00 Acetaminophen (Tylenol Liquid) 500 mg BID GTB Last administered on 01/13/19 08:03; Admin Dose 500 MG; Start 01/10/19 at 21:00 Metoprolol Tartrate (Lopressor) 12.5 mg BID GTB Last administered on 01/13/19 08:05; Admin Dose 12.5 MG; Start 01/11/19 at 09:00 Ammonium Lactate (Lac-Hydrin 12% Lotion) 1 applic DAILY TOP Last administered on 01/13/19 08:06; Admin Dose 1 APPLIC; Start 01/11/19 at 16:00 Clotrimazole (Lotrimin Cr) 1 applic BID TOP Last administered on 01/13/19 08:06; Admin Dose 1 APPLIC; Start 01/11/19 at 21:00 GLORIA ACEVES Jan 13, 2019 19:39
[2019-01-13 20:08] VITALS: BP 113/51; PULSE 92; RESP 18
[2019-01-13] MEDS: DONEPEZIL 5 MG TAB GTB SCH (20:23)
[2019-01-13] MEDS: QUETIAPINE 100 MG TAB GTB SCH (20:23)
[2019-01-13] MEDS: ATORVASTATIN 10 MG TAB GTB SCH (20:26)
[2019-01-13] MEDS: INSULIN GLARGINE [LANTus] (100 UNITS/ML) SYG SC SCH (20:29)
[2019-01-14] MEDS: ACCU-CHEK XX SCH ×5 (01:31→21:00)
[2019-01-14 02:07] VITALS: BP 120/91; PULSE 90; RESP 20
[2019-01-14] MEDS: metroNIDAZOLE 500 MG/NS (PMX) 100 ML IVPB SCH ×2 (05:36→13:47)
--- NOTE | 2019-01-14 06:09 | PN ---
Date/Time of Note Date/Time of Note DATE: 01/14/19 TIME: 06:09 Assessment/Plan VTE Prophylaxis Risk score (from Nsg)>0 risk: 6 SCD applied (from Nsg): No Lines/Catheters IV Catheter Type (from Nrsg): Mid Line Urinary Cath still in place: No Assessment/Plan Result Diagram: 01/12/19 0526 01/11/19 0432 Results 24hrs Laboratory Tests Test 01/13/19 07:36 01/13/19 07:59 01/13/19 11:52 01/13/19 17:28 Vancomycin Level 14.5 Trough Bedside Glucose 104 219 351 H Test 01/13/19 20:03 01/14/19 01:29 01/14/19 05:45 Bedside Glucose 229 H 108 White Blood Count Pending Red Blood Count Pending Hemoglobin Pending Hematocrit Pending Mean Corpuscular Pending Volume Mean Corpuscular Pending Hemoglobin Mean Corpuscular Pending Hemoglobin Concent Red Cell Pending Distribution Width Platelet Count Pending Mean Platelet Volume Pending Exam/Review of Systems Exam Vitals Vital Signs Date Temp Pulse Resp B/P (MAP) Pulse Ox O2 O2 Flow FiO2 Time Delivery Rate 01/14/19 97.9 90 20 120/91 99 Room Air 02:07 (101) Intake and Output 01/13/19 01/13/19 01/14/19 1515:00 23:00 07:00 IntakeIntake Total 350 ml 300 ml 100 ml BalanceBalance 350 ml 300 ml 100 ml Results Results 24hrs Laboratory Tests Test 01/13/19 07:36 01/13/19 07:59 01/13/19 11:52 01/13/19 17:28 Vancomycin Level 14.5 Trough Bedside Glucose 104 219 351 H Test 01/13/19 20:03 01/14/19 01:29 01/14/19 05:45 Bedside Glucose 229 H 108 White Blood Count Pending Red Blood Count Pending Hemoglobin Pending Hematocrit Pending Mean Corpuscular Pending Volume Mean Corpuscular Pending Hemoglobin Mean Corpuscular Pending Hemoglobin Concent Red Cell Pending Distribution Width Platelet Count Pending Mean Platelet Volume Pending Medications Medication Current Medications Acetaminophen (Tylenol Tab) 1,000 mg Q6H PRN PO PAIN -02/24; Start 01/01/19 at 20:30 Ascorbic Acid (Vitamin C) 500 mg DAILY PO Last administered on 01/13/19 08:03; Admin Dose 500 MG; Start 01/02/19 at 09:00 Benazepril HCl (Lotensin) 10 mg DAILY PO Last administered on 01/13/19 08:05; Admin Dose 10 MG; Start 01/02/19 at 09:00 Bisacodyl (Dulcolax Supp) 10 mg DAILY PRN [place] NEEDED; Start 01/01/19 at 20:30 Clonazepam (Klonopin) 0.5 mg DAILY PRN PO ANXIETY; Start 01/01/19 at 20:30 Clonidine (Catapres) 0.1 mg Q8H PRN PO IF SBP>160; Start 01/01/19 at 20:30 Digoxin (Digoxin) 0.125 mg DAILY@1300 PO Last administered on 01/13/19 12:58; Admin Dose 0.125 MG; Start 01/02/19 at 13:00 Docusate Sodium (Colace) 200 mg QHS PRN PO CONSTIPATION; Start 01/01/19 at 20: 30 Lansoprazole (Prevacid) 30 mg DAILY PO Last administered on 01/13/19 08:03; Admin Dose 30 MG; Start 01/02/19 at 09:00 Linagliptin (Tradjenta) 5 mg DAILY PO Last administered on 01/13/19 08:03; Admin Dose 5 MG; Start 01/02/19 at 09:00 Magnesium Hydroxide (Milk Of Mag) 30 ml QHS PRN PO CONSTIPATION; Start 01/01/19 at 20:30 Metformin HCl (Glucophage) 500 mg WITH BREAKFAST DINNE PO Last administered on 01/13/19 17:31; Admin Dose 500 MG; Start 01/02/19 at 08:00 Zinc Sulfate (Zinc Sulfate) 220 mg DAILY PO Last administered on 01/13/19 08:03; Admin Dose 220 MG; Start 01/02/19 at 09:00 Diagnostic Test (Pha) (Accu-Chek) 1 ea AC MEALS AND BEDTIME XX Last administered on 01/05/19 17:27; Admin Dose 1 EA; Start 01/01/19 at 21:00 Vancomycin HCl (Vanco Iv Per Pharmacy) VANCOMYCIN PER PHARMACY PER PROTOCOL XX ; Start 01/01/19 at 20:30 Furosemide (Lasix) 40 mg DAILY GTB Last administered on 01/13/19 08:05; Admin Dose 40 MG; Start 01/02/19 at 09:00 Diagnostic Test (Pha) (Accu-Chek) 1 ea 02 XX Last administered on 01/14/19 01:31; Admin Dose 1 EA; Start 01/02/19 at 02:00 Insulin Aspart (Novolog Insulin Pen) NOVOLOG *MODERATE* ALGORITHM WITH MEALS BEDTIME SC Last administered on 01/13/19 20:30; Admin Dose 2 UNIT; Start 01/01/19 at 21:00 Miscellaneous Information 1 ea NOTE XX ; Start 01/01/19 at 21:00 Glucose (Glutose) 15 gm Q15M PRN PO DECREASED GLUCOSE Last administered on 01/10/19 08:10; Admin Dose 15 GM; Start 01/01/19 at 21:00 Glucose (Glutose) 22.5 gm Q15M PRN PO DECREASED GLUCOSE; Start 01/01/19 at 21:00 Dextrose (D50w Syringe) 25 ml Q15M PRN IV DECREASED GLUCOSE Last administered on 01/10/19 08:26; Admin Dose 25 ML; Start 01/01/19 at 21:00 Dextrose (D50w Syringe) 50 ml Q15M PRN IV DECREASED GLUCOSE Last administered on 01/06/19 08:05; Admin Dose 50 ML; Start 01/01/19 at 21:00 Glucagon (Glucagen) 1 mg Q15M PRN IM DECREASED GLUCOSE; Start 01/01/19 at 21:00 Glucose (Glutose) 15 gm Q15M PRN BUCCAL DECREASED GLUCOSE Last administered on 01/07/19 09:03; Admin Dose 15 GM; Start 01/01/19 at 21:00 [facility] This patient henry... PRN PRN XX WOUND CARE; Start 01/01/19 at 23:00 Povidone Iodine (Povidone-Iodine) 1 applic DAILY TOP Last administered on 01/13/19 08:06; Admin Dose 1 APPLIC; Start 01/03/19 at 09:00 Ceftriaxone Sodium 50 ml @ 100 mls/hr Q24H IVPB Last administered on 01/13/19 18:15; Admin Dose 100 MLS/HR; Start 01/02/19 at 19:00 Metronidazole 100 ml @ 100 mls/hr Q8 IVPB Last administered on 01/14/19 05:36; Admin Dose 100 MLS/HR; Start 01/02/19 at 22:00 Vitamin B Complex/ Vitamin C (Berocca) 1 cap DAILY PO Last administered on 01/13/19 08:03; Admin Dose 1 CAP; Start 01/08/19 at 09:00 Fish Oil (Fish Oil) 1,000 mg DAILY PO Last administered on 01/13/19 08:03; Admin Dose 1,000 MG; Start 01/08/19 at 09:00 Vancomycin HCl 0.85 gm/Sodium Chloride 250 ml @ 125 mls/hr Q12H IVPB Last administered on 01/13/19 20:19; Admin Dose 125 MLS/HR; Start 01/08/19 at 08:30 Insulin Glargine (Lantus) 20 units QHS SC Last administered on 01/13/19 20:29; Admin Dose 20 UNITS; Start 01/10/19 at 21:00 Apixaban (Eliquis) 2.5 mg BID GTB Last administered on 01/13/19 20:24; Admin Dose 2.5 MG; Start 01/10/19 at 21:00 Atorvastatin Calcium (Lipitor) 10 mg QHS GTB Last administered on 01/13/19 20:26; Admin Dose 10 MG; Start 01/10/19 at 21:00 Donepezil HCl (Aricept) 5 mg QHS GTB Last administered on 01/13/19 20:23; Admin Dose 5 MG; Start 01/10/19 at 21:00 Quetiapine Fumarate (Seroquel) 100 mg HS GTB Last administered on 01/13/19 20:23; Admin Dose 100 MG; Start 01/10/19 at 21:00 Valproate Sodium (Depakene Liquid Cup) 125 mg BID GTB Last administered on 01/13/19 20:20; Admin Dose 125 MG; Start 01/10/19 at 21:00 Acetaminophen (Tylenol Liquid) 500 mg BID GTB Last administered on 01/13/19 20:23; Admin Dose 500 MG; Start 01/10/19 at 21:00 Metoprolol Tartrate (Lopressor) 12.5 mg BID GTB Last administered on 01/13/19 20:22; Admin Dose 12.5 MG; Start 01/11/19 at 09:00 Ammonium Lactate (Lac-Hydrin 12% Lotion) 1 applic DAILY TOP Last administered on 01/13/19 08:06; Admin Dose 1 APPLIC; Start 01/11/19 at 16:00 Clotrimazole (Lotrimin Cr) 1 applic BID TOP Last administered on 01/13/19 20:30; Admin Dose 1 APPLIC; Start 01/11/19 at 21:00 GLORIA ACEVES Jan 14, 2019 06:09
[2019-01-14 07:30] VITALS: BP 132/75; PULSE 82; RESP 18
[2019-01-14] MEDS: INSULIN ASPART [NOVOLOG] 3 ML PEN SC SCH ×4 (07:56→22:21)
[2019-01-14] MEDS: metFORMIN 500 MG TAB PO SCH ×2 (08:06→17:13)
[2019-01-14] MEDS: VALPROIC ACID LIQUID CUP 250 MG/5 ML CUP GTB SCH ×2 (08:06→22:15)
[2019-01-14] MEDS: LANSOPRAZOLE 30 MG CAP PO SCH (08:10)
[2019-01-14] MEDS: ASCORBIC ACID 500 MG TAB PO SCH (08:10)
[2019-01-14] MEDS: VITAMIN B COMPLEX/VIT C CAP PO SCH (08:10)
[2019-01-14] MEDS: ZINC SULFATE 220 MG CAP PO SCH (08:10)
[2019-01-14] MEDS: APIXABAN 5 MG TABLET GTB SCH ×2 (08:10→22:11)
[2019-01-14] MEDS: METOPROLOL 25 MG TAB GTB SCH ×2 (08:11→22:12)
[2019-01-14] MEDS: FUROSEMIDE 40 MG TAB GTB SCH (08:11)
[2019-01-14] MEDS: FISH OIL 1,000 MG CAP PO SCH (08:11)
[2019-01-14] MEDS: LINAGLIPTIN 5 MG TABLET PO SCH (08:11)
[2019-01-14] MEDS: BENAZEPRIL 10 MG TAB PO SCH (08:11)
[2019-01-14] MEDS: VANCOMYCIN HCL 0.85 GM in SOD CHLORIDE 0.9% 250 ML IVPB SCH ×2 (08:20→22:11)
[2019-01-14] MEDS: AMMONIUM LACTATE 12% 225 GM LOT TOP SCH (08:20)
[2019-01-14] MEDS: CLOTRIMAZOLE 1% 30 GM CR TOP SCH ×2 (08:20→22:22)
[2019-01-14] MEDS: ACETAMINOPHEN 650MG/20.3ML CUP GTB SCH ×2 (08:20→22:11)
[2019-01-14] MEDS: POVIDONE IODINE 10% 28.4 GM OINT TOP SCH (08:21)
[2019-01-14] MEDS: DIGOXIN 0.125 MG TAB PO SCH (13:46)
--- NOTE | 2019-01-14 14:09 | CONS ---
Assessment/Plan Assessment/Plan Hospital Course (Demo Recall) assessment/impression # musculoskeletal - recurrent OM R foot - XR 01/01/19 of R foot showed findings c/w OM present lateral aspect of distal forefoot - wound culture grew diptheroids. a colonizer - eschar of R 2nd digit, lateral R foot - s/p diabetic foot infection/unhealing wound: wound culture 10/10/18 of L foot grew MRSA and corynebacter JK, wound culture of R foot grew proteus, enterococci and corynebacter JK - S/p bedside debridement on 10/11/2018 - Hx Likely OM; b/l foot XR 10/10/18 showed: Irregularity of the margins of the proximal phalanx of R 3rd digit and of 4th metatarsal head, raising suspicion for OM; periarticular lucencies with soft tissue swelling about R 5th MTP articulation. Soft tissue ulceration along the posterior lateral aspect of L midfoot and hindfoot; no e/o bone destructive process. 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 - DJD of lumbar spine - H/o lumbar surgery - Onychomycosis # cardiovascular - Bacteremia 01/01/19 blood culture x1 set grew coag neg staph -> likely contaminant, repeat cultures 01/03/19 negative - PVD - US arterial b/l LE on 10/10/2018 showed severe peripheral vascular disease with occlusion of b/l superficial femoral and popliteal arteries, severe stenosis or occlusion of b/l posterior tibial and dorsalis pedis arteries - h/o angiogram 10/22/2018 with no intervention - CAD - h/o CABG - CHF, acute on chronic systolic- EF 25% - HTN - Afib # endocrine - DMT2; HgbA1c 7.4% - Diabetic neuropathy - HLD # neuro, immunology - Alzheimer's dementia - Hx intracranial bleed - PCN allergy; Has tolerated cefepime previously per EMR at [facility], tolerates ceftriaxone too, he has previously tolerated Merrem as well recommendations: - continue vancomycin, ceftriaxone, metronidazole (01/02/19-) x 6 weeks for r ecurrent OM, suggested end date: 02/13/2019 - please order weekly CBC, BMP while Pt's on IV antibiotics management d/w Pt's MILTON Cohen Consultation Date/Type/Reason Admit Date/Time Jan 01, 2019 at 18:01 Initial Consult Date 01/02/19 Type of Consult ID Requesting Provider: TYE ADAMS Date/Time of Note DATE: 01/14/19 TIME: 14:03 24 HR Interval Summary Subjective hx not possible: pt non-verbal (demented and sleepy) Exam/Review of Systems Exam Vitals Vital Signs Date Temp Pulse Resp B/P (MAP) Pulse Ox O2 O2 Flow FiO2 Time Delivery Rate 01/14/19 97.3 82 18 132/75 99 Room Air 07:30 (94) Intake and Output 01/13/19 01/13/19 01/14/19 1515:00 23:00 07:00 IntakeIntake Total 350 ml 300 ml 350 ml BalanceBalance 350 ml 300 ml 350 ml Constitutional: non-verbal, frail, other (asleep) Psych: other (demented) Head: normocephalic, atraumatic Eyes: nl conjunctiva, nl lids ENMT: nl external ears & nose, nl nasal mucosa & septum, mucosa pink and moist Neck: other (not swollen) Respiratory: clear to auscultation, normal air movement Cardiovascular: regular rate and rhythm, nl pulses Gastrointestinal: soft, non-tender Musculoskeletal: other (R 3rd-4th toe amputation, R 2nd toe is dry eschar, the tissue on lateral R foot s largely eschar, there is a puctate wound on L heel) Extremities: No edema Neurological: confused, lethargic Skin: nl turgor; No rash or lesions Results Result Diagram: 01/14/19 0545 01/14/19 0545 Results 24hrs Laboratory Tests Test 01/13/19 17:28 01/13/19 20:03 01/14/19 01:29 01/14/19 05:45 Bedside Glucose 351 H 229 H 108 White Blood Count 11.3 H Red Blood Count 4.97 Hemoglobin 13.0 #L Hematocrit 41.2 #L Mean Corpuscular 82.9 Volume Mean Corpuscular 26.2 L Hemoglobin Mean Corpuscular 31.6 L Hemoglobin Concent Red Cell 16.7 H Distribution Width Platelet Count 346 Mean Platelet Volume 10.4 Immature 1.200 H Granulocytes % Neutrophils % 64.2 Lymphocytes % 23.1 Monocytes % 8.3 Eosinophils % 2.6 Basophils % 0.6 Nucleated Red Blood 0.0 Cells % Immature 0.130 H Granulocytes # Neutrophils # 7.2 Lymphocytes # 2.6 Monocytes # 0.9 Eosinophils # 0.3 Basophils # 0.1 Nucleated Red Blood 0.0 Cells # Sodium Level 144 Potassium Level 4.7 Chloride Level 108 Carbon Dioxide Level 26 Anion Gap 10 Blood Urea Nitrogen 19 Creatinine 0.50 L Est Glomerular Filtrat Rate mL/min Glucose Level 72 Calcium Level 9.5 Test 01/14/19 07:55 01/14/19 12:01 Bedside Glucose 79 127 Medications Medication Current Medications Acetaminophen (Tylenol Tab) 1,000 mg Q6H PRN PO PAIN ; Start 01/01/19 at 20:30 Ascorbic Acid (Vitamin C) 500 mg DAILY PO Last administered on 01/14/19 08:10; Admin Dose 500 MG; Start 01/02/19 at 09:00 Benazepril HCl (Lotensin) 10 mg DAILY PO Last administered on 01/14/19 08:11; Admin Dose 10 MG; Start 01/02/19 at 09:00 Bisacodyl (Dulcolax Supp) 10 mg DAILY PRN [place] NEEDED; Start 01/01/19 at 20:30 Clonazepam (Klonopin) 0.5 mg DAILY PRN PO ANXIETY; Start 01/01/19 at 20:30 Clonidine (Catapres) 0.1 mg Q8H PRN PO IF SBP>160; Start 01/01/19 at 20:30 Digoxin (Digoxin) 0.125 mg DAILY@1300 PO Last administered on 01/14/19at 13:46; Admin Dose 0.125 MG; Start 01/02/19 at 13:00 Docusate Sodium (Colace) 200 mg QHS PRN PO CONSTIPATION; Start 01/01/19 at 20:30 Lansoprazole (Prevacid) 30 mg DAILY PO Last administered on 01/14/19 08:10; Admin Dose 30 MG; Start 01/02/19 at 09:00 Linagliptin (Tradjenta) 5 mg DAILY PO Last administered on 01/14/19 08:11; Admin Dose 5 MG; Start 01/02/19 at 09:00 Magnesium Hydroxide (Milk Of Mag) 30 ml QHS PRN PO CONSTIPATION; Start 01/01/19 at 20:30 Metformin HCl (Glucophage) 500 mg WITH BREAKFAST DINNE PO Last administered on 01/14/19 08:06; Admin Dose 500 MG; Start 01/02/19 at 08:00 Zinc Sulfate (Zinc Sulfate) 220 mg DAILY PO Last administered on 01/14/19 08:10; Admin Dose 220 MG; Start 01/02/19 at 09:00 Diagnostic Test (Pha) (Accu-Chek) 1 ea AC MEALS AND BEDTIME XX Last administered on 01/05/19 17:27; Admin Dose 1 EA; Start 01/01/19 at 21:00 Vancomycin HCl (Vanco Iv Per Pharmacy) VANCOMYCIN PER PHARMACY PER PROTOCOL XX ; Start 01/01/19 at 20:30 Furosemide (Lasix) 40 mg DAILY GTB Last administered on 01/14/19 08:11; Admin Dose 40 MG; Start 01/02/19 at 09:00 Diagnostic Test (Pha) (Accu-Chek) 1 ea 02 XX Last administered on 01/14/19 01:31; Admin Dose 1 EA; Start 01/02/19 at 02:00 Insulin Aspart (Novolog Insulin Pen) NOVOLOG *MODERATE* ALGORITHM WITH MEALS BEDTIME SC Last administered on 01/13/19 20:30; Admin Dose 2 UNIT; Start 01/01/19 at 21:00 Miscellaneous Information 1 ea NOTE XX ; Start 01/01/19 at 21:00 Glucose (Glutose) 15 gm Q15M PRN PO DECREASED GLUCOSE Last administered on 01/10/19 08:10; Admin Dose 15 GM; Start 01/01/19 at 21:00 Glucose (Glutose) 22.5 gm Q15M PRN PO DECREASED GLUCOSE; Start 01/01/19 at 21:00 Dextrose (D50w Syringe) 25 ml Q15M PRN IV DECREASED GLUCOSE Last administered on 01/10/19 08:26; Admin Dose 25 ML; Start 01/01/19 at 21:00 Dextrose (D50w Syringe) 50 ml Q15M PRN IV DECREASED GLUCOSE Last administered on 01/06/19 08:05; Admin Dose 50 ML; Start 01/01/19 at 21:00 Glucagon (Glucagen) 1 mg Q15M PRN IM DECREASED GLUCOSE; Start 01/01/19 at 21:00 Glucose (Glutose) 15 gm Q15M PRN BUCCAL DECREASED GLUCOSE Last administered on 01/07/19 09:03; Admin Dose 15 GM; Start 01/01/19 at 21:00 Miscellaneous Information [facility] This patient henry... PRN PRN XX WOUND CARE; Start 01/01/19 at 23:00 Povidone Iodine (Povidone-Iodine) 1 applic DAILY TOP Last administered on 01/14/19 08:21; Admin Dose 1 APPLIC; Start 01/03/19 at 09:00 Ceftriaxone Sodium 50 ml @ 100 mls/hr Q24H IVPB Last administered on 01/13/19 18:15; Admin Dose 100 MLS/HR; Start 01/02/19 at 19:00 Metronidazole 100 ml @ 100 mls/hr Q8 IVPB Last administered on 01/14/19 13:47; Admin Dose 100 MLS/HR; Start 01/02/19 at 22:00 Vitamin B Complex/ Vitamin C (Berocca) 1 cap DAILY PO Last administered on 01/14/19 08:10; Admin Dose 1 CAP; Start 01/08/19 at 09:00 Fish Oil (Fish Oil) 1,000 mg DAILY PO Last administered on 01/14/19 08:11; Admin Dose 1,000 MG; Start 01/08/19 at 09:00 Vancomycin HCl 0.85 gm/Sodium Chloride 250 ml @ 125 mls/hr Q12H IVPB Last administered on 01/14/19 08:20; Admin Dose 125 MLS/HR; Start 01/08/19 at 08:30 Insulin Glargine (Lantus) 20 units QHS SC Last administered on 01/13/19 20:29; Admin Dose 20 UNITS; Start 01/10/19 at 21:00 Apixaban (Eliquis) 2.5 mg BID GTB Last administered on 01/14/19 08:10; Admin Dose 2.5 MG; Start 01/10/19 at 21:00 Atorvastatin Calcium (Lipitor) 10 mg QHS GTB Last administered on 01/13/19 20:26; Admin Dose 10 MG; Start 01/10/19 at 21:00 Donepezil HCl (Aricept) 5 mg QHS GTB Last administered on 01/13/19 20:23; Admin Dose 5 MG; Start 01/10/19 at 21:00 Quetiapine Fumarate (Seroquel) 100 mg HS GTB Last administered on 01/13/19 20:23; Admin Dose 100 MG; Start 01/10/19 at 21:00 Valproate Sodium (Depakene Liquid Cup) 125 mg BID GTB Last administered on 01/14/19 08:06; Admin Dose 125 MG; Start 01/10/19 at 21:00 Acetaminophen (Tylenol Liquid) 500 mg BID GTB Last administered on 01/14/19 08:20; Admin Dose 500 MG; Start 01/10/19 at 21:00 Metoprolol Tartrate (Lopressor) 12.5 mg BID GTB Last administered on 01/14/19 08:11; Admin Dose 12.5 MG; Start 01/11/19 at 09:00 Ammonium Lactate (Lac-Hydrin 12% Lotion) 1 applic DAILY TOP Last administered on 01/14/19 08:20; Admin Dose 1 APPLIC; Start 01/11/19 at 16:00 Clotrimazole (Lotrimin Cr) 1 applic BID TOP Last administered on 01/14/19 08:20; Admin Dose 1 APPLIC; Start 01/11/19 at 21:00 MAYNOR SIDDIQI M.D. Jan 14, 2019 14:09
[2019-01-14] MEDS: CEFTRIAXONE 1 GM/50 ML (PMX) 50 ML IVPB SCH (18:03)
[2019-01-14 20:00] VITALS: BP 130/60; PULSE 93; RESP 18
[2019-01-14] MEDS: ATORVASTATIN 10 MG TAB GTB SCH (22:11)
[2019-01-14] MEDS: DONEPEZIL 5 MG TAB GTB SCH (22:11)
[2019-01-14] MEDS: QUETIAPINE 100 MG TAB GTB SCH (22:16)
[2019-01-14] MEDS: INSULIN GLARGINE [LANTus] (100 UNITS/ML) SYG SC SCH (22:17)
[2019-01-15] MEDS: metroNIDAZOLE 500 MG/NS (PMX) 100 ML IVPB SCH ×4 (00:13→22:20)
[2019-01-15] MEDS: ACCU-CHEK XX SCH ×5 (02:15→20:57)
[2019-01-15 02:31] VITALS: BP 132/64; PULSE 90; RESP 18
--- NOTE | 2019-01-15 05:10 | PN ---
Date/Time of Note Date/Time of Note DATE: 01/15/19 TIME: 05:10 Assessment/Plan VTE Prophylaxis Risk score (from Ns)>0 risk: 6 SCD applied (from Ns): No Lines/Catheters IV Catheter Type (from Nrs): Mid Line Urinary Cath still in place: No Assessment/Plan Result Diagram: 01/14/19 0545 01/14/19 0545 Results 24hrs Laboratory Tests Test 01/14/19 05:45 01/14/19 07:55 01/14/19 12:01 01/14/19 17:10 White Blood Count 11.3 H Red Blood Count 4.97 Hemoglobin 13.0 #L Hematocrit 41.2 #L Mean Corpuscular 82.9 Volume Mean Corpuscular 26.2 L Hemoglobin Mean Corpuscular 31.6 L Hemoglobin Concent Red Cell 16.7 H Distribution Width Platelet Count 346 Mean Platelet Volume 10.4 Immature 1.200 H Granulocytes % Neutrophils % 64.2 Lymphocytes % 23.1 Monocytes % 8.3 Eosinophils % 2.6 Basophils % 0.6 Nucleated Red Blood 0.0 Cells % Immature 0.130 H Granulocytes # Neutrophils # 7.2 Lymphocytes # 2.6 Monocytes # 0.9 Eosinophils # 0.3 Basophils # 0.1 Nucleated Red Blood 0.0 Cells # Sodium Level 144 Potassium Level 4.7 Chloride Level 108 Carbon Dioxide Level 26 Anion Gap 10 Blood Urea Nitrogen 19 Creatinine 0.50 L Est Glomerular Filtrat Rate mL/min Glucose Level 72 Calcium Level 9.5 Bedside Glucose 79 127 285 H Test 01/14/19 21:34 01/15/19 02:11 Bedside Glucose 240 H 115 Exam/Review of Systems Exam Vitals Vital Signs Date Temp Pulse Resp B/P (MAP) Pulse Ox O2 O2 Flow FiO2 Time Delivery Rate 01/15/19 98.1 90 18 132/64 98 Room Air 02:31 (86) Intake and Output 01/14/19 01/14/19 01/15/19 1515:00 23:00 07:00 IntakeIntake Total 350 ml 1010 ml BalanceBalance 350 ml 1010 ml Results Results 24hrs Laboratory Tests Test 01/14/19 05:45 01/14/19 07:55 01/14/19 12:01 01/14/19 17:10 White Blood Count 11.3 H Red Blood Count 4.97 Hemoglobin 13.0 #L Hematocrit 41.2 #L Mean Corpuscular 82.9 Volume Mean Corpuscular 26.2 L Hemoglobin Mean Corpuscular 31.6 L Hemoglobin Concent Red Cell 16.7 H Distribution Width Platelet Count 346 Mean Platelet Volume 10.4 Immature 1.200 H Granulocytes % Neutrophils % 64.2 Lymphocytes % 23.1 Monocytes % 8.3 Eosinophils % 2.6 Basophils % 0.6 Nucleated Red Blood 0.0 Cells % Immature 0.130 H Granulocytes # Neutrophils # 7.2 Lymphocytes # 2.6 Monocytes # 0.9 Eosinophils # 0.3 Basophils # 0.1 Nucleated Red Blood 0.0 Cells # Sodium Level 144 Potassium Level 4.7 Chloride Level 108 Carbon Dioxide Level 26 Anion Gap 10 Blood Urea Nitrogen 19 Creatinine 0.50 L Est Glomerular Filtrat Rate mL/min Glucose Level 72 Calcium Level 9.5 Bedside Glucose 79 127 285 H Test 01/14/19 21:34 01/15/19 02:11 Bedside Glucose 240 H 115 Medications Medication Current Medications Acetaminophen (Tylenol Tab) 1,000 mg Q6H PRN PO PAIN -02/24; Start 01/01/19 at 20:30 Ascorbic Acid (Vitamin C) 500 mg DAILY PO Last administered on 01/14/19 08:10; Admin Dose 500 MG; Start 01/02/19 at 09:00 Benazepril HCl (Lotensin) 10 mg DAILY PO Last administered on 01/14/19at 08:11; Admin Dose 10 MG; Start 01/02/19 at 09:00 Bisacodyl (Dulcolax Supp) 10 mg DAILY PRN [place] NEEDED; Start 01/01/19 at 20:30 Clonazepam (Klonopin) 0.5 mg DAILY PRN PO ANXIETY; Start 01/01/19 at 20:30 Clonidine (Catapres) 0.1 mg Q8H PRN PO IF SBP>160; Start 01/01/19 at 20:30 Digoxin (Digoxin) 0.125 mg DAILY@1300 PO Last administered on 01/14/19at 13:46; Admin Dose 0.125 MG; Start 01/02/19 at 13:00 Docusate Sodium (Colace) 200 mg QHS PRN PO CONSTIPATION; Start 01/01/19 at 20:30 Lansoprazole (Prevacid) 30 mg DAILY PO Last administered on 01/14/19 08:10; Admin Dose 30 MG; Start 01/02/19 at 09:00 Linagliptin (Tradjenta) 5 mg DAILY PO Last administered on 01/14/19 08:11; Admin Dose 5 MG; Start 01/02/19 at 09:00 Magnesium Hydroxide (Milk Of Mag) 30 ml QHS PRN PO CONSTIPATION; Start 01/01/19 at 20:30 Metformin HCl (Glucophage) 500 mg WITH BREAKFAST DINNE PO Last administered on 01/14/19 17:13; Admin Dose 500 MG; Start 01/02/19 at 08:00 Zinc Sulfate (Zinc Sulfate) 220 mg DAILY PO Last administered on 01/14/19 08:10; Admin Dose 220 MG; Start 01/02/19 at 09:00 Diagnostic Test (Pha) (Accu-Chek) 1 ea AC MEALS AND BEDTIME XX Last administered on 01/05/19 17:27; Admin Dose 1 EA; Start 01/01/19 at 21:00 Vancomycin HCl (Vanco Iv Per Pharmacy) VANCOMYCIN PER PHARMACY PER PROTOCOL XX ; Start 01/01/19 at 20:30 Furosemide (Lasix) 40 mg DAILY GTB Last administered on 01/14/19 08:11; Admin Dose 40 MG; Start 01/02/19 at 09:00 Diagnostic Test (Pha) (Accu-Chek) 1 ea 02 XX Last administered on 01/15/19 02:15; Admin Dose 1 EA; Start 01/02/19 at 02:00 Insulin Aspart (Novolog Insulin Pen) NOVOLOG *MODERATE* ALGORITHM WITH MEALS BEDTIME SC Last administered on 01/14/19 22:21; Admin Dose 2 UNIT; Start 01/01/19 at 21:00 Miscellaneous Information 1 ea NOTE XX ; Start 01/01/19 at 21:00 Glucose (Glutose) 15 gm Q15M PRN PO DECREASED GLUCOSE Last administered on 01/10/19 08:10; Admin Dose 15 GM; Start 01/01/19 at 21:00 Glucose (Glutose) 22.5 gm Q15M PRN PO DECREASED GLUCOSE; Start 01/01/19 at 21:00 Dextrose (D50w Syringe) 25 ml Q15M PRN IV DECREASED GLUCOSE Last administered on 01/10/19 08:26; Admin Dose 25 ML; Start 01/01/19 at 21:00 Dextrose (D50w Syringe) 50 ml Q15M PRN IV DECREASED GLUCOSE Last administered on 01/06/19 08:05; Admin Dose 50 ML; Start 01/01/19 at 21:00 Glucagon (Glucagen) 1 mg Q15M PRN IM DECREASED GLUCOSE; Start 01/01/19 at 21:00 Glucose (Glutose) 15 gm Q15M PRN BUCCAL DECREASED GLUCOSE Last administered on 01/07/19 09:03; Admin Dose 15 GM; Start 01/01/19 at 21:00 Miscellaneous Information (Pending [facility]yl Order For Wound Care) This patient henry... PRN PRN XX WOUND CARE; Start 01/01/19 at 23:00 Povidone Iodine (Povidone-Iodine) 1 applic DAILY TOP Last administered on 01/14/19 08:21; Admin Dose 1 APPLIC; Start 01/03/19 at 09:00 Ceftriaxone Sodium 50 ml @ 100 mls/hr Q24H IVPB Last administered on 01/14/19 18:03; Admin Dose 100 MLS/HR; Start 01/02/19 at 19:00 Metronidazole 100 ml @ 100 mls/hr Q8 IVPB Last administered on 01/15/19 00:13; Admin Dose 100 MLS/HR; Start 01/02/19 at 22:00 Vitamin B Complex/ Vitamin C (Berocca) 1 cap DAILY PO Last administered on 01/14/19 08:10; Admin Dose 1 CAP; Start 01/08/19 at 09:00 Fish Oil (Fish Oil) 1,000 mg DAILY PO Last administered on 01/14/19 08:11; Admin Dose 1,000 MG; Start 01/08/19 at 09:00 Vancomycin HCl 0.85 gm/Sodium Chloride 250 ml @ 125 mls/hr Q12H IVPB Last ad ministered on 01/14/19 22:11; Admin Dose 125 MLS/HR; Start 01/08/19 at 08:30 Insulin Glargine (Lantus) 20 units QHS SC Last administered on 01/14/19 22:17; Admin Dose 20 UNITS; Start 01/10/19 at 21:00 Apixaban (Eliquis) 2.5 mg BID GTB Last administered on 01/14/19 22:11; Admin Dose 2.5 MG; Start 01/10/19 at 21:00 Atorvastatin Calcium (Lipitor) 10 mg QHS GTB Last administered on 01/14/19 22: 11; Admin Dose 10 MG; Start 01/10/19 at 21:00 Donepezil HCl (Aricept) 5 mg QHS GTB Last administered on 01/14/19 22:11; Admin Dose 5 MG; Start 01/10/19 at 21:00 Quetiapine Fumarate (Seroquel) 100 mg HS GTB Last administered on 01/14/19 22:16; Admin Dose 100 MG; Start 01/10/19 at 21:00 Valproate Sodium (Depakene Liquid Cup) 125 mg BID GTB Last administered on 01/14/19 22:15; Admin Dose 125 MG; Start 01/10/19 at 21:00 Acetaminophen (Tylenol Liquid) 500 mg BID GTB Last administered on 01/14/19 22:11; Admin Dose 500 MG; Start 01/10/19 at 21:00 Metoprolol Tartrate (Lopressor) 12.5 mg BID GTB Last administered on 01/14/19 22:12; Admin Dose 12.5 MG; Start 01/11/19 at 09:00 Ammonium Lactate (Lac-Hydrin 12% Lotion) 1 applic DAILY TOP Last administered on 01/14/19 08:20; Admin Dose 1 APPLIC; Start 01/11/19 at 16:00 Clotrimazole (Lotrimin Cr) 1 applic BID TOP Last administered on 01/14/19 22:22; Admin Dose 1 APPLIC; Start 01/11/19 at 21:00 GLORIA ACEVES January 15, 2019 05:10
[2019-01-15 07:20] VITALS: BP 90/50; PULSE 95; RESP 18
[2019-01-15] MEDS: INSULIN ASPART [NOVOLOG] 3 ML PEN SC SCH ×4 (08:00→20:42)
[2019-01-15] MEDS: APIXABAN 5 MG TABLET GTB SCH ×2 (08:23→20:34)
[2019-01-15] MEDS: VANCOMYCIN HCL 0.85 GM in SOD CHLORIDE 0.9% 250 ML IVPB SCH ×2 (08:23→20:35)
[2019-01-15] MEDS: LINAGLIPTIN 5 MG TABLET PO SCH (08:23)
[2019-01-15] MEDS: VITAMIN B COMPLEX/VIT C CAP PO SCH (08:23)
[2019-01-15] MEDS: FISH OIL 1,000 MG CAP PO SCH (08:23)
[2019-01-15] MEDS: ZINC SULFATE 220 MG CAP PO SCH (08:23)
[2019-01-15] MEDS: ASCORBIC ACID 500 MG TAB PO SCH (08:24)
[2019-01-15] MEDS: FUROSEMIDE 40 MG TAB GTB SCH (08:24)
[2019-01-15] MEDS: metFORMIN 500 MG TAB PO SCH ×2 (08:24→17:13)
[2019-01-15] MEDS: BENAZEPRIL 10 MG TAB PO SCH (08:24)
[2019-01-15] MEDS: LANSOPRAZOLE 30 MG CAP PO SCH (08:24)
[2019-01-15] MEDS: VALPROIC ACID LIQUID CUP 250 MG/5 ML CUP GTB SCH ×2 (08:26→20:34)
[2019-01-15] MEDS: METOPROLOL 25 MG TAB GTB SCH ×2 (08:26→20:33)
[2019-01-15] MEDS: ACETAMINOPHEN 650MG/20.3ML CUP GTB SCH ×2 (08:26→20:31)
[2019-01-15] MEDS: AMMONIUM LACTATE 12% 225 GM LOT TOP SCH (08:27)
[2019-01-15] MEDS: CLOTRIMAZOLE 1% 30 GM CR TOP SCH ×2 (08:27→20:57)
[2019-01-15] MEDS: POVIDONE IODINE 10% 28.4 GM OINT TOP SCH (08:27)
[2019-01-15] MEDS: DIGOXIN 0.125 MG TAB PO SCH (14:01)
[2019-01-15 14:36] VITALS: BP 148/72; PULSE 97; RESP 16
--- NOTE | 2019-01-15 14:41 | CONS ---
Assessment/Plan Assessment/Plan Hospital Course (Demo Recall) assessment/impression # musculoskeletal - recurrent OM R foot - XR 01/01/19 of R foot showed findings c/w OM present lateral aspect of distal forefoot - wound culture grew diptheroids. a colonizer - eschar of R 2nd digit, lateral R foot - s/p diabetic foot infection/unhealing wound: wound culture 10/10/18 of L foot grew MRSA and corynebacter JK, wound culture of R foot grew proteus, enterococci and corynebacter JK - S/p bedside debridement on 10/11/2018 - Hx Likely OM; b/l foot XR 10/10/18 showed: Irregularity of the margins of the proximal phalanx of R 3rd digit and of 4th metatarsal head, raising suspicion for OM; periarticular lucencies with soft tissue swelling about R 5th MTP articulation. Soft tissue ulceration along the posterior lateral aspect of L midfoot and hindfoot; no e/o bone destructive process. 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 - DJD of lumbar spine - H/o lumbar surgery - Onychomycosis # cardiovascular - Bacteremia 01/01/19 blood culture x1 set grew coag neg staph -> likely contaminant, repeat cultures 01/03/19 negative - PVD - US arterial b/l LE on 10/10/2018 showed severe peripheral vascular disease with occlusion of b/l superficial femoral and popliteal arteries, severe stenosis or occlusion of b/l posterior tibial and dorsalis pedis arteries - h/o angiogram 10/22/2018 with no intervention - CAD - h/o CABG - CHF, acute on chronic systolic- EF 25% - HTN - Afib # endocrine - DMT2; HgbA1c 7.4% - Diabetic neuropathy - HLD # neuro, immunology - Alzheimer's dementia - Hx intracranial bleed - PCN allergy; Has tolerated cefepime previously per EMR at [facility], tolerates ceftriaxone too, he has previously tolerated Merrem as well recommendations: - ordered: CBC and BMP in AM - continue vancomycin, ceftriaxone, metronidazole (01/02/19-) x 6 weeks for recurrent OM, suggested end date: 02/13/2019 - please order weekly CBC, BMP while Pt's on IV antibiotics management d/w Pt's MILTON Cohen and Pt's Consultation Date/Type/Reason Admit Date/Time Jan 01, 2019 at 18:01 Initial Consult Date 01/02/19 Type of Consult ID Requesting Provider: TYE ADAMS Date/Time of Note DATE: 01/15/19 TIME: 14:39 24 HR Interval Summary Subjective hx not possible: pt non-verbal, other (very sleepy even in the presence of his ) Exam/Review of Systems Exam Vitals Vital Signs Date Temp Pulse Resp B/P (MAP) Pulse Ox O2 O2 Flow FiO2 Time Delivery Rate 01/15/19 97.4 97 16 148/72 99 Room Air 14:36 (97) Intake and Output 01/14/19 01/14/19 01/15/19 1515:00 23:00 07:00 IntakeIntake Total 350 ml 1010 ml 350 ml BalanceBalance 350 ml 1010 ml 350 ml Constitutional: non-verbal, frail, other (diaphoretic under the UEs) Psych: confusion Head: normocephalic, atraumatic Eyes: nl conjunctiva, nl lids, nl sclera ENMT: nl external ears & nose, nl nasal mucosa & septum, mucosa pink and moist Neck: other (not swollen) Respiratory: diminished breath sounds Cardiovascular: regular rate and rhythm, nl pulses; No edema Gastrointestinal: soft, non-tender; No distended, No tender Musculoskeletal: other (+eschar of his feet are gaitan and non-TTP); No swelling Extremities: No edema Neurological: confused, lethargic Skin: nl turgor Results Result Diagram: 01/14/19 0545 01/14/19 0545 Results 24hrs Laboratory Tests Test 01/14/19 17:10 01/14/19 21:34 01/15/19 02:11 01/15/19 08:16 Bedside Glucose 285 H 240 H 115 124 Test 01/15/19 12:06 Bedside Glucose 136 Medications Medication Current Medications Acetaminophen (Tylenol Tab) 1,000 mg Q6H PRN PO PAIN 4-02/24; Start 01/01/19 at 20:30 Ascorbic Acid (Vitamin C) 500 mg DAILY PO Last administered on 01/15/19 08:24; Admin Dose 500 MG; Start 01/02/19 at 09:00 Benazepril HCl (Lotensin) 10 mg DAILY PO Last administered on 01/15/19 08:24; Admin Dose 10 MG; Start 01/02/19 at 09:00 Bisacodyl (Dulcolax Supp) 10 mg DAILY PRN [place] NEEDED; Start 01/01/19 at 20:30 Clonazepam (Klonopin) 0.5 mg DAILY PRN PO ANXIETY; Start 01/01/19 at 20:30 Clonidine (Catapres) 0.1 mg Q8H PRN PO IF SBP>160; Start 01/01/19 at 20:30 Digoxin (Digoxin) 0.125 mg DAILY@1300 PO Last administered on 01/15/19 14:01; Admin Dose 0.125 MG; Start 01/02/19 at 13:00 Docusate Sodium (Colace) 200 mg QHS PRN PO CONSTIPATION; Start 01/01/19 at 20:30 Lansoprazole (Prevacid) 30 mg DAILY PO Last administered on 01/15/19 08:24; Admin Dose 30 MG; Start 01/02/19 at 09:00 Linagliptin (Tradjenta) 5 mg DAILY PO Last administered on 01/15/19 08:23; Admin Dose 5 MG; Start 01/02/19 at 09:00 Magnesium Hydroxide (Milk Of Mag) 30 ml QHS PRN PO CONSTIPATION; Start 01/01/19 at 20:30 Metformin HCl (Glucophage) 500 mg WITH BREAKFAST DINNE PO Last administered on 01/15/19 08:24; Admin Dose 500 MG; Start 01/02/19 at 08:00 Zinc Sulfate (Zinc Sulfate) 220 mg DAILY PO Last administered on 01/15/19 08:23; Admin Dose 220 MG; Start 01/02/19 at 09:00 Diagnostic Test (Pha) (Accu-Chek) 1 ea AC MEALS AND BEDTIME XX Last administered on 01/05/19 17:27; Admin Dose 1 EA; Start 01/01/19 at 21:00 Vancomycin HCl (Vanco Iv Per Pharmacy) VANCOMYCIN PER PHARMACY PER PROTOCOL XX ; Start 01/01/19 at 20:30 Furosemide (Lasix) 40 mg DAILY GTB Last administered on 5/1/19at 08:24; Admin Dose 40 MG; Start 01/02/19 at 09:00 Diagnostic Test (Pha) (Accu-Chek) 1 ea 02 XX Last administered on 01/15/19 02:15; Admin Dose 1 EA; Start 01/02/19 at 02:00 Insulin Aspart (Novolog Insulin Pen) NOVOLOG *MODERATE* ALGORITHM WITH MEALS BEDTIME SC Last administered on 01/14/19 22:21; Admin Dose 2 UNIT; Start 01/01/19 at 21:00 Miscellaneous Information 1 ea NOTE XX ; Start 01/01/19 at 21:00 Glucose (Glutose) 15 gm Q15M PRN PO DECREASED GLUCOSE Last administered on 01/10/19 08:10; Admin Dose 15 GM; Start 01/01/19 at 21:00 Glucose (Glutose) 22.5 gm Q15M PRN PO DECREASED GLUCOSE; Start 01/01/19 at 21:00 Dextrose (D50w Syringe) 25 ml Q15M PRN IV DECREASED GLUCOSE Last administered on 01/10/19 08:26; Admin Dose 25 ML; Start 01/01/19 at 21:00 Dextrose (D50w Syringe) 50 ml Q15M PRN IV DECREASED GLUCOSE Last administered on 01/06/19 08:05; Admin Dose 50 ML; Start 01/01/19 at 21:00 Glucagon (Glucagen) 1 mg Q15M PRN IM DECREASED GLUCOSE; Start 01/01/19 at 21:00 Glucose (Glutose) 15 gm Q15M PRN BUCCAL DECREASED GLUCOSE Last administered on 01/07/19 09:03; Admin Dose 15 GM; Start 01/01/19 at 21:00 Miscellaneous Information (Pending Santyl Order For Wound Care) This patient henry... PRN PRN XX WOUND CARE; Start 01/01/19 at 23:00 Povidone Iodine (Povidone-Iodine) 1 applic DAILY TOP Last administered on 01/15/19 08:27; Admin Dose 1 APPLIC; Start 01/03/19 at 09:00 Ceftriaxone Sodium 50 ml @ 100 mls/hr Q24H IVPB Last administered on 01/14/19 18:03; Admin Dose 100 MLS/HR; Start 01/02/19 at 19:00 Metronidazole 100 ml @ 100 mls/hr Q8 IVPB Last administered on 01/15/19 14:00; Admin Dose 100 MLS/HR; Start 01/02/19 at 22:00 Vitamin B Complex/ Vitamin C (Berocca) 1 cap DAILY PO Last administered on 01/15/19 08:23; Admin Dose 1 CAP; Start 01/08/19 at 09:00 Fish Oil (Fish Oil) 1,000 mg DAILY PO Last administered on 01/15/19 08:23; Admin Dose 1,000 MG; Start 01/08/19 at 09:00 Vancomycin HCl 0.85 gm/Sodium Chloride 250 ml @ 125 mls/hr Q12H IVPB Last administered on 01/15/19 08:23; Admin Dose 125 MLS/HR; Start 01/08/19 at 08:30 Insulin Glargine (Lantus) 20 units QHS SC Last administered on 01/14/19 22:17; Admin Dose 20 UNITS; Start 01/10/19 at 21:00 Apixaban (Eliquis) 2.5 mg BID GTB Last administered on 01/15/19 08:23; Admin Dose 2.5 MG; Start 01/10/19 at 21:00 Atorvastatin Calcium (Lipitor) 10 mg QHS GTB Last administered on 01/14/19 22:11; Admin Dose 10 MG; Start 01/10/19 at 21:00 Donepezil HCl (Aricept) 5 mg QHS GTB Last administered on 01/14/19 22:11; Admin Dose 5 MG; Start 01/10/19 at 21:00 Quetiapine Fumarate (Seroquel) 100 mg HS GTB Last administered on 01/14/19 22:16; Admin Dose 100 MG; Start 01/10/19 at 21:00 Valproate Sodium (Depakene Liquid Cup) 125 mg BID GTB Last administered on 01/15/19 08:26; Admin Dose 125 MG; Start 01/10/19 at 21:00 Acetaminophen (Tylenol Liquid) 500 mg BID GTB Last administered on 01/15/19 08:26; Admin Dose 500 MG; Start 01/10/19 at 21:00 Metoprolol Tartrate (Lopressor) 12.5 mg BID GTB Last administered on 01/15/19 08:26; Admin Dose 12.5 MG; Start 01/11/19 at 09:00 Ammonium Lactate (Lac-Hydrin 12% Lotion) 1 applic DAILY TOP Last administered on 01/15/19at 08:27; Admin Dose 1 APPLIC; Start 01/11/19 at 16:00 Clotrimazole (Lotrimin Cr) 1 applic BID TOP Last administered on 01/15/19at 08:27; Admin Dose 1 APPLIC; Start 01/11/19 at 21:00 MAYNOR SIDDIQI M.D. January 15, 2019 14:41
[2019-01-15] MEDS: CEFTRIAXONE 1 GM/50 ML (PMX) 50 ML IVPB SCH (18:20)
[2019-01-15 20:05] VITALS: BP 132/68; PULSE 70; RESP 18
[2019-01-15] MEDS: QUETIAPINE 100 MG TAB GTB SCH (20:34)
[2019-01-15] MEDS: DONEPEZIL 5 MG TAB GTB SCH (20:35)
[2019-01-15] MEDS: ATORVASTATIN 10 MG TAB GTB SCH (20:35)
[2019-01-15] MEDS: INSULIN GLARGINE [LANTus] (100 UNITS/ML) SYG SC SCH (20:42)
[2019-01-16 02:05] VITALS: BP 133/71; PULSE 71; RESP 18
[2019-01-16] MEDS: ACCU-CHEK XX SCH ×5 (02:35→21:04)
[2019-01-16] MEDS: metroNIDAZOLE 500 MG/NS (PMX) 100 ML IVPB SCH ×3 (05:06→22:40)
[2019-01-16] MEDS: DEXTROSE 50% 50 ML SYRINGE IV PRN (06:42)
[2019-01-16 07:20] VITALS: BP 117/60; PULSE 95; RESP 18
[2019-01-16] MEDS: INSULIN ASPART [NOVOLOG] 3 ML PEN SC SCH ×4 (07:57→20:37)
[2019-01-16] MEDS: VANCOMYCIN HCL 0.85 GM in SOD CHLORIDE 0.9% 250 ML IVPB SCH ×2 (08:39→20:37)
[2019-01-16] MEDS: VITAMIN B COMPLEX/VIT C CAP PO SCH (08:40)
[2019-01-16] MEDS: ACETAMINOPHEN 650MG/20.3ML CUP GTB SCH ×2 (08:40→20:43)
[2019-01-16] MEDS: LANSOPRAZOLE 30 MG CAP PO SCH (08:40)
[2019-01-16] MEDS: VALPROIC ACID LIQUID CUP 250 MG/5 ML CUP GTB SCH ×2 (08:40→20:39)
[2019-01-16] MEDS: LINAGLIPTIN 5 MG TABLET PO SCH (08:40)
[2019-01-16] MEDS: ZINC SULFATE 220 MG CAP PO SCH (08:41)
[2019-01-16] MEDS: FISH OIL 1,000 MG CAP PO SCH (08:41)
[2019-01-16] MEDS: ASCORBIC ACID 500 MG TAB PO SCH (08:41)
[2019-01-16] MEDS: FUROSEMIDE 40 MG TAB GTB SCH (08:42)
[2019-01-16] MEDS: APIXABAN 5 MG TABLET GTB SCH ×2 (08:42→20:39)
[2019-01-16] MEDS: BENAZEPRIL 10 MG TAB PO SCH (08:43)
[2019-01-16] MEDS: METOPROLOL 25 MG TAB GTB SCH ×2 (08:43→20:41)
[2019-01-16] MEDS: metFORMIN 500 MG TAB PO SCH ×2 (08:57→17:54)
--- NOTE | 2019-01-16 09:28 | PN ---
Date/Time of Note Date/Time of Note DATE: 01/16/19 TIME: 09:27 Assessment/Plan VTE Prophylaxis Risk score (from Nsg)>0 risk: 7 SCD applied (from Nsg): No Lines/Catheters IV Catheter Type (from Nrsg): Mid Line Central line still needed: Yes Urinary Cath still in place: No Assessment/Plan Result Diagram: 01/16/19 0431 01/16/19 0659 Results 24hrs Laboratory Tests Test 01/15/19 12:06 01/15/19 17:12 01/15/19 20:38 01/16/19 01:50 Bedside Glucose 136 206 287 H 94 Test 01/16/19 04:31 01/16/19 06:36 01/16/19 06:45 01/16/19 06:59 White Blood Count 11.9 H Red Blood Count 4.69 L Hemoglobin 12.2 L Hematocrit 38.8 L Mean Corpuscular Volume 82.7 Mean Corpuscular 26.0 L Hemoglobin Mean Corpuscular 31.4 L Hemoglobin Concent Red Cell Distribution 17.2 H Width Platelet Count 342 Mean Platelet Volume 10.4 Immature Granulocytes % 0.900 H Neutrophils % 62.0 Lymphocytes % 25.5 Monocytes % 8.9 Eosinophils % 2.1 Basophils % 0.6 Nucleated Red Blood 0.0 Cells % Immature Granulocytes # 0.110 H Neutrophils # 7.4 Lymphocytes # 3.0 H Monocytes # 1.1 H Eosinophils # 0.3 Basophils # 0.1 Nucleated Red Blood 0.0 Cells # Sodium Level 143 Potassium Level 4.2 Chloride Level 107 Carbon Dioxide Level 30 Anion Gap 6 Blood Urea Nitrogen 15 Creatinine 0.51 L Est Glomerular Filtrat Rate mL/min Glucose Level 48 #*L 89 # Calcium Level 9.4 Bedside Glucose 114 131 Test 01/16/19 07:56 Bedside Glucose 107 Subjective 24 Hr Interval Summary Free Text/Dictation Hypoglycemia- sliding scale changed to Mild Algorithm Lantus decreased t 15 units ac daily Exam/Review of Systems Exam Vitals Vital Signs Date Temp Pulse Resp B/P (MAP) Pulse Ox O2 O2 Flow FiO2 Time Delivery Rate 01/16/19 98.0 08:40 01/16/19 95 18 117/60 98 Room Air 07:20 (79) Intake and Output 01/15/19 01/15/19 01/16/19 1515:00 23:00 07:00 IntakeIntake Total 1040 ml 1400 ml 830 ml BalanceBalance 1040 ml 1400 ml 830 ml Results Results 24hrs Laboratory Tests Test 01/15/19 12:06 01/15/19 17:12 01/15/19 20:38 01/16/19 01:50 Bedside Glucose 136 206 287 H 94 Test 01/16/19 04:31 01/16/19 06:36 01/16/19 06:45 01/16/19 06:59 White Blood Count 11.9 H Red Blood Count 4.69 L Hemoglobin 12.2 L Hematocrit 38.8 L Mean Corpuscular Volume 82.7 Mean Corpuscular 26.0 L Hemoglobin Mean Corpuscular 31.4 L Hemoglobin Concent Red Cell Distribution 17.2 H Width Platelet Count 342 Mean Platelet Volume 10.4 Immature Granulocytes % 0.900 H Neutrophils % 62.0 Lymphocytes % 25.5 Monocytes % 8.9 Eosinophils % 2.1 Basophils % 0.6 Nucleated Red Blood 0.0 Cells % Immature Granulocytes # 0.110 H Neutrophils # 7.4 Lymphocytes # 3.0 H Monocytes # 1.1 H Eosinophils # 0.3 Basophils # 0.1 Nucleated Red Blood 0.0 Cells # Sodium Level 143 Potassium Level 4.2 Chloride Level 107 Carbon Dioxide Level 30 Anion Gap 6 Blood Urea Nitrogen 15 Creatinine 0.51 L Est Glomerular Filtrat Rate mL/min Glucose Level 48 #*L 89 # Calcium Level 9.4 Bedside Glucose 114 131 Test 01/16/19 07:56 Bedside Glucose 107 Medications Medication Current Medications Acetaminophen (Tylenol Tab) 1,000 mg Q6H PRN PO PAIN 4-6/10; Start 01/01/19 at 20:30 Ascorbic Acid (Vitamin C) 500 mg DAILY PO Last administered on 01/16/19at 08:41; Admin Dose 500 MG; Start 01/02/19 at 09:00 Benazepril HCl (Lotensin) 10 mg DAILY PO Last administered on 01/16/19at 08:43; Admin Dose 10 MG; Start 01/02/19 at 09:00 Bisacodyl (Dulcolax Supp) 10 mg DAILY PRN [place] NEEDED; Start 01/01/19 at 20:30 Clonazepam (Klonopin) 0.5 mg DAILY PRN PO ANXIETY; Start 01/01/19 at 20:30 Clonidine (Catapres) 0.1 mg Q8H PRN PO IF SBP>160; Start 01/01/19 at 20:30 Digoxin (Digoxin) 0.125 mg DAILY@1300 PO Last administered on 01/15/19 14:01; Admin Dose 0.125 MG; Start 01/02/19 at 13:00 Docusate Sodium (Colace) 200 mg QHS PRN PO CONSTIPATION; Start 01/01/19 at 20:30 Lansoprazole (Prevacid) 30 mg DAILY PO Last administered on 01/16/19 08:40; Admin Dose 30 MG; Start 01/02/19 at 09:00 Linagliptin (Tradjenta) 5 mg DAILY PO Last administered on 01/16/19 08:40; Admin Dose 5 MG; Start 01/02/19 at 09:00 Magnesium Hydroxide (Milk Of Mag) 30 ml QHS PRN PO CONSTIPATION; Start 01/01/19 at 20:30 Metformin HCl (Glucophage) 500 mg WITH BREAKFAST DINNE PO Last administered on 01/16/19 08:57; Admin Dose 500 MG; Start 01/02/19 at 08:00 Zinc Sulfate (Zinc Sulfate) 220 mg DAILY PO Last administered on 01/16/19 08:41; Admin Dose 220 MG; Start 01/02/19 at 09:00 Diagnostic Test (Pha) (Accu-Chek) 1 ea AC MEALS AND BEDTIME XX Last admin istered on 01/05/19 17:27; Admin Dose 1 EA; Start 01/01/19 at 21:00 Vancomycin HCl (Vanco Iv Per Pharmacy) VANCOMYCIN PER PHARMACY PER PROTOCOL XX ; Start 01/01/19 at 20:30 Furosemide (Lasix) 40 mg DAILY GTB Last administered on 01/16/19 08:42; Admin Dose 40 MG; Start 01/02/19 at 09:00 Diagnostic Test (Pha) (Accu-Chek) 1 ea 02 XX Last administered on 01/16/19 02:35; Admin Dose 1 EA; Start 01/02/19 at 02:00 Insulin Aspart (Novolog Insulin Pen) NOVOLOG *MODERATE* ALGORITHM WITH MEALS BEDTIME SC Last administered on 01/15/19 20:42; Admin Dose 3 UNIT; Start 01/01/19 at 21:00 Miscellaneous Information 1 ea NOTE XX ; Start 01/01/19 at 21:00 Glucose (Glutose) 15 gm Q15M PRN PO DECREASED GLUCOSE Last administered on 01/10/19 08:10; Admin Dose 15 GM; Start 01/01/19 at 21:00 Glucose (Glutose) 22.5 gm Q15M PRN PO DECREASED GLUCOSE; Start 01/01/19 at 21:00 Dextrose (D50w Syringe) 25 ml Q15M PRN IV DECREASED GLUCOSE Last administered on 01/16/19 06:42; Admin Dose 25 ML; Start 01/01/19 at 21:00 Dextrose (D50w Syringe) 50 ml Q15M PRN IV DECREASED GLUCOSE Last administered on 01/06/19 08:05; Admin Dose 50 ML; Start 01/01/19 at 21:00 Glucagon (Glucagen) 1 mg Q15M PRN IM DECREASED GLUCOSE; Start 01/01/19 at 21:00 Glucose (Glutose) 15 gm Q15M PRN BUCCAL DECREASED GLUCOSE Last administered on 01/07/19 09:03; Admin Dose 15 GM; Start 01/01/19 at 21:00 [facility] This patient henry... PRN PRN XX WOUND CARE; Start 01/01/19 at 23:00 Povidone Iodine (Povidone-Iodine) 1 applic DAILY TOP Last administered on 01/15/19 08:27; Admin Dose 1 APPLIC; Start 01/03/19 at 09:00 Ceftriaxone Sodium 50 ml @ 100 mls/hr Q24H IVPB Last administered on 01/15/19 18:20; Admin Dose 100 MLS/HR; Start 01/02/19 at 19:00 Metronidazole 100 ml @ 100 mls/hr Q8 IVPB Last administered on 01/16/19 05:06; Admin Dose 100 MLS/HR; Start 01/02/19 at 22:00 Vitamin B Complex/ Vitamin C (Berocca) 1 cap DAILY PO Last administered on 01/16/19 08:40; Admin Dose 1 CAP; Start 01/08/19 at 09:00 Fish Oil (Fish Oil) 1,000 mg DAILY PO Last administered on 01/16/19 08:41; Admin Dose 1,000 MG; Start 01/08/19 at 09:00 Vancomycin HCl 0.85 gm/Sodium Chloride 250 ml @ 125 mls/hr Q12H IVPB Last administered on 01/16/19 08:39; Admin Dose 125 MLS/HR; Start 01/08/19 at 08:30 Apixaban (Eliquis) 2.5 mg BID GTB Last administered on 01/16/19 08:42; Admin Dose 2.5 MG; Start 01/10/19 at 21:00 Atorvastatin Calcium (Lipitor) 10 mg QHS GTB Last administered on 01/15/19 20:3 5; Admin Dose 10 MG; Start 01/10/19 at 21:00 Donepezil HCl (Aricept) 5 mg QHS GTB Last administered on 01/15/19 20:35; Admin Dose 5 MG; Start 01/10/19 at 21:00 Quetiapine Fumarate (Seroquel) 100 mg HS GTB Last administered on 01/15/19 20:34; Admin Dose 100 MG; Start 01/10/19 at 21:00 Valproate Sodium (Depakene Liquid Cup) 125 mg BID GTB Last administered on 01/16/19 08:40; Admin Dose 125 MG; Start 01/10/19 at 21:00 Acetaminophen (Tylenol Liquid) 500 mg BID GTB Last administered on 01/16/19 0 8:40; Admin Dose 500 MG; Start 01/10/19 at 21:00 Metoprolol Tartrate (Lopressor) 12.5 mg BID GTB Last administered on 01/16/19 08:43; Admin Dose 12.5 MG; Start 01/11/19 at 09:00 Ammonium Lactate (Lac-Hydrin 12% Lotion) 1 applic DAILY TOP Last administered on 01/15/19 08:27; Admin Dose 1 APPLIC; Start 01/11/19 at 16:00 Clotrimazole (Lotrimin Cr) 1 applic BID TOP Last administered on 01/15/19 20: 57; Admin Dose 1 APPLIC; Start 01/11/19 at 21:00 Insulin Glargine (Lantus) 15 units QHS SC ; Start 01/16/19 at 21:00 GLORIA ACEVES January 16, 2019 09:28
--- NOTE | 2019-01-16 13:47 | CONS ---
Assessment/Plan Assessment/Plan Problems: (1) Type 2 diabetes mellitus with diabetic peripheral angiopathy without gangrene Status: Chronic Comment: Pt. w/ hypoglycemia this am to 47 mg/dL. Will decrease lantus from 20 units qhs to 12 units qhs. Increase metformin from 500 mg bid to 1,000 mg bid. Cont. tradjenta 5 mg daily. Add empagliflozin 10 mg daily and add repaglinide 0.5 mg po qac. Will monitor and titrate meds to glycemic control w/ goal to minimize hypoglycemia risk. Consultation Date/Type/Reason Admit Date/Time Jan 01, 2019 at 18:01 Date of Consultation: January 16, 2019 Type of Consult Endocrinology Reason for Consultation T2DM management Requesting Provider: GLORIA ACEVES Date/Time of Note DATE: 01/16/19 TIME: 13:39 Hx of Present Illness 83 y/o Portuguese male w/ h/o CAD status post CABG, atrial fibrillation, Alz heimer's dementia, dysphagia with G-tube, history of intracranial bleed, T2DM, PVD/DFU, status post right third and fourth finger amputation, hypertension, and hyperlipidemia. Admitted 15 days ago for worsening of his known R foot wounds. Pt. had recently been on treatment for osteomyelitis. Since admit BG has been mostly in goal range but w/ some highs and lows. Endo consulted to assist in miguel a manzanares. claritza historian due to obvious dementia. Constitutional: no complaints Past Medical History Medical History: coronary artery disease, diabetes, high cholesterol, hypertension, other (atrial fibrillation, Alzheimer's dementia, dysphagia with G-tube, history of intracranial bleed, PVD, DFU) Home Meds Reported Medications Magnesium Hydroxide* (Milk Of Magnesia*) 400 Mg/5 Ml Oral.susp, 30 ML PO QHS PRN for NEEDED, ML 01/01/19 Lansoprazole* (Lansoprazole*) 30 Mg Capsule.dr, 30 MG PO DAILY, CAP 01/01/19 Furosemide* (Furosemide*) 80 Mg Tablet, 80 MG PO DAILY, #30 TAB 01/01/19 Mineral Oil* (Fleet* Mineral Oil Enema) 133 Ml Oil, 1 APPLIC SC Q2D, ENEMA NEEDED 01/01/19 Bisacodyl* (Bisacodyl*) 10 Mg Supp, 10 MG SC DAILY PRN for NEEDED, SUPP 01/01/19 Clonidine Hcl* (Clonidine Hcl*) 0.1 Mg Tab, 0.1 MG PO Q8H PRN for IF SBP>160, TAB 01/01/19 Zinc Sulfate* (Zinc Sulfate*) 220 Mg Tablet, 220 MG PO DAILY, TAB 01/01/19 Ascorbic Acid* (Vitamin C*) 500 Mg Capsule.sa, 500 MG PO DAILY, CAP 10/10/18 Valproic Acid* (Valproic Acid* Liq) 250 Mg/5 Ml Syrup, 2.5 ML PO BID, ML 10/10/18 Cran/Vitc/Mannose/Inulin/Brom (Uti-Stat Liquid) 3,875 Mg/30 Ml Liquid, 30 ML PO DAILY 10/10/18 Acetaminophen* (Tylenol*) 500 Mg Tab, 1000 MG PO BID PRN for GENERALIZED PAIN, TAB 10/10/18 Acetaminophen* (Tylenol*) 500 Mg Tab, 1000 MG PO Q6H PRN for PAIN 4-02/24, TAB 10/10/18 Acetaminophen* (Tylenol*) 325 Mg Tablet, 650 MG PO Q6H PRN for MILD PAIN LEVEL 1-3, TAB 10/10/18 Linagliptin (TRADJENTA) 5 Mg Tablet, 5 MG PO DAILY, TAB 10/10/18 Quetiapine Fumarate* (Seroquel*) 100 Mg Tablet, 100 MG PO HS, #30 TAB 10/10/18 Multivitamin with Minerals (Multivitamins with Minerals) 1 Each Tablet, 1 EACH PO DAILY, TAB 10/10/18 Metoprolol Tartrate* (Lopressor*) 25 Mg Tab, 25 MG PO BID, #60 TAB HOLD FOR SBP [id number] OR HR BELOW60 10/10/18 Metformin Hcl* (Metformin Hcl*) 500 Mg Tablet, 500 MG PO WITH BREAKFAST DINNE, #60 TAB 10/10/18 Insulin Glargine* (Lantus*) 100 Unit/Ml Soln, 38 UNIT SC QHS, #1 VIAL 10/10/18 Clonazepam* (Klonopin*) 0.5 Mg Tab, 0.5 MG PO DAILY PRN for ANXIETY, TAB 10/10/18 Apixaban* (Eliquis*) 2.5 Mg Tablet, 2.5 MG PO BID, TAB 10/10/18 Digoxin* (Digitek*) 125 Mcg Tablet, 0.125 MG PO DAILY, TAB 10/10/18 Cranberry Extract (Cranberry) 425 Mg Capsule, 425 MG PO BID, CAP 10/10/18 Docusate Sodium* (Colace*) 100 Mg Capsule, 200 MG PO QHS PRN for CONSTIPATION, #30 CAP 10/10/18 Benazepril Hcl* (Benazepril Hcl*) 10 Mg Tablet, 10 MG PO DAILY, #30 TAB HOLD FOR SBP BELOW 110 OR BELOW60 10/10/18 Atorvastatin Calcium (Atorvastatin Calcium) 10 Mg Tablet, 10 MG PO QHS, #30 TAB 10/10/18 Donepezil* (Aricept*) 5 Mg Tablet, 5 MG PO QHS, TAB 10/10/18 Medications Current Medications Acetaminophen (Tylenol Tab) 1,000 mg Q6H PRN PO PAIN 4-02/24; Start 01/01/19 at 20:30 Ascorbic Acid (Vitamin C) 500 mg DAILY PO Last administered on 01/16/19at 08:41; Admin Dose 500 MG; Start 01/02/19 at 09:00 Benazepril HCl (Lotensin) 10 mg DAILY PO Last administered on 01/16/19at 08:43; Admin Dose 10 MG; Start 01/02/19 at 09:00 Bisacodyl (Dulcolax Supp) 10 mg DAILY PRN SC NEEDED; Start 01/01/19 at 20:30 Clonazepam (Klonopin) 0.5 mg DAILY PRN PO ANXIETY; Start 01/01/19 at 20:30 Clonidine (Catapres) 0.1 mg Q8H PRN PO IF SBP>160; Start 01/01/19 at 20:30 Digoxin (Digoxin) 0.125 mg DAILY@1300 PO Last administered on 01/15/19at 14:01; Admin Dose 0.125 MG; Start 01/02/19 at 13:00 Docusate Sodium (Colace) 200 mg QHS PRN PO CONSTIPATION; Start 01/01/19 at 20:30 Lansoprazole (Prevacid) 30 mg DAILY PO Last administered on 01/16/19at 08:40; Admin Dose 30 MG; Start 01/02/19 at 09:00 Linagliptin (Tradjenta) 5 mg DAILY PO Last administered on 01/16/19at 08:40; Admin Dose 5 MG; Start 01/02/19 at 09:00 Magnesium Hydroxide (Milk Of Mag) 30 ml QHS PRN PO CONSTIPATION; Start 01/01/19 at 20:30 Zinc Sulfate (Zinc Sulfate) 220 mg DAILY PO Last administered on 01/16/19 08:41; Admin Dose 220 MG; Start 01/02/19 at 09:00 Diagnostic Test (Pha) (Accu-Chek) 1 ea AC MEALS AND BEDTIME XX Last administered on 01/05/19at 17:27; Admin Dose 1 EA; Start 01/01/19 at 21:00 Vancomycin HCl (Vanco Iv Per Pharmacy) VANCOMYCIN PER PHARMACY PER PROTOCOL XX ; Start 01/01/19 at 20:30 Furosemide (Lasix) 40 mg DAILY GTB Last administered on 01/16/19 08:42; Admin Dose 40 MG; Start 01/02/19 at 09:00 Diagnostic Test (Pha) (Accu-Chek) 1 ea 02 XX Last administered on 01/16/19 02:35; Admin Dose 1 EA; Start 01/02/19 at 02:00 Miscellaneous Information 1 ea NOTE XX ; Start 01/01/19 at 21:00 Glucose (Glutose) 15 gm Q15M PRN PO DECREASED GLUCOSE Last administered on 01/10/19 08:10; Admin Dose 15 GM; Start 01/01/19 at 21:00 Glucose (Glutose) 22.5 gm Q15M PRN PO DECREASED GLUCOSE; Start 01/01/19 at 21:00 Dextrose (D50w Syringe) 25 ml Q15M PRN IV DECREASED GLUCOSE Last administered on 01/16/19 06:42; Admin Dose 25 ML; Start 01/01/19 at 21:00 Dextrose (D50w Syringe) 50 ml Q15M PRN IV DECREASED GLUCOSE Last administered on 01/06/19 08:05; Admin Dose 50 ML; Start 01/01/19 at 21:00 Glucagon (Glucagen) 1 mg Q15M PRN IM DECREASED GLUCOSE; Start 01/01/19 at 21:00 Glucose (Glutose) 15 gm Q15M PRN BUCCAL DECREASED GLUCOSE Last administered on 01/07/19 09:03; Admin Dose 15 GM; Start 01/01/19 at 21:00 Miscellaneous Information (Pending [facility] Order For Wound Care) This patient henry... PRN PRN XX WOUND CARE; Start 01/01/19 at 23:00 Povidone Iodine (Povidone-Iodine) 1 applic DAILY TOP Last administered on 01/15/19 08:27; Admin Dose 1 APPLIC; Start 01/03/19 at 09:00 Ceftriaxone Sodium 50 ml @ 100 mls/hr Q24H IVPB Last administered on 01/15/19 18:20; Admin Dose 100 MLS/HR; Start 01/02/19 at 19:00 Metronidazole 100 ml @ 100 mls/hr Q8 IVPB Last administered on 01/16/19 05:06; Admin Dose 100 MLS/HR; Start 01/02/19 at 22:00 Vitamin B Complex/ Vitamin C (Berocca) 1 cap DAILY PO Last administered on 01/16/19 08:40; Admin Dose 1 CAP; Start 01/08/19 at 09:00 Fish Oil (Fish Oil) 1,000 mg DAILY PO Last administered on 01/16/19 08:41; Admin Dose 1,000 MG; Start 01/08/19 at 09:00 Vancomycin HCl 0.85 gm/Sodium Chloride 250 ml @ 125 mls/hr Q12H IVPB Last admi nistered on 01/16/19 08:39; Admin Dose 125 MLS/HR; Start 01/08/19 at 08:30 Apixaban (Eliquis) 2.5 mg BID GTB Last administered on 01/16/19 08:42; Admin Dose 2.5 MG; Start 01/10/19 at 21:00 Atorvastatin Calcium (Lipitor) 10 mg QHS GTB Last administered on 01/15/19 20:35; Admin Dose 10 MG; Start 01/10/19 at 21:00 Donepezil HCl (Aricept) 5 mg QHS GTB Last administered on 01/15/19 20:35; Admin Dose 5 MG; Start 01/10/19 at 21:00 Quetiapine Fumarate (Seroquel) 100 mg HS GTB Last administered on 01/15/19 20:34; Admin Dose 100 MG; Start 01/10/19 at 21:00 Valproate Sodium (Depakene Liquid Cup) 125 mg BID GTB Last administered on 01/16/19 08:40; Admin Dose 125 MG; Start 01/10/19 at 21:00 Acetaminophen (Tylenol Liquid) 500 mg BID GTB Last administered on 01/16/19at 08:40; Admin Dose 500 MG; Start 01/10/19 at 21:00 Metoprolol Tartrate (Lopressor) 12.5 mg BID GTB Last administered on 01/16/19at 08:43; Admin Dose 12.5 MG; Start 01/11/19 at 09:00 Ammonium Lactate (Lac-Hydrin 12% Lotion) 1 applic DAILY TOP Last administered on 01/15/19at 08:27; Admin Dose 1 APPLIC; Start 01/11/19 at 16:00 Clotrimazole (Lotrimin Cr) 1 applic BID TOP Last administered on 01/15/19at 20:57; Admin Dose 1 APPLIC; Start 01/11/19 at 21:00 Diagnostic Test (Pha) (Accu-Chek) 1 ea 02 XX ; Start 01/17/19 at 02:00 Insulin Aspart (Novolog Insulin Pen) NOVOLOG *MILD* ALGORITHM WITH MEALS BEDTIME SC Last administered on 01/16/19at 11:55; Admin Dose 1 UNIT; Start 01/16/19 at 12:00 Insulin Glargine (Lantus) 12 units QHS SC ; Start 01/16/19 at 21:00; Status UNV Metformin HCl (Glucophage) 1,000 mg WITH BREAKFAST DINNE PO ; Start 01/16/19 at 18:05; Status UNV Empaglifozin (Jardiance) 10 mg DAILY@08 PO ; Start 01/17/19 at 08:00; Status UNV Repaglinide (Prandin) 0.5 mg AC MEALS PO ; Start 01/16/19 at 17:35; Status UNV Allergies: Coded Allergies: Penicillins (Unverified Allergy, Unknown, 01/01/19) codeine (Unverified Allergy, Unknown, 01/01/19) morphine (Unverified Allergy, Unknown, 01/01/19) Past Surgical History Past Surgical Hx: coronary bypass surgery, other (status post lumbar spine surgery, status post G-tube placement, status post right second and third toe amputation, that is post surgery for intracranial bleed, details are not availab le) Family History Significant Family History: no pertinent family hx Social History b. [place], , 1 child, unable to be clear about further history Alcohol Use: none Smoking Status: Former smoker (in chart record but pt. denies) Drug Use: none Exam/Review of Systems Exam Vitals VS - Last 72 Hours, by Label Date Temp Pulse Resp B/P (MAP) Pulse Ox O2 O2 Flow FiO2 Time Delivery Rate 01/16/19 98.0 09:25 01/16/19 98.0 08:40 01/16/19 97.7 95 18 117/60 98 Room Air 07:20 (79) 01/16/19 98.5 71 18 133/71 100 02:05 (91) 01/15/19 98.4 70 18 132/68 97 20:05 (89) 01/15/19 97.4 97 16 148/72 99 Room Air 14:36 (97) 01/15/19 98.0 95 18 90/50 (63) 96 Room Air 07:20 01/15/19 98.1 90 18 132/64 98 Room Air 02:31 (86) 01/14/19 98.3 93 18 130/60 99 20:00 (83) 01/14/19 97.3 82 18 132/75 99 Room Air 07:30 (94) 01/14/19 97.9 90 20 120/91 99 Room Air 02:07 (101) 01/13/19 99.0 92 18 113/51 98 Room Air 20:08 (71) 01/13/19 98.0 90 17 132/58 99 Room Air 15:17 (82) Vital Signs Date Temp Pulse Resp B/P (MAP) Pulse Ox O2 O2 Flow FiO2 Time Delivery Rate 01/16/19 98.0 09:25 01/16/19 95 18 117/60 98 Room Air 07:20 (79) Intake and Output 01/15/19 01/15/19 01/16/19 1414:59 22:59 06:59 IntakeIntake Total 940 ml 1500 ml 830 ml BalanceBalance 940 ml 1500 ml 830 ml Constitutional: alert, oriented, frail Psych: confusion Eyes: nl conjunctiva, EOMI, nl lids, nl sclera, PERRL ENMT: nl external ears & nose, nl lips & teeth, mucosa pink and moist Neck: supple, non-tender; No bruits, No masses, No thyromegaly Respiratory: clear to auscultation, normal air movement Cardiovascular: irregular rhythm; No edema, No murmurs/extra sounds, No rub Gastrointestinal: soft, nl liver, spleen, non-tender, bowel sounds; No mass, No rebound or guarding Musculoskeletal: No nl extremities to inspection (B feet wrapped) Extremities: No cyanosis, No clubbing, No edema Neurological: MANAGER WATER WASTEWATER II-XII intact, nl speech, nl strength, confused; No nl mental status Additional Comments Bedside Glucose - 72 Hours Test 01/13/19 17:28 01/13/19 20:03 01/14/19 01:29 01/14/19 07:55 Bedside 351 229 108 79 Glucose mg/dL (70-220) mg/dL (70-220) mg/dL (70-220) mg/dL (70-220) H H Test 01/14/19 12:01 01/14/19 17:10 01/14/19 21:34 01/15/19 02:11 Bedside 127 285 240 115 Glucose mg/dL (70-220) mg/dL (70-220) mg/dL (70-220) mg/dL (70-220) H H Test 01/15/19 08:16 01/15/19 12:06 01/15/19 17:12 01/15/19 20:38 Bedside 124 136 206 287 Glucose mg/dL (70-220) mg/dL (70-220) mg/dL (70-220) mg/dL (70-220) H Test 01/16/19 01:50 01/16/19 06:36 01/16/19 06:45 01/16/19 07:56 Bedside 94 114 131 107 Glucose mg/dL (70-220) mg/dL (70-220) mg/dL (70-220) mg/dL (70-220) Test 01/16/19 11:49 Bedside 170 Glucose mg/dL (70-220) Results Result Diagram: 01/16/19 0431 01/16/19 0659 Results 24hrs Laboratory Tests Test 01/15/19 17:12 01/15/19 20:38 01/16/19 01:50 01/16/19 04:31 Bedside Glucose 206 287 H 94 White Blood Count 11.9 H Red Blood Count 4.69 L Hemoglobin 12.2 L Hematocrit 38.8 L Mean Corpuscular Volume 82.7 Mean Corpuscular 26.0 L Hemoglobin Mean Corpuscular 31.4 L Hemoglobin Concent Red Cell Distribution 17.2 H Width Platelet Count 342 Mean Platelet Volume 10.4 Immature Granulocytes % 0.900 H Neutrophils % 62.0 Lymphocytes % 25.5 Monocytes % 8.9 Eosinophils % 2.1 Basophils % 0.6 Nucleated Red Blood 0.0 Cells % Immature Granulocytes # 0.110 H Neutrophils # 7.4 Lymphocytes # 3.0 H Monocytes # 1.1 H Eosinophils # 0.3 Basophils # 0.1 Nucleated Red Blood 0.0 Cells # Sodium Level 143 Potassium Level 4.2 Chloride Level 107 Carbon Dioxide Level 30 Anion Gap 6 Blood Urea Nitrogen 15 Creatinine 0.51 L Est Glomerular Filtrat Rate mL/min Glucose Level 48 #*L Calcium Level 9.4 Test 01/16/19 06:36 01/16/19 06:45 01/16/19 06:59 01/16/19 07:56 Bedside Glucose 114 131 107 Glucose Level 89 # Test 01/16/19 11:49 Bedside Glucose 170 Medications Medication Current Medications Acetaminophen (Tylenol Tab) 1,000 mg Q6H PRN PO PAIN 4-02/24; Start 01/01/19 at 20:30 Ascorbic Acid (Vitamin C) 500 mg DAILY PO Last administered on 01/16/19at 08:41; Admin Dose 500 MG; Start 01/02/19 at 09:00 Benazepril HCl (Lotensin) 10 mg DAILY PO Last administered on 01/16/19at 08:43; Admin Dose 10 MG; Start 01/02/19 at 09:00 Bisacodyl (Dulcolax Supp) 10 mg DAILY PRN SC NEEDED; Start 01/01/19 at 20:30 Clonazepam (Klonopin) 0.5 mg DAILY PRN PO ANXIETY; Start 01/01/19 at 20:30 Clonidine (Catapres) 0.1 mg Q8H PRN PO IF SBP>160; Start 01/01/19 at 20:30 Digoxin (Digoxin) 0.125 mg DAILY@1300 PO Last administered on 01/15/19at 14:01; Admin Dose 0.125 MG; Start 01/02/19 at 13:00 Docusate Sodium (Colace) 200 mg QHS PRN PO CONSTIPATION; Start 01/01/19 at 20:30 Lansoprazole (Prevacid) 30 mg DAILY PO Last administered on 01/16/19 08:40; Admin Dose 30 MG; Start 01/02/19 at 09:00 Linagliptin (Tradjenta) 5 mg DAILY PO Last administered on 01/16/19 08:40; Admin Dose 5 MG; Start 01/02/19 at 09:00 Magnesium Hydroxide (Milk Of Mag) 30 ml QHS PRN PO CONSTIPATION; Start 01/01/19 at 20:30 Zinc Sulfate (Zinc Sulfate) 220 mg DAILY PO Last administered on 01/16/19 08:41; Admin Dose 220 MG; Start 01/02/19 at 09:00 Diagnostic Test (Pha) (Accu-Chek) 1 ea AC MEALS AND BEDTIME XX Last adm inistered on 01/05/19at 17:27; Admin Dose 1 EA; Start 01/01/19 at 21:00 Vancomycin HCl (Vanco Iv Per Pharmacy) VANCOMYCIN PER PHARMACY PER PROTOCOL XX ; Start 01/01/19 at 20:30 Furosemide (Lasix) 40 mg DAILY GTB Last administered on 01/16/19 08:42; Admin Dose 40 MG; Start 01/02/19 at 09:00 Diagnostic Test (Pha) (Accu-Chek) 1 ea 02 XX Last administered on 01/16/19 02:35; Admin Dose 1 EA; Start 01/02/19 at 02:00 Miscellaneous Information 1 ea NOTE XX ; Start 01/01/19 at 21:00 Glucose (Glutose) 15 gm Q15M PRN PO DECREASED GLUCOSE Last administered on 01/10/19at 08:10; Admin Dose 15 GM; Start 01/01/19 at 21:00 Glucose (Glutose) 22.5 gm Q15M PRN PO DECREASED GLUCOSE; Start 01/01/19 at 21:00 Dextrose (D50w Syringe) 25 ml Q15M PRN IV DECREASED GLUCOSE Last administered on 01/16/19 06:42; Admin Dose 25 ML; Start 01/01/19 at 21:00 Dextrose (D50w Syringe) 50 ml Q15M PRN IV DECREASED GLUCOSE Last administered on 01/06/19 08:05; Admin Dose 50 ML; Start 01/01/19 at 21:00 Glucagon (Glucagen) 1 mg Q15M PRN IM DECREASED GLUCOSE; Start 01/01/19 at 21:00 Glucose (Glutose) 15 gm Q15M PRN BUCCAL DECREASED GLUCOSE Last administered on 01/07/19 09:03; Admin Dose 15 GM; Start 01/01/19 at 21:00 Miscellaneous Information [facility] This patient henry... PRN PRN XX WOUND CARE; Start 01/01/19 at 23:00 Povidone Iodine (Povidone-Iodine) 1 applic DAILY TOP Last administered on 01/15/19 08:27; Admin Dose 1 APPLIC; Start 01/03/19 at 09:00 Ceftriaxone Sodium 50 ml @ 100 mls/hr Q24H IVPB Last administered on 01/15/19 18:20; Admin Dose 100 MLS/HR; Start 01/02/19 at 19:00 Metronidazole 100 ml @ 100 mls/hr Q8 IVPB Last administered on 01/16/19 05:06; Admin Dose 100 MLS/HR; Start 01/02/19 at 22:00 Vitamin B Complex/ Vitamin C (Berocca) 1 cap DAILY PO Last administered on 01/16/19 08:40; Admin Dose 1 CAP; Start 01/08/19 at 09:00 Fish Oil (Fish Oil) 1,000 mg DAILY PO Last administered on 01/16/19 08:41; Admin Dose 1,000 MG; Start 01/08/19 at 09:00 Vancomycin HCl 0.85 gm/Sodium Chloride 250 ml @ 125 mls/hr Q12H IVPB Last administered on 01/16/19 08:39; Admin Dose 125 MLS/HR; Start 01/08/19 at 08:30 Apixaban (Eliquis) 2.5 mg BID GTB Last administered on 01/16/19 08:42; Admin Dose 2.5 MG; Start 01/10/19 at 21:00 Atorvastatin Calcium (Lipitor) 10 mg QHS GTB Last administered on 01/15/19 20:35; Admin Dose 10 MG; Start 01/10/19 at 21:00 Donepezil HCl (Aricept) 5 mg QHS GTB Last administered on 01/15/19 20:35; Admin Dose 5 MG; Start 01/10/19 at 21:00 Quetiapine Fumarate (Seroquel) 100 mg HS GTB Last administered on 01/15/19 20:34; Admin Dose 100 MG; Start 01/10/19 at 21:00 Valproate Sodium (Depakene Liquid Cup) 125 mg BID GTB Last administered on 01/16/19 08:40; Admin Dose 125 MG; Start 01/10/19 at 21:00 Acetaminophen (Tylenol Liquid) 500 mg BID GTB Last administered on 01/16/19 08:40; Admin Dose 500 MG; Start 01/10/19 at 21:00 Metoprolol Tartrate (Lopressor) 12.5 mg BID GTB Last administered on 01/16/19 08:43; Admin Dose 12.5 MG; Start 01/11/19 at 09:00 Ammonium Lactate (Lac-Hydrin 12% Lotion) 1 applic DAILY TOP Last administered on 01/15/19 08:27; Admin Dose 1 APPLIC; Start 01/11/19 at 16:00 Clotrimazole (Lotrimin Cr) 1 applic BID TOP Last administered on 01/15/19 20:57; Admin Dose 1 APPLIC; Start 01/11/19 at 21:00 Diagnostic Test (Pha) (Accu-Chek) 1 ea 02 XX ; Start 01/17/19 at 02:00 Insulin Aspart (Novolog Insulin Pen) NOVOLOG *MILD* ALGORITHM WITH MEALS BEDTIME SC Last administered on 01/16/19 11:55; Admin Dose 1 UNIT; Start 01/16/19 at 12:00 Insulin Glargine (Lantus) 12 units QHS SC ; Start 01/16/19 at 21:00; Status UNV Metformin HCl (Glucophage) 1,000 mg WITH BREAKFAST DINNE PO ; Start 01/16/19 at 18:05; Status UNV Empaglifozin (Jardiance) 10 mg DAILY@08 PO ; Start 01/17/19 at 08:00; Status UNV Repaglinide (Prandin) 0.5 mg AC MEALS PO ; Start 01/16/19 at 17:35; Status UNV EDER ATKINSON MD January 16, 2019 13:47
[2019-01-16 14:14] VITALS: BP 120/58; PULSE 88; RESP 18
[2019-01-16] MEDS: DIGOXIN 0.125 MG TAB PO SCH (14:24)
[2019-01-16] MEDS: CLOTRIMAZOLE 1% 30 GM CR TOP SCH ×2 (14:25→21:06)
[2019-01-16] MEDS: AMMONIUM LACTATE 12% 225 GM LOT TOP SCH (14:25)
[2019-01-16] MEDS: POVIDONE IODINE 10% 28.4 GM OINT TOP SCH (14:26)
--- NOTE | 2019-01-16 14:36 | CONS ---
[facility] HCIS Consult Follow-up Patient Name: Gavino Aleman Unit Number: [id number] Date of : 1935 Patient Status: Admitted Inpatient Attending Doctor: Abdirashid Anna MD Edit: MAYNOR JIMÉNEZ M.D. on 01/16/19 @ 20:28 Jessy: I discussed the management with CARDIOLOGY TECHNICIAN Varinder and agree Assessment/Plan Assessment/Plan Hospital Course (Demo Recall) assessment/impression # musculoskeletal - recurrent OM R foot - XR 01/01/19 of R foot showed findings c/w OM present lateral aspect of distal forefoot - wound culture grew diptheroids. a colonizer - eschar of R 2nd digit, lateral R foot - s/p diabetic foot infection/unhealing wound: wound culture 10/10/18 of L foot grew MRSA and corynebacter JK, wound culture of R foot grew proteus, enterococci and corynebacter JK - S/p bedside debridement on 10/11/2018 - Hx Likely OM; b/l foot XR 10/10/18 showed: Irregularity of the margins of the proximal phalanx of R 3rd digit and of 4th metatarsal head, raising suspicion for OM; periarticular lucencies with soft tissue swelling about R 5th MTP articulation. Soft tissue ulceration along the posterior lateral aspect of L midfoot and hindfoot; no e/o bone destructive process. 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 - DJD of lumbar spine - H/o lumbar surgery - Onychomycosis # cardiovascular - Bacteremia 01/01/19 blood culture x1 set grew coag neg staph -> likely contaminant, repeat cultures 01/03/19 negative - PVD - US arterial b/l LE on 10/10/2018 showed severe peripheral vascular disease with occlusion of b/l superficial femoral and popliteal arteries, severe stenosis or occlusion of b/l posterior tibial and dorsalis pedis arteries - h/o angiogram 10/22/2018 with no intervention - CAD - h/o CABG - CHF, acute on chronic systolic- EF 25% - HTN - Afib # endocrine - DMT2; HgbA1c 7.4% - Diabetic neuropathy - HLD - hypoglycemic episode 01/16/2019 # neuro, immunology - Alzheimer's dementia - Hx intracranial bleed - PCN allergy; Has tolerated cefepime previously per EMR at [facility], tolerates ceftriaxone too, he has previously tolerated Merrem as well recommendations: - continue vancomycin, ceftriaxone, metronidazole (01/02/19-) x 6 weeks for recurrent OM, suggested end date: 02/13/2019 - please order weekly CBC, BMP while Pt's on IV antibiotics - continue local wound care Management d/w MILTON Black and with Dr. Jiménez Consultation Date/Type/Reason Admit Date/Time Jan 01, 2019 at 18:01 Initial Consult Date 01/02/19 Type of Consult Infectious Disease Requesting Provider: GLORIA ACEVES Date/Time of Note DATE: 01/16/19 TIME: 14:33 24 HR Interval Summary Free Text/Dictation Glucose 48 this AM, dextrose was given, Construction Representative was consulted and diabetic regimen was adjusted. DC planning in progress back to [facility] per d/w pt's. Pt reports mild feet pain with no other complaints. Exam/Review of Systems Exam Vitals Vital Signs Date Temp Pulse Resp B/P (MAP) Pulse Ox O2 O2 Flow FiO2 Time Delivery Rate 01/16/19 98.0 88 18 120/58 98 Room Air 14:14 (78) Intake and Output 01/15/19 01/15/19 01/16/19 1515:00 23:00 07:00 IntakeIntake Total 1040 ml 1400 ml 830 ml BalanceBalance 1040 ml 1400 ml 830 ml Exam Constitutional: alert, frail, other (lying in bed in NAD and bedding being changed by GERIATRIC PHYSICAL THERAPIST) Psych: confusion Head: normocephalic, atraumatic Eyes: nl conjunctiva, nl lids, nl sclera ENMT: nl external ears & nose, nl nasal mucosa & septum, mucosa pink and moist Neck: other (not swollen) Respiratory: clear to auscultation, normal air movement Cardiovascular: regular rate and rhythm, nl pulses Gastrointestinal: soft, non-tender Genitourinary - Male: other (incontinent) Musculoskeletal: muscle weakness, other (+eschar on feet; photos in chart reviewed) Extremities: No edema Neurological: confused Skin: nl turgor, other (bilateral feet wrapped with Kerlix c/d/i) Results Result Diagram: 01/16/19 0431 01/16/19 0659 Results 24hrs Laboratory Tests Test 01/15/19 17:12 01/15/19 20:38 01/16/19 01:50 01/16/19 04:31 Bedside Glucose 206 287 H 94 White Blood Count 11.9 H Red Blood Count 4.69 L Hemoglobin 12.2 L Hematocrit 38.8 L Mean Corpuscular Volume 82.7 Mean Corpuscular 26.0 L Hemoglobin Mean Corpuscular 31.4 L Hemoglobin Concent Red Cell Distribution 17.2 H Width Platelet Count 342 Mean Platelet Volume 10.4 Immature Granulocytes % 0.900 H Neutrophils % 62.0 Lymphocytes % 25.5 Monocytes % 8.9 Eosinophils % 2.1 Basophils % 0.6 Nucleated Red Blood 0.0 Cells % Immature Granulocytes # 0.110 H Neutrophils # 7.4 Lymphocytes # 3.0 H Monocytes # 1.1 H Eosinophils # 0.3 Basophils # 0.1 Nucleated Red Blood 0.0 Cells # Sodium Level 143 Potassium Level 4.2 Chloride Level 107 Carbon Dioxide Level 30 Anion Gap 6 Blood Urea Nitrogen 15 Creatinine 0.51 L Est Glomerular Filtrat Rate mL/min Glucose Level 48 #*L Calcium Level 9.4 Test 01/16/19 06:36 01/16/19 06:45 01/16/19 06:59 01/16/19 07:56 Bedside Glucose 114 131 107 Glucose Level 89 # Test 01/16/19 11:49 Bedside Glucose 170 Medications Medication Current Medications Acetaminophen (Tylenol Tab) 1,000 mg Q6H PRN PO PAIN 4-6/10; Start 01/01/19 at 20:30 Ascorbic Acid (Vitamin C) 500 mg DAILY PO Last administered on 01/16/19at 08:41; Admin Dose 500 MG; Start 01/02/19 at 09:00 Benazepril HCl (Lotensin) 10 mg DAILY PO Last administered on 01/16/19 08:43; Admin Dose 10 MG; Start 01/02/19 at 09:00 Bisacodyl (Dulcolax Supp) 10 mg DAILY PRN MO NEEDED; Start 01/01/19 at 20:30 Clonazepam (Klonopin) 0.5 mg DAILY PRN PO ANXIETY; Start 01/01/19 at 20:30 Clonidine (Catapres) 0.1 mg Q8H PRN PO IF SBP>160; Start 01/01/19 at 20:30 Digoxin (Digoxin) 0.125 mg DAILY@1300 PO Last administered on 01/16/19 14:24; Admin Dose 0.125 MG; Start 01/02/19 at 13:00 Docusate Sodium (Colace) 200 mg QHS PRN PO CONSTIPATION; Start 01/01/19 at 20:30 Lansoprazole (Prevacid) 30 mg DAILY PO Last administered on 01/16/19 08:40; Admin Dose 30 MG; Start 01/02/19 at 09:00 Linagliptin (Tradjenta) 5 mg DAILY PO Last administered on 01/16/19 08:40; Admin Dose 5 MG; Start 01/02/19 at 09:00 Magnesium Hydroxide (Milk Of Mag) 30 ml QHS PRN PO CONSTIPATION; Start 01/01/19 at 20:30 Zinc Sulfate (Zinc Sulfate) 220 mg DAILY PO Last administered on 01/16/19 08:41; Admin Dose 220 MG; Start 01/02/19 at 09:00 Diagnostic Test (Pha) (Accu-Chek) 1 ea AC MEALS AND BEDTIME XX Last administered on 01/05/19 17:27; Admin Dose 1 EA; Start 01/01/19 at 21:00 Vancomycin HCl (Vanco Iv Per Pharmacy) VANCOMYCIN PER PHARMACY PER PROTOCOL XX ; Start 01/01/19 at 20:30 Furosemide (Lasix) 40 mg DAILY GTB Last administered on 01/16/19 08:42; Admin Dose 40 MG; Start 01/02/19 at 09:00 Diagnostic Test (Pha) (Accu-Chek) 1 ea 02 XX Last administered on 01/16/19 02:35; Admin Dose 1 EA; Start 01/02/19 at 02:00 Miscellaneous Information 1 ea NOTE XX ; Start 01/01/19 at 21:00 Glucose (Glutose) 15 gm Q15M PRN PO DECREASED GLUCOSE Last administered on 01/10/19 08:10; Admin Dose 15 GM; Start 01/01/19 at 21:00 Glucose (Glutose) 22.5 gm Q15M PRN PO DECREASED GLUCOSE; Start 01/01/19 at 21:00 Dextrose (D50w Syringe) 25 ml Q15M PRN IV DECREASED GLUCOSE Last administered on 01/16/19 06:42; Admin Dose 25 ML; Start 01/01/19 at 21:00 Dextrose (D50w Syringe) 50 ml Q15M PRN IV DECREASED GLUCOSE Last administered on 01/06/19 08:05; Admin Dose 50 ML; Start 01/01/19 at 21:00 Glucagon (Glucagen) 1 mg Q15M PRN IM DECREASED GLUCOSE; Start 01/01/19 at 21:00 Glucose (Glutose) 15 gm Q15M PRN BUCCAL DECREASED GLUCOSE Last administered on 01/07/19 09:03; Admin Dose 15 GM; Start 01/01/19 at 21:00 Miscellaneous Information (Pending Santyl Order For Wound Care) This patient henry... PRN PRN XX WOUND CARE; Start 01/01/19 at 23:00 Povidone Iodine (Povidone-Iodine) 1 applic DAILY TOP Last administered on 01/16/19 14:26; Admin Dose 1 APPLIC; Start 01/03/19 at 09:00 Ceftriaxone Sodium 50 ml @ 100 mls/hr Q24H IVPB Last administered on 01/15/19 18:20; Admin Dose 100 MLS/HR; Start 01/02/19 at 19:00 Metronidazole 100 ml @ 100 mls/hr Q8 IVPB Last administered on 01/16/19 14:24; Admin Dose 100 MLS/HR; Start 01/02/19 at 22:00 Vitamin B Complex/ Vitamin C (Berocca) 1 cap DAILY PO Last administered on 01/16/19 08:40; Admin Dose 1 CAP; Start 01/08/19 at 09:00 Fish Oil (Fish Oil) 1,000 mg DAILY PO Last administered on 01/16/19 08:41; Admin Dose 1,000 MG; Start 01/08/19 at 09:00 Vancomycin HCl 0.85 gm/Sodium Chloride 250 ml @ 125 mls/hr Q12H IVPB Last adm inistered on 01/16/19 08:39; Admin Dose 125 MLS/HR; Start 01/08/19 at 08:30 Apixaban (Eliquis) 2.5 mg BID GTB Last administered on 01/16/19 08:42; Admin Dose 2.5 MG; Start 01/10/19 at 21:00 Atorvastatin Calcium (Lipitor) 10 mg QHS GTB Last administered on 01/15/19 20:35; Admin Dose 10 MG; Start 01/10/19 at 21:00 Donepezil HCl (Aricept) 5 mg QHS GTB Last administered on 01/15/19 20:35; Admin Dose 5 MG; Start 01/10/19 at 21:00 Quetiapine Fumarate (Seroquel) 100 mg HS GTB Last administered on 01/15/19 20:34; Admin Dose 100 MG; Start 01/10/19 at 21:00 Valproate Sodium (Depakene Liquid Cup) 125 mg BID GTB Last administered on 01/16/19 08:40; Admin Dose 125 MG; Start 01/10/19 at 21:00 Acetaminophen (Tylenol Liquid) 500 mg BID GTB Last administered on 01/16/19 08:40; Admin Dose 500 MG; Start 01/10/19 at 21:00 Metoprolol Tartrate (Lopressor) 12.5 mg BID GTB Last administered on 01/16/19 0 8:43; Admin Dose 12.5 MG; Start 01/11/19 at 09:00 Ammonium Lactate (Lac-Hydrin 12% Lotion) 1 applic DAILY TOP Last administered on 01/16/19 14:25; Admin Dose 1 APPLIC; Start 01/11/19 at 16:00 Clotrimazole (Lotrimin Cr) 1 applic BID TOP Last administered on 01/16/19 14:25; Admin Dose 1 APPLIC; Start 01/11/19 at 21:00 Diagnostic Test (Pha) (Accu-Chek) 1 ea 02 XX ; Start 01/17/19 at 02:00 Insulin Aspart (Novolog Insulin Pen) NOVOLOG *MILD* ALGORITHM WITH MEALS BEDTIME SC Last administered on 5/2/19at 11:55; Admin Dose 1 UNIT; Start 01/16/19 at 12:00 Insulin Glargine (Lantus) 12 units QHS SC ; Start 01/16/19 at 21:00; Status UNV Metformin HCl (Glucophage) 1,000 mg WITH BREAKFAST DINNE PO ; Start 01/16/19 at 18:05; Status UNV Empaglifozin (Jardiance) 10 mg DAILY@08 PO ; Start 01/17/19 at 08:00; Status UNV Repaglinide (Prandin) 0.5 mg AC MEALS PO ; Start 01/16/19 at 17:35; Status UNV DANIELA ANDERSON NP January 16, 2019 14:36
[2019-01-16] MEDS: REPAGLINIDE 1 MG TAB PO SCH (17:54)
[2019-01-16] MEDS: CEFTRIAXONE 1 GM/50 ML (PMX) 50 ML IVPB SCH (18:01)
[2019-01-16 20:00] VITALS: BP 132/73; PULSE 56; RESP 18
[2019-01-16] MEDS: ATORVASTATIN 10 MG TAB GTB SCH (20:39)
[2019-01-16] MEDS: DONEPEZIL 5 MG TAB GTB SCH (20:39)
[2019-01-16] MEDS: QUETIAPINE 100 MG TAB GTB SCH (20:43)
[2019-01-16] MEDS ORDERED: INSULIN GLARGINE [LANTus] (100 UNITS/ML) SYG SC SCH ×2 (21:00)
[2019-01-17 02:00] VITALS: BP 138/63; PULSE 61; RESP 18
[2019-01-17] MEDS ORDERED: ACCU-CHEK XX SCH (02:00)
[2019-01-17] MEDS: ACCU-CHEK XX SCH ×4 (02:31→17:13)
[2019-01-17] MEDS: metroNIDAZOLE 500 MG/NS (PMX) 100 ML IVPB SCH ×2 (05:30→13:21)
--- NOTE | 2019-01-17 05:34 | PN ---
Date/Time of Note Date/Time of Note DATE: 01/17/19 TIME: 05:34 Assessment/Plan VTE Prophylaxis Risk score (from Nsg)>0 risk: 8 SCD applied (from Nsg): No Lines/Catheters IV Catheter Type (from Nrsg): Mid Line Urinary Cath still in place: No Assessment/Plan Result Diagram: 01/16/19 0431 01/16/19 0659 Results 24hrs Laboratory Tests Test 01/16/19 06:36 01/16/19 06:45 01/16/19 06:59 01/16/19 07:56 Bedside Glucose 114 131 107 Glucose Level 89 # Test 01/16/19 11:49 01/16/19 17:50 01/16/19 20:32 01/17/19 01:49 Bedside Glucose 170 203 217 188 Subjective 24 Hr Interval Summary Free Text/Dictation placement pending Exam/Review of Systems Exam Vitals Vital Signs Date Temp Pulse Resp B/P (MAP) Pulse Ox O2 O2 Flow FiO2 Time Delivery Rate 01/17/19 98.3 61 18 138/63 100 02:00 (88) 01/16/19 Room Air 14:14 Intake and Output 01/16/19 01/16/19 01/17/19 1515:00 23:00 07:00 IntakeIntake Total 990 ml 300 ml 900 ml BalanceBalance 990 ml 300 ml 900 ml Results Results 24hrs Laboratory Tests Test 01/16/19 06:36 01/16/19 06:45 01/16/19 06:59 01/16/19 07:56 Bedside Glucose 114 131 107 Glucose Level 89 # Test 01/16/19 11:49 01/16/19 17:50 01/16/19 20:32 01/17/19 01:49 Bedside Glucose 170 203 217 188 Medications Medication Current Medications Acetaminophen (Tylenol Tab) 1,000 mg Q6H PRN PO PAIN 4-610; Start 01/01/19 at 20:30 Ascorbic Acid (Vitamin C) 500 mg DAILY PO Last administered on 01/16/19at 08:41; Admin Dose 500 MG; Start 01/02/19 at 09:00 Benazepril HCl (Lotensin) 10 mg DAILY PO Last administered on 01/16/19at 08:43; Admin Dose 10 MG; Start 01/02/19 at 09:00 Bisacodyl (Dulcolax Supp) 10 mg DAILY PRN [place] NEEDED; Start 01/01/19 at 20:30 Clonazepam (Klonopin) 0.5 mg DAILY PRN PO ANXIETY; Start 01/01/19 at 20:30 Clonidine (Catapres) 0.1 mg Q8H PRN PO IF SBP>160; Start 01/01/19 at 20:30 Digoxin (Digoxin) 0.125 mg DAILY@1300 PO Last administered on 01/16/19 14:24; Admin Dose 0.125 MG; Start 01/02/19 at 13:00 Docusate Sodium (Colace) 200 mg QHS PRN PO CONSTIPATION; Start 01/01/19 at 20:30 Lansoprazole (Prevacid) 30 mg DAILY PO Last administered on 01/16/19 08:40; Admin Dose 30 MG; Start 01/02/19 at 09:00 Linagliptin (Tradjenta) 5 mg DAILY PO Last administered on 01/16/19 08:40; Admin Dose 5 MG; Start 01/02/19 at 09:00 Magnesium Hydroxide (Milk Of Mag) 30 ml QHS PRN PO CONSTIPATION; Start 01/01/19 at 20:30 Zinc Sulfate (Zinc Sulfate) 220 mg DAILY PO Last administered on 01/16/19 08:41; Admin Dose 220 MG; Start 01/02/19 at 09:00 Diagnostic Test (Pha) (Accu-Chek) 1 ea AC MEALS AND BEDTIME XX Last administered on 01/16/19 21:04; Admin Dose 1 EA; Start 01/01/19 at 21:00 Vancomycin HCl (Vanco Iv Per Pharmacy) VANCOMYCIN PER PHARMACY PER PROTOCOL XX ; Start 01/01/19 at 20:30 Furosemide (Lasix) 40 mg DAILY GTB Last administered on 01/16/19 08:42; Admin Dose 40 MG; Start 01/02/19 at 09:00 Diagnostic Test (Pha) (Accu-Chek) 1 ea 02 XX Last administered on 01/17/19 02:31; Admin Dose 1 EA; Start 01/02/19 at 02:00 Miscellaneous Information 1 ea NOTE XX ; Start 01/01/19 at 21:00 Glucose (Glutose) 15 gm Q15M PRN PO DECREASED GLUCOSE Last administered on 01/10/19 08:10; Admin Dose 15 GM; Start 01/01/19 at 21:00 Glucose (Glutose) 22.5 gm Q15M PRN PO DECREASED GLUCOSE; Start 01/01/19 at 21:00 Dextrose (D50w Syringe) 25 ml Q15M PRN IV DECREASED GLUCOSE Last administered on 01/16/19 06:42; Admin Dose 25 ML; Start 01/01/19 at 21:00 Dextrose (D50w Syringe) 50 ml Q15M PRN IV DECREASED GLUCOSE Last administered on 01/06/19 08:05; Admin Dose 50 ML; Start 01/01/19 at 21:00 Glucagon (Glucagen) 1 mg Q15M PRN IM DECREASED GLUCOSE; Start 01/01/19 at 21:00 Glucose (Glutose) 15 gm Q15M PRN BUCCAL DECREASED GLUCOSE Last administered on 01/07/19 09:03; Admin Dose 15 GM; Start 01/01/19 at 21:00 Miscellaneous Information (Pending [facility] Order For Wound Care) This patient henry... PRN PRN XX WOUND CARE; Start 01/01/19 at 23:00 Povidone Iodine (Povidone-Iodine) 1 applic DAILY TOP Last administered on 01/16/19 14:26; Admin Dose 1 APPLIC; Start 01/03/19 at 09:00 Ceftriaxone Sodium 50 ml @ 100 mls/hr Q24H IVPB Last administered on 01/16/19 18:01; Admin Dose 100 MLS/HR; Start 01/02/19 at 19:00 Metronidazole 100 ml @ 100 mls/hr Q8 IVPB Last administered on 01/17/19 05:30; Admin Dose 100 MLS/HR; Start 01/02/19 at 22:00 Vitamin B Complex/ Vitamin C (Berocca) 1 cap DAILY PO Last administered on 01/16/19 08:40; Admin Dose 1 CAP; Start 01/08/19 at 09:00 Fish Oil (Fish Oil) 1,000 mg DAILY PO Last administered on 01/16/19 08:41; Admin Dose 1,000 MG; Start 01/08/19 at 09:00 Vancomycin HCl 0.85 gm/Sodium Chloride 250 ml @ 125 mls/hr Q12H IVPB Last administered on 01/16/19 20:37; Admin Dose 125 MLS/HR; Start 01/08/19 at 08:30 Apixaban (Eliquis) 2.5 mg BID GTB Last administered on 01/16/19 20:39; Admin Dose 2.5 MG; Start 01/10/19 at 21:00 Atorvastatin Calcium (Lipitor) 10 mg QHS GTB Last administered on 01/16/19 20:39; Admin Dose 10 MG; Start 01/10/19 at 21:00 Donepezil HCl (Aricept) 5 mg QHS GTB Last administered on 01/16/19 20:39; Admin Dose 5 MG; Start 01/10/19 at 21:00 Quetiapine Fumarate (Seroquel) 100 mg HS GTB Last administered on 01/16/19 20:43; Admin Dose 100 MG; Start 01/10/19 at 21:00 Valproate Sodium (Depakene Liquid Cup) 125 mg BID GTB Last administered on 01/16/19 20:39; Admin Dose 125 MG; Start 01/10/19 at 21:00 Acetaminophen (Tylenol Liquid) 500 mg BID GTB Last administered on 01/16/19 20:43; Admin Dose 500 MG; Start 01/10/19 at 21:00 Metoprolol Tartrate (Lopressor) 12.5 mg BID GTB Last administered on 01/16/19 08:43; Admin Dose 12.5 MG; Start 01/11/19 at 09:00 Ammonium Lactate (Lac-Hydrin 12% Lotion) 1 applic DAILY TOP Last administered on 01/16/19 14:25; Admin Dose 1 APPLIC; Start 01/11/19 at 16:00 Clotrimazole (Lotrimin Cr) 1 applic BID TOP Last administered on 01/16/19 21:06; Admin Dose 1 APPLIC; Start 01/11/19 at 21:00 Diagnostic Test (Pha) (Accu-Chek) 1 ea 02 XX Last administered on 01/17/19 02:31; Admin Dose 1 EA; Start 01/17/19 at 02:00 Insulin Aspart (Novolog Insulin Pen) NOVOLOG *MILD* ALGORITHM WITH MEALS BEDTIME SC Last administered on 01/16/19 20:37; Admin Dose 1 UNIT; Start 01/16/19 at 12:00 Insulin Glargine (Lantus) 12 units QHS SC Last administered on 01/16/19at 20:35; Admin Dose 12 UNITS; Start 01/16/19 at 21:00 Metformin HCl (Glucophage) 1,000 mg WITH BREAKFAST DINNE PO Last administered on 01/16/19at 17:54; Admin Dose 1,000 MG; Start 01/16/19 at 18:05 Empaglifozin (Jardiance) 10 mg DAILY@08 PO ; Start 01/17/19 at 08:00 Repaglinide (Prandin) 0.5 mg AC MEALS PO Last administered on 01/16/19at 17:54; Admin Dose 0.5 MG; Start 01/16/19 at 17:35 GLORIA ACEVES January 17, 2019 05:34
[2019-01-17 08:00] VITALS: BP 122/82; PULSE 89; RESP 20
[2019-01-17] MEDS ORDERED: EMPAGLIFLOZIN 10 MG TABLET PO SCH (08:00)
[2019-01-17] MEDS: VITAMIN B COMPLEX/VIT C CAP PO SCH (08:16)
[2019-01-17] MEDS: ACETAMINOPHEN 650MG/20.3ML CUP GTB SCH (08:16)
[2019-01-17] MEDS: BENAZEPRIL 10 MG TAB PO SCH (08:16)
[2019-01-17] MEDS: REPAGLINIDE 1 MG TAB PO SCH ×3 (08:16→17:35)
[2019-01-17] MEDS: APIXABAN 5 MG TABLET GTB SCH (08:17)
[2019-01-17] MEDS: LANSOPRAZOLE 30 MG CAP PO SCH (08:18)
[2019-01-17] MEDS: ASCORBIC ACID 500 MG TAB PO SCH (08:19)
[2019-01-17] MEDS: FUROSEMIDE 40 MG TAB GTB SCH (08:19)
[2019-01-17] MEDS: METOPROLOL 25 MG TAB GTB SCH (08:20)
[2019-01-17] MEDS: LINAGLIPTIN 5 MG TABLET PO SCH (08:21)
[2019-01-17] MEDS: FISH OIL 1,000 MG CAP PO SCH (08:21)
[2019-01-17] MEDS: ZINC SULFATE 220 MG CAP PO SCH (08:21)
[2019-01-17] MEDS: VALPROIC ACID LIQUID CUP 250 MG/5 ML CUP GTB SCH (08:22)
[2019-01-17] MEDS: metFORMIN 500 MG TAB PO SCH ×2 (08:25→18:03)
[2019-01-17] MEDS: VANCOMYCIN HCL 0.85 GM in SOD CHLORIDE 0.9% 250 ML IVPB SCH (08:26)
[2019-01-17] MEDS: INSULIN ASPART [NOVOLOG] 3 ML PEN SC SCH ×3 (08:37→18:03)
[2019-01-17] MEDS: AMMONIUM LACTATE 12% 225 GM LOT TOP SCH (11:39)
[2019-01-17] MEDS: CLOTRIMAZOLE 1% 30 GM CR TOP SCH (11:39)
[2019-01-17] MEDS: POVIDONE IODINE 10% 28.4 GM OINT TOP SCH (11:40)
[2019-01-17] MEDS: DIGOXIN 0.125 MG TAB PO SCH (12:07)
[2019-01-17 14:00] VITALS: BP 132/62; PULSE 74; RESP 18
--- NOTE | 2019-01-17 14:10 | CONS ---
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 Now w/ addition of new meds, BG is improved. Will cont. current regimen. Pt. to be transferred out to SNF. Would cont. this regimen after d/c and monitor BG. Qualifiers: Diabetes mellitus long term acute care registered nurse insulin use: with long term acute care registered nurse use Qualified Codes: E11.51 - Type 2 diabetes mellitus with diabetic peripheral angiopathy without gangrene; Z79.4 - long term acute care registered nurse (current) use of insulin Consultation Date/Type/Reason Admit Date/Time Jan 01, 2019 at 18:01 Initial Consult Date 01/16/19 Type of Consult Endocrinology Reason for Consultation T2DM management Requesting Provider: GLORIA ACEVES Date/Time of Note DATE: 01/17/19 TIME: 14:08 24 HR Interval Summary Constitutional: no complaints, improved Exam/Review of Systems Exam Vitals VS - Last 72 Hours, by Label Date Temp Pulse Resp B/P (MAP) Pulse Ox O2 O2 Flow FiO2 Time Delivery Rate 01/17/19 98.0 09:01 01/17/19 98.6 08:16 01/17/19 98.8 89 20 122/82 98 08:00 (95) 01/17/19 98.3 61 18 138/63 100 02:00 (88) 01/16/19 98.3 56 18 132/73 98 20:00 (92) 01/16/19 98.0 88 18 120/58 98 Room Air 14:14 (78) 01/16/19 98.0 08:40 01/16/19 97.7 95 18 117/60 98 Room Air 07:20 (79) 01/16/19 98.5 71 18 133/71 100 02:05 (91) 01/15/19 98.4 70 18 132/68 97 20:05 (89) 01/15/19 97.4 97 16 148/72 99 Room Air 14:36 (97) 01/15/19 98.0 95 18 90/50 (63) 96 Room Air 07:20 01/15/19 98.1 90 18 132/64 98 Room Air 02:31 (86) 01/14/19 98.3 93 18 130/60 99 20:00 (83) Vital Signs Date Temp Pulse Resp B/P (MAP) Pulse Ox O2 O2 Flow FiO2 Time Delivery Rate 01/17/19 98.0 09:01 01/17/19 89 20 122/82 98 08:00 (95) 01/16/19 Room Air 14:14 Intake and Output 01/16/19 01/16/19 01/17/19 1515:00 23:00 07:00 IntakeIntake Total 990 ml 400 ml 1240 ml BalanceBalance 990 ml 400 ml 1240 ml Constitutional: alert, frail; No oriented Psych: confusion Respiratory: clear to auscultation, normal air movement Cardiovascular: regular rate and rhythm; No edema, No murmurs/extra sounds, No rub Gastrointestinal: soft, nl liver, spleen, non-tender, bowel sounds; No mass, No rebound or guarding Musculoskeletal: No nl extremities to inspection (B feet wrapped) Extremities: No cyanosis, No clubbing, No edema Neurological: TAX MANAGER II-XII intact, nl speech, nl strength, confused; No nl mental status Additional Comments Bedside Glucose - 72 Hours Test 01/14/19 17:10 01/14/19 21:34 01/15/19 02:11 01/15/19 08:16 Bedside 285 240 115 124 Glucose mg/dL (70-220) mg/dL (70-220) mg/dL (70-220) mg/dL (70-220) H H Test 01/15/19 12:06 01/15/19 17:12 01/15/19 20:38 01/16/19 01:50 Bedside 136 206 287 94 Glucose mg/dL (70-220) mg/dL (70-220) mg/dL (70-220) mg/dL (70-220) H Test 01/16/19 06:36 01/16/19 06:45 01/16/19 07:56 01/16/19 11:49 Bedside 114 131 107 170 Glucose mg/dL (70-220) mg/dL (70-220) mg/dL (70-220) mg/dL (70-220) Test 01/16/19 17:50 01/16/19 20:32 01/17/19 01:49 01/17/19 08:06 Bedside 203 217 188 202 Glucose mg/dL (70-220) mg/dL (70-220) mg/dL (70-220) mg/dL (70-220) Test 01/17/19 11:50 Bedside 121 Glucose mg/dL (70-220) Results Result Diagram: 01/16/19 0431 01/16/19 0659 Results 24hrs Laboratory Tests Test 01/16/19 17:50 01/16/19 20:32 01/17/19 01:49 01/17/19 08:06 Bedside Glucose 203 217 188 202 Test 01/17/19 11:50 Bedside Glucose 121 Medications Medication Current Medications Acetaminophen (Tylenol Tab) 1,000 mg Q6H PRN PO PAIN -02/24; Start 01/01/19 at 20:30 Ascorbic Acid (Vitamin C) 500 mg DAILY PO Last administered on 01/17/19at 08:19; Admin Dose 500 MG; Start 01/02/19 at 09:00 Benazepril HCl (Lotensin) 10 mg DAILY PO Last administered on 01/17/19at 08:16; Admin Dose 10 MG; Start 01/02/19 at 09:00 Bisacodyl (Dulcolax Supp) 10 mg DAILY PRN AR NEEDED; Start 01/01/19 at 20:30 Clonazepam (Klonopin) 0.5 mg DAILY PRN PO ANXIETY; Start 01/01/19 at 20:30 Clonidine (Catapres) 0.1 mg Q8H PRN PO IF SBP>160; Start 01/01/19 at 20:30 Digoxin (Digoxin) 0.125 mg DAILY@1300 PO Last administered on 01/17/19at 12:07; Admin Dose 0.125 MG; Start 01/02/19 at 13:00 Docusate Sodium (Colace) 200 mg QHS PRN PO CONSTIPATION; Start 01/01/19 at 20:30 Lansoprazole (Prevacid) 30 mg DAILY PO Last administered on 01/17/19at 08:18; Admin Dose 30 MG; Start 01/02/19 at 09:00 Linagliptin (Tradjenta) 5 mg DAILY PO Last administered on 01/17/19at 08:21; Admin Dose 5 MG; Start 01/02/19 at 09:00 Magnesium Hydroxide (Milk Of Mag) 30 ml QHS PRN PO CONSTIPATION; Start 01/01/19 at 20:30 Zinc Sulfate (Zinc Sulfate) 220 mg DAILY PO Last administered on 01/17/19 08:21; Admin Dose 220 MG; Start 01/02/19 at 09:00 Diagnostic Test (Pha) (Accu-Chek) 1 ea AC MEALS AND BEDTIME XX Last administered on 01/16/19 21:04; Admin Dose 1 EA; Start 01/01/19 at 21:00 Vancomycin HCl (Vanco Iv Per Pharmacy) VANCOMYCIN PER PHARMACY PER PROTOCOL XX ; Start 01/01/19 at 20:30 Furosemide (Lasix) 40 mg DAILY GTB Last administered on 01/17/19 08:19; Admin Dose 40 MG; Start 01/02/19 at 09:00 Diagnostic Test (Pha) (Accu-Chek) 1 ea 02 XX Last administered on 01/17/19 02:31; Admin Dose 1 EA; Start 01/02/19 at 02:00 Miscellaneous Information 1 ea NOTE XX ; Start 01/01/19 at 21:00 Glucose (Glutose) 15 gm Q15M PRN PO DECREASED GLUCOSE Last administered on 01/10/19 08:10; Admin Dose 15 GM; Start 01/01/19 at 21:00 Glucose (Glutose) 22.5 gm Q15M PRN PO DECREASED GLUCOSE; Start 01/01/19 at 21:00 Dextrose (D50w Syringe) 25 ml Q15M PRN IV DECREASED GLUCOSE Last administered on 01/16/19 06:42; Admin Dose 25 ML; Start 01/01/19 at 21:00 Dextrose (D50w Syringe) 50 ml Q15M PRN IV DECREASED GLUCOSE Last administered on 01/06/19 08:05; Admin Dose 50 ML; Start 01/01/19 at 21:00 Glucagon (Glucagen) 1 mg Q15M PRN IM DECREASED GLUCOSE; Start 01/01/19 at 21:00 Glucose (Glutose) 15 gm Q15M PRN BUCCAL DECREASED GLUCOSE Last administered on 01/07/19 09:03; Admin Dose 15 GM; Start 01/01/19 at 21:00 Miscellaneous Information ([facility] This patient henry... PRN PRN XX WOUND CARE; Start 01/01/19 at 23:00 Povidone Iodine (Povidone-Iodine) 1 applic DAILY TOP Last administered on 01/17/19 11:40; Admin Dose 1 APPLIC; Start 01/03/19 at 09:00 Ceftriaxone Sodium 50 ml @ 100 mls/hr Q24H IVPB Last administered on 01/16/19 18:01; Admin Dose 100 MLS/HR; Start 01/02/19 at 19:00 Metronidazole 100 ml @ 100 mls/hr Q8 IVPB Last administered on 01/17/19 13:21; Admin Dose 100 MLS/HR; Start 01/02/19 at 22:00 Vitamin B Complex/ Vitamin C (Berocca) 1 cap DAILY PO Last administered on 01/17/19 08:16; Admin Dose 1 CAP; Start 01/08/19 at 09:00 Fish Oil (Fish Oil) 1,000 mg DAILY PO Last administered on 01/17/19 08:21; Admin Dose 1,000 MG; Start 01/08/19 at 09:00 Vancomycin HCl 0.85 gm/Sodium Chloride 250 ml @ 125 mls/hr Q12H IVPB Last administered on 01/17/19 08:26; Admin Dose 125 MLS/HR; Start 01/08/19 at 08:30 Apixaban (Eliquis) 2.5 mg BID GTB Last administered on 01/17/19 08:17; Admin Dose 2.5 MG; Start 01/10/19 at 21:00 Atorvastatin Calcium (Lipitor) 10 mg QHS GTB Last administered on 01/16/19 20:39; Admin Dose 10 MG; Start 01/10/19 at 21:00 Donepezil HCl (Aricept) 5 mg QHS GTB Last administered on 01/16/19 20:39; Admin Dose 5 MG; Start 01/10/19 at 21:00 Quetiapine Fumarate (Seroquel) 100 mg HS GTB Last administered on 01/16/19 20:43; Admin Dose 100 MG; Start 01/10/19 at 21:00 Valproate Sodium (Depakene Liquid Cup) 125 mg BID GTB Last administered on 01/17/19 08:22; Admin Dose 125 MG; Start 01/10/19 at 21:00 Acetaminophen (Tylenol Liquid) 500 mg BID GTB Last administered on 01/17/19 08:16; Admin Dose 500 MG; Start 01/10/19 at 21:00 Metoprolol Tartrate (Lopressor) 12.5 mg BID GTB Last administered on 01/17/19 08:20; Admin Dose 12.5 MG; Start 01/11/19 at 09:00 Ammonium Lactate (Lac-Hydrin 12% Lotion) 1 applic DAILY TOP Last administered on 01/17/19 11:39; Admin Dose 1 APPLIC; Start 01/11/19 at 16:00 Clotrimazole (Lotrimin Cr) 1 applic BID TOP Last administered on 01/17/19 11:39; Admin Dose 1 APPLIC; Start 01/11/19 at 21:00 Diagnostic Test (Pha) (Accu-Chek) 1 ea 02 XX Last administered on 01/17/19 02:31; Admin Dose 1 EA; Start 01/17/19 at 02:00 Insulin Aspart (Novolog Insulin Pen) NOVOLOG *MILD* ALGORITHM WITH MEALS BEDTIME SC Last administered on 01/17/19 08:37; Admin Dose 2 UNIT; Start 01/16/19 at 12:00 Insulin Glargine (Lantus) 12 units QHS SC Last administered on 01/16/19 20:35; Admin Dose 12 UNITS; Start 01/16/19 at 21:00 Metformin HCl (Glucophage) 1,000 mg WITH BREAKFAST DINNE PO Last administered on 01/17/19 08:25; Admin Dose 1,000 MG; Start 01/16/19 at 18:05 Empaglifozin (Jardiance) 10 mg DAILY@08 PO Last administered on 01/17/19 08:21; Admin Dose 10 MG; Start 01/17/19 at 08:00 Repaglinide (Prandin) 0.5 mg AC MEALS PO Last administered on 01/17/19 12:07; Admin Dose 0.5 MG; Start 01/16/19 at 17:35 Miscellaneous Information (*Rx Drug Level Order Reminder*) VANCO TROUGH 01/18 @ 0,730 0730 ONCE XX ; Start 01/18/19 at 07:30; Stop 01/18/19 at 07:31 EDER ATKINSON MD January 17, 2019 14:10
== END 2019-01-17 18:33 | DRG 872 ==
LOC: E/R 14:52 → PP2 18:01
PROVIDERS: ADMIT Internal Medicine; ATTEND Internal Medicine
DX: A41.9 Sepsis, unspecified organism (principal); M86.8X7 Other osteomyelitis, ankle and foot; F02.81 Dementia in other diseases classified elsewhere, unspecified severity, with behavioral disturbance; E11.52 Type 2 diabetes mellitus with diabetic peripheral angiopathy with gangrene; I50.22 Chronic systolic (congestive) heart failure; E44.1 Mild protein-calorie malnutrition; E11.621 Type 2 diabetes mellitus with foot ulcer; E11.69 Type 2 diabetes mellitus with other specified complication; L97.529 Non-pressure chronic ulcer of other part of left foot with unspecified severity; L97.519 Non-pressure chronic ulcer of other part of right foot with unspecified severity; I25.10 Atherosclerotic heart disease of native coronary artery without angina pectoris; I48.91 Unspecified atrial fibrillation; R13.10 Dysphagia, unspecified; Z93.1 Gastrostomy status; G30.9 Alzheimer's disease, unspecified; Z95.1 Presence of aortocoronary bypass graft; Z89.421 Acquired absence of other right toe(s); E78.5 Hyperlipidemia, unspecified; E11.40 Type 2 diabetes mellitus with diabetic neuropathy, unspecified; B35.1 Tinea unguium; M47.896 Other spondylosis, lumbar region; I11.0 Hypertensive heart disease with heart failure; Z86.73 Personal history of transient ischemic attack (TIA), and cerebral infarction without residual deficits; Z68.20 Body mass index [BMI] 20.0-20.9, adult
CPT/HCPCS: 71045; 73630; 80048; 80053; 80202; 82565; 82947; 82962; 83036; 84520; 85025; 85651; 86140; 87070; 87081; 96374; 97110; 97161; 97530; J0696; J1815; J2185; J3370; J7050

== ENCOUNTER 2019-02-17 11:25 | Inpatient (IN) | payer MEDICARE, BC ==
[~2019-02-17] VITALS: Ht 167.6 cm; Wt 60.0 kg
[2019-02-17] VITALS (12 sets, daily range): BP systolic 84; BP diastolic 62; PULSE 30–150; RESP 34; Ht 167.6 cm; Wt 60.0 kg
[~2019-02-17 11:25] MED LIST changes: -ALBU2.5V3 NEB; -ASPI-903 PO; +BISA10SU75 PR; -CHOL200056 PO; +CLON-379 PO; -FURO40TA4 PO; +FURO80TA3 PO; +LANS30CA PO; +MAGN400O19 PO; +MINE133E23 PR; -OMEP20CA16 PO; +ZINC220T PO
--- NOTE | 2019-02-17 11:36 | ERD ---
ER Documentation Chief Complaint Chief Complaint aloc HPI The patient is a 83-year-old male, presenting to the ER because of altered level of consciousness. According to the EMS, he is more altered than normal. He is unable to provide any history. The history is obtained from gis specialist and medical record. He is receiving antibiotic for right foot infection. He was discharged from the hospital recently Past medical history: History of CHF, atrial fibrillation, dementia, bilateral diabetic foot ulcer, peripheral arterial disease, diabetes mellitus, CAD, dyslipidemia, history of intracranial hemorrhage Past surgical history: Bilateral metatarsal amputation, CABG, G-tube ROS All systems reviewed and are negative except as per history of present illness. Medications Home Meds Reported Medications Cyclosporine (Restasis Multidose) 5.5 Ml Drops, 5.5 ML OP BID, BOTTLE 02/17/19 Insulin Aspart* (Novolog Insulin Pen*) 100 Unit/Ml Soln, 0 SC .SLIDING SCALE AC, EA IF BS 0-150=0 UNIT, 151-200=2 UNITS,201-250=4 UNITS,251-300=6 UNITS, 301-350=8 UNITS,351-400=10 UNITS,401+=12 UNITS AND CALL MD. 02/17/19 Vitamin B Complex* (Vitamin B Complex*) 1 Each Tablet, 1 TAB PO DAILY, TAB 02/17/19 Amino Acids/Protein Hydrolys (PRO-STAT LIQUID) 30 Ml Liquid.pkt, 30 ML PO DAILY SUGAR FREE 02/17/19 Clopidogrel Bisulfate* (Clopidogrel Bisulfate*) 75 Mg Tablet, 75 MG PO DAILY, #30 TAB 02/17/19 Metoprolol Tartrate* (Lopressor*) 25 Mg Tab, 12.5 MG PO BID, #60 TAB HOLD IF SBP BELOW 110 OR HR BELOW 60 02/17/19 Metformin Hcl* (Metformin Hcl*) 1,000 Mg Tablet, 1000 MG PO WITH BREAKFAST DINNE, #60 TAB 02/17/19 Furosemide* (Furosemide*) 40 Mg Tablet, 40 MG PO DAILY, TAB 02/17/19 Empagliflozin (Jardiance) 10 Mg Tablet, 10 MG PO DAILY, TAB 02/17/19 Nut.tx.gluc.intoler,Lac-Fr,Soy (Glucerna 1.2 Albin) 237 Ml Liquid, 237 ML GTB Q6H 02/17/19 Ferrous Sulfate* (Ferrous Sulfate*) 325 Mg Tabec, 325 MG PO DAILY, TAB 02/17/19 Magnesium Hydroxide* (Milk Of Magnesia*) 400 Mg/5 Ml Oral.susp, 30 ML PO QHS PRN for NEEDED, ML 01/01/19 Lansoprazole* (Lansoprazole*) 30 Mg Capsule.dr, 30 MG PO DAILY, CAP 01/01/19 Mineral Oil* (Fleet* Mineral Oil Enema) 133 Ml Oil, 1 APPLIC FL Q2D, ENEMA NEEDED 01/01/19 Bisacodyl* (Bisacodyl*) 10 Mg Supp, 10 MG FL DAILY PRN for NEEDED, SUPP 01/01/19 Clonidine Hcl* (Clonidine Hcl*) 0.1 Mg Tab, 0.1 MG PO Q8H PRN for IF SBP>160, TAB 01/01/19 Zinc Sulfate* (Zinc Sulfate*) 220 Mg Tablet, 220 MG PO DAILY, TAB 01/01/19 Ascorbic Acid* (Vitamin C*) 500 Mg Capsule.sa, 500 MG PO DAILY, CAP 10/10/18 Valproic Acid* (Valproic Acid* Liq) 250 Mg/5 Ml Syrup, 2.5 ML PO BID, ML 10/10/18 Cran/Vitc/Mannose/Inulin/Brom (Uti-Stat Liquid) 3,875 Mg/30 Ml Liquid, 30 ML PO DAILY 10/10/18 Acetaminophen* (Tylenol*) 500 Mg Tab, 1000 MG PO BID PRN for GENERALIZED PAIN, TAB 10/10/18 Acetaminophen* (Tylenol*) 500 Mg Tab, 1000 MG PO Q4H PRN for PAIN 4-6/10, TAB 10/10/18 Acetaminophen* (Tylenol*) 325 Mg Tablet, 650 MG PO Q4H PRN for MILD PAIN LEVEL 1-3, TAB FOR FEVER 100 AND ABOVE 10/10/18 Linagliptin (TRADJENTA) 5 Mg Tablet, 5 MG PO DAILY, TAB 10/10/18 Quetiapine Fumarate* (Seroquel*) 100 Mg Tablet, 100 MG PO HS, #30 TAB 10/10/18 Insulin Glargine* (Lantus*) 100 Unit/Ml Soln, 12 UNIT SC QHS, #1 VIAL 10/10/18 Apixaban* (Eliquis*) 2.5 Mg Tablet, 2.5 MG PO DAILY, TAB 10/10/18 Cranberry Extract (Cranberry) 425 Mg Capsule, 425 MG PO DAILY, CAP 10/10/18 Docusate Sodium* (Colace*) 100 Mg Capsule, 200 MG PO QHS PRN for CONSTIPATION, #30 CAP 10/10/18 Benazepril Hcl* (Benazepril Hcl*) 10 Mg Tablet, 10 MG PO DAILY, #30 TAB HOLD FOR SBP BELOW 110 OR BELOW60 10/10/18 Atorvastatin Calcium (Atorvastatin Calcium) 10 Mg Tablet, 10 MG PO QHS, #30 TAB 10/10/18 Donepezil* (Aricept*) 5 Mg Tablet, 5 MG PO QHS, TAB 10/10/18 Discontinued Reported Medications Empagliflozin (Jardiance) 10 Mg Tablet, 10 MG PO DAILY, TAB 02/17/19 Furosemide* (Furosemide*) 80 Mg Tablet, 80 MG PO DAILY, #30 TAB 01/01/19 Multivitamin with Minerals (Multivitamins with Minerals) 1 Each Tablet, 1 EACH PO DAILY, TAB 10/10/18 Metoprolol Tartrate* (Lopressor*) 25 Mg Tab, 25 MG PO BID, #60 TAB HOLD FOR SBP [id number] OR HR BELOW60 10/10/18 Metformin Hcl* (Metformin Hcl*) 500 Mg Tablet, 500 MG PO WITH BREAKFAST DINNE, #60 TAB 10/10/18 Clonazepam* (Klonopin*) 0.5 Mg Tab, 0.5 MG PO DAILY PRN for ANXIETY, TAB 10/10/18 Digoxin* (Digitek*) 125 Mcg Tablet, 0.125 MG PO DAILY, TAB 10/10/18 Allergies Allergies: Coded Allergies: Penicillins (Unverified Allergy, Unknown, 02/17/19) codeine (Unverified Allergy, Unknown, 02/17/19) morphine (Unverified Allergy, Unknown, 02/17/19) PMhx/Soc History of Surgery: Yes (Bilateral metarsal amputation) Anesthesia Reaction: No Hx Neurological Disorder: Yes (alzheimers, dementia) Hx Respiratory Disorders: No Hx Cardiac Disorders: Yes (CHF, afib) Hx Psychiatric Problems: No Hx Miscellaneous Medical Probl: No Hx Alcohol Use: No Hx Substance Use: No Hx Tobacco Use: No Physical Exam Vitals Vital Signs Date Temp Pulse Resp B/P (MAP) Pulse Ox O2 O2 Flow FiO2 Time Delivery Rate 02/17/19 98.9 132 30 108/64 98 Nasal 13:02 (79) Cannula 02/17/19 Nasal 12:45 Cannula 02/17/19 97.8 156 30 89/67 (74) 98 11:36 Physical Exam Const: No acute distress.Dehydrated Head: Atraumatic. Eyes: Normal Conjunctiva. ENT: Normal External Ears, Nose and Mouth. Neck: Full range of motion. No meningismus. Resp: Clear to auscultation anteriorly and laterally Cardio: Irregularly irregular tachycardic Abd: Soft, non distended, normal bowel sounds, non tender. Skin: No petechiae or rashes. Back: No midline or flank tenderness. Ext: No cyanosis, or edema. Neur: Unable to perform due to his condition Psych: Unable to perform due to his condition Result Diagram: 02/17/19 1154 02/17/19 1154 Results 24 hrs Laboratory Tests Test 02/17/19 11:54 02/17/19 12:09 02/17/19 12:31 02/17/19 12:32 White Blood Count 15.6 10^3/ul Red Blood Count 5.39 10^6/ul Hemoglobin 14.1 g/dl Hematocrit 45.8 % Mean Corpuscular 85.0 fl Volume Mean Corpuscular 26.2 pg Hemoglobin Mean Corpuscular 30.8 g/dl Hemoglobin Concent Red Cell 16.2 % Distribution Width Platelet Count 360 10^3/UL Mean Platelet 11.5 fl Volume Immature 0.600 % Granulocytes % Neutrophils % 89.9 % Lymphocytes % 6.2 % Monocytes % 2.9 % Eosinophils % 0.0 % Basophils % 0.4 % Nucleated Red 0.0 /100WBC Blood Cells % Immature 0.100 10^3/ul Granulocytes # Neutrophils # 14.0 10^3/ul Lymphocytes # 1.0 10^3/ul Monocytes # 0.5 10^3/ul Eosinophils # 0.0 10^3/ul Basophils # 0.1 10^3/ul Nucleated Red 0.0 10^3/ul Blood Cells # Prothrombin Time 18.1 Sec Prothrombin Time 1.4 Ratio INR International 1.49 Normalized Ratio Activated 26.[address] Time Sodium Level 142 mmol/L Potassium Level 5.0 mmol/L Chloride Level 107 mmol/L Carbon Dioxide 16 mmol/L Level Anion Gap 19 Blood Urea 28 mg/dl Nitrogen Creatinine 0.90 mg/dl Est Glomerular mL/min Filtrat Rate mL/min Glucose Level 298 mg/dl Calcium Level 9.5 mg/dl Total Bilirubin 0.5 mg/dl Direct Bilirubin 0.00 mg/dl Indirect Bilirubin 0.5 mg/dl Aspartate Amino 55 IU/L Transf (AST/SGOT) Alanine 29 IU/L Aminotransferase ( ALT/SGPT) Alkaline 245 IU/L Phosphatase Troponin I 0.246 ng/ml Total Protein 8.0 g/dl Albumin 4.0 g/dl Globulin 4.00 g/dl Albumin/Globulin 1.00 Ratio Bedside Glucose 285 mg/dL POC Venous Lactate 5.2 mmol/L Thyroid 1.980 MIU/L Stimulating Hormone (TSH) Test 02/17/19 12:41 Blood Gas Specimen Blood arterial Source Arterial Blood 02/17/2019 12:50:00 Date Drawn PM Arterial Blood pH 7.335 (Temp corrected) Arterial Blood 27.8 mmhg pCO2 (Temp correct) Arterial Blood pO2 83.9 mmHG (Temp corrected) Arterial Blood 14.5 mmol/L HCO3 Arterial Blood -9.8 mmol/L Base Excess Arterial Blood 94.9 mmHG Oxygen Saturation Chetan Test N/A Arterial Blood Gas LB Puncture Site Arterial 0.1 % Blood Carboxyhemog lobin Arterial Blood 0.3 % Methemoglobin Blood Gas A-a O2 32.5 mmHg Differential Oxyhemoglobin 94.5 % Percent Blood Gas 37.0 C Temperature Blood Gas Modality ROOM AIR FiO2 21.0 % Blood Gas Notified TM Whom Blood Gas Notified 02/17/2019 1:03:00 Time PM Current Medications Medications Dose Sig/Marciano Start Time Status Last (Trade) Ordered Route PRN Stop Time Admin Dose Reason Admin Sodium 1,800 ml @ BOLUS X1 02/17/19 DC 02/17/19 Chloride 1,800 mls/hr ONCE IV 12:00 02/17/19 12:11 12:59 Vancomycin 250 ml @ ONCE ONCE 02/17/19 DC 02/17/19 HCl 125 mls/hr IVPB 12:00 02/17/19 14:00 13:59 50 ml @ ONCE STAT 02/17/19 DC 02/17/19 Meropenem/Sod 100 mls/hr IVPB 11:40 02/17/19 13:00 ium Chloride 12:09 Procedures/[address], [place] [address] Radiology Main Line: [phone] DIAGNOSTIC IMAGING REPORT Patient: LUANNE KNOX : 1935 Age: 83 Sex: M MR #: [id number] [facility] #: [id number] DOS: 02/17/19 1150 Ordering MD: EDER DAVIS MD Location: E/R Room/Bed: PROCEDURE: CT Brain without contrast. CLINICAL INDICATION: Altered mental status. TECHNIQUE: A CT of the brain without contrast was performed utilizing axial sections from the skull base through the vertex. One or more the following does reduction techniques were utilized: Automated exposure control, adjustment of the mA/ or kV according to patient's size, or use of iterative reconstruction technique. Total exam CTDIvol is 40 MGy and DLP is 634 mGy-cm. DICOM images are available. COMPARISON: Brain CT 10/14/2018. FINDINGS: Persistent 2-3 mm thickening of the dura along the anterior and inferior aspect of the left frontal lobe without significant interval change compared to prior brain CT. The ventricles and sulci are moderately prominent indicative of volume loss. There is no the acute intracranial hemorrhage, mass effect or midline shift. The sharma/white matter differentiation is well preserved. There are mild to moderate scattered foci of hypoattenuation in the periventricular, deep, and subcortical white matter, which are nonspecific in etiology but likely reflect chronic small vessel ischemic changes. There are mild to moderate intracranial vascular calcifications consistent with atherosclerosis. The visualized paranasal sinuses demonstrate persistent opacification of the left frontal sinus and frontoethmoidal recess. The mastoid air cells are essentially clear. IMPRESSION: 1. Persistent 2-3 mm thickening of the dura along the anterior and inferior aspect of the left frontal lobe without significant interval change compared to prior brain CT. 2. No acute intracranial hemorrhage, transcortical infarction or mass effect. 3. Mild to moderate intracranial atherosclerosis and chronic small vessel ischemic changes. 4. Moderate generalized cerebral volume loss. 5. Persistent opacification of the left frontal sinus and frontoethmoidal recess. RPTAT: HH .Jere Langston MD, Date Time Electronically viewed and signed by .Jere Langston MD, on 02/17/2019 12:31 .N/ CC: EDER DAVIS MD [id number] [place] [id number] Radiology Main Line: [phone] DIAGNOSTIC IMAGING REPORT Patient: LUANNE KNOX : 1935 Age: 83 Sex: M MR #: [id number] DOS: 02/17/19 1138 Ordering MD: EDER DAVIS MD Location: E/R Room/Bed: PROCEDURE: XR Chest. CLINICAL INDICATION: Shortness of breath, possible sepsis TECHNIQUE: Single frontal radiograph of the chest. COMPARISON: DR RAHMAN 01/10/2019 FINDINGS: Postoperative changes from open thoracic surgery with sternotomy wires. Increased right basilar infiltrate concerning for pneumonia. No pleural effusion. No pneumothorax. Cardiomegaly unchanged. Vascular calcifications of the aorta are present compatible with atherosclerosis. IMPRESSION: Increased right basilar infiltrate concerning for pneumonia. RPTAT: AADD .Gustavo Adames MD, Date Time Electronically viewed and signed by .Gustavo Adames MD, on 02/17/2019 12:17 .B/ CC: EDER DAVIS MD [id number] EKG: Read by emergency physician Rate/Rhythm: Atrial fibrillation at 156 beats/min QRS, ST, T-waves: No ST elevation, no T inversion, LAD, septal Q's Impression: Abnormal EKG MEDICAL MAKING DECISION: The patient is a 83-year-old male, presenting with acute septic shock, acute bilateral pneumonia, acute dehydration, acute troponin elevation. He was treated with vancomycin IV, meropenem IV, normosaline 30 mm/kg IV The differential diagnoses considered include but are not limited to pneumonia, empyema, aspiration pneumonia, ACS, non-STEMI, osteomyelitis MDM: Patient's infectious symptoms have not stabilized and the patient is at risk of rapid decompensation. The patient will be admitted for careful hydration, antibiotic therapy, and infectious source control. SEVERE SEPSIS CRITERIA: Infectious source: pna End organ damage indicated by: [Lactate > 2.0 mmol/L SEPSIS MANAGEMENT Time of recognition of septic shock: 12:35p 3 HOUR BUNDLE Blood cultures x 2 before broad-spectrum antibiotics: [Yes] 30 ml/kg NS bolus [Completed] Initial lactate []5.2 Repeat lactate Pending SEPTIC SHOCK ASSESSMENT: [Y] lactic acid > 4.0 [No] Persistent hypotension (SBP < 90 or 40 mmHg drop, MAP < 65) despite 30 mL/kg IV fluid bolus VOLUME REASSESSMENT FOR SEPTIC SHOCK: Reevaluation Time: []2:16p Temp []98.9, BP []101/68, HR []132, RR[]30, Pox []98% on 2L Heart Clear to auscultation anteriorly and laterally Lungs [No crackles] Skin [Warm & dry] Cap Refill [Less than 2 seconds] Peripheral pulses [Radially present] PERSISTENT HYPOTENSION TREATMENT: Comfort care [No] Central line [Not Required] Vasopressor started [Not required] I considered further perfusion assessment with CVP measurement, SCVO2, bedside ultrasound volume assessment, passive leg raise, trial of further fluid bolus. And proceeded with [30 ml/kg fluid bolus of NSS, broad spectrum antibiotics, and admission.] CRITICAL CARE Critical care time [35] minutes Emergent fluid management while maintaining close respiratory support. Provision of immediate and broad-spectrum antibiotic therapy. Simultaneous assessment for possible sources in order to direct targeted therapy. Consideration for invasive and chemical support to prevent cardiopulmonary collapse. Critical care time is independent of procedures performed. Departure Diagnosis: Primary Impression: Septic shock Additional Impressions: PNA (pneumonia) Elevated troponin Dehydration Hyperglycemia Condition: Critical Comments I discussed the findings with the patient. I discussed the patient with Dr Campbell 9:30 p , who was made aware of the lab, the treatment, the patient condition. He is currently in the ER to admit the patient The patient is admitted to ICU. Disclaimer: Inadvertent spelling and grammatical errors are likely due to EHR/dictation software use and do not reflect on the overall quality of patient care. Also, please note that the electronic time recorded on this note does not necessarily reflect the actual time of the patient encounter. EDER DAVIS MD Feb 17, 2019 11:36
[2019-02-17] MEDS ORDERED: MEROPENEM 1 GM/50ML(PMX) 50 ML IVPB STA (11:40)
[2019-02-17] MEDS ORDERED: VANCOMYCIN 1 GM (PMX) 250 ML IVPB ONE (12:00)
[2019-02-17] MEDS ORDERED: SOD CHLORIDE 0.9% 1,800 ML IV ONE (12:00)
[2019-02-17] MEDS ORDERED: FER325 PO (12:41)
[2019-02-17] MEDS ORDERED: [UNRECOGNIZED DRUG - CODE] GTB (12:44)
[2019-02-17] MEDS ORDERED: EMPA10TA PO ×2 (12:46→13:04)
[2019-02-17] MEDS ORDERED: FURO40TA4 PO (12:47)
[2019-02-17] MEDS ORDERED: METF100010 PO (12:49)
[2019-02-17] MEDS ORDERED: METO-448 PO (12:50)
[2019-02-17] MEDS ORDERED: CLOP75TA19 PO (12:51)
[2019-02-17] MEDS ORDERED: AMIN30LI PO (12:53)
[2019-02-17] MEDS ORDERED: VIT1TABL46 PO (12:59)
[2019-02-17] MEDS ORDERED: NOVO3I SC (13:03)
[2019-02-17] MEDS ORDERED: CYCL5.5D OP (13:04)
[2019-02-17] MEDS ORDERED: LORAZEPAM 2 MG INJ IV PRN (17:00)
[2019-02-17] MEDS ORDERED: HYDROmorphONE 0.5 MG/0.5 ML SYG IV PRN (17:00)
[2019-02-17] MEDS ORDERED: ONDANSETRON 4 MG INJ IV PRN (17:00)
[2019-02-17] MEDS ORDERED: IPRATROPIUM (NEB) 0.5 MG/2.5 ML AMP NEB PRN (17:00)
[2019-02-17] MEDS ORDERED: HYDROCODONE/APAP (5/325) TAB PO PRN (17:00)
[2019-02-17] MEDS ORDERED: DOCUSATE SODIUM 100 MG CAP PO PRN (17:00)
[2019-02-17] MEDS ORDERED: ZOLPIDEM 5 MG TAB PO PRN (17:00)
[2019-02-17] MEDS ORDERED: ACETAMINOPHEN 650MG/20.3ML CUP PO PRN (17:00)
[2019-02-17] MEDS ORDERED: ALBUTEROL 0.083% (NEB) 2.5 MG/3 ML AMP NEB PRN (17:00)
[2019-02-17] MEDS ORDERED: NACL 0.9% 3 ML SYG IV SCH (17:00)
[2019-02-17] MEDS ORDERED: MAGNESIUM HYDROXIDE 30ML CUP PO PRN (17:00)
[2019-02-17] MEDS ORDERED: SOD CHLORIDE 0.9% 1,000 ML IV ONE (17:30)
--- NOTE | 2019-02-17 17:57 | HP ---
Date/Time of Note Date/Time of Note DATE: 02/17/19 TIME: 17:57 Assessment/Plan VTE Prophylaxis Pharmacological prophylaxis: LMWH Lines/Catheters IV C[facility] Type (from [facility] PICC Line Central line still needed: Yes Assessment/Plan Assessment/Plan -Severe Sepsis, admitted to intensive care unit, continue IV fluids and broad-spectrum antibiotics follow-up on cultures. Dr. Blake is asked to see patient in infection disease consultation. -HCAP -Acute hypoxemic respiratory failure, continue supplemental oxygen. -Elevated troponin most likely secondary to demand ischemia, rule out acute coronary syndrome. Dr. Alexandre is asked to see patient in cardiology consultation. -A-fib with RVR. Continue Lovenox. -Acute encephalopathy most likely secondary to sepsis, brain CT is negative for new acute findings. -Peripheral vascular disease. S/p recent R femoral artery vascular procedure by Dr Woody. -Bilateral diabetic foot ulcers, right foot necrotic wounds. -Diabetes mellitus type 2 continue Lantus and NovoLog. -Coronary artery disease, status post CABG. Continue Plavix. -Dysphagia with G-tube. 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 Further recommendations based on clinical course. Plan of care discussed with Dr. Anna. Result Diagram: 02/17/19 1154 02/17/19 1154 Results 24hrs Laboratory Tests Test 02/17/19 11:54 02/17/19 12:09 02/17/19 12:31 02/17/19 12:32 White Blood 15.6 #H Count Red Blood Count 5.39 Hemoglobin 14.1 Hematocrit 45.8 Mean Corpuscular 85.0 Volume Mean Corpuscular 26.2 L Hemoglobin Mean Corpuscular 30.8 L Hemoglobin Kaley nt Red Cell 16.2 H Distribution Width Platelet Count 360 Mean Platelet 11.5 H Volume Immature 0.600 H Granulocytes % Neutrophils % 89.9 H Lymphocytes % 6.2 L Monocytes % 2.9 Eosinophils % 0.0 Basophils % 0.4 Nucleated Red 0.0 Blood Cells % Immature 0.100 H Granulocytes # Neutrophils # 14.0 H Lymphocytes # 1.0 Monocytes # 0.5 Eosinophils # 0.0 Basophils # 0.1 Nucleated Red 0.0 Blood Cells # Prothrombin Time 18.1 #H Prothrombin Time 1.4 Ratio INR 1.49 International Normalized Ratio Activated 26.3 Partial Thrombop last Time Sodium Level 142 Potassium Level 5.0 Chloride Level 107 Carbon Dioxide 16 L Level Anion Gap 19 H Blood Urea 28 H Nitrogen Creatinine 0.90 Est Glomerular Filtrat Rate mL/min Glucose Level 298 H Calcium Level 9.5 Total Bilirubin 0.5 Direct Bilirubin 0.00 Indirect 0.5 Bilirubin Aspartate Amino 55 H Transf (AST/SGOT ) Alanine 29 Aminotransferase (ALT/SGPT) Alkaline 245 H Phosphatase Troponin I 0.246 *H Total Protein 8.0 Albumin 4.0 Globulin 4.00 H Albumin/Globulin 1.00 Ratio Bedside Glucose 285 H POC Venous 5.2 *H Lactate Thyroid 1.980 Stimulating Hormone (TSH) Test 02/17/19 12:41 02/17/19 15:04 02/17/19 15:20 Blood Gas Blood arterial Specimen Source Arterial Blood 02/17/2019 12:50:0 Date Drawn 0 PM Arterial Blood 7.335 L pH (Temp corrected) Arterial Blood 27.8 L pCO2 (Temp correct) Arterial Blood 83.9 pO2 (Temp corrected) Arterial Blood 14.5 L HCO3 Arterial Blood -9.8 L Base Excess Arterial Blood 94.9 L Oxygen Saturatio n Chetan Test N/A Arterial Blood LB Gas Puncture Site Arterial 0.1 Blood Carboxyhem oglobin Arterial Blood 0.3 Methemoglobin Blood Gas A-a O2 32.5 H Differential Oxyhemoglobin 94.5 Percent Blood Gas 37.0 Temperature Blood Gas ROOM AIR Modality FiO2 21.0 Blood Gas TM Notified Whom Blood Gas 02/17/2019 1:03:00 Notified Time PM Lactic Acid 8.2 *H Level Urine Color YELLOW Urine Clarity SLIGHTLY CLOUDY A Urine pH 5.0 Urine Specific 1.022 [place] Urine Ketones TRACE A Urine Nitrite NEGATIVE Urine Bilirubin NEGATIVE Urine NEGATIVE Urobilinogen Urine Leukocyte TRACE A Esterase Urine 15 H Microscopic RBC Urine 3 Microscopic WBC Urine Hemoglobin 2+ H Urine Glucose 3+ H Urine Total NEGATIVE Protein HPI/ROS Admit Date/Time Admit Date/Time Hx of Present Illness The patient is a 83-year-old male known to me from previous admissions. Patient has extensive medical history including coronary artery disease, status post CA BG, CHF, atrial fibrillation, dyslipidemia, history of intracranial bleed, status post craniotomy, diabetes, bilateral diabetic foot ulcers, right foot gangrene with osteomyelitis. Patient has severe peripheral arterial disease with long segment femoral-popliteal occlusion not amendable to endovascular or open bypass. Amputation was recommended however patient's declined during last admission. Patient was discharged to nursing home [facility] facility with antibiotics for treatment of osteomyelitis. According to patient's patient had recent right femoral artery vascular procedure by Dr. Woody at [facility]. Patient was brought from nursing home facility today for altered level of consciousness. On admission the emergency room patient was diagnosed with severe sepsis with pneumonia. Patient started on broad-spectrum antibiotics. Patient will be admitted for further evaluation and management to ICU. ROS Unable to obtain due to patient's condition PMH/Family/Social Past Medical History per HPI Medical History: coronary artery disease, diabetes Medications Current Medications IV Flush (NS 3 ml) 3 ml PER PROTOCOL IV ; Start 02/17/19 at 17:00 Ondansetron HCl (Zofran Inj) 4 mg Q6H PRN IV NAUSEA AND/OR VOMITING; Start 02/17/19 at 17:00 Albuterol (Proventil 0.083% (Neb)) 2.5 mg Q2H RESP THERAPY PRN NEB SHORTNESS OF BREATH; Start 02/17/19 at 17:00 Ipratropium [place] (Atrovent 0.02% (Neb)) 0.5 mg Q2H RESP THERAPY PRN NEB SHORTNESS OF BREATH; Start 02/17/19 at 17:00 Acetaminophen (Tylenol Liquid) 650 mg Q6H PRN PO PAIN LEVEL 1-6 OR FEVER; Start 02/17/19 at 17:00 Hydromorphone HCl (Dilaudid) 0.5 mg Q4H PRN IV PAIN LEVEL 7-10; Start 02/17/19 at 17:00 Lorazepam (Ativan) 1 mg Q2H PRN IV ANXIETY; Start 02/17/19 at 17:00 Zolpidem Tartrate (Ambien) 5 mg QHS PRN PO INSOMNIA; Start 02/17/19 at 17:00 Docusate Sodium (Colace) 100 mg Q12H PRN PO CONSTIPATION; Start 02/17/19 at 17:00 Magnesium Hydroxide (Milk Of Mag) 30 ml DAILY PRN PO CONSTIPATION; Start 02/17/19 at 17:00 Pantoprazole (Protonix Iv) 40 mg DAILY@06 IV ; Start 02/18/19 at 06:00 Sodium Chloride 1,000 ml @ 1,000 mls/hr Q1H ONCE IV ; Start 02/17/19 at 17:30; Stop 02/17/19 at 18:29 Coded Allergies: Penicillins (Unverified Allergy, Unknown, 02/17/19) codeine (Unverified Allergy, Unknown, 02/17/19) morphine (Unverified Allergy, Unknown, 02/17/19) Past Surgical History Status post CABG, status post lumbar spine surgery, status post G-tube placement, status post right second and third toe amputation, status post surgery for intracranial bleed in [place], details are not available. s/p recent R femoral artery vascular procedure by Dr Woody. Past Surgical Hx: coronary bypass surgery, other Family History Significant Family History: no pertinent family hx Social History Alcohol Use: none Smoking Status: Former smoker Drug Use: none Exam/Review of Systems Vital Signs Vitals Vital Signs Date Temp Pulse Resp B/P (MAP) Pulse Ox O2 O2 Flow FiO2 Time Delivery Rate 02/17/19 98.9 129 34 93/70 (78) 100 Nasal 17:12 Cannula Exam Constitutional: frail Head: normocephalic Neck: supple Respiratory: diminished breath sounds Cardiovascular: irregular rhythm Gastrointestinal: soft, non-tender, other (G-tube) Musculoskeletal: nl extremities to inspection Extremities: normal pulses, other (Bilateral foot wounds covered with dressing) Neurological: lethargic TYE ADAMS Feb 17, 2019 17:57
[2019-02-17] MEDS ORDERED: AMIODARONE 150MG/D5W BOLUS 100 ML ONE (18:56)
[2019-02-17] MEDS ORDERED: PHENYLephrine 20MG IN 250 ML 250 ML IV SCH (19:00)
[2019-02-17] MEDS ORDERED: EPINEPHrine 0.1 MG/ML SYG ONE ×4 (19:39→20:01)
--- NOTE | 2019-02-17 21:31 | EN ---
Date/Time of Note Date/Time of Note DATE: 02/17/19 TIME: 21:29 ER Progress Note The patient was admitted earlier for acute severe sepsis due to acute pneumonia I received a call from his doctor Dr. Anna from the ICU because he is was not doing well and may need to be intubated On arrival he was having agonal breathing, RT was at the bedside Ambu bag is in progress. He was intubated immediately with any difficulty on first attempt He then went to bradycardia, pulseless v tach, pea. He was treated aggressively but he did not respond to the treatment. Please see the CODE BLUE documentation form for detail formation The CODE BLUE beginning at 1915 hour and ended at 20:04 for hours We discussed the patient condition with the ex- on the phone and the daughter and her were at the bedside Endotracheal Intubation by me: Pre assessment performed. See preceding note for details. Pre-oxygenation performed with 100% oxygen RSI: Performed w/o complication or hypoxic events. Medications as ordered. Blade: Lopez ET Tube: 7.5cm Depth: 23 cm at the lip Intubation confirmed by colorimetric CO2, equal breath sounds, quiet over the stomach. EDER DAVIS MD Feb 17, 2019 21:31
--- NOTE | 2019-02-18 04:41 | HP ---
DATE OF ADMISSION: 02/17/2019 ADDENDUM: After examining the patient in ER, I spoke with the patient's DPOA, Zamzam Aleman, who had been involved in patient's care for last several years. I explained to her that patient has pneumonia leading to severe sepsis and is critically ill. He will need to be admitted in ICU. Code status and goals of care were discussed with her. I explained her that the patient has severe sepsis with underlying multiple comorbid conditions including coronary artery disease, diabetes, peripheral vascular disease, hypertension, systolic heart failure and Alzheimer's dementia. She requested that that patient aggressive treatment. She also wants him to be full code in case the patient has cardiopulmonary arrest. She stated that she is taking a flight from [place] on 02/18/2019 to be with Mr. Aleman. Dictated By: GIDEON SMALLWOOD MD AB/NTS Conf#: [id number] DID#: [id number] CC: SAM FRANCO MD;*EndCC* MTDD
[2019-02-18] MEDS ORDERED: PANTOPRAZOLE 40 MG INJ IV SCH (06:00)
== END 2019-02-17 20:04 | disposition expired | DRG 871 ==
LOC: E/R 11:25 → ICU 13:07
PROVIDERS: ADMIT Internal Medicine; ATTEND Internal Medicine
PROC: 0BH17EZ Insertion of Endotracheal Airway into Trachea, Via Natural or Artificial Opening (ICD-10-PCS; principal; 2019-02-17)
PROC: 5A12012 Performance of Cardiac Output, Single, Manual (ICD-10-PCS; 2019-02-17)
DX: A41.9 Sepsis, unspecified organism (principal); R65.21 Severe sepsis with septic shock; J18.9 Pneumonia, unspecified organism; J96.01 Acute respiratory failure with hypoxia; G93.41 Metabolic encephalopathy; I50.20 Unspecified systolic (congestive) heart failure; I25.10 Atherosclerotic heart disease of native coronary artery without angina pectoris; E78.5 Hyperlipidemia, unspecified; Z86.73 Personal history of transient ischemic attack (TIA), and cerebral infarction without residual deficits; E11.51 Type 2 diabetes mellitus with diabetic peripheral angiopathy without gangrene; I48.91 Unspecified atrial fibrillation; E86.0 Dehydration; E11.65 Type 2 diabetes mellitus with hyperglycemia; R79.9 Abnormal finding of blood chemistry, unspecified; E11.621 Type 2 diabetes mellitus with foot ulcer; L97.529 Non-pressure chronic ulcer of other part of left foot with unspecified severity; L97.519 Non-pressure chronic ulcer of other part of right foot with unspecified severity; R13.10 Dysphagia, unspecified; Z93.1 Gastrostomy status; Z95.1 Presence of aortocoronary bypass graft; Z87.891 Personal history of nicotine dependence; G30.9 Alzheimer's disease, unspecified; F02.80 Dementia in other diseases classified elsewhere, unspecified severity, without behavioral disturbance, psychotic disturbance, mood disturbance, and anxiety; I46.9 Cardiac arrest, cause unspecified
CPT/HCPCS: 31500; 36600; 70450; 71045; 80053; 81001; 82803; 82962; 83605; 84443; 84484; 85025; 85610; 85730; 87086; 92950; 93005; 96374; J0171; J0282; J2185; J2370; J3370; J7030